=== PATIENT | female | born 2005 | race Caucasian/White ===

== ENCOUNTER 2024-11-17 20:57 | Emergency (ER) | payer MEDICAID, SELFPAY ==
[2024-11-17 20:58] VITALS: BP 131/63; PULSE 106; RESP 18; TEMP 37; O2SAT 100; BMI 25.7
--- NOTE | 2024-11-17 21:13 | EX.ED.GENINJ ---
HPI History of Present Illness Chief Complaint: Nausea/Vomiting/Diarrhea [facility] Medical History Physical exam, pre-employment Home Medications ?Medication ?Instructions ?Recorded ?Last Taken ?Type ondansetron 4 mg disintegrating 4 mg PO Q8H PRN PRN Nausea #10 tabs 11/17/24 Unknown Rx tablet Allergy/AdvReac Type Severity Reaction Status Date / Time No Known Allergies Allergy Unverified 09/06/24 11:09 Social History Smoking Status: Unknown if ever smoked EXAM Physical Exam Const Vital Signs: 11/17/24 20:58 Temperature 98.6 F Temperature Source Oral Pulse Rate 106 H Respiratory Rate 18 Blood Pressure 131/63 H Blood Pressure Mean 85 Pulse Ox 100 Oxygen Delivery Method Room Air MDM MDM MDM Narrative Medical decision making narrative: HISTORY OF PRESENT ILLNESS: 19-year-old female presents with concern for nausea and vomiting and diarrhea. No she is approximate 13 weeks . She further states she has no abdominal pain but notes multiple episodes of nausea vomiting as well as diarrhea today. No hematemesis, melena or hematochezia. No fever. Denies vaginal bleeding, passing any tissue. REVIEW OF SYSTEMS: Pertinent positives: Nausea vomiting diarrhea Pertinent negatives: Abdominal pain, vaginal bleeding, passing tissue or leaking fluid PHYSICAL EXAM: Nursing triage notes reviewed, Vital signs reviewed Constitutional: please see mdm HENT: MMM Eyes: Pupils equal round and reactive to light, Extraocular muscles intact Neck: No stridor, no JVD, full neck ROM Lungs: Clear to auscultation, No wheezing or rales. No increased work of breathing, no conversational dyspnea, no accessory muscle use, no nasal flaring. No respiratory distress noted Heart: Regular rate and rhythm, No murmurs, No rubs and No gallops, 2+ distal pulses (radial, femoral, posterior tibial) in all extremities Abdomen: Soft, there is no tenderness, rigidity, rebound or guarding, no obvious peritoneal signs, no palpable pulsatile abdominal masses, no auscultated abdominal bruit : No CVAT Extremities: No edema Neuro: No new focal neurological deficits, cranial nerves II through XII intact, 5/5 strength in all present extremities. Intact sensation to light touch in all present extremities, 2+ reflexes bilateral patella tendons. Skin: No rash or lesions noted MEDICAL DECISION MAKING: Chief Complaint: Nausea vomiting diarrhea External records reviewed: Reviewed prior records Factors affecting care: First trimester Social determinants of health: none History obtained from others: none Consults: none MDM Narrative: Patient was initially tachycardic rate of 106 otherwise afebrile and nontoxic-appearing. Exam with a benign abdomen IV and monitor placed Patient was treated initially 1 L normal saline and 4 mg of IV Zofran. Labs drawn. I considered the following differential diagnosis: Dehydration, electrolyte disturbance, UTI ALL IMAGES (IF OBTAINED) HAVE BEEN PERSONALLY REVIEWED AND INTERPRETED BY MYSELF. CBC without leukocytosis, severe anemia, no thrombocytopenia. BMP without evidence of significant electrolyte abnormalities, no anion gap, no acute kidney injury. Noted slight metabolic acidosis likely secondary to NAGMA from nausea vomiting LFTs show no evidence of hepatobiliary pathology. Lipase is wnl indicating no pancreatic inflammation. Urinalysis shows no evidence of urinary inflammation suggestive of UTI. Noted ketonuria likely secondary to dehydration and poor glucose utilization in the setting of nausea vomiting. Patient was able to tolerate p.o. after IV fluids and IV Zofran. Will give prescription for Zofran to take as needed for nausea vomiting control. The patient and/or family, caregivers express understanding. The patient and/or family, caregivers agrees with the plan. Shared decision making: I will have a discussion with the patient and or visitors regarding risk/benefits of further testing or admission. They will be made aware of of the risk/benefits inherent in this decision they will be given the opportunity to voice understanding. Total critical care time today provided was at least 0 minutes. This excludes separately billable procedures. Critical care time (if documented) is secondary to the patient having high probability of clinically significant/life threatening deterioration in the patient's condition which required my urgent intervention. Impression: 1. Nausea vomiting 2. First trimester Dispo: Discharge This note was generated with [email or web address] dictation software. It may contain incorrect words, spelling, and punctuation that were not noted in review of the chart prior to signing. Lab Data Labs: Laboratory Results - last 24 hr 11/17/24 21:39 WBC 10.5 RBC 4.58 Hgb 13.6 Hct 39.4 MCV 86.0 MCH 29.7 MCHC 34.5 RDW Std Deviation 40.2 RDW Coeff of Jeannine 13.1 Plt Count 230 MPV 9.6 Immature Gran % (Auto) 0.500 Neut % (Auto) 90.1 H Lymph % (Auto) 4.9 L Kay % (Auto) 4.1 Eos % (Auto) 0.2 Baso % (Auto) 0.2 Absolute Neuts (auto) 9.5 H Absolute Lymphs (auto) 0.52 L Nucleated RBC % 0 Sodium 136 Potassium 3.8 Chloride Direct 103 Carbon Dioxide 19.7 L Anion Gap 14 BUN 7 Creatinine 0.54 L Estim Creat Clear Calc 151.69 Est GFR (MDRD) Non-Af 135 BUN/Creatinine Ratio 12.4 Glucose 86 Calcium 9.0 Total Bilirubin 0.42 AST 18 ALT 15 Alkaline Phosphatase 53 Total Protein 7.0 Albumin 4.2 Globulin 2.9 Albumin/Globulin Ratio 1.5 Lipase 25 Urine Color Yellow Urine Clarity Sl. Cloudy Urine pH 6.0 Ur Specific Theodore 1.030 Urine Protein 100 H Urine Glucose (UA) Normal Urine Ketones 150 A* Urine Occult Blood Negative Urine Nitrite Negative Urine Bilirubin Negative Urine Urobilinogen Normal Ur Leukocyte Esterase 25 H Urine RBC 0 SEEN Urine WBC 5-10 SEEN Ur Squamous Epith Cells 25-50 SEEN Urine Bacteria 3+ Urine Mucus 2+ Discharge Plan Triage Chief Complaint: Nausea/Vomiting/Diarrhea ED Provider: Mathieu Luna Dx/Rx/DC Orders Instructions: ED Vomit Diarrhea [place] Adult Prescriptions: New ondansetron 4 mg tablet,disintegrating 4 mg PO Q8H PRN PRN (Reason: Nausea) Qty: 10 0RF Primary Care Provider: Care Physician,No Primary Referrals: Rachana Steiner DO [Med Staff - Active Staff] - Activity Restrictions/Additional Instructions: Thank you for trusting us with your care today! Please take Tylenol (2 pills, 650 mg) every 6 hours as needed for pain and fever control. Please take Zofran as needed for nausea vomiting control. Please return to the emergency department if your symptoms change or worsen. Please follow with your [facility]PERATOR for further outpatient evaluation and management. Print Language: Togolese Disposition Disposition: Home, Self Care Discharge Date/Time: 11/17/24 23:17
[2024-11-17] MEDS: 0.9% Normal Saline (1000mL) 1,000 ML 999 ML IV (21:42)
[2024-11-17] MEDS: Ondansetron 4 MG/2 ML Vial IV (21:42)
[2024-11-17 21:52] LABS: Absolute Lymphocyte Count 0.52 X10^3/uL (0.83-4.51); Absolute Neutrophil Count 9.5 X10^3/uL (2.0-7.7); Basophil# 0.02 X10^3/uL; Basophil% 0.2 % (0-1); Eosinophil# 0.02 X10^3/uL; Eosinophils% 0.2 % (0-5); Hematocrit 39.4 % (37-47); Hemoglobin 13.6 g/dL (12.0-15.0); Lymphocyte # 0.52 X10^3/ul (0.83-4.51); Lymphocyte % 4.9 % (19-41); Mean Corp Hgb Conc 34.5 g/dL (32-36); Mean Corpuscular Hgb 29.7 pg (27.0-32.0); Mean Platelet Vol. 9.6 fl (6.2-12.0); Monocyte# 0.43 X10^3/uL; Monocyte% 4.1 % (0-10); NRBC Flagged by Analyzer 0 % (0-5); Neutrophil # 9.49 X10^3/uL (2.7-7.7); Neutrophil % 90.1 % (47-70); POSITIVE DIFFERENTIAL YES; Platelet Count 230 K/mm3 (150-450); RBC Distribution Width CV 13.1 % (11.6-14.6); RBC Distribution Width SD 40.2 fl (35.1-43.9); Red Blood Count 4.58 M/mm3 (4.2-5.4); White Blood Count 10.5 K/mm3 (4.4-11.0)
[2024-11-17 22:01] LABS: Color, Urine Yellow (Yellow); Glucose, Dipstick Normal (Normal); Leukocyte Esterase-Dipstick 25 /ul (Negative); Nitrite-Dipstick Negative (Negative); Occult Blood-Urine Negative /ul (Negative); Protein-Dipstick 100 mg/dl (Negative); Urine Bilirubin Dipstick Negative (Negative); Urine Clarity Sl. Cloudy (Clear); Urine Urobilinogen Normal (Normal)
[2024-11-17 22:36] LABS: ALB/GLOB Ratio 1.5 RATIO (0.9-2.4); AST(SGOT) 18 U/L (<=31); Alanine Aminotransfer ALT/SGPT 15 U/L (<=34); Albumin, Serum 4.2 g/dL (3.5-5.0); Alkaline Phosphatase 53 U/L (35-104); Anion Gap 14 (5-15); BUN 7 mg/dL (4-19); BUN/Creat Ratio 12.4 RATIO (10-20); Bacteria 3+ /hpf (None Seen); Carbon Dioxide 19.7 mmol/L (22.0-29.0); Chloride 103 mmol/L (96-108); Creatinine, Serum 0.54 mg/dL (0.70-1.20); EST Glomerular Filtration Rate 135 (>60); Estimated Creatinine Clearance 151.69 ml/min; Globulin 2.9 g/dL (2.2-4.2); Glucose 86 mg/dL (70-99); Lipase 25 U/L (13-75); Mucous, Urine 2+ /hpf (<or=2+); Potassium 3.8 mmol/L (3.3-5.1); Red Blood Cells-Urine 0 SEEN /hpf (0-5); Sodium Level 136 mmol/L (133-145); Squamous Epithelial Cells - UA 25-50 SEEN /hpf (5-10); Total Bilirubin 0.42 mg/dL (0.00-1.30); White Blood Cells 5-10 SEEN /hpf (0-5)
[2024-11-17 22:37] LABS: Ketone-Dipstick 150 mg/dl (Negative)
== END 2024-11-17 23:17 | disposition home or self-care (01) ==
PROVIDERS: Emergency Provider Emergency Medicine; Visit Provider Emergency Medicine
DX: O21.9 Vomiting of pregnancy, unspecified (principal); Z3A.13 13 weeks gestation of pregnancy; O99.891 Other specified diseases and conditions complicating pregnancy; R19.7 Diarrhea, unspecified
CPT/HCPCS: 80053; 81001; 83690; 85025; 96361; 96374; 99283; A4216; J2405

== ENCOUNTER 2025-04-24 11:50 | Outpatient (CLI) | payer OTHER, SELFPAY ==
[2025-04-24 12:14] VITALS: BP 126/61; PULSE 104; RESP 16; TEMP 36.6
[2025-04-24 12:24] VITALS: BMI 30.9
[2025-04-24 13:02] LABS: Color, Urine Yellow (Yellow); Glucose, Dipstick Normal (Normal); Ketone-Dipstick Negative (Negative); Leukocyte Esterase-Dipstick 100 /ul (Negative); Nitrite-Dipstick Negative (Negative); Occult Blood-Urine Negative /ul (Negative); Protein-Dipstick Negative (Negative); Specific Gravity, Urine 1.020 (1.002-1.030); Urine Bilirubin Dipstick Negative (Negative)
[2025-04-24 13:04] LABS: ROM Internal Control Test YES-OK TO RESULT pt. (Internal QC); ROM Patient Test Negative (Negative); Record Kit Lot#, ROM+ K3358
--- NOTE | 2025-04-24 17:15 | OB.TRI.NOTE ---
HPI - General General Date of Admission: 04/24/25 Date of Service: 04/24/25 Chief Complaint: vaginal discharge HPI Narrative PATRICK MANCILLA, is a 19 F who presents 1 para 0 who presents at 35 6/7 weeks gestational age complaining of vaginal discharge. Maternal Data Information Final JIM: 05/23/25 Gestational age: 35 6/[address] [facility] Medical History (Updated 04/24/25 @ 17:[address] Berna Arias MD) Physical exam, pre-employment Home Medications ?Medication ?Instructions ?Recorded ?Last Taken ?Type ondansetron 4 mg disintegrating 4 mg PO Q8H PRN PRN Nausea #10 tabs 11/17/24 Unknown Rx tablet aspirin 81 mg chewable tablet 1 tab PO DAILY 04/24/25 04/23/25 21:00 History 1 TAB ferrous gluconate 236 mg (27 mg 236 mg PO DAILY 04/24/25 04/23/25 21:00 History iron) tablet 236 mg vit no.95-ferrous 1 tab PO DAILY 04/24/25 04/23/25 21:00 History fumarate 28 mg-folic acid 800 mcg 1 TAB tablet ( Multivitamins) Allergy/AdvReac Type Severity Reaction Status Date / Time No Known Allergies Allergy Verified 04/24/25 12:20 Social History Smoking Status: Unknown if ever smoked NST FHR Rate Baby A Baseline: 130 Variability:: Moderate Accelerations:: 15 x 15 Decelerations:: None NST Reactive:: Yes Uterine Activity:: none Assessment & Plan (1) and not yet delivered in third trimester: (2) with 35 completed weeks gestation: (3) Vaginal discharge during in third trimester: PLAN: No evidence of spontaneous rupture membranes. Urinalysis shows some contamination. Will send for urine culture and treat as needed. Return to the office as scheduled or follow-up as needed.
--- OUTSIDE RECORDS SUMMARY | 2025-04-24 19:00 | XMS RPT_ITS | CCD ---
Author Organization [facility] Care Team Providers Care Agent Based Modeler Name Role Phone Aura Alas DO Primary Care Provider DEBBIE CARRENO Referring Unavailable AURA ALAS Primary Care Unavailable Aura Alas DO Primary Care Provider AURA ALAS Primary Care Unavailable JEWEL MORRIS Attending Unavailable Aura Alas DO Primary Care Provider John Mireles Attending Unavailable John Mireles Attending Unavailable Mathieu Luna Attending Unavailable Care Physician, No Primary Primary Care Unava ilable AURA ALAS Primary Care Unavailable THERESA BUSCH Attending Unavailable NELLY GUTIERREZ Referring Unavailable ALASAURA Webber Primary Care Unavailable KERRIE MCKEON Attending Unavailable ALAS, ROCHELLE Primary Care Unavailable NELLY GUTIERREZ Attending Unavailable ALAS, ROCHELLE Primary Care Unavailable ALAS, ROCHELLE Primary Care Unavailable ZANE, BITA Referring Unavailable ALAS, AURA Ding Primary Care Unavailable NISHA CORCORAN Attending Unavailable ALASAURA Webber Primary Care Unavailable ALAS, AURA Ding Primary Care Unavailable JUDI VAZQUEZ Referring Unavailable ALAS, ROCHELLE Primary Care Unavailable NELLY GUTIERREZ Referring Unavailable ALASAURA A Primary Care Unavailable MCKEON, KERRIE Referring Unavailable MCKEON, KERRIE Referring Unavailable ALAS, ROCHELLE Primary Care Unavailable MCKEON, KERRIE Attending Unavailable ALAS, ROCHELLE Primary Care Unavailable ALAS, ROCHELLE Primary Care Unavailable THERSEA BUSCH Attending Unavailable ALAS, ROCHELLE Primary Care Unavailable MCKEON, KERRIE Attending Unavailable ALAS, ROCHELLE Primary Care Unavailable ALAS, ROCHELLE Primary Care Unavailable MCKEON, KERRIE Referring Unavailable NELLY GUTIERREZ Attending Unavailable ALAS, ROCHELLE Primary Care Unavailable ZANE, BITA Referring Unavailable ALAS, ROCHELLE Primary Care Unavailable ZANE, BITA Referring Unavailable NELLY GUTIERREZ Attending Unavailable AURA ALAS Primary Care Unavailable BITA DEGROOT Referring Unavailable NELLY GUTIERREZ Referring Unavailable AURA ALAS Primary Care Unavailable ELIUD CLARK Attending Unavailable AURA ALAS Primary Care Unavailable BITA DEGROOT Attending Unavailable BITA DEGROOT Referring Unavailable AURA ALAS Primary Care Unavailable CHARLEY WILSON Attending Unavailable PRABHA DALAL Attending Unavailable AURA ALAS Primary Care Unavailable AURA ALAS Primary Care Unavailable THERESA BUSCH Attending Unavailable AURA ALAS Primary Care Unavailable GEOVANI RUBALCAVA Attending Unavailable Care Physician, No Primary Primary Care Provider Unavailable Hugo COATES, Dr. Coronel Attending Provider [phone] Dr. Nelly Gutierrez MD Referring Provider Medications Current Medications Medication Drug Class(es) Dates Sig (Normalized) Sig (Original) amoxicillin 875 mg / clavulanate 125 mg oral tablet (1 source) Penicillin-class Antibacterial Start: 07-25-2023 End: 08-01-2023 take 1 tablet by mouth twice daily amoxicillin-clav ulanate potassium (AUGMENTIN) 875-125 mg per tablet Take 1 tablet by mouth two times a day for 7 days. 14 tablet 0 07/25/2023 08/01/2023 Active Comment on above: Take 1 tablet by jerry th two times a day for 7 days. aspirin 81 mg chewable tablet (17 sources) Platelet Aggregation Inhibitor, Nonsteroidal Anti-inflammatory Drug Start: 04-24-2025 Aspirin 81 mg tablet,chewable Active 1 {tbl} PO DAILY April 24, 2025 12:00am Start: 10-23-2024 End: 04-12-2025 take 1 tablet by mouth once daily aspirin, enteric coated (ECOTRIN LOW STRENGTH) 81 mg EC tablet Indications: Encounter for care in first trimester of first (HCC) Take 1 tablet by mouth once daily. 90 tablet 1 04/12/2025 Active ferrous gluconate (1 source) Start: 04-24-2025 take 1 tablet by mouth once daily Ferrous Gluconate 236 mg (27 mg iron) tablet Active 236 mg PO DAILY April 24, 2025 12:00am ferrous sulfate (SLOW FE) 137 mg (45 mg iron) TbER (16 sources) Start: 10-06-2024 take 1 tablet by mouth once daily ferrous sulfate (SLOW FE) 137 mg (45 mg iron) TbER Take 1 tablet by mouth once daily. 10/06/2024 Active nitrofurantoin, macrocrystals 25 mg / nitrofurantoin, monohydrate 75 mg oral capsule (2 sources) Nitrofuran Antibacterial Start: 05-26-2024 End: 05-31-2024 take 1 capsule by mouth twice daily nitrofurantoin monohydrate and macrocrystal (MACROBID) 100 mg capsule Take 1 capsule by mouth two times a day for 5 days. 10 capsule 05/26/2024 05/31/2024 Active ondansetron 4 mg oral tablet (13 sources) Serotonin-3 Receptor Antagonist Start: 11-20-2024 take 1 tablet by mouth every eight hours as needed ondansetron (ZOFRAN) 4 mg tablet Take 1 tablet by mouth every 8 hours as needed for nausea/vomiting. 30 tablet 11/20/2024 Active Start: 11-17-2024 take 1 tablet by [facility] every eight hours as needed for nausea Ondansetron 4 mg tablet,disintegrating Active 4 mg PO EVERY 8 HOURS NEEDED as needed for Nausea 10 0 November 17, 2024 1:00am Pnv Cmb#95-Ferrous Fumarate-Fa ( Multivitamins) 28 mg iron- 800 mcg tablet (1 source) Start: 04-24-2025 Pnv Cmb#95-Gerald jovita Fumarate-Fa ( Multivitamins) 28 mg iron- 800 mcg tablet Active 1 {tbl} PO DAILY April 24, 2025 12:00am predniSONE 20 mg oral tablet (1 source) Start: 07-22-2023 End: 07-28-2023 take 2 tablets by mouth once daily predniSONE (DELTASONE) 20 mg tablet Indications: Sore throat Take 2 tablets by mouth once daily for 5 days. 10 tablet 0 07/22/2023 07/28/2023 Active Comment on above: Take 2 tablets by mo [facility] once daily for 5 days. VITAFUSION GUMMY TChS (16 sources) Start: 10-06-2024 take 1 dose by mouth once daily VITAFUSION GUMMY TChS Take 1 Each by mouth once daily. 10/06/2024 Active Completed/Discontinued Medications Medication Drug Class(es) Dates Sig (Normalized) Sig (Original) Ethinyl Estradiol / Ferrous fumarate / Norethindrone (8 sources) Estrogen Start: 05-30-2024 End: 10-06-2024 take 1 tablet by mouth once daily Norethindrn A-E Estradiol-Iron () 1 mg-20 mcg (24)/75 mg (4) Take 1 tablet by mouth once daily. 84 tablet 1 05/30/2024 10/06/2024 Discontinued Start: 05-30-2024 take 1 tablet by jerry once daily Norethindrn A-E Estradiol-Iron ( 24) 1 mg-20 mcg (24)/75 mg (4) Take 1 tablet by mouth once daily. 84 tablet 1 05/30/2024 Active vitamin b6 50 mg oral tablet (5 sources) Start: 10-06-2024 End: 11-20-2024 take 1 tablet by mouth twice daily pyridoxine, vitamin B6, (VITAMIN B-6) 50 mg tablet Take 1 tablet by mouth two times a day. 10/06/2024 11/20/2024 Discontinued (Discontinued by Patient) Problems Active Problems Problem Classification Problem Date Documented Da te Episodic/Chronic Acquired foot deformities (1 source) Hammer toe; Translations: [Other hammer toe(s) (acquired), right foot] Chronic Acquired foot deformities (1 source) Hammer toe; Translations: [Other hammer toe(s) (acquired), left foot] Chronic Genitourinary symptoms and ill-defined conditions (2 sources) Urgent desire to urinate; Translations: [Urgency of urination] 05-24-2024 Episodic Headache; including migraine (1 source) Headache; Translations: [Headache in pediatric patient] 01-21-2024 Episodic Immunizations and screening for infectious disease (10 sources) Patient encounter status; Translations: [Encounter for screening for infections with a predominantly sexual mode of transmission] 04-28-2024 Episodic Malaise and fatigue (2 sources) Fatigue; Translations: [Other fatigue] Onset: 02-20-2025 02-20-2025 Episodic Menstrual disorders (2 sources) Dysmenorrhea; Translations: [Dysmenorrhea, unspecified] 05-30-2024 Chronic Other bone disease and musculoskeletal deformities (1 source) Segmental and somatic dysfunction of cervical region; Translations: [Segmental and somatic dysfunction of cervical region] Onset: 09-10-2023 Episodic Other bone disease and musculoskeletal deformities (1 source) Segmental and somatic dysfunction of thoracic region; Translations: [Segmental and somatic dysfunction of thoracic region] Onset: 09-10-2023 Episodic Other bone disease and musculoskeletal deformities (1 source) Segmental and somatic dysfunction of lumbar region; Translations: [Segmental and somatic dysfunction of lumbar region] Onset: 09-10-2023 Episodic Other complications of (2 sources) Spotting per vagina in ; Translations: [Spotting complicating , unspecified trimester] 09-27-2024 Episodic Other diseases of bladder and urethra (1 source) Urethritis; Translations: [Other specified disorders of urethra] 09-26-2024 Episodic Other eye disorders (2 sources) Bilateral vitreous floaters; Translations: [Other vitreous opacities, bilateral] 03-13-2025 Chronic Other eye disorders (2 sources) Other vitreous opacities, bilateral; Translations: [Floaters, bilateral] Onset: 03-13-2025 Chronic Other gastrointestinal disorders (2 sources) Constipation; Translations: [Constipation, unspecified] Episodic Other injuries and conditions due to external causes (2 sources) Injury of left wrist; Translations: [Unspecified injury of left wrist, hand and finger(s), initial encounter] Episodic Other injuries and conditions due to external causes (1 source) Unspecified injury of left wrist, hand and finger(s), initial encounter; Translations: [Wrist injury, left, initial encounter] Onset: 08-24-2022 Episodic Other nervous system disorders (2 sources) Other chronic pain; Translations: [Chronic bilateral low back pain, unspecified whether sciatica present] Onset: 09-10-2023 Chronic Other and delivery including normal (20 sources) Early stage of ; Translations: [Encounter for supervision of normal , unspecified, unspecified trimester] Onset: 10-23-2024 Resolved: 03-13-2025 10-06-2024 Episodic Other screening for suspected conditions (not mental disorders or infectious disease) (4 sources) Encounter for screening for diabetes mellitus; Translations: [Encounter for other specified screening] Onset: 11-20-2024 Episodic Other skin disorders (1 source) Foot callus; Translations: [Corns and callosities] Episodic Other upper respiratory infections (2 sources) Viral upper respiratory tract infection; Translations: [Acute upper respiratory infection, unspecified] Onset: 02-20-2025 02-20-2025 Episodic Otitis media and related conditions (1 source) Acute bilateral otitis media ; Translations: [Otitis media, unspecified, bilateral] 07-25-2023 Episodic Residual codes; unclassified (1 source) Gestation period, 9 weeks; Translations: [9 weeks gestation of ] 10-23-2024 Episodic Residual codes; unclassified (2 sources) Gestation period, 13 weeks; Translations: [13 weeks gestation of ] 11-20-2024 Episodic Residual codes; unclassified (1 source) Gestation period, 17 weeks; Translations: [17 weeks gestation of ] 12-18-2024 Episodic Residual codes; unclassified (3 sources) Gestation period, 20 weeks; Translations: [20 weeks gestation of ] 01-03-2025 Episodic Residual codes; unclassified (1 source) Gestation period, 24 weeks; Translations: [24 weeks gestation of ] 01-31-2025 Episodic Residual codes; unclassified (1 source) Gestation period, 28 weeks; Translations: [28 weeks gestation of ] 02-28-2025 Episodic Residual codes; unclassified (1 source) Gestation period, 29 weeks; Translations: [29 weeks gestation of ] 03-13-2025 Episodic Residual codes; unclassified (1 source) Gestation period, 32 weeks; Translations: [32 weeks gestation of ] 03-30-2025 Episodic Residual codes; unclassified (1 source) Gestation period, 34 weeks; Translations: [34 weeks gestation of ] 04-12-2025 Episodic Residual codes; unclassified (1 source) 34 weeks gestation of ; Translations: [34 weeks gestation of (HCC)] Onset: 04-12-2025 Episodic Residual codes; unclassified (1 source) 32 weeks gestation of ; Translations: [32 weeks gestation of (HCC)] Onset: 03-30-2025 Episodic Residual codes; unclassified (1 source) 29 weeks gestation of ; Translations: [29 weeks gestation of (HCC)] Onset: 03-13-2025 Episodic Residual codes; unclassified (1 source) 24 weeks gestation of ; Translations: [24 weeks gestation of (HCC)] Onset: 02-28-2025 Episodic Residual codes; unclassified (1 source) 28 weeks gestation of ; Translations: [28 weeks gestation of (HCC)] Onset: 02-28-2025 Episodic Unclassified (1 source) Chronic bilateral low back pain, unspecified whether sciatica present; Translations: [Chronic bilateral low back pain, unspecified whether sciatica present] Onset: 09-10-2023 Unclassified (14 sources) [facility] - COMMON Onset: 10-23-2024 10-23-2024 Unclassified (14 sources) Education - [place] Onset: 10-23-2024 10-23-2024 Unclassified (1 source) Acute right-sided low back pain without sciatica; Translations: [Acute right-sided low back pain without sciatica] Onset: 01-03-2025 Viral infection (1 source) Viral disease; Translations: [Viral infection, unspecified] 05-24-2024 Episodic Past or Other Problems Problem Classification Problem Date Documented Da te Episodic/Chronic Blindness and vision defects (20 sources) Bilateral myopia of eyes; Translations: [Myopia, bilateral] Onset: 10-06-2019 10-06-2019 Episodic Hemorrhage during ; abruptio placenta; placenta previa (4 sources) Threatened miscarriage; Translations: [Threatened ] Onset: 10-06-2024 10-03-2024 Episodic Other complications of (16 sources) Vomiting of , unspecified; Translations: [Unspecified vomiting of , unspecified as to episode of care or not applicable] Onset: 11-20-2024 11-20-2024 Episodic Other complications of (1 source) Spotting complicating , unspecified trimester; Translations: [Spotting in ] Onset: 10-02-2024 Episodic Polyhydramnios and other problems of amniotic cavity (17 sources) Subchorionic hematoma; Translations: [Other specified disorders of amniotic fluid and membranes, first trimester, not applicable or unspecified] Onset: 10-09-2024 Resolved: 03-13-2025 10-09-2024 Episodic Residual codes; unclassified (1 source) 20 weeks gestation of ; Translations: [20 weeks gestation of (HCC)] Onset: 01-03-2025 Episodic Residual codes; unclassified (1 source) 9 weeks gestation of ; Translations: [9 weeks gestation of ] Onset: 11-20-2024 Episodic Residual codes; unclassified (1 source) 13 weeks gestation of ; Translations: [13 weeks gestation of ] Onset: 11-20-2024 Episodic Spondylosis; intervertebral disc disorders; other back problems (20 sources) Neck pain; Translations: [Cervicalgia] Onset: 06-10-2020 06-10-2020 Episodic Results Test Name Value Interpretation Reference Range Facil ity CNOVon 03-30-2025 CNOV Office Visit (OBGYWM) NATALY DSOUZA ([id number]) 3 F Date Time Provider Department 03/30/25 9:30 AM KERRIE MCKEON During your visit today, we recorded the following information about you: Blood pressure Weight 112/60 77.5 kg Mindy Chin LPN 03/30/2025 9:15 AM Signed SEQUENTIAL SCREENINGS The [facility] offers sequential screenings for women who are interested in screenings for chromosomal abnormalities and certain defects during a . The sequential screen combines ultrasound and blood tests to determine the risk of chromosomal abnormalities, including Down's Syndrome (Trisomy 21) and Trisomy 18, as well as open neural tube defects including spina bifida. Ultrasound examination is performed between 11 weeks and 13 weeks gestational age. Blood tests are drawn after the ultrasound and again later in the between 15 and 21 weeks gestational age. Please let your physician know if you are interested in this testing. It will require an appointment with our sales service technician. This is not an ultrasound performed by a physician in our office during a routine visit. SIGNS AND SYMPTOMS OF LABOR 1. Contractions every 10 minutes or more often 2. Clear, pink, or brownish fluid (water) leaking from vagina 3. Feeling that baby is pushing down, pressure 4. Low, dull backache 5. Cramps that feel like a period 6. Cramps with or without diarrhea If you notice any of the above symptoms, contact our office at [phone] and ask to speak with a nurse. After hours, you can call doctors registry at [phone] OR call [facility] at [phone] and ask to have the doctor furnishings conservator paged. If you consider this an emergency, dial 9-3 or go to your nearest emergency department. NEED HELP? Are you dealing with a violent or abusive relationship? Are you a victim of rape or sexual assult? Call [facility] ([place]) 24 hour Crisis Hotline: 980.655.1022 or 147-667-1963. MANUAL Your Guide to a Healthy manual is now on-line. Visit [email or web address] e to download your free copy Kerrie Mckeon APRN.CNM 03/30/2025 10:43 AM Signed CY-S: Nataly Dsouza is a 19 year old female who presents at 32w2d with JIM:05/23/2025, by Last Menstrual Period for a routine visit. Denies headache, chest pain, shortness of breath, vaginal bleeding, leakage of fluid, or dysuria. Feeling well, no complaints. No further floaters since last visit, did not make eye doctor appointment. O: See flow sheet Gen: No apparent distress Abd: Gravid, nontender S=D, 22lb TWG No clonus, DTR +2/4 bilateral patellar ASSESSMENT/PLAN: 1. Encounter for supervision of normal first in third trimester -Continue PNV -Continue ASA -1hr GCT and CBC normal 2. 32 weeks gestation of 4. Floaters of both eyes -Nothing since last visit. All labs normal. To make appointment with eye doctor PTL precautions reviewed and when to call RTO in 2 weeks Kerrie Mckeon APRN.CNM Allergies As of Date: 03/30/2025 (No Known Allergies) Date Reviewed: 03/30/2025 Reviewed by: Mindy Chin LPN - Fully Assessed Reason for Visit: Care [86] Primary Visit Diagnosis:32 weeks gestation of (HCC) [Z3A.32] Other Visit Diagnoses:Encounter for supervision of normal first in third trimester ([facility]) [Z34.03] Floaters, bilateral [H43.393] Prescriptions as of 03/30/2025 - aspirin, enteric coated (ECOTRIN LOW STRENGTH) 81 mg EC tablet Take 1 tablet by mouth once daily. - ondansetron (ZOFRAN) 4 mg tablet Take 1 tablet by mouth every 8 hours as needed for nausea/vomiting. - VITAFUSION GUMMY TChS Take 1 Each by mouth once daily. - ferrous sulfate (SLOW FE) 137 mg (45 mg iron) TbER Take 1 tablet by mouth once daily. Problem List As Of Date 03/30/2025 Noted Resolved Myopia, bilateral [H52.13] 10/06/2019 Neck pain on left side [M54.2] 06/10/2020 Subchorionic hematoma in first trimester (HCC) *10/09/2024 03/13/2025 Encounter for supervision of normal first pregn*10/23/2024 Encounter for care in first trimester *11/20/2024 03/13/2025 Nausea and vomiting during [O21.9] 11/20/2024 Other instructions from your clinician: SEQUENTIAL SCREENINGS The [facility] offers sequential screenings for women who are interested in screenings for chromosomal abnormalities and certain defects during a . The sequential screen combines ultrasound and blood tests to determine the risk of chromosomal abnormalities, including Down's Syndrome (Trisomy 21) and Trisomy 18, as well as open neural tube defects including spina bifida. Ultrasound examination is performed between 11 weeks and 13 weeks gestational age. Blood tests are drawn after the ultrasound and again later in the b (more content not included)... Normal [facility] CBC W Auto Differential pane l (Bld)on 03-13-2025 Basophils (Bld) [#/Vol] 0.06 10*3/uL [facility] Basophils/100 WBC (Bld) 0.5 % [facility] Differential cell count method Nom (Bld) Auto [facility] Eosinophils (Bld) [#/Vol] 0.09 10*3/uL [facility] Eosinophils/100 WBC (Bld) 0.8 % [facility] Erythrocyte distribution width (RBC) [Ratio] 13.1 % 11.5 - 15.0 % [facility] Hematocrit (Bld) [Volume fraction] 33.2 % Low 36.0 - 46.0 % [facility] Hemoglobin (Bld) [Mass/Vol] 11.5 g/dL 11.5 - 15.5 g/dL [facility] Immature granulocytes (Bld) [#/Vol] 0.17 10*3/uL High NINF [facility] Immature granulocytes/100 WBC (Bld) 1.5 % [facility] Interpretation and review of laboratory results Abnormal [facility] Lymphocytes (Bld) [#/Vol] 1.84 10*3/uL [facility] Lymphocytes/100 WBC (Bld) 16.4 % [facility] MCH (RBC) [Entitic mass] 30.8 pg 26.0 - 34.0 pg [facility] MCHC (RBC) [Mass/Vol] 34.6 g/dL 30.5 - 36.0 g/ dL [facility] MCV (RBC) [Entitic vol] 89 fL 80.0 - 100.0 fL [facility] Monocytes (Bld) [#/Vol] 0.73 10*3/uL [facility] Monocytes/100 WBC (Bld) 6.5 % [facility] Neutrophils (Bld) [#/Vol] 8.35 10*3/uL High [facility] Neutrophils/100 WBC (Bld) 74.3 % [facility] Nucleated RBC (Bld) [#/Vol] [facility] Nucleated RBC/100 WBC (Bld) [Ratio] 0 % /100 WBC [facility] Platelet mean volume (Bld) [Entitic vol] 9.8 fL 9.0 - 12.7 fL [facility] Platelets (Bld) [#/Vol] 243 10*3/uL [facility] RBC (Bld) [#/Vol] 3.73 10*6/uL Low 3.90 - 5.20 m/uL [facility] WBC (Bld) [#/Vol] 11.24 10*3/uL [facility] Basophils (Bld) [#/Vol] 0.06 10*3/uL Normal <0.11 [facility] Comment on above: Order Comment: Speci men Type: BLOOD SPECIMEN Ordering Facility: [facility] Address: [address] [place], [place] [address] Performed By: #### G LTGST #### [facility] CLIA [id number] [address] [place] [address] [place] Basophils/100 WBC (Bld) 0.5 % Normal [facility] Comment on above: Order Comment: Speci men Type: BLOOD SPECIMEN Ordering Facility: [facility] Address: [address] [place] [address] Performed By: #### G LTGST #### [facility] CLIA [id number] [address] [place] [address] [place] Differential cell count method Nom (Bld) Auto Normal [facility] Comment on above: Order Comment: Speci men Type: BLOOD SPECIMEN Ordering Facility: [facility] Address: [address] [place] [address] Performed By: #### G LTGST #### [facility] CLIA [id number] [address] [place] [address] [place] Eosinophils (Bld) [#/Vol] 0.09 10*3/uL Normal <0.46 [facility] Comment on above: Order Comment: Speci men Type: BLOOD SPECIMEN Ordering Facility: [facility] Address: [address] [place] [address] Performed By: #### G LTGST #### [facility] CLIA [id number] [address] [place] [address] [place] Eosinophils/100 WBC (Bld) 0.8 % Normal [facility] Comment on above: Order Comment: Speci men Type: BLOOD SPECIMEN Ordering Facility: [facility] Address: [address] [place] [address] Performed By: #### G LTGST #### [id number] [address] [place] [address] [place] Erythrocyte distribution width (RBC) [Ratio] 13.1 % Normal 11.5-15.0 [facility] Comment on above: Order Comment: Speci men Type: BLOOD SPECIMEN Ordering Facility: [facility] Address: [address] [place] [address] Performed By: #### G LTGST #### [facility] CLIA [id number] [address] [place] [address] [place] Hematocrit (Bld) [Volume fraction] 33.2 % Low 36.0-46.0 [facility] Comment on above: Order Comment: Speci men Type: BLOOD SPECIMEN Ordering Facility: [facility] Address: [address] [place] [address] Performed By: #### G LTGST #### [facility] CLIA [id number] [address] [place] [address] [place] Hemoglobin (Bld) [Mass/Vol] 11.5 g/dL Normal 11.5-15.5 [facility] Comment on above: Order Comment: Speci men Type: BLOOD SPECIMEN Ordering Facility: [facility] Address: [address] [place] [address] Performed By: #### G LTGST #### [facility] CLIA [id number] [address] [place] [address] [place] Immature granulocytes (Bld) [#/Vol] 0.17 10*3/uL High <0.10 [facility] Comment on above: Order Comment: Speci men Type: BLOOD SPECIMEN Ordering Facility: [facility] Address: [address] [place] [address] Performed By: #### G LTGST #### [facility] CLIA [id number] [address] [place] [address] [place] Immature granulocytes/100 WBC (Bld) 1.5 % Normal [facility] Comment on above: Order Comment: Speci men Type: BLOOD SPECIMEN Ordering Facility: [facility] Address: [address] [place] [address] Performed By: #### G LTGST #### [facility] [id number] [address] [place] [address] [place] Lymphocytes (Bld) [#/Vol] 1.84 10*3/uL Normal 1.00-4.00 [facility] Comment on above: Order Comment: Speci men Type: BLOOD SPECIMEN Ordering Facility: [facility] Address: [address] [place] [address] Performed By: #### G LTGST #### [facility] CLIA [id number] [address] [place] [address] [place] Lymphocytes/100 WBC (Bld) 16.4 % Normal [facility] Comment on above: Order Comment: Speci men Type: BLOOD SPECIMEN Ordering Facility: [facility] Address: [address] [place] [address] Performed By: #### G LTGST #### [facility] [id number] [address] [place] [address] [place] MCH (RBC) [Entitic mass] 30.8 pg Normal 26.0-34.0 [facility] Comment on above: Order Comment: Speci men Type: BLOOD SPECIMEN Ordering Facility: [facility] Address: [address] [place] [address] Performed By: #### G LTGST #### [facility] [id number] [address] [place] [address] [place] MCHC (RBC) [Mass/Vol] 34.6 g/dL Normal 30.5-36.0 [facility] Comment on above: Order Comment: Speci men Type: BLOOD SPECIMEN Ordering Facility: [facility] Address: [address] [place] [address] Performed By: #### G LTGST #### [facility] [id number] [address] [place] [address] [place] MCV (RBC) [Entitic vol] 89.0 fL Normal 80.0-100.0 [facility] Comment on above: Order Comment: Speci men Type: BLOOD SPECIMEN Ordering Facility: [facility] Address: [address] [place] [address] Performed By: #### G LTGST #### [facility] CLIA [id number] [address] [place] [address] [place] Monocytes (Bld) [#/Vol] 0.73 10*3/uL Normal <0.87 [facility] Comment on above: Order Comment: Speci men Type: BLOOD SPECIMEN Ordering Facility: [facility] Address: [address] [place] [address] Performed By: #### G LTGST #### [facility] CLIA [id number] [address] [place] [address] [place] Monocytes/100 WBC (Bld) 6.5 % Normal [facility] Comment on above: Order Comment: Speci men Type: BLOOD SPECIMEN Ordering Facility: [facility] Address: [address] [place] [address] Performed By: #### G LTGST #### [facility] CLIA [id number] [address] [place] [address] [place] Neutrophils (Bld) [#/Vol] 8.35 10*3/uL High 1.45-7.50 [facility] Comment on above: Order Comment: Speci men Type: BLOOD SPECIMEN Ordering Facility: [facility] Address: [address] [place] [address] Performed By: #### G LTGST #### [facility] CLIA [id number] [address] [place] [address] [place] Neutrophils/100 WBC (Bld) 74.3 % Normal [facility] Comment on above: Order Comment: Speci men Type: BLOOD SPECIMEN Ordering Facility: [facility] Address: [address] [place] [address] Performed By: #### G LTGST #### [facility] CLIA [id number] [address] [place] [address] [place] Nucleated RBC (Bld) [#/Vol] 10*3/uL Normal <0.01 [facility] Comment on above: Order Comment: Speci men Type: BLOOD SPECIMEN Ordering Facility: [facility] Address: [address] [place] [address] Performed By: #### G LTGST #### [facility] CLIA [id number] [address] [place] [address] [place] Nucleated RBC/100 WBC (Bld) [Ratio] 0.0 /100 WBC Normal [facility] Comment on above: Order Comment: Speci men Type: BLOOD SPECIMEN Ordering Facility: [facility] Address: [address] [place] [address] Performed By: #### G LTGST #### [facility] CLIA [id number] [address] [place] [address] [place] Platelet mean volume (Bld) [Entitic vol] 9.8 fL Normal 9.0-12.7 [facility] Comment on above: Order Comment: Speci men Type: BLOOD SPECIMEN Ordering Facility: [facility] Address: [address] [place] [address] Performed By: #### G LTGST #### [facility] CLIA [id number] [address] [place] [address] [place] Platelets (Bld) [#/Vol] 243 10*3/uL Normal 150-400 [facility] Comment on above: Order Comment: Speci men Type: BLOOD SPECIMEN Ordering Facility: [facility] Address: [address] [place] [address] Performed By: #### G LTGST #### [facility] CLIA [id number] [address] [place] [address] [place] RBC (Bld) [#/Vol] 3.73 10*6/uL Low 3.90-5.20 [facility] Comment on above: Order Comment: Speci men Type: BLOOD SPECIMEN Ordering Facility: [facility] Address: [address] [place] [address] Performed By: #### G LTGST #### [facility] CLIA [id number] [address] WBC (Bld) [#/Vol] 11.24 10*3/uL High 3.70-11.00 [facility] Comment on above: Order Comment: Speci men Type: BLOOD SPECIMEN Ordering Facility: [facility] Address: [address] [place], [place] [address] Performed By: #### G LTGST #### [facility] CLIA [id number] [address] Comprehensive metabolic 2000 panelOrdered By: [place] Ward on 03-13-2025 Albumin [Mass/Vol] 3.6 g/dL Low 3.9 - 4.9 g/dL [facility] ALP [Catalytic activity/Vol] 64 U/L 34 - 123 U/L [facility] ALT [Catalytic activity/Vol] 11 U/L 7 - 38 U/L [facility] Anion gap [Moles/Vol] 12 mmol/L 8 - 15 mmol/L [facility] AST [Catalytic activity/Vol] 15 U/L 13 - 35 U/L [facility] Bilirubin [Mass/Vol] 0.2 mg/dL 0.2 - 1.3 mg/dL [facility] Calcium [Mass/Vol] 8.7 mg/dL 8.5 - 10.2 mg/dL [facility] Chloride [Moles/Vol] 105 mmol/L 98 - 107 mmol/L [facility] CO2 [Moles/Vol] 18 mmol/L Low 22 - 30 mmol/L [facility] Creatinine [Mass/Vol] 0.54 mg/dL Low 0.58 - 0.96 mg/dL [facility] GFR/1.73 sq M.predicted among non-blacks MDRD (S/P/Bld) [Vol rate/Area] 135 mL/min/{1.73_m2} - PINF [facility] Comment on above: Estimated Glomerular Filtration Rate (eGFR) is calculated using the 2020 CKD-EPI creatinine equation. This equation utilizes serum creatinine, sex, and age as parameters. The creatinine assay has traceable calibration to isotope dilution-mass spectrometry. Refer to KDIGO guidelines for clinical interpretation. In patients with unstable renal function, e.g. those with acute kidney injury, the eGFR may not accurately reflect actual GFR. Glucose [Mass/Vol] 85 mg/dL 74 - 99 mg/dL [facility] Comment on above: The [place] Diabete s Association (ADA) provides guidance for cutoff values for fasting glucose and random glucose. The ADA defines fasting as no caloric intake for at least 8 hours. Fasting plasma glucose results between 100 to 125 mg/dL indicate increased risk for diabetes (prediabetes). Fasting plasma glucose results greater than or equal to 126 mg/dL meet the criteria for diagnosis of diabetes. In the absence of unequivocal hyperglycemia, results should be confirmed by repeat testing. In a patient with classic symptoms of hyperglycemia or hyperglycemic crisis, random plasma glucose results greater than or equal to 200 mg/dL meet the criteria for diagnosis of diabetes. Reference: Standards of Medical Care in Diabetes 2016, [place] Diabetes Association. Diabetes Care. 2016.39(Suppl 1). Interpretation and review of laboratory results Abnormal [facility] Potassium [Moles/Vol] 4.1 mmol/L 3.7 - 5.1 mmol /L [facility] Protein [Mass/Vol] 6.3 g/dL 6.3 - 8.0 g/dL [facility] Sodium [Moles/Vol] 135 mmol/L Low 136 - 144 mmol/L [facility] Urea nitrogen [Mass/Vol] 11 mg/dL 7 - 21 mg/dL [facility] Comprehensive metabolic 2000 panelon 03-13-2025 Albumin [Mass/Vol] 3.6 g/dL Low 3.9-4.9 [facility] Comment on above: Order Comment: Speci men Type: BLOOD SPECIMEN Ordering Facility: [facility] Address: [address] [place] [address] Performed By: #### G LTGST #### [facility] CLIA [id number] [address] [place] [address] [place] ALP [Catalytic activity/Vol] 64 U/L Normal 34-123 [facility] Comment on above: Order Comment: Speci men Type: BLOOD SPECIMEN Ordering Facility: [facility] Address: [address] [place] [address] Performed By: #### G LTGST #### [facility] CLIA [id number] [address] [place] [address] [place] ALT [Catalytic activity/Vol] 11 U/L Normal 7-38 [facility] Comment on above: Order Comment: Speci men Type: BLOOD SPECIMEN Ordering Facility: [facility] Address: [address] [place] [address] Performed By: #### G LTGST #### [facility] CLIA [id number] [address] [place] [address] [place] Anion gap [Moles/Vol] 12 mmol/L Normal 8-15 [facility] Comment on above: Order Comment: Speci men Type: BLOOD SPECIMEN Ordering Facility: [facility] Address: [address] [place] [address] Performed By: #### G LTGST #### [facility] CLIA [id number] [address] [place] [address] [place] AST [Catalytic activity/Vol] 15 U/L Normal 13-35 [facility] Comment on above: Order Comment: Speci men Type: BLOOD SPECIMEN Ordering Facility: [facility] Address: [address] [place] [address] Performed By: #### G LTGST #### [facility] CLIA [id number] [address] [place] [address] [place] Bilirubin [Mass/Vol] 0.2 mg/dL Normal 0.2-1.3 [facility] Comment on above: Order Comment: Speci men Type: BLOOD SPECIMEN Ordering Facility: [facility] Address: [address] [place] [address] Performed By: #### G LTGST #### [facility] [id number] [address] [place] [address] [place] Calcium [Mass/Vol] 8.7 mg/dL Normal 8.5-10.2 [facility] Comment on above: Order Comment: Speci men Type: BLOOD SPECIMEN Ordering Facility: [facility] Address: [address] [place] [address] Performed By: #### G LTGST #### [facility] CLIA [id number] [address] [place] [address] [place] Chloride [Moles/Vol] 105 mmol/L Normal 98-107 [facility] Comment on above: Order Comment: Speci men Type: BLOOD SPECIMEN Ordering Facility: [facility] Address: [address] [place] [address] Performed By: #### G LTGST #### [facility] [id number] [address] [place] [address] [place] CO2 [Moles/Vol] 18 mmol/L Low 22-30 [facility] Comment on above: Order Comment: Speci men Type: BLOOD SPECIMEN Ordering Facility: [facility] Address: [address] [place] [address] Performed By: #### G LTGST #### [facility] [id number] [address] [place] [address] [place] Creatinine [Mass/Vol] 0.54 mg/dL Low 0.58-0.96 [facility] Comment on above: Order Comment: Speci men Type: BLOOD SPECIMEN Ordering Facility: [facility] Address: [address] [place] [address] Performed By: #### G LTGST #### [facility] CLIA [id number] [address] [place] [address] [place] Creatinine and Glomerular filtration rate.predicted panel (S/P/Bld) 135 mL/min/1.73m??? Normal >=60 [facility] Comment on above: Order Comment: [address] Type: BLOOD SPECIMEN Ordering Facility: [facility] Address: [address] [place] [address] Result Comment: Dennise mated Glomerular Filtration Rate (eGFR) is calculated using the 2020 CKD-EPI creatinine equation. This equation utilizes serum creatinine, sex, and age as parameters. The creatinine assay has traceable calibration to isotope dilution-mass spectrometry. Refer to KDIGO guidelines for clinical interpretation. In patients with unstable renal function, e.g. those with acute kidney injury, the eGFR may not accurately reflect actual GFR. Performed By: #### G LTGST #### [facility] [id number] [address] [place] [address] [place] Glucose [Mass/Vol] 85 mg/dL Normal 74-99 [facility] Comment on above: Order Comment: [address] Type: BLOOD SPECIMEN Ordering Facility: [facility] Address: [address] [place] [address] Result Comment: The [place] Diabetes Association (ADA) provides guidance for cutoff values for fasting glucose and random glucose. The ADA defines fasting as no caloric intake for at least 8 hours. Fasting plasma glucose results between 100 to 125 mg/dL indicate increased risk for diabetes (prediabetes). Fasting plasma glucose results greater than or equal to 126 mg/dL meet the criteria for diagnosis of diabetes. In the absence of unequivocal hyperglycemia, results should be confirmed by repeat testing. In a patient with classic symptoms of hyperglycemia or hyperglycemic crisis, random plasma glucose results greater than or equal to 200 mg/dL meet the criteria for diagnosis of diabetes. Reference: Standards of Medical Care in Diabetes 2016, [place] Diabetes Association. Diabetes Care. 2016.39(Suppl 1). Performed By: #### G LTGST #### [facility] [id number] [address] [place] [address] [place] Potassium [Moles/Vol] 4.1 mmol/L Normal 3.7-5.1 [facility] Comment on above: Order Comment: [address] Type: BLOOD SPECIMEN Ordering Facility: [facility] Address: [address] [place], [place] [address] Performed By: #### G LTGST #### [facility] CLIA [id number] [address] [place] [address] [place] Protein [Mass/Vol] 6.3 g/dL Normal 6.3-8.0 [facility] Comment on above: Order Comment: Speci men Type: BLOOD SPECIMEN Ordering Facility: [facility] Address: [address] [place] [address] Performed By: #### G LTGST #### [facility] CLIA [id number] [address] [place] [address] [place] Sodium [Moles/Vol] 135 mmol/L Low 136-144 [facility] Comment on above: Order Comment: Speci men Type: BLOOD SPECIMEN Ordering Facility: [facility] Address: [address] [place] [address] Performed By: #### G LTGST #### [facility] CLIA [id number] [address] [place] [address] [place] Urea nitrogen [Mass/Vol] 11 mg/dL Normal 7-21 [facility] Comment on above: Order Comment: Speci men Type: BLOOD SPECIMEN Ordering Facility: [facility] Address: [address] [place] [address] Performed By: #### G LTGST #### [facility] [id number] [address] [place] [address] [place] No Panel InformationOrdered By: [place] Ward on 03-13-2025 [facility] Prot/Creat Uron 03-13-2025 Protein/Creatinine (U) [Mass ratio] 0.06 mg/mg Normal <0.15 [facility] Comment on above: Order Comment: Speci men Type: URINE SPECIMENOrdering Facility: [facility] Address: [address] [place] [address] Result Comment: Adul t Proteinuria Categories: <0.15 mg/mg is considered normal to mildly increased 0.15 - 0.50 mg/mg is considered moderately increased >0.50 mg/mg is considered severely increased KDIGO. (2013). KDIGO 2012 Clinical Practice Guideline for the Evaluation and Management of Chronic Kidney Disease. Official Journal of the International Society of Nephrology, 3(1), 1-150. Performed By: #### 2 890-2 ####[facility] LABIA [id number] [place] [id number] [place] Protein/Creatinine (U) [Mass ratio]on 03-13-2025 Creatinine (U) [Mass/Vol] 80.1 mg/dL Normal 20.0-300.0 [facility] Comment on above: Order Comment: Speci men Type: URINE SPECIMENOrdering Facility: [facility] Address: [address] [place] [address] Performed By: #### 2 890-2 ####[facility] LABIA [id number] [place] [address] [place] Protein (U) [Mass/Vol] 5 mg/dL Normal 0-20 [facility] Comment on above: Order Comment: Speci men Type: URINE SPECIMENOrdering Facility: [facility] Address: [address] [place] [address] Performed By: #### 2 890-2 ####[facility] LABIA [id number] [place] [id number] [place] URIC ACIDon 03-13-2025 Urate [Mass/Vol] 4.1 mg/dL 2.5 - 6.6 mg/dL [facility] Urate SerPl-mCncon Urate [Mass/Vol] 4.1 mg/dL Normal 2.5-6.6 [facility] Comment on above: Order Comment: Speci men Type: BLOOD SPECIMEN Ordering Facility: [facility] Address: [address] [place] [address] Performed By: #### G LTGST #### [facility] [place] CLIA [id number] [address] [place] [address] [place] Urate [Mass/Vol]on Interpretation and review of laboratory results Normal [facility] CBC W Auto Differential pane l (Bld)on 02-28-2025 Basophils (Bld) [#/Vol] 0.04 10*3/uL Normal <0.11 [facility] Comment on above: Order Comment: Speci men Type: BLOOD SPECIMENOrdering Facility: [facility] Address: [address] [place] [address] Performed By: #### 5 7021-8 ####[facility] [id number] [place] [address] [place] Basophils/100 WBC (Bld) 0.4 % Normal [facility] Comment on above: Order Comment: Speci men Type: BLOOD SPECIMENOrdering Facility: [facility] Address: [address] [place] [address] Performed By: #### 5 7021-8 ####[facility] [id number] [place] [address] [place] Differential cell count method Nom (Bld) Auto Normal [facility] Comment on above: Order Comment: Speci men Type: BLOOD SPECIMENOrdering Facility: [facility] Address: [address] [place] [address] Performed By: #### 5 7021-8 ####[facility] MILLWNCLIA [id number] [place] [address] [place] Eosinophils (Bld) [#/Vol] 0.06 10*3/uL Normal <0.46 [facility] Comment on above: Order Comment: Speci men Type: BLOOD SPECIMENOrdering Facility: [facility] Address: [address] [place] [address] Performed By: #### 5 7021-8 ####[facility] MILLWNCLIA [id number] [place] [address] [place] Eosinophils/100 WBC (Bld) 0.6 % Normal [facility] Comment on above: Order Comment: Speci men Type: BLOOD SPECIMENOrdering Facility: [facility] Address: [address] [place] [address] Performed By: #### 5 7021-8 ####[facility]ENTERBRIAN [id number] [place] [address] [place] Erythrocyte distribution width (RBC) [Ratio] 13.0 % Normal 11.5-15.0 [facility] Comment on above: Order Comment: Speci men Type: BLOOD SPECIMENOrdering Facility: [facility] Address: [address] [place] [address] Performed By: #### 5 7021-8 ####[facility]ENTERNCDOMINGO [id number] [place] [address] [place] Hematocrit (Bld) [Volume fraction] 34.1 % Low 36.0-46.0 [facility] Comment on above: Order Comment: Speci men Type: BLOOD SPECIMENOrdering Facility: [facility] Address: [address] [place] [address] Performed By: #### 5 7021-8 ####[facility]ENTERNCCHERRY [id number] [place] [address] [place] Hemoglobin (Bld) [Mass/Vol] 11.6 g/dL Normal 11.5-15.5 [facility] Comment on above: Order Comment: Speci men Type: BLOOD SPECIMENOrdering Facility: [facility] Address: [address] [place] [address] Performed By: #### 5 7021-8 ####[facility]ERNCLIA [id number] [place] [address] [place] Immature granulocytes (Bld) [#/Vol] 0.10 10*3/uL High <0.10 [facility] Comment on above: Order Comment: Speci men Type: BLOOD SPECIMENOrdering Facility: [facility] Address: [address] [place] [address] Performed By: #### 5 7021-8 ####[facility] MARTELLOwenNCCHERRYA [id number] [place] [address] [place] Immature granulocytes/100 WBC (Bld) 1.1 % Normal [facility] Comment on above: Order Comment: Speci men Type: BLOOD SPECIMENOrdering Facility: [facility] Address: [address] [place] [address] Performed By: #### 5 7021-8 ####[facility]ERNCLI [id number] [place] [address] [place] Lymphocytes (Bld) [#/Vol] 1.73 10*3/uL Normal 1.00-4.00 [facility] Comment on above: Order Comment: Speci men Type: BLOOD SPECIMENOrdering Facility: [facility] Address: [address] [place] [address] Performed By: #### 5 7021-8 ####[facility] [id number] [place] [address] [place] Lymphocytes/100 WBC (Bld) 18.4 % Normal [facility] Comment on above: Order Comment: Speci men Type: BLOOD SPECIMENOrdering Facility: [facility] Address: [address] [place] [address] Performed By: #### 5 7021-8 ####[facility] [id number] [place] [address] [place] MCH (RBC) [Entitic mass] 30.4 pg Normal 26.0-34.0 [facility] Comment on above: Order Comment: Speci men Type: BLOOD SPECIMENOrdering Facility: [facility] Address: [address] [place] [address] Performed By: #### 5 7021-8 ####[facility] JACKSONVILLEWNCLIA [id number] [place] [address] [place] MCHC (RBC) [Mass/Vol] 34.0 g/dL Normal 30.5-36.0 [facility] Comment on above: Order Comment: Speci men Type: BLOOD SPECIMENOrdering Facility: [facility] Address: [address] [place], [place] [address] Performed By: #### 5 7021-8 ####[facility] [id number] [place] [address] [place] MCV (RBC) [Entitic vol] 89.3 fL Normal 80.0-100.0 [facility] Comment on above: Order Comment: Speci men Type: BLOOD SPECIMENOrdering Facility: [facility] Address: [address] [place] [address] Performed By: #### 5 7021-8 ####[facility]ERNCA [id number] [place] [address] [place] Monocytes (Bld) [#/Vol] 0.65 10*3/uL Normal <0.87 [facility] Comment on above: Order Comment: Speci men Type: BLOOD SPECIMENOrdering Facility: [facility] Address: [address] [place] [address] Performed By: #### 5 7021-8 ####[facility] [id number] [address] [place] Monocytes/100 WBC (Bld) 6.9 % Normal [facility] Comment on above: Order Comment: Speci men Type: BLOOD SPECIMENOrdering Facility: [facility] Address: [address] [place], [place] [id number] Performed By: #### 5 7021-8 ####[facility]IA [id number] [place] [id number] [place] Neutrophils (Bld) [#/Vol] 6.83 10*3/uL Normal 1.45-7.50 [facility] Comment on above: Order Comment: Speci men Type: BLOOD SPECIMENOrdering Facility: [facility] Address: [address] [place] [address] Performed By: #### 5 7021-8 ####[facility] [id number] [place] [address] [place] Neutrophils/100 WBC (Bld) 72.6 % Normal [facility] Comment on above: Order Comment: Speci men Type: BLOOD SPECIMENOrdering Facility: [facility] Address: [address] [place] [address] Performed By: #### 5 7021-8 ####[facility] [id number] [place] [address] [place] Nucleated RBC (Bld) [#/Vol] 10*3/uL Normal <0.01 [facility] Comment on above: Order Comment: Speci men Type: BLOOD SPECIMENOrdering Facility: [facility] Address: [address] [place] [address] Performed By: #### 5 7021-8 ####[facility] [id number] [place] [address] [place] Nucleated RBC/100 WBC (Bld) [Ratio] 0.0 /100 WBC Normal [facility] Comment on above: Order Comment: Speci men Type: BLOOD SPECIMENOrdering Facility: [facility] Address: [address] [place] [address] Performed By: #### 5 7021-8 ####[facility]ERNCLI [id number] [place] [address] [place] Platelet mean volume (Bld) [Entitic vol] 9.5 fL Normal 9.0-12.7 [facility] Comment on above: Order Comment: Speci men Type: BLOOD SPECIMENOrdering Facility: [facility] Address: [address] [place] [address] Performed By: #### 5 7021-8 ####[facility] TABNCLIA [id number] [place] [address] [place] Platelets (Bld) [#/Vol] 231 10*3/uL Normal 150-400 [facility] Comment on above: Order Comment: Speci men Type: BLOOD SPECIMENOrdering Facility: [facility] Address: [address] [place] [address] Performed By: #### 5 7021-8 ####[facility] [id number] [place] [address] [place] RBC (Bld) [#/Vol] 3.82 10*6/uL Low 3.90-5.20 [facility] Comment on above: Order Comment: Speci men Type: BLOOD SPECIMENOrdering Facility: [facility] Address: [address] [place] [address] Performed By: #### 5 7021-8 ####[facility]ERNCLIA [id number] [place] [address] [place] WBC (Bld) [#/Vol] 9.41 10*3/uL Normal 3.70-11.00 [facility] Comment on above: Order Comment: Speci men Type: BLOOD SPECIMENOrdering Facility: [facility] Address: [address] [place] [address] Performed By: #### 5 7021-8 ####[facility]CLIA [id number] [place] [address] [place] GESTATIONAL GLUCOSE SCREEN, 1-HOUR, 50 GRAM, NON-FASTINGon 02-28-2025 Glucose [Mass/Vol] 67 mg/dL Low 74-134 [facility] Comment on above: Order Comment: Speci men Type: BLOOD SPECIMEN [facility]ing Facility: [facility] Address: [address] [place] [address] Result Comment: [facility] Congress of Obstetricians and Gynecologists (Val/Will) guidelines state a gestational diabetes mellitus positive screen is made, in women not previously diagnosed with overt diabetes, when the 1 hr plasma glucose level is equal to or above 140 mg/dL. The [facility] [facility] [place] recommends a 135 mg/dL cutoff. Performed By: #### G LTGST #### [facility] CLIA [id number] [address] [place] [address] [place] Reagin and Treponema pallidu m IgG and IgM [Interp]on 02-28-2025 T. pallidum IgG+IgM IA Ql (S) Non-Reactive Normal Nonreactive [facility] Comment on above: Order Comment: [address] Type: BLOOD SPECIMEN [facility]ing [facility]: [facility] Address: [address] [place] [address] Performed By: #### G LTGST #### [facility] CLIA [id number] [address] [place] [address] [place] Reagin+T pallidum IgG+IgM Se rPl-Impon 02-28-2025 Reagin and Treponema pallidum IgG and IgM [Interp] Cannot exclude recent Treponemal infection if specimen collected within 7-10 days after appearance of suspect lesions or 2-3 weeks after an exposure. Clinical correlation is required. Normal [facility] Comment on above: Order Comment: [address] Type: BLOOD SPECIMEN [facility]ing [facility]: [facility] Address: [address] [place] [address] Performed By: #### G LTGST #### [facility] CLIA [id number] [address] [place] [address] [place] CNOVon 02-20-2025 CNOV Office Visit ([facility]) NATALY DSOUZA ([id number]) 3 F Date Time Provider Department 02/20/25 5:45 PM GEOVANI RUBALCAVA [facility] During your visit today, we recorded the following information about you: Temperature Pulse Respiration Blood pressure 97.9 degrees 87/minute 18/minute 94/66 Weight 73 kg Geovani Rubalcava APRN.CNP 02/20/2025 6:03 PM Signed [facility] PATIENT INFO COMMON COLD OVERVIEW The common cold is one of the most frequent illnesses in the [place]. Although most colds are mild and resolve within a short time period, colds cost billions of dollars per year, mostly due to lost time at work and school. COMMON COLD CAUSES The common cold is a group of symptoms caused by one of a large number of viruses. Rhinoviruses cause the greatest number of colds; there are more than 100 different varieties of rhinovirus. Most viruses cause a person to be ill only once. However, due to the large number of viruses, a person can have a cold multiple times throughout his or her lifetime. The average adult experiences two to three colds per year, while children average 8 to 12 colds per year. Colds are transmitted from lbljnl-xy-brlmeg. Less often, the virus can be transmitted by touching a surface. Direct contact -- People with colds typically carry the cold virus on their hands. The virus may remain alive on the skin and capable of infecting another person for at least two hours. Thus, if a sick person shakes someone's hand and that individual then touches his eye, nose, or mouth, the virus can be transmitted and later infect that person. Infection from particles on surfaces -- Some cold viruses can live on surfaces (such as a counter top, door handle, or phone) for several hours. Inhaling viral particles -- Droplets containing viral particles can be breathed, coughed, or sneezed into the air by a person with a cold. The virus can be transmitted to others if another person is standing close (a few feet) and the droplet touches that person?s eye, nose, or mouth. Covering the mouth while coughing or sneezing greatly reduces this risk. Most cold viruses are not spread by saliva. Thus, kissing itself is not likely to transmit the common cold, but close direct contact can. Colds are not caused by cold climates or being exposed to cold air. However, some types of virus cause more colds during certain seasons (eg, fall and winter versus spring). COMMON COLD SIGNS AND SYMPTOMS The common cold usually causes nasal congestion, runny nose, and sneezing. A sore throat may be present on the first day but usually resolves quickly. If a cough occurs, it generally develops on about the fourth or fifth day of symptoms, typically when congestion and runny nose are usually resolving. COMMON COLD COMPLICATIONS In most cases, colds do not cause serious illness. Most colds last for three to seven days, although many people continue to have symptoms (coughing, sneezing, congestion) for up to two weeks. Some viruses that cause the common cold can also depress the immune system or cause swelling in the lining of the nose or airways; this can, in turn, lead to a new viral infection or bacterial infection. One of the more common complications is sinusitis, which is usually caused by viruses and rarely (about 2 percent of the time) by bacteria. However, it can be difficult to distinguish bacterial sinusitis from sinusitis caused by a cold because the signs and symptoms can be similar Having thick or yellow to green-colored nasal discharge does not mean that bacterial sinusitis has developed; discolored nasal discharge is a normal phase of the common cold. Lower respiratory infections, such as pneumonia or bronchitis, may develop following a cold. Infection of the middle ear, or otitis media, can accompany or follow a cold. The influenza virus, which causes the flu, can also cause features similar to those of a cold. However, the flu usually causes other signs and symptoms (fever, body aches) and is more serious than a cold. COMMON COLD TREATMENT There is no specific treatment for the viruses that cause the common cold. Most treatments are aimed at relieving some of the symptoms of the cold, but do not shorten or cure the cold. Antibiotics are not useful for treating the common cold; antibiotics are only used to treat illnesses caused by bacteria, not viruses. The symptoms of a cold will resolve over time, even without any treatment. The following are treatments that may reduce the symptoms caused by the common cold. People with underlying medical conditions and those who use other ipnu-qxg-uukuphq or prescription medications should speak with their healthcare provider or pharmacist to ensure that it is safe to use these treatments. Runny nose and nasal congestion -- Runny nose and congestion may improve (more content not included)... Normal [facility] GLUCOSE, BLOOD (POC)on 02-20 Glucose [Mass/Vol] 115 mg/dL Abnormal 74 - 99 mg/dL [facility] Comment on above: Location:[address], [place], [address] The Accu-Chek Inform II glucose meter has not been approved for testing on patients receiving intensive medical intervention or therapy and results from this point of care glucose test should not be used for patient management decisions in these cases. Inaccurate results may also occur from other interfering factors, such as N-acetylcysteine (blood concentrations of greater than 5mg/dL), galactose, extremes of hematocrit (<10 or >65), or high doses of ascorbic acid (vitamin C) greater than 3mg/dL. Consider alternate testing mechanisms (e.g. core lab, blood gas instrument) in the above situations. Interpretation and review of laboratory results Abnormal [facility] Examination level ultrasound on 01-03-2025 Indication Standard anatomic survey Impression The patient is referred for a standard anatomic survey. - Single, live, intrauterine . - biometry is consistent with the established gestational age. - No malformations were visualized on a complete standard anatomic survey. - The amniotic fluid volume is normal amount. - The placenta is posterior, fundal. - The Transabdominal cervical length measures 32.6 mm with no evidence of funneling or other dynamic changes. - Not all structural malformations can be detected by ultrasound examination. Recommendations Additional follow-up as clinically indicated. Maternal Assessment Height 163 cm Height (ft) 5 ft Height (in) 4 in Physical Exam Initial weight (lb) 142 lb Initial BMI 24.37 kg/m Maternal assessment other: 1 Para 0 REMOTE READ Method Transabdominal ultrasound examination. View: Adequate visualization [place] . Number of fetuses: 1 Dating LMP on: 08/16/2024 Cycle: regular cycle GA by LMP 20 w + 0 d JIM by LMP: 05/23/2025 GA by prior assessment 20 w + 0 d JIM by prior assessment: 05/23/2025 Ultrasound examination on: 01/03/2025 GA by U/S based upon: AC, BPD, Femur, HC GA by U/S 20 w + 0 d JIM by U/S: 05/23/2025 Assigned: based on stated JIM, selected on 01/03/2025 Assigned GA 20 w + 0 d Assigned JIM: 05/23/2025 General Evaluation Cardiac activity present. FHR 155 bpm. movements: present. Presentation: transverse head right Placenta: Placental site: posterior, fundal Umbilical cord: Cord vessels: 3 vessel cord Amniotic fluid: Amount of AF: normal amount. MVP 5.2 cm Growth Overview Exam date GA BPD (mm) HC (mm) AC (mm) FL (mm) HL (mm) EFW (g) 01/03/2025 20w 0d 43.8 20% 168.1 32% 158.1 75% 31.8 60% 30.2 53% 344 62% Biometry Standard BPD 43.8 mm 19w 2d 20% Hadlock OFD 60.5 mm 19w 4d 52% Nicolaides HC 168.1 mm 19w 3d 32% Nataliia Cerebellum tr 21.0 mm 20w 0d 75% Hill Nuchal fold 4.1 mm AC 158.1 mm 21w 0d 75% Hadlock Femur 31.8 mm 20w 0d 60% Nataliia Humerus 30.2 mm 20w 0d 53% Nataliia EFW 344 g 20w 1d 62% Hadlock EFW (lb) 0 lb EFW (oz) 12 oz EFW by: Hadlock (HC-AC-FL) Extended Fish Cleaner 5.4 mm CM 3.5 mm 9% Nicolaides Extremities / Bony Struc FL / HC 0.19 65% Hadlock Other Structures FHR 155 bpm Anatomy Cranium: normal Lateral ventricles: normal Choroid plexus: normal Midline falx: normal Cavum septi pellucidi: normal Cerebellum: normal Cisterna magna: normal Head / Neck Vermis: Normal but not required for a standard anatomy exam Neck: Normal but not required for a standard anatomy exam Nuchal fold: Normal but not required for a standard anatomy exam Lips: normal Profile: Normal but not required for a standard anatomy exam Nose: Normal but not required for a standard anatomy exam Face Maxilla: Normal but not required for a standard anatomy exam Mandible: Normal but not required for a standard anatomy exam Orbits: Normal but not required for a standard anatomy exam Lens: Normal but not required for a standard anatomy exam 4-chamber view: normal RVOT view: normal LVOT view: normal 3-vessel view: normal 1-praqjn-hyizavi view: normal Heart / Thorax Situs: situs solitus (normal) Aortic arch view: Normal but not required for a standard anatomy exam SVC: Normal but not required for a standard anatomy exam IVC: Normal but not required for a standard anatomy exam Cardiac axis: normal Rt lung: Normal but not required for a standard anatomy exam Lt lung: Normal but not required for a standard anatomy exam Diaphragm: Normal but not required for a standard anatomy exam Cord insertion: normal Stomach: normal Kidneys: normal Bladder: normal Genitals: normal Abdomen Abdom. wall: normal Cervical spine: normal Thoracic spine: normal Lumbar spine: normal Sacral spine: normal Arms: normal Legs: normal Rt upper arm: normal Rt forearm: normal Rt hand: normal Rt fingers: normal Lt upper arm: normal Lt forearm: normal Lt hand: normal Lt fingers: normal Rt upper leg: normal Rt lower leg: normal Rt foot: normal Lt upper leg: normal Lt lower leg: normal Lt foot: normal sex: female Wants to know sex: yes Maternal Structures Uterus / Cervix Uterus: Visualized Cervix: Visualized Approach: Transabdominal Cervical length 32.6 mm Other: Patient declined transvaginal ultrasound for cervical length. Ovaries / Tubes / Adnexa Rt ovary: Visualized Lt ovary: Visualized Performed By: Etelvina Swanson RDMS, RVT Read By: Rena Bradford M.D. MATERNAL MEDICINE [facility] Radiology Study observation (narrative) [facility] CBC W Auto Differential pane l (Bld)on 11-20-2024 Basophils (Bld) [#/Vol] 10*3/uL Normal <0.11 [facility] Comment on above: Order Comment: Speci men Type: BLOOD SPECIMENOrdering Facility: [facility] Address: [address] [place] [address] Performed By: #### 5 7021-8 ####[facility] LABCLIA [id number] [place] [address] [place] Basophils/100 WBC (Bld) 0.3 % Normal [facility] Comment on above: Order Comment: Speci men Type: BLOOD SPECIMENOrdering Facility: [facility] Address: [address] [place] [address] Performed By: #### 5 7021-8 ####[facility] LABCLIA [id number] [place] [address] [place] Differential cell count method Nom (Bld) Auto Normal [facility] Comment on above: Order Comment: Speci men Type: BLOOD SPECIMENOrdering Facility: [facility] Address: [address] [place] [address] Performed By: #### 5 7021-8 ####[facility] LABCLIA [id number] [address], [place] [address] [place] Eosinophils (Bld) [#/Vol] 10*3/uL Normal <0.46 [facility] Comment on above: Order Comment: Speci men Type: BLOOD SPECIMENOrdering Facility: [facility] Address: [address] [place] [address] Performed By: #### 5 7021-8 ####[facility] LABCLIA [id number] [place] [address] [place] Eosinophils/100 WBC (Bld) 0.0 % Normal [facility] Comment on above: Order Comment: Speci men Type: BLOOD SPECIMENOrdering Facility: [facility] Address: [address] [place] [address] Performed By: #### 5 7021-8 ####[facility] LABCLIA [id number] [place] [id number] [place] Erythrocyte distribution width (RBC) [Ratio] 13.0 % Normal 11.5-15.0 [facility] Comment on above: Order Comment: Speci men Type: BLOOD SPECIMENOrdering Facility: [facility] Address: [address] [place] [address] Performed By: #### 5 7021-8 ####[facility] LABCLIA [id number] [place] [address] [place] Hematocrit (Bld) [Volume fraction] 38.4 % Normal 36.0-46.0 [facility] Comment on above: Order Comment: Speci men Type: BLOOD SPECIMENOrdering Facility: [facility] Address: [address] [place] [address] Performed By: #### 5 7021-8 ####[facility] LABIA [id number] [place] [address] [place] Hemoglobin (Bld) [Mass/Vol] 13.1 g/dL Normal 11.5-15.5 [facility] Comment on above: Order Comment: Speci men Type: BLOOD SPECIMENOrdering Facility: [facility] Address: [address] [place] [address] Performed By: #### 5 7021-8 ####[facility] LABIA [id number] [place] [address] [place] Immature granulocytes (Bld) [#/Vol] 0.03 10*3/uL Normal <0.10 [facility] Comment on above: Order Comment: Speci men Type: BLOOD SPECIMENOrdering Facility: [facility] Address: [address] [place] [address] Performed By: #### 5 7021-8 ####[facility] LABIA [id number] [place] [address] [place] Immature granulocytes/100 WBC (Bld) 0.8 % Normal [facility] Comment on above: Order Comment: Speci men Type: BLOOD SPECIMENOrdering Facility: [facility] Address: [address] [place] [address] Performed By: #### 5 7021-8 ####[facility] LABIA [id number] [place] [address] [place] Lymphocytes (Bld) [#/Vol] 1.06 10*3/uL Normal 1.00-4.00 [facility] Comment on above: Order Comment: Speci men Type: BLOOD SPECIMENOrdering Facility: [facility] Address: [address] [place] [address] Performed By: #### 5 7021-8 ####[facility] LABIA [id number] [place] [address] [place] Lymphocytes/100 WBC (Bld) 26.7 % Normal [facility] Comment on above: Order Comment: Speci men Type: BLOOD SPECIMENOrdering Facility: [facility] Address: [address] [place] [address] Performed By: #### 5 7021-8 ####[facility] LABIA [id number] [place] [address] [place] MCH (RBC) [Entitic mass] 29.4 pg Normal 26.0-34.0 [facility] Comment on above: Order Comment: Speci men Type: BLOOD SPECIMENOrdering Facility: [facility] Address: [address] [place] [address] Performed By: #### 5 7021-8 ####[facility] LABIA [id number] [place] [address] [place] MCHC (RBC) [Mass/Vol] 34.1 g/dL Normal 30.5-36.0 [facility] Comment on above: Order Comment: Speci men Type: BLOOD SPECIMENOrdering Facility: [facility] Address: [address] [place] [address] Performed By: #### 5 7021-8 ####[facility] LABIA [id number] [place] [address] [place] MCV (RBC) [Entitic vol] 86.1 fL Normal 80.0-100.0 [facility] Comment on above: Order Comment: Speci men Type: BLOOD SPECIMENOrdering Facility: [facility] Address: [address] [place] [address] Performed By: #### 5 7021-8 ####[facility] LABCLIA [id number] [address], [place] [address] [place] Monocytes (Bld) [#/Vol] 0.35 10*3/uL Normal <0.87 [facility] Comment on above: Order Comment: Speci men Type: BLOOD SPECIMENOrdering Facility: [facility] Address: [address] [place] [address] Performed By: #### 5 7021-8 ####[facility] LABCLIA [id number] [place] [address] [place] Monocytes/100 WBC (Bld) 8.8 % Normal [facility] Comment on above: Order Comment: Speci men Type: BLOOD SPECIMENOrdering Facility: [facility] Address: [address] [place] [address] Performed By: #### 5 7021-8 ####[facility] LABCLIA [id number] [place] [address] [place] Neutrophils (Bld) [#/Vol] 2.52 10*3/uL Normal 1.45-7.50 [facility] Comment on above: Order Comment: Speci men Type: BLOOD SPECIMENOrdering Facility: [facility] Address: [address] [place] [address] Performed By: #### 5 7021-8 ####[facility] LABCLIA [id number] [place] [id number] [place] Neutrophils/100 WBC (Bld) 63.4 % Normal [facility] Comment on above: Order Comment: Speci men Type: BLOOD SPECIMENOrdering Facility: [facility] Address: [address] [place] [address] Performed By: #### 5 7021-8 ####[facility] LABCLIA [id number] [place] [id number] [place] Nucleated RBC (Bld) [#/Vol] 10*3/uL Normal <0.01 [facility] Comment on above: Order Comment: Speci men Type: BLOOD SPECIMENOrdering Facility: [facility] Address: [address] [place] [address] Performed By: #### 5 7021-8 ####[facility] LABCLIA [id number] [place] [address] [place] Nucleated RBC/100 WBC (Bld) [Ratio] 0.0 /100 WBC Normal [facility] Comment on above: Order Comment: Speci men Type: BLOOD SPECIMENOrdering Facility: [facility] Address: [address] [place] [address] Performed By: #### 5 7021-8 ####[facility] LABIA [id number] [place] [address] [place] Platelet mean volume (Bld) [Entitic vol] 9.9 fL Normal 9.0-12.7 [facility] Comment on above: Order Comment: Speci men Type: BLOOD SPECIMENOrdering Facility: [facility] Address: [address] [place] [address] Performed By: #### 5 7021-8 ####[facility] LABIA [id number] [place] [address] [place] Platelets (Bld) [#/Vol] 220 10*3/uL Normal 150-400 [facility] Comment on above: Order Comment: Speci men Type: BLOOD SPECIMENOrdering Facility: [facility] Address: [address] [place] [address] Performed By: #### 5 7021-8 ####[facility] LABIA [id number] [place] [address] [place] RBC (Bld) [#/Vol] 4.46 10*6/uL Normal 3.90-5.20 [facility] Comment on above: Order Comment: Speci men Type: BLOOD SPECIMENOrdering Facility: [facility] Address: [address] [place] [address] Performed By: #### 5 7021-8 ####[facility] LABCLIA [id number] [address] [address] [place] WBC (Bld) [#/Vol] 3.97 10*3/uL Normal 3.70-11.00 [facility] Comment on above: Order Comment: Speci men Type: BLOOD SPECIMENOrdering Facility: [facility] Address: [address] [place] [id number] Performed By: #### 5 7021-8 ####[facility] LABCLIA [id number] [place] [id number] [place] Examination level ultrasound on 11-20-2024 Indication First trimester anatomic survey Impression REMOTE READ The patient is referred for a first trimester anatomy scan including nuchal translucency measurement as clinically indicated. - Single, live, intrauterine . - [place] rump length measurement is consistent with the established gestational age. - No malformations visualized on a complete first trimester anatomic assessment. - The nuchal translucency measurement is 1.8 mm. - Not all structural malformations can be detected by ultrasound examination. Maternal Structures: Right Ovary: Size 20 mm x 16 mm x 16 mm Recommendations Return for anatomy ultrasound Maternal Assessment Height 163 cm Height (ft) 5 ft Height (in) 4 in Physical Exam Initial weight (lb) 142 lb Initial BMI 24.37 kg/m Maternal assessment other: 1 Para 0 Method Transabdominal ultrasound examination [place] . Number of fetuses: 1 Dating LMP on: 08/16/2024 Cycle: regular cycle GA by LMP 13 w + 5 d JIM by LMP: 05/23/2025 GA by prior assessment 13 w + 5 d JIM by prior assessment: 05/23/2025 Ultrasound examination on: 11/20/2024 GA by U/S based upon: CRL GA by U/S 13 w + 3 d JIM by U/S: 05/25/2025 Assigned: based on stated JIM, selected on 11/20/2024 Assigned GA 13 w + 5 d Assigned JIM: 05/23/2025 General Evaluation Cardiac activity present Placenta: posterior Cord vessels: 3 vessel cord Amniotic fluid: normal amount Biometry Standard FHR 160 bpm CRL 72.4 mm 13w 3d 30% Hadlock NT 1.80 mm First Trimester Anatomy Calvarium: normal Falx cerebri: normal Choroid plexus: normal Profile: normal Nasal bone: normal Retronasal triangle: normal Maxilla: normal Mandible: normal Nuchal translucency: Unremarkable Situs: normal Cardiac position: normal Cardiac axis: normal 4-chamber view: suboptimal 4-chamber view with color: suboptimal 5-kzrroo-ssbsowl view: suboptimal Abdominal cord insertion: normal Stomach: normal Kidneys: normal Bladder: normal Color doppler of perivesical umbilical arteries: normal Vertebral alignment: normal Arms: normal Hands: normal Legs: normal Feet: normal Maternal Structures Uterus / Cervix Uterus: Visualized Uterus length 112 mm Uterus width 93 mm Uterus height 90 mm Uterus Vol 490.5 cm Ovaries / Tubes / Adnexa Rt ovary: Visualized Rt ovary D1 20 mm Rt ovary D2 16 mm Rt ovary D3 16 mm Rt ovary Vol 2.8 cm Lt ovary: Not visualized Performed By: Etelvina Swanson RDMS, RVT Read By: Rena Bradford M.D. MATERNAL MEDICINE [facility] Radiology Study observation (narrative) [facility] HBV surface Ag Ser Qlon HBV surface Ag Ql (S) Negative Normal Negative [facility] Comment on above: Order Comment: Speci men Type: BLOOD SPECIMENOrdering Facility: [facility] Address: [address] [place] [address] Performed By: #### 5 195-3, 46377-9, 63636-0 ####[facility] LABCLIA [id number] [address] [place] HCV Ab Ser Qlon 11-20-2024 HCV Ab Ql (S) Negative Normal Negative [facility] Comment on above: Order Comment: Speci men Type: BLOOD SPECIMENOrdering Facility: [facility] Address: [address] [place] [address] Result Comment: The result suggests no evidence of active infection with Hepatitis C virus. Should recent infection be suspected, repeat testing may be considered 4-6 weeks after this draw. Performed By: #### 1 6128-1 ####[facility] LABCLIA [id number] [place] [address] [place] HIV 1+2 Ab IA Qlon 5 HIV 1 and 2 Ab IA.rapid Nom (S/P/Bld) Normal [facility] Comment on above: Order Comment: Speci men Type: BLOOD SPECIMENOrdering Facility: [facility] Address: [address] [place] [address] Result Comment: Test not indicated. Performed By: #### 5 195-3, 76683-4, 76647-1 ####[facility] LABIA [id number] [place] [address] [place] HIV 1+2 Ab+HIV1 p24 Ag IA Ql Non-Reactive Normal Nonreactive [facility] Comment on above: Order Comment: Speci men Type: BLOOD SPECIMENOrdering Facility: [facility] Address: [address] [place] [address] Performed By: #### 5 195-3, 55387-5, 16338-8 ####[facility] LABIA [id number] [place] [address] [place] HIV immunoassay testing algorithm interpretation (S/P/Bld) [Interp] Normal [facility] Comment on above: Order Comment: Speci men Type: BLOOD SPECIMENOrdering Facility: [facility] Address: [address] [place] [address] Result Comment: No e vidence of HIV-1 or HIV-2 infection. Should recent infection be suspected, repeat testing may be considered 2-3 weeks after this draw. Iron Rev. Code 3701.243(E): This information has been disclosed to you from confidential records protected from disclosure by state law. ???You shall make no further disclosure of this information without the specific, written, and informed release of the individual to whom it pertains or as otherwise permitted by state law. A general authorization for the release of medical or other information is not sufficient for the purpose of the release of HIV test results or diagnoses. Performed By: #### 5 195-3, 30292-5, 97732-6 ####[facility] LABCLIA [id number] [facility] [id number] [place] [address] [place] HbA1c (Bld)on 11-20-2024 Average glucose Estimated from glycated hemoglobin (Bld) [Mass/Vol] 88 mg/dL Normal [facility] Comment on above: Order Comment: [address] Type: BLOOD SPECIMEN [facility] Address: [address] [place] [address] Result Comment: eAG: (Estimated average glucose) is a calculated value from HgbA1c and is branch sales and service representative of the average blood glucose level in the last 2-3 month period. Performed By: #### G LTGST #### [facility] [id number] [address] [place] [address] HbA1c (Bld) [Mass fraction] 4.7 % Normal 4.3-5.6 [facility] Comment on above: Order Comment: [facility] Type: BLOOD SPECIMEN [facility] Address: [address] [place] [address] Result Comment: [facility] Diabetes Association guidelines indicate that patients with HgbA1c in the range 5.7-6.4% are at increased risk for development of diabetes, and intervention by lifestyle modification may be beneficial. HgbA1c greater or equal to 6.5% is considered diagnostic of diabetes. Performed By: #### G LTGST #### [facility] [id number] [address] [place] [address] [place] RUBELLA IGG ANTIBODYon 11-20 RUBELLA IGG AB, QUAL Positive Normal Positive [facility] Comment on above: Order Comment: [address] Type: BLOOD SPECIMEN [facility] Address: [address] [place] [address] Result Comment: The result suggests recent or past exposure to Rubella virus or history of Rubella vaccination. Positive result may also be seen due to presence of passively-transferred antibodies. Please correlate with patient's history. Performed By: #### G LTGST #### [facility] CLIA [id number] [address] [place] [address] [place] Reagin and Treponema pallidu m IgG and IgM [Interp]on 11-20-2024 T. pallidum IgG+IgM IA Ql (S) Non-Reactive Normal Nonreactive [facility] Comment on above: Order Comment: Speci men Type: BLOOD SPECIMENOrdering Facility: [facility] Address: [address] [place] [address] Performed By: #### 5 195-3, 03085-0, 00654-5 ####[facility] LABCLIA [id number] [place] [id number] [place] Reagin+T pallidum IgG+IgM Se rPl-Impon 11-20-2024 Reagin and Treponema pallidum IgG and IgM [Interp] Cannot exclude recent Treponemal infection if specimen collected within 7-10 days after appearance of suspect lesions or 2-3 weeks after an exposure. Clinical correlation is required. Normal [facility] Comment on above: Order Comment: Speci men Type: BLOOD SPECIMENOrdering Facility: [facility] Address: [facility] [place] [address] Performed By: #### 5 195-3, 87562-1, 48922-0 ####[facility] LABCLIA [id number] [place] [id number] [place] CBC W/Diff, Automatedon 10-22 Absolute Lymph 0.52 X10 3/uL Low 0.83-4.51 [facility] Comment on above: Performed By: #### L 500.4050, L100.0100, L501.2450 #### [facility] [address] [place], [address] Absolute Neut 9.5 X10 3/uL High 2.0-7.7 [facility] Comment on above: Performed By: #### L 500.4050, L100.0100, L501.2450 #### [facility] [address] [place], [address] Basophils/100 WBC (Bld) 0.2 % Normal 0-1 [facility] Comment on above: Performed By: #### L 500.4050, L100.0100, L501.2450 #### [facility] [address] [place], [address] Eosinophils/100 WBC (Bld) 0.2 % Normal 0-5 [facility] Comment on above: Performed By: #### L 500.4050, L100.0100, L501.2450 #### [facility] [address] [place], [address] Erythrocyte distribution width (RBC) [Ratio] 13.1 % Normal 11.6-14.6 [facility] Comment on above: Performed By: #### L 500.4050, L100.0100, L501.2450 #### [facility] [address] [place], [address] Hematocrit (Bld) [Volume fraction] 39.4 % Normal 37-47 [facility] Comment on above: Performed By: #### L 500.4050, L100.0100, L501.2450 #### [facility] [address] [place], [address] Hemoglobin (Bld) [Mass/Vol] 13.6 g/dL Normal 12.0-15.0 [facility] Comment on above: Performed By: #### L 500.4050, L100.0100, L501.2450 #### [facility] [address] [place], [address] IG% 0.500 Normal 0.0-0.9 [facility] Comment on above: Result Comment: IG% - Immature Granulocytes (promyelocytes, myelocytes and metamyelocytes) > 1% indicates that a LEFT SHIFT is Present. Performed By: #### L 500.4050, L100.0100, L501.2450 #### [facility] [address] [place], [address] Lymphocytes/100 WBC (Bld) 4.9 % Low 19-41 [facility] Comment on above: Performed By: #### L 500.4050, L100.0100, L501.2450 #### [facility] [address] [place], [address] MCH (RBC) [Entitic mass] 29.7 pg Normal 27.0-32.0 [facility] Comment on above: Performed By: #### L 500.4050, L100.0100, L501.2450 #### [facility] [address] [place], [address] MCHC (RBC) [Mass/Vol] 34.5 g/dL Normal 32-36 [facility] Comment on above: Performed By: #### L 500.4050, L100.0100, L501.2450 #### [facility] [address] [place], [address] MCV (RBC) [Entitic vol] 86.0 fL Normal 81-99 [facility] Comment on above: Performed By: #### L 500.4050, L100.0100, L501.2450 #### [facility] [address] [place], [address] Monocytes/100 WBC (Bld) 4.1 % Normal 0-10 [facility] Comment on above: Performed By: #### L 500.4050, L100.0100, L501.2450 #### [facility] [address] [place], [address] Neutrophils/100 WBC (Bld) 90.1 % High 47-70 [facility] Comment on above: Performed By: #### L 500.4050, L100.0100, L501.2450 #### [facility] [address] [place], [address] Nucleated RBC (Bld) [#/Vol] 0 10*3/uL Normal 0-5 [facility] Comment on above: Performed By: #### L 500.4050, L100.0100, L501.2450 #### [facility] [address] [place], [address] Platelet mean volume (Bld) [Entitic vol] 9.6 fL Normal 6.2-12.0 [facility] Comment on above: Performed By: #### L 500.4050, L100.0100, L501.2450 #### [facility] [address] [place], [address] Platelets (Bld) [#/Vol] 230 10*3/uL Normal 150-450 [facility] Comment on above: Performed By: #### L 500.4050, L100.0100, L501.2450 #### [facility] [address] [place], [address] RBC (Bld) [#/Vol] 4.58 10*6/uL Normal 4.2-5.4 [facility] Comment on above: Performed By: #### L 500.4050, L100.0100, L501.2450 #### [facility] [address] [place], [address] RDW SD 40.2 fl Normal 35.1-43.9 [facility] Comment on above: Performed By: #### L 500.4050, L100.0100, L501.2450 #### [facility] [address] [place], [address] WBC (Bld) [#/Vol] 10.5 10*3/uL Normal 4.4-11.0 [facility] Comment on above: Performed By: #### L 500.4050, L100.0100, L501.2450 #### [facility] [address] [place], [address] Comprehensive Metabolic Prof ilon 11-17-2024 Albumin [Mass/Vol] 4.2 g/dL Normal 3.5-5.0 [facility] Comment on above: Performed By: #### L 500.4050, L100.0100, L501.2450 #### [facility] [address] [place], [address] Albumin/Globulin [Mass ratio] 1.5 {ratio} Normal 0.9-2.4 [facility] Comment on above: Performed By: #### L 500.4050, L100.0100, L501.2450 #### [facility] [address] [place], [address] ALK PHOS 53 U/L Normal 35-104 [facility] Comment on above: Performed By: #### L 500.4050, L100.0100, L501.2450 #### [facility] [address] [place], [address] ALT [Catalytic activity/Vol] 15 U/L Normal <=34 [facility] Comment on above: Performed By: #### L 500.4050, L100.0100, L501.2450 #### [facility] [address] [place], [address] Anion gap [Moles/Vol] 14 mmol/L Normal 5-15 [facility] Comment on above: Performed By: #### L 500.4050, L100.0100, L501.2450 #### [facility] [address] [place], [address] AST [Catalytic activity/Vol] 18 U/L Normal <=31 [facility] Comment on above: Performed By: #### L 500.4050, L100.0100, L501.2450 #### [facility] [address] [place], [address] Bilirubin [Mass/Vol] 0.42 mg/dL Normal 0.00-1.30 [facility] Comment on above: Performed By: #### L 500.4050, L100.0100, L501.2450 #### [facility] [address] [place], [address] BUN/CRE 12.4 RATIO Normal 10-20 [facility] Comment on above: Performed By: #### L 500.4050, L100.0100, L501.2450 #### [facility] [address] [place], [address] Calcium [Mass/Vol] 9.0 mg/dL Normal 7.6-11.0 [facility] Comment on above: Performed By: #### L 500.4050, L100.0100, L501.2450 #### [facility] [address] [place], [address] Chloride [Moles/Vol] 103 mmol/L Normal 96-108 [facility] Comment on above: Performed By: #### L 500.4050, L100.0100, L501.2450 #### [facility] [address] [place], [address] CO2 [Moles/Vol] 19.7 mmol/L Low 22.0-29.0 [facility] Comment on above: Performed By: #### L 500.4050, L100.0100, L501.2450 #### [facility] [address] [place], [address] Creatinine [Mass/Vol] 0.54 mg/dL Low 0.70-1.20 [facility] Comment on above: Performed By: #### L 500.4050, L100.0100, L501.2450 #### [facility] [address] [place], [address] ECRCL 151.69 ml/min Normal [facility] Comment on above: Performed By: #### L 500.4050, L100.0100, L501.2450 #### [facility] [address] [place], [address] GFR/1.73 sq M.predicted among non-blacks MDRD (S/P/Bld) [Vol rate/Area] 135 mL/min/{1.73_m2} Normal >60 [facility] Comment on above: Result Comment: mL/m in/1.73m2 CKD-EPI Creatinine Equation (2020) Performed By: #### L 500.4050, L100.0100, L501.2450 #### [facility] [address] [place], [address] Globulin (S) [Mass/Vol] 2.9 g/dL Normal 2.2-4.2 [facility] Comment on above: Performed By: #### L 500.4050, L100.0100, L501.2450 #### [facility] [address] [place], [address] Glucose [Mass/Vol] 86 mg/dL Normal 70-99 [facility] Comment on above: Performed By: #### L 500.4050, L100.0100, L501.2450 #### [facility] [address] [place], [address] Potassium [Moles/Vol] 3.8 mmol/L Normal 3.3-5.1 [facility] Comment on above: Performed By: #### L 500.4050, L100.0100, L501.2450 #### [facility] [address] [place], [address] Sodium [Moles/Vol] 136 mmol/L Normal 133-145 [facility] Comment on above: Performed By: #### L 500.4050, L100.0100, L501.2450 #### [facility] [address], [address] T PROT 7.0 g/dL Normal 5.9-8.4 [facility] Comment on above: Performed By: #### L 500.4050, L100.0100, L501.2450 #### [facility] [address] [place], [address] Urea nitrogen [Mass/Vol] 7 mg/dL Normal 4-19 [facility] Comment on above: Performed By: #### L 500.4050, L100.0100, L501.2450 #### [facility] [address] [place], [address] Emergency Department Summary on 11-17-2024 Emergency Department Summary [facility] Medical Records Department [address] [place] [address] Emergency Department Summary 11/17/24 MR#: [id number] Acct: [id number] Name: NATALY DSOUZA Rep #: [id number] : 2005 19 From: Mathieu Luna DO PCP: Care Physician,No Primary Status:DEP ER Location: ED HPI History of Present Illness Chief Complaint: Nausea/Vomiting/Diar yusra [facility] Medical History Physical exam, pre-employment Home Medications ???Medication ???Instructions ???Recorded ???Last Taken ???Type ondansetron 4 mg disintegrating 4 mg PO Q8H PRN PRN Nausea #10 tab s 11/17/24 Unknown Rx tablet Allergy/AdvReac Type Severity Reaction Status Date / Time No Known Allergies Allergy Unverified 09/06/24 11:09 Social History Smoking Status: Unknown if ever smoked EXAM Physical Exam Const Vital Signs: 11/17/24 20:58 Temperature 98.6 F Temperature Source Oral Pulse Rate 106 H Respiratory Rate 18 Blood Pressure 131/63 H Blood Pressure Mean 85 Pulse Ox 100 Oxygen Delivery Method Room Air MDM MDM MDM Narrative Medical decision making narrative: HISTORY OF PRESENT ILLNESS: 19-year-old female presents with concern for nausea and vomiting and diarrhea. No she is approximate 13 weeks . She further states she has no abdominal pain but notes multiple episodes of nausea vomiting as well as diarrhea today. No hematemesis, melena or hematochezia. No fever. Denies vaginal bleeding, passing any tissue. REVIEW OF SYSTEMS: Pertinent positives: Nausea vomiting diarrhea Pertinent negatives: Abdominal pain, vaginal bleeding, passing tissue or leaking fluid PHYSICAL EXAM: Nursing triage notes reviewed, Vital signs reviewed Constitutional: please see mdm HENT: MMM Eyes: Pupils equal round and reactive to light, Extraocular muscles intact Neck: No stridor, no JVD, full neck ROM Lungs: Clear to auscultation, No wheezing or rales. No increased work of breathing, no conversational dyspnea, no accessory muscle use, no nasal flaring. No respiratory distress noted Heart: Regular rate and rhythm, No murmurs, No rubs and No gallops, 2+ distal pulses (radial, femoral, posterior tibial) in all extremities Abdomen: Soft, there is no tenderness, rigidity, rebound or guarding, no obvious peritoneal signs, no palpable pulsatile abdominal masses, no auscultated abdominal bruit : No CVAT Extremities: No edema Neuro: No new focal neurological deficits, cranial nerves II through XII intact, 5/5 strength in all present extremities. Intact sensation to light touch in all present extremities, 2+ reflexes bilateral patella tendons. Skin: No rash or lesions noted MEDICAL DECISION MAKING: Chief Complaint: Nausea vomiting diarrhea External records reviewed: Reviewed prior records Factors affecting care: First trimester Social determinants of health: none History obtained from others: none Consults: none [facility] Narrative: Patient was initially tachycardic rate of 106 otherwise afebrile and nontoxic-appearing. Exam with a benign abdomen IV and monitor placed Patient was treated initially 1 L normal saline and 4 mg of IV Zofran. Labs drawn. I considered the following differential diagnosis: Dehydration, electrolyte disturbance, UTI ALL IMAGES (IF OBTAINED) HAVE BEEN PERSONALLY REVIEWED AND INTERPRETED BY MYSELF. CBC without leukocytosis, severe anemia, no thrombocytopenia. BMP without evidence of significant electrolyte abnormalities, no anion gap, no acute kidney injury. Noted slight metabolic acidosis likely secondary to NAGMA from nausea vomiting LFTs show no evidence of hepatobiliary pathology. Lipase is wnl indicating no pancreatic inflammation. Urinalysis shows no evidence of urinary inflammation suggestive of UTI. Noted ketonuria likely secondary to dehydration and poor glucose utilization in the setting of nausea vomiting. Patient was able to tolerate p.o. after IV fluids and IV Zofran. Will give prescription for Zofran to take as needed for nausea vomiting control. The patient and/or family, caregivers express understanding. The patient and/or family, caregivers agrees with the plan. Shared decision making: I will have a discussion with the patient and or visitors regarding risk/benefits of further testing or admission. They will be made aware of of the risk/benefits inherent in this decision they will be given the opportunity to voice understanding. Total critical care time today provided was at least 0 minutes. This excludes separately billable procedures. Critical care time (if documented) is secondary to the patient having high probability of clinically significant/life threatening deterioration in the patient's con (more content not included)... Normal [facility] Lipaseon 11-17-2024 Lipase [Catalytic activity/Vol] 25 U/L Normal 13-75 [facility] Comment on above: Result Comment: Leonora golden note: LIPASE revised reference range effective 22. New Lipase methodology. Expected to produce lower values than the previous assay method. NEW Reference Range: 13 - 75 U/L Performed By: #### L 500.4050, L100.0100, L501.2450 #### [facility] [address] [place], [address] Urinalysis, Completeon 11-17 KETONE UR 150 mg/dl Abnormal Negative [facility] Comment on above: Order Comment: OLIVER RODRIGUEZ TO SPECIFY Result Comment: CRIT ICAL VALUE *H CRITICAL VALUE CALLED TO ULISES Veliz 11/17/246 López Mcintyre. RESULTS READ BACK BY . Performed By: #### L 400.0001 #### [facility] [address] [place], [address] BACTERIA 3+ /hpf Normal None Seen [facility] Comment on above: Order Comment: OLIVER RODRIGUEZ TO SPECIFY Performed By: #### L 400.0001 #### [facility] [address] [place], [address] EPI,SQUAMOUS 25-50 SEEN Normal 5-10 [facility] Comment on above: Order Comment: OLIVER CTOR TO SPECIFY Performed By: #### L 400.0001 #### [facility] [address] [place], [address] Mucus Ql (Urine sed) 2+ /hpf Normal [facility] Comment on above: Order Comment: OLIVER CTOR TO SPECIFY Performed By: #### L 400.0001 #### [facility] [address] [place], [address] RBC 0 SEEN Normal 0-5 [facility] Comment on above: Order Comment: OLIVER CTOR TO SPECIFY Performed By: #### L 400.0001 #### [facility] [address] [place], [address] WBC 5-10 SEEN Normal 0-5 [facility] Comment on above: Order Comment: OLIVER CTOR TO SPECIFY Performed By: #### L 400.0001 #### [facility] [address] [place], [address] BILIRUBIN URINE Negative Normal Negative [facility] Comment on above: Order Comment: OLIVER CTOR TO SPECIFY Performed By: #### L 400.0001 #### [facility] [address] [place], [address] Clarity (U) Sl. Cloudy Normal Clear [facility] Comment on above: Order Comment: OLIVER CTOR TO SPECIFY Performed By: #### L 400.0001 #### [facility] [address] [place], [address] Color (U) Yellow Normal Yellow [facility] Comment on above: Order Comment: OLIVER CTOR TO SPECIFY Performed By: #### L 400.0001 #### [facility] [address] [place], [address] GLUCOSE, UR Normal Normal Normal [facility] Comment on above: Order Comment: OLIVER CTOR TO SPECIFY Performed By: #### L 400.0001 #### [facility] [address] [place], [address] LEUK ESTERASE 25 /ul Abnormal Negative [facility] Comment on above: Order Comment: COLLE CTOR TO SPECIFY Performed By: #### L 400.0001 #### [facility] [address] [place], [address] Nitrite Ql (U) Negative Normal Negative [facility] Comment on above: Order Comment: COLLE CTOR TO SPECIFY Performed By: #### L 400.0001 #### [facility] [address] [place], [address] OCCULT BLOOD-UR Negative Normal Negative [facility] Comment on above: Order Comment: OLIVER CTOR TO SPECIFY Performed By: #### L 400.0001 #### [facility] [address] [place], [address] pH UR 6.0 Normal 5.0 - 8.0 [facility] Comment on above: Order Comment: OLIVER CTOR TO SPECIFY Performed By: #### L 400.0001 #### [facility] [address] [place], [address] PROT DIPSTX 100 mg/dl Abnormal Negative [facility] Comment on above: Order Comment: OLIVER CTOR TO SPECIFY Performed By: #### L 400.0001 #### [facility] [address] [place], [address] SP.GR. DIPSTX 1.030 Normal 1.002-1.030 [facility] Comment on above: Order Comment: OLIVER CTOR TO SPECIFY Performed By: #### L 400.0001 #### [facility] [address] [place], [address] UROBILI Normal Normal Normal [facility] Comment on above: Order Comment: OLIVER CTOR TO SPECIFY Performed By: #### L 400.0001 #### [facility] [address] [place], [address] Bacteria Ur Culton Bacteria identified Cx Nom (U) ORGANISM ID: 1 10,000 -<50,000 CFU/ml Normal urogenital ai Normal [facility] Comment on above: Performed By: #### 6 30-4 ####[facility] LABCLIA [id number] [address] OF [place] C. trachomatis+N. gonorrhoea e DNA HIRAM+probe Ql (Unsp spec)on 10-23-2024 C. trachomatis rRNA HIRAM+probe Ql (Unsp spec) Not detected Normal Not detected [facility] Comment on above: Order Comment: Speci men Type: BLOOD SPECIMEN Ordering Facility: [facility] Address: [address] [place] [address] Performed By: #### G LTGST #### [facility] [id number] [address] [place] [address] OF [place] N. gonorrhoeae rRNA HIRAM+probe Ql (Unsp spec) Not detected Normal Not detected [facility] Comment on above: Order Comment: Speci men Type: BLOOD SPECIMEN Ordering Facility: [facility] Address: [address] [place] [address] Performed By: #### G LTGST #### [id number] [address] [place] [address] [place] CNCOon 10-23-2024 CNCO Letter Text Normal [facility] CNPNon 10-09-2024 CNPN Telephone (OBGYWM) NATALY DSOUZA ([id number]) 3 F Date Time Provider Department 10/09/24 YANG STEINER During your visit today, we recorded the following information about you: Manuela Baugh RN 10/09/2024 4:38 PM Signed Per LPM ega 7w5d. Pt stopped in the office to get letter for work weight lifting restrictions. Discussed with SW. Pt notified at this time no weight lifting restrictions and instructed Pt to discuss with with RM at visit on 10/23/24. Manuela Baugh RN Allergies As of Date: 10/09/2024 (No Known Allergies) Date Reviewed: 10/09/2024 Reviewed by: Sil Bobo MD - Fully Assessed Prescriptions as of 10/09/2024 - VITAFUSION GUMMY TChS Take 1 Each by mouth once daily. - pyridoxine, vitamin B6, (VITAMIN B-6) 50 mg tablet Take 1 tablet by mouth two times a day. - ferrous sulfate (SLOW FE) 137 mg (45 mg iron) TbER Take 1 tablet by mouth once daily. Problem List As Of Date 10/09/2024 Noted Resolved Myopia, bilateral [H52.13] 10/06/2019 Neck pain on left side [M54.2] 06/10/2020 Subchorionic hematoma in first trimester [O41.8*10/09/2024 Encounter Status:Closed by MANUELA BAUGH on 10/09/24 Normal [facility] Examination level ultrasound on 10-09-2024 Indication dating, viability Impression - Single, live, intrauterine . - An intrauterine gestational sac with a yolk sac and pole is present. - [place] rump length measurement is consistent with the established gestational age. - heart rate is within normal limits. - There is a subchorionic hematoma measuring 6 mm x 8 mm x 9 mm. Recommendations subchorionic hematoma. Follow up ultrasound in 1 week. Method Transabdominal ultrasound examination. View: Adequate visualization [place] . Number of embryos: 1 Dating LMP on: 08/16/2024 Cycle: regular cycle GA by LMP 7 w + 2 d JIM by LMP: 05/23/2025 Ultrasound examination on: 10/06/2024 GA by U/S based upon: CRL GA by U/S 7 w + 2 d JIM by U/S: 05/23/2025 Assigned: based on the LMP, selected on 10/06/2024 Assigned GA 7 w + 2 d Assigned JIM: 05/23/2025 Assessment Gestational sac: visualized Location: intrauterine Yolk sac: visualized YS 3.3 mm 2% [place] Embryo: visualized CRL 11.6 mm 7w 2d 94% [place] Cardiac activity: present FHR 156 bpm Maternal Structures Uterus / Cervix Uterus: Visualized Uterus position: retroverted Description of uterine malformations: none Myometrium: normal Uterus length 103 mm Uterus width 75 mm Uterus height 71 mm Uterus Vol 288.8 cm Endometrium: normal Cervix: Visualized Cervix details: normal Other: small subchorionic hemorrhage noted measuring approx 6 mm x 8 mm x 9 mm Ovaries / Tubes / Adnexa Rt ovary: Visualized Rt ovary D1 33 mm Rt ovary D2 15 mm Rt ovary D3 21 mm Rt ovary Vol 5.5 cm Rt ovarian corpus luteum: cystic with fine diffuse internal echoes Lt ovary: Visualized Lt ovary morphology: premenopausal normal follicular Lt ovary D1 16 mm Lt ovary D2 11 mm Lt ovary D3 11 mm Lt ovary Vol 1.0 cm Performed By: Lupe Arriaga RDMS Read By: Sil Bobo M.D. MATERNAL MEDICINE [facility] CNOVon 10-06-2024 CNOV Office Visit (OBGYWM) NATALY DSOUZA ([id number]) 3 F Date Time Provider Department 10/06/24 1:40 PM ELIUD CLARK OBGYWKeren During your visit today, we recorded the following information about you: Blood pressure Weight 104/60 65.3 kg Eliud Clark MD 10/06/2024 1:51 PM Signed Bettyforest Lianna is a 19 year old female who presents for problem visit. HPI: Patient presents after US. She reports mild nausea. Last week she had some light spotting. OB History T0 L0 SAB0 IAB0 Ectopic0 Multiple0 Live Births0 Mannequin Mold Maker History LMP: 08/16/2024 (Exact Date), Age at Menarche: 11 Age at First : Age at Menopause: Mannequin Mold Maker History Comments: Sexual Activity: Yes; Male Contraception: Condom, Pill PAST MEDICAL HISTORY Diagnosis Date NEGATIVE MEDICAL HISTORY PAST SURGICAL HISTORY Procedure Laterality Date MYRINGOTOMY W/ TUBES HX Bilateral bilateral ear tubes FAMILY HISTORY Problem Relation Age of Onset Diabetes Mother Hypertension Mother Diabetes Maternal Grandmother Heart Maternal Grandfather Diabetes Maternal Grandfather Heart Paternal Grandmother Cancer Paternal Grandfather Breast Cancer Maternal Aunt Cervical Cancer No Family History Ovarian cancer No Family History Uterine Cancer No Family History Colon Cancer No Family History Pancreatic Cancer No Family History Prostate Cancer No Family History Social History Tobacco Use Smoking status: Never Passive exposure: Never Smokeless tobacco: Never Vaping Use Vaping status: Never Used Substance Use Topics Alcohol use: Never Drug use: Never Current Outpatient Medications Medication Sig Norethindrn A-E Estradiol-Iron ( 24) 1 mg-20 mcg (24)/75 mg (4) Take 1 tablet by mouth once daily. (Patient not taking: Reported on 09/26/2024) No current facility-administere d medications for this visit. Allergies As of Date: 10/06/2024 (No Known Allergies) Fully Assessed 10/06/2024 Allergies and current medication updated:Yes SENSITIVE EXAM: The sensitive examination was discussed with the Patient or Patient's Authorized Cigarette Lighter Repairer. As applicable, any other physician, advance practice provider, medical student, or other health professional student that will be observing or involved in the sensitive examination for educational or training purposes was discussed with the Patient or Authorized Cigarette Lighter Repairer. The Patient or Authorized Cigarette Lighter Repairer has agreed to proceed with the sensitive examination. (Sensitive examination includes inspection and/or palpation of the breasts, pelvis, prostate and anorectal regions). EXAM: BP 104/60 Wt 144 lb (65.3kg) LMP 08/16/2024 GENERAL: pleasant, female in no apparent distress ASSESSMENT AND PLAN: Assessment AND Plan Early stage of Subchorionic hemorrhage of placenta in first trimester Reviewed preliminary US findings show viable IUP at 7AND2 with small subchorionic hemorrhage. All questions answered. Advised on vitamin B6 for nausea. Medical Decision Making: Problems: Moderate: New problem with uncertain prognosis Data: Unique test result(s) reviewed: 3+ Risk: Low: Low risk from testing/treatment Medical Decision Making Level: 4 - Moderate Eliud Clark MD Referring Provider: NELLY GUTIERREZ [[id number]] Allergies As of Date: 10/06/2024 (No Known Allergies) Date Reviewed: 10/06/2024 Reviewed by: Eliud Clark MD - Fully Assessed Reason for Visit: Discussion [813] Primary Visit Diagnosis:Early stage of [Z34.90] Other Visit Diagnosis:Subchorion ic hemorrhage of placenta in first trimester [O20.8] Order(s):VITAFUSION GUMMY TChSTake 1 Each by mouth once daily.Disp: Rfl: pyridoxine, vitamin B6, (VITAMIN B-6) 50 mg tabletTake 1 tablet by mouth two times a day.Disp: Rfl: ferrous sulfate (SLOW FE) 137 mg (45 mg iron) TbERTake 1 tablet by mouth once daily.Disp: Rfl: Prescriptions as of 10/06/2024 - VITAFUSION GUMMY TChS Take 1 Each by mouth once daily. - pyridoxine, vitamin B6, (VITAMIN B-6) 50 mg tablet Take 1 tablet by mouth two times a day. - ferrous sulfate (SLOW FE) 137 mg (45 mg iron) TbER Take 1 tablet by mouth once daily. Problem List As Of Date 10/06/2024 Noted Resolved Myopia, bilateral [H52.13] 10/06/2019 Neck pain on left side [M54.2] 06/10/2020 Prescriptions ordered this encounter Disp Refills Start End VITAFUSION GUMMY 10/06/2024 Class: Med Update Route: ORAL Sig: Take 1 Each by mouth once daily. PYRIDOXINE (VITAMIN B6) 50 MG TABLET 10/06/2024 Class: Med Update Route: ORAL Sig: Take 1 tablet by mouth two times a day. SLOW FE 137 MG (45 MG IRON) TABLET,E* 10/06/2024 Class: Med Update Route: ORAL Sig: Take 1 tablet by mouth once daily. Medications Discontinued During This Encounter Prescriptions - Norethindrn A-E Estradiol-Iron ( (more content not included)... Normal [facility] Examination level ultrasound on 10-06-2024 Radiology Study observation (narrative) [facility] B-HCG SerPl-[place]Cncon 5 [place] [address].0 m[IU]/mL High <5.0 [facility] Comment on above: Order Comment: Speci men Type: BLOOD SPECIMENOrdering Facility: [facility] Address: [address] [place] [address] Result Comment: BRADLEY TITATIVE HCG NORMAL RANGES Weeks of Gestation (Weeks Since LMP) 3 Weeks (5.8-71.2 mIU/mL) 4 Weeks (9.5-750 mIU/mL) 5 Weeks (217-7138 mIU/mL) 6 Weeks (158-08758 mIU/mL) 7 Weeks (3697-178800 mIU/mL) 8 Weeks (56449-929129 mIU/mL) 9 Weeks (79601-487989 mIU/mL) 10 Weeks (10514-507802 mIU/mL) 12 Weeks (95725-153580 mIU/mL) Referenced to 4th IS of NIBS Performed By: #### 2 1198-7 ####[facility] LABCLIA [id number] [address] STATES OF [place] B-HCG SerPl-[place]Cn[place] 5 [place] [address].0 m[IU]/mL High <5.0 [facility] Comment on above: Order Comment: Speci men Type: BLOOD SPECIMEN Ordering Facility: [facility] Address: [address] [place] [address] Result Comment: BRADLEY TITATIVE HCG NORMAL RANGES Weeks of Gestation (Weeks Since LMP) 3 Weeks (5.8-71.2 mIU/mL) 4 Weeks (9.5-750 mIU/mL) 5 Weeks (217-7138 mIU/mL) 6 Weeks (158-93199 mIU/mL) 7 Weeks (3697-151195 mIU/mL) 8 Weeks (12743-983881 mIU/mL) 9 Weeks (11566-053940 mIU/mL) 10 Weeks (17863-598962 mIU/mL) 12 Weeks (27117-143082 mIU/mL) Referenced to 4th IS of NIBSC Performed By: #### G LTGST #### [facility] CLIA [id number] [address] [place] [address] STATES [place] B-HCG SerPl-[place]Cncon 5 [place] [address].0 m[IU]/mL High <5.0 [facility] Comment on above: Order Comment: Speci men Type: BLOOD SPECIMEN Ordering Facility: [facility] Address: [address] [place] [address] Result Comment: BRADLEY TITATIVE HCG NORMAL RANGES Weeks of Gestation (Weeks Since LMP) 3 Weeks (5.8-71.2 mIU/mL) 4 Weeks (9.5-750 mIU/mL) 5 Weeks (217-7138 mIU/mL) 6 Weeks (158-84712 mIU/mL) 7 Weeks (3697-835480 mIU/mL) 8 Weeks (61928-322817 mIU/mL) 9 Weeks (62534-903504 mIU/mL) 10 Weeks (42635-299721 mIU/mL) 12 Weeks (55183-937512 mIU/mL) Referenced to 4th IS of [facility] Performed By: #### 2 1198-7 #### [facility] CLIA [id number] [address] [place], [place] [address] [address] OF [place] CNOVon 09-27-2024 CNOV Office Visit (OBGYWM) LIANNAROELJN ([id number]) 3 F Date Time Provider Department 09/27/24 4:30 PM KERRIE MCKEON During your visit today, we recorded the following information about you: Blood pressure Weight Last Period 98/64 66.2 kg 08/16/24 Kerrie Mckeon APRN.CNM 09/27/2024 4:42 PM Signed Nataly Lianna is a 19 year old female who presents for problem visit for spotting in HPI: LMP110/16/23 Started having cramping today and pinkish spotting. Positive test end of August, some nausea. OB History T0 L0 SAB0 IAB0 Ectopic0 Multiple0 Live Births0 Mannequin Mold Maker History LMP: 08/16/2024 (Exact Date), Age at Menarche: 11 Age at First : Age at Menopause: Mannequin Mold Maker History Comments: Sexual Activity: Yes; Male Contraception: Condom, Pill PAST MEDICAL HISTORY Diagnosis Date NEGATIVE MEDICAL HISTORY PAST SURGICAL HISTORY Procedure Laterality Date MYRINGOTOMY W/ TUBES HX Bilateral bilateral ear tubes FAMILY HISTORY Problem Relation Age of Onset Diabetes Mother Hypertension Mother Diabetes Maternal Grandmother Heart Maternal Grandfather Diabetes Maternal Grandfather Heart Paternal Grandmother Cancer Paternal Grandfather Breast Cancer Maternal Aunt Cervical Cancer No Family History Ovarian cancer No Family History Uterine Cancer No Family History Colon Cancer No Family History Pancreatic Cancer No Family History Prostate Cancer No Family History Social History Tobacco Use Smoking status: Never Passive exposure: Never Smokeless tobacco: Never Vaping Use Vaping status: Never Used Substance Use Topics Alcohol use: Never Drug use: Never Current Outpatient Medications Medication Sig Norethindrn A-E Estradiol-Iron () 1 mg-20 mcg (24)/75 mg (4) Take 1 tablet by mouth once daily. (Patient not taking: Reported on 09/26/2024) No current facility-administere d medications for this visit. Allergies As of Date: 09/27/2024 (No Known Allergies) Fully Assessed 09/27/2024 REVIEW OF SYSTEMS Abdomen: No bloating, early satiety, indigestion, or increased flatulence. No abdominal pain, nausea, vomiting, diarrhea, or constipation. Bladder: No dysuria, gross hematuria, urinary frequency, urinary urgency, or incontinence. Breast: No breast lumps, nipple d/c, overlying skin changes, redness or skin retraction. Expanded ROS: N/A Allergies and current medication updated:Yes SENSITIVE EXAM: The sensitive examination was discussed with the Patient or Patient's Authorized Cigarette Lighter Repairer. As applicable, any other physician, advance practice provider, medical student, or other health professional student that will be observing or involved in the sensitive examination for educational or training purposes was discussed with the Patient or Authorized Cigarette Lighter Repairer. The Patient or Authorized Cigarette Lighter Repairer has agreed to proceed with the sensitive examination. (Sensitive examination includes inspection and/or palpation of the breasts, pelvis, prostate and anorectal regions). EXAM: BP 98/64 Wt 146 lb (66.2kg) LMP 08/16/2024 GENERAL: pleasant, female in no apparent distress HEENT: Normocephalic and atraumatic NECK: Supple and full range of motion ABDOMEN: soft, non-tender, and no masses PELVIC: external genitalia normal, normal Bartholin's glands, urethra, [place]'s glands, no vulvar lesions, no cervical lesions, good vaginal support, physiologic discharge present, normal appearing perineal body and perianal region. BIMANUAL: uterus normal size, shape and consistency, no adnexal masses, and non-tender NEURO: alert and oriented x3,exam grossly non-focal EXTREMITIES: normal ASSESSMENT AND PLAN: Assessment AND Plan Spotting in Orders: HCG QUANTITATIVE; Standing TYPE + SCREEN ; Future Reviewed bleeding precautions and when to call. Yeast positive but advised to wait treatment till after follow up and preferably after 12 weeks unless symptomatic Kerrie Mckeon APRN.CNM Allergies As of Date: 09/27/2024 (No Known Allergies) Date Reviewed: 09/27/2024 Reviewed by: Nestor Ambriz MA - Fully Assessed Primary Visit Diagnosis:Spotting in [O26.859] Order(s):HCG QUANTITATIVE [SQHCGQT] Order #: [id number] STANDING TYPE + SCREEN [SQTSPN] Order #: [id number] FUTURE Prescriptions as of 09/27/2024 - Norethindrn A-E Estradiol-Iron (JUNEL FE 24) 1 mg-20 mcg (24)/75 mg (4) Take 1 tablet by mouth once daily. Problem List As Of Date 09/27/2024 Noted Resolved Myopia, bilateral [H52.13] 10/06/2019 Neck pain on left side [M54.2] 06/10/2020 Encounter Status:Closed by KERRIE MCKEON on 09/27/24 [facility] Geo 09-27-2024 [facility] Telephone (WSTR) NATALY DSOUZA ([id number]) 3 F Date Time Provider Department 09/27/24 JACKLYN CLARK [facility] During your visit today, we recorded the following information about you: Jacklyn Clark APRN.CABINET ASSEMBLER 09/27/2024 5:58 PM Signed Patient about positive yeast results. Patient did see her MANAGER CARGO and they do not want to treat at this time. Patient is agreeable to this care plan. Allergies As of Date: 09/27/2024 (No Known Allergies) Date Reviewed: 09/27/2024 Reviewed by: Nestor Ambriz MA - Fully Assessed Reason for Visit: Results [95] Prescriptions as of 09/27/2024 - Norethindrn A-E Estradiol-Iron (JUNE FE 24) 1 mg-20 mcg (24)/75 mg (4) Take 1 tablet by mouth once daily. Problem List As Of Date 09/27/2024 Noted Resolved Myopia, bilateral [H52.13] 10/06/2019 Neck pain on left side [M54.2] 06/10/2020 Encounter Status:Closed by JACKLYN CLARK on 09/27/24 Normal [facility] TYPE + SCREEN PRENATALon ABO A Normal [facility] Comment on above: Order Comment: Speci men Type: BLOOD SPECIMENOrdering Facility: [facility] Address: [address] [place] [address] Performed By: #### T SPN ####CC MAIN BLOOD BANKCLIA [id number] [place] [address] [place] Rh Nom (Bld) Positive Normal [facility] Comment on above: Order Comment: Speci men Type: BLOOD SPECIMENOrdering Facility: [facility] Address: [address] [place] [address] Performed By: #### T SPN ####CC MAIN BLOOD BANKCLIA [id number] [place] [address] [place] TYPE AND SCREEN EXPIRATION 09/30/2024 23:59 Normal [facility] Comment on above: Order Comment: Speci men Type: BLOOD SPECIMENOrdering Facility: [facility] Address: [address] [place] [address] Performed By: #### T SPN ####CC [facility] BANKIA [id number] [place] [address] [place] BACTERIAL VAGINOSIS NAATon 0 09-26-2024 Lactobacillus crispatus+gasseri+zuleyka enii + Gardnerella vaginalis + Atopobium vaginae rRNA HIRAM+probe Ql (Vag fld) Not detected Normal Not detected [facility] Comment on above: Order Comment: Speci men Type: SWABOrdering Facility: [facility] Address: [address] [place] [address] Performed By: #### C VTV, BVAMP ####[facility] LABCLIA [id number] [place] [address] [place] Bacteria Ur Culton Bacteria identified Cx Nom (U) ORGANISM ID: 1 50,000-<100,000 CFU/ml Normal urogenital ai Normal [facility] Comment on above: Performed By: #### 6 30-4 ####[facility] LABCLIA [id number] [place] [address] [place] LORAINE/TRICHOMONAS NAATon 0 09-26-2024 C. glabrata RNA HIRAM+probe Ql (Vag fld) Not detected Normal Not detected [facility] Comment on above: Order Comment: Speci men Type: SWABOrdering Facility: [facility] Address: [address] [place] [address] Performed By: #### C VTV, BVAMP ####[facility] LABCLIA [id number] [place] [address] [place] Loraine sp DNA HIRAM+probe Ql (Vag fld) Detected Abnormal Not detected [facility] Comment on above: Order Comment: Speci men Type: SWABOrdering Facility: [facility] Address: [address] [place] [address] Result Comment: The Loraine species group target includes C. albicans, C. tropicalis, C. parapsilosis, and C. dubliniensis. Performed By: #### C VTV, BVAMP ####[facility] LABCLIA [id number] [place] [address] [place] T. vaginalis DNA HIRAM+probe Ql (Unsp spec) Not detected Normal Not detected [facility] Comment on above: Order Comment: Speci men Type: SWABOrdering Facility: [facility] Address: [address] [place] [address] Performed By: #### C VTV, BVAMP ####[facility] LABCLIA [id number] [address] [place] CNOVon 09-26-2024 CNOV Office Visit (UCWSTR) NATALY DSOUZA ([id number]) 3 F Date Time Provider Department 09/26/24 4:00 PM ROSANNA HENDRICKS [facility] During your visit today, we recorded the following information about you: Temperature Pulse Respiration Blood pressure 97.2 degrees 95/minute 20/minute 123/86 Weight Last Period 66 kg 08/20/24 Rosanna Hendricks PA-C 09/26/2024 6:12 PM Signed This note was created using [employer] vascular solution. Subjective Nataly Dsouza is a 19 year old female. Patient is a 19-year-old female who complains of intermittent episodes of dysuria that she has been experiencing for the past 6 days. Patient states that she will feel burning with urination but when she subsequently voids she will not experience any pain. Patient has noted no blood in her urine. Patient also describes vaginal irritation but reports no abnormal vaginal bleeding. Patient denies fever, chills, flank pain, nausea or other symptoms. Patient has no history of UTI or kidney stone. Patient also denies history of bacterial vaginosis and vaginal candidiasis and reports that she has not recently been placed on antibiotics. Patient is in her first trimester with an estimated gestational age of 6 weeks. Patient reports that her first visit is scheduled for 23 October 2024. Review of Systems Genitourinary: Positive for dysuria. All other systems reviewed and are negative. Objective BP 123/86 Pulse 95 Temp 36.2 ?C (97.2 ?F) Resp 20 Wt 66 kg (145 lb 8.1 oz) LMP 08/20/2024 (Approximate) SpO2 100% BMI 25.30 kg/m? Physical Exam Vitals and nursing note reviewed. Constitutional: Appearance: Normal appearance. She is normal weight. HENT: Head: Normocephalic and atraumatic. Right Ear: External ear normal. Left Ear: External ear normal. Nose: Nose normal. Mouth/Throat: Mouth: Mucous membranes are moist. Pharynx: Oropharynx is clear. Eyes: Extraocular Movements: Extraocular movements intact. Conjunctiva/sclera: Conjunctivae normal. Pupils: Pupils are equal, round, and reactive to light. Cardiovascular: Rate and Rhythm: Normal rate. Pulses: Normal pulses. Heart sounds: Normal heart sounds. Pulmonary: Effort: Pulmonary effort is normal. Breath sounds: Normal breath sounds. Abdominal: General: Abdomen is flat. Palpations: Abdomen is soft. Musculoskeletal: Cervical back: Normal range of motion and neck supple. Skin: General: Skin is warm and dry. Capillary Refill: Capillary refill takes less than 2 seconds. Neurological: General: No focal deficit present. Mental Status: She is alert and oriented to person, place, and time. Psychiatric: Mood and Affect: Mood normal. Behavior: Behavior normal. Thought Content: Thought content normal. Judgment: Judgment normal. Assessment and Plan Physical exam findings as noted above. Urinalysis is negative with no leukocyte esterase, nitrite or protein noted. 15 mg/dl ketones are noted and specific gravity 1.030. Patient did perform a self swab and bacterial vaginosis and/trichomonas NAAT were ordered. Patient was advised that results will be received tomorrow and she will be contacted with any positive findings. Patient was advised to follow-up with her SENIOR EDITOR as scheduled or report to an emergency department if she notes any new or worsening symptoms. Patient verbalizes clear understanding of the above instructions. CLINICAL IMPRESSION: Dysuria ASSESSMENT/PLAN: 1. Burning with urination - ICD9: 788.1, ICD10: R30.0 (primary diagnosis) - UA DIP, URINE (POC) - BACTERIAL CULTURE, URINE 2. Urethral irritation - ICD9: 599.9, ICD10: N36.8 - LORAINE/TRICHOMONAS NAAT - BACTERIAL VAGINOSIS NAAT Rosanna Hendricks PA-C Allergies As of Date: 09/26/2024 (No Known Allergies) Date Reviewed: 09/26/2024 Reviewed by: Bethany Albert LPN - Fully Assessed Reason for Visit: Urinary Problem [252] Cmt: Itching, painful urination x 6 days Primary Visit Diagnosis:Burning with urination [R30.0] Other Visit Diagnosis:Urethral irritation [N36.8] Order(s):UA DIP, URINE (POC) [[id number]] Order #: [id number]. #:[id number] BACTERIAL CULTURE, URINE [SQURCUL] Order #: [id number]. #:[id number] LORAINE/TRICHOMONAS NAAT [SQCVTV] Order #: [id number]. #:[id number] BACTERIAL VAGINOSIS NAAT [SQBVAMP] Order #: [id number]. #:[id number] Prescriptions as of 09/26/2024 - Norethindrn A-E Estradiol-Iron (JUNEL FE 24) 1 mg-20 mcg (24)/75 mg (4) Take 1 tablet by mouth once daily. Problem List As Of Date 09/26/2024 Noted Resolved Myopia, bilateral [H52.13] 10/06/2019 Neck pain on left side [M54.2] 06/10/2020 Level of Service: OFFICE/OUTPATIENT ESTABLISHED MOD MDM 30 MIN [88922] Encounter Status:Closed by ROSANNA HENDRICKS on 09/26/24 Normal [facility] UA DIP, URINE (POC)on 2024 BILIRUBIN UA (POCT) Negative Negative [facility] CLARITY UA (POCT) Clear [facility] COLOR UA (POCT) Yellow [facility] GLUCOSE UA (POCT) Negative Negative mg/dL [facility] Hemoglobin Ql (U) Negative [facility] Interpretation and review of laboratory results Abnormal [facility] KETONE UA (POCT) 15 mg/dL Abnormal Negative [facility] LEUKOCYTES UA (POCT) Negative [facility] NITRITE UA (POCT) Negative Negative [place] [facility] PH UA (POCT) 6.0 4.5 - 8.0 [facility] Protein Ql (U) Negative Negative mg/dL [facility] SPECIFIC GRAVITY UA (POCT) >=1.030 1.005 - 1.030 [facility] UROBILINOGEN UA (POCT) 0.2 Normal E.U./d L [facility] Location: [address], [place], [place], [id number] [place] [address] POINT OF CARE [facility] Office Visit Reporton 2023 Office Visit Report [facility] [address] [facility] [place] [address] OFFICE VISIT Date of Service: 09/06/24 MR#: [id number] Acct: [id number] Patient: NATALY DSOUZA Rep #: [id number] : 2005 Provider: JAMIE Lozada Age/Sex: 19/F Location: [facility] Status: Signed Intake Intake Visit Reasons: PE NON DOT DRUG BAT/ DEYVI BRUSH Allergies No Known Allergies Allergy (Unverified 09/06/24 11:09) Office Procedures [facility] Billing Sheet Testing Breath Alcohol Test Pre-Employment: Yes Pre-Employment Drug Screen: Yes Pre-Employment PE: Yes 09/11/24 06 Date John Mcelroy Signature: Date (if applicable) CC: Normal [facility] Urgent Care Visit Reporton 1 11-07-[address] Report [facility] [address], [address] [place] [address] OFFICE VISIT Date of Service: 09/06/24 MR#: [id number] Acct: [id number] Name: NATALY DSOUZA Rep #: [id number] : 2005 Provider: JAMIE Lozada Age/Sex: 19/F Location: [facility] Status: Signed Intake Intake Visit Reasons: PE NON DOT PHYSICAL/ DEYVI BRUSH Accompanied by: Self Allergies No Known Allergies Allergy (Unverified 09/06/24 11:09) Medications ???Medication ???Instructions ???Recorded ???Confirmed ???Type NK 09/06/24 09/06/24 History PFSH Medical History (Updated 09/06/24 @ 12:32 by John AYALA, PA) Physical exam, pre-employment HPI HPI Details: NATALY DSOUZA, is a 19 F who presents to the office today for Office Procedures Physical Exam Coding PE Coding Pre-employment PE: Yes Coding Level of Care Code No Charge Diagnoses Physical exam, pre-employment Z02.1 Assessment and Plan Assessment and Plan (1) Physical exam, pre-employment: Status: Acute 09/06/24 1232 Date John AYALA Cosigner Signature: Date (if applicable) CC: Normal [facility] CNOVon 06-23-2024 CNOV Office Visit (OBGYWM) NATALY DSOUZA ([id number]) 3 F Date Time Provider Department 06/23/24 8:20 AM THERESA BUSCH During your visit today, we recorded the following information about you: Blood pressure Weight Last Period 110/62 64 kg 06/22/24 Theresa Busch MD 06/23/2024 4:03 PM Signed Nataly Dsouza is a 18 year old female who presents for problem visit questions about fertility. HPI: Recently started control and is sexually active with condoms. Does not want to be now and is not trying for . Has not tried to conceive in the past. Wanting to know if she is fertile and would be able to get in the future. Discussed with patient that fertility is complex and that until she tries for there is really no way to tell if she will be able to conceive. Factors include regular cycles, normal tubes and ovaries. Genetic abnormalities but also her partners sperm. While these factors can be abnormal it does not necessarily prevent . There is no test that can predict her chances of . Patient states understanding. Encouraged consistent condom use to prevent infections. That is the only preventive step she can take at this time. OB History T0 L0 SAB0 IAB0 Ectopic0 Multiple0 Live Births0 Mannequin Mold Maker History LMP: 06/22/2024 (Approximate), Having periods Age at Menarche: 11 Age at First : Age at Menopause: Mannequin Mold Maker History Comments: Sexual Activity: Yes; Male Contraception: Condom, Pill PAST MEDICAL HISTORY Diagnosis Date NEGATIVE MEDICAL HISTORY PAST SURGICAL HISTORY Procedure Laterality Date MYRINGOTOMY W/ TUBES HX Bilateral bilateral ear tubes FAMILY HISTORY Problem Relation Age of Onset Diabetes Mother Hypertension Mother Diabetes Maternal Grandmother Heart Maternal Grandfather Diabetes Maternal Grandfather Heart Paternal Grandmother Cancer Paternal Grandfather Breast Cancer Maternal Aunt Cervical Cancer No Family History Ovarian cancer No Family History Uterine Cancer No Family History Colon Cancer No Family History Pancreatic Cancer No Family History Prostate Cancer No Family History Social History Tobacco Use Smoking status: Never Passive exposure: Never Smokeless tobacco: Never Vaping Use Vaping status: Never Used Substance Use Topics Alcohol use: Never Drug use: Never Current Outpatient Medications Medication Sig Norethindrn A-E Estradiol-Iron () 1 mg-20 mcg (24)/75 mg (4) Take 1 tablet by mouth once daily. No current facility-administere d medications for this visit. Allergies As of Date: 06/23/2024 (No Known Allergies) Fully Assessed 06/23/2024 REVIEW OF SYSTEMS Abdomen: No bloating, early satiety, indigestion, or increased flatulence. No abdominal pain, nausea, vomiting, diarrhea, or constipation. Bladder: No dysuria, gross hematuria, urinary frequency, urinary urgency, or incontinence. Breast: No breast lumps, nipple d/c, overlying skin changes, redness or skin retraction. Expanded ROS: N/A Allergies and current medication updated:Yes SENSITIVE EXAM: Sensitive exam not performed. EXAM: BP 110/62 Wt 141 lb (64.0kg) LMP 06/22/2024 GENERAL: pleasant, female in no apparent distress HEENT: Normocephalic, atraumatic, mucus membranes moist, and no lesions NECK: full range of motion DERMATOLOGY: Normal, without lesions, non-icteric, and non-hirsute BREAST: deferred CHEST: Normal inspiratory effort ABDOMEN: Deferred PELVIC: deferred BIMANUAL: deferred NEURO: alert and oriented x3,exam grossly non-focal EXTREMITIES: normal ASSESSMENT AND PLAN: Encounter Diagnosis ICD-10-CM 1. Family planning education, guidance, and counseling Z30.09 Follow up prn Theresa Busch MD Allergies As of Date: 06/23/2024 (No Known Allergies) Date Reviewed: 06/23/2024 Reviewed by: Theresa Busch MD - Fully Assessed Reason for Visit: Discussion [813] Primary Visit Diagnosis:Family planning education, guidance, and counseling [Z30.09] Prescriptions as of 06/23/2024 - Norethindrn A-E Estradiol-Iron () 1 mg-20 mcg (24)/75 mg (4) Take 1 tablet by mouth once daily. Problem List As Of Date 06/23/2024 Noted Resolved Myopia, bilateral [H52.13] 10/06/2019 Neck pain on left side [M54.2] 06/10/2020 Level of Service: OFFICE/OUTPATIENT ESTABLISHED SF MDM 10 MIN [13920] LOS History for Encounter ------- Level of Service: OFFICE/OUTPATIENT ESTABLISHED LOW MDM 20 MIN[06848] Date AND Time: 06-23-2024 12:31 PM Recorded by User: THERESA BUSCH ------- Level of Service: OFFICE/OUTPATIENT ESTABLISHED SF [facility] 10 MIN[93531] Date AND Time: 06-23-2024 12:30 PM Recorded by User: THERESA BUSCH ------- (more content not included)... Normal [facility] CNOVon 05-30-2024 CNOV Office Visit (OBGMEM) LIANNANATALY ([id number]) 3 F Date Time Provider Department 05/30/24 10:30 AM PRABHA DALAL OBDOMENICO During your visit today, we recorded the following information about you: Blood pressure Weight Last Period 114/70 63.5 kg 05/18/24 Prabha Dalal MD 05/30/2024 2:14 PM Signed IMPRESSION/PLAN Heavy AND painful periods (along with need of adequate BC)- trial begin OCP, therefore: The following approved medication requests have been transmitted electronically. Requested Prescriptions Signed Prescriptions Disp Refills Norethindrn A-E Estradiol-Iron () 1 mg-20 mcg (24)/75 mg (4) 84 tablet 1 Sig: Take 1 tablet by mouth once daily. Electronically submitted to her pharmacy ([facility]). Follow up at annual to assess efficacy of choice. She is comfortable with this plan of care. Nataly Dsouza is a 18 year old G0 female here today for further evaluation AND management of heavy AND painful periods as well as need for BC. She is a new patient to me today. Thorough past history obtained/updated/rev iewed with today's visit. She is accompanied by no one today. PAST MEDICAL HISTORY No date: NEGATIVE MEDICAL HISTORY PAST SURGICAL HISTORY No date: MYRINGOTOMY W/ TUBES HX; Bilateral Comment: bilateral ear tubes Patient has no known allergies. Current Outpatient Medications on File Prior to Visit Medication Sig nitrofurantoin monohydrate and macrocrystal (MACROBID) 100 mg capsule Take 1 capsule by mouth two times a day for 5 days. No current facility-administere d medications on file prior to visit. FAMILY HISTORY Problem Relation Age of Onset Diabetes Mother Hypertension Mother Diabetes Maternal Grandmother Heart Maternal Grandfather Diabetes Maternal Grandfather Heart Paternal Grandmother Cancer Paternal Grandfather Breast Cancer Maternal Aunt Cervical Cancer No Family History Ovarian cancer No Family History Uterine Cancer No Family History Colon Cancer No Family History Pancreatic Cancer No Family History Prostate Cancer No Family History Social History Tobacco Use Smoking status: Never Passive exposure: Never Smokeless tobacco: Never Vaping Use Vaping status: Never Used Substance Use Topics Alcohol use: Never Drug use: Never HPI Menarche was age ~10/12. Cycles are once a month with moderate to heavy flow (initially)- changes pads ~q2hr, full, not soaked, no accidents. She has moderate associated dysmenorrhea (Tylenol AND moist heat help some). She does feel like this has been getting worse over time. She has completed her GardaSIL course. She has become sexually active. She AND her partner are inconsistent with condom use (her method of BC). She denied FHx or personal history of blood clots, bleeding disorders, liver disease or significant IRWIN. I discussed with her BC options/types, routine use, Side effects, risk AND benefits of use. After this discussion she would like to proceed with OCP and we will start with Junel. Prabha Dalal MD Medical Decision Making: Problems: Moderate: 1+ chronic illnesses with change Risk: Moderate: Drug management Medical Decision Making Level: 4 - Moderate Allergies As of Date: 05/30/2024 (No Known Allergies) Date Reviewed: 05/30/2024 Reviewed by: Prabha Dalal MD - Fully Assessed Reason for Visit: Contraception [26] Primary Visit Diagnosis:Dysmenorrh ea [N94.6] Other Visit Diagnosis:Menorrhagi a with regular cycle [N92.0] Order(s):Norethindrn A-E Estradiol-Iron () 1 mg-20 mcg (24)/75 mg (4)Take 1 tablet by mouth once daily.Disp: 84 tabletRfl: 1 Prescriptions as of 05/30/2024 - Norethindrn A-E Estradiol-Iron () 1 mg-20 mcg (24)/75 mg (4) Take 1 tablet by mouth once daily. - nitrofurantoin monohydrate and macrocrystal (MACROBID) 100 mg capsule Take 1 capsule by mouth two times a day for 5 days. Problem List As Of Date 05/30/2024 Noted Resolved Myopia, bilateral [H52.13] 10/06/2019 Neck pain on left side [M54.2] 06/10/2020 Prescriptions ordered this encounter Disp Refills Start End 1 MG-20 MCG (24)/75 MG (* 84 t* 1 05/30/2024 Route: ORAL Sig: Take 1 tablet by mouth once daily. Disposition: Return if symptoms worsen or fail to improve. Follow-up and Disposition History for Encounter Date Provider Department Center 05/30/2024 [id number], ERIN J [facility] Encounter Status:Closed by PRABHA DALAL [facility] Tele[facility] ([facility]) NATALY DSOUZA ([id number]) 3 F Date Time Provider Department 05/26/24 ALBINO STEWART [facility] During your visit today, we recorded the following information about you: Albino Stewart MD 05/26/2024 8:14 AM Signed Urine culture grew significant bacteria indicating a urinary tract infection. I have sent an antibiotic to the pharmacy which she may begin if urinary symptoms are still present. Jovon Grace MA 05/26/2024 9:24 AM Signed Patient notified of results, verbalized understanding of instructions given. Jovon Grace MA Allergies As of Date: 05/26/2024 (No Known Allergies) Date Reviewed: 05/24/2024 Reviewed by: Abdirahman Ho APRN.CABINET ASSEMBLER - Fully Assessed Reason for Visit: Results [95] Cmt: Urine Cx=E coli Order(s):nitrofurant oin monohydrate and macrocrystal (MACROBID) 100 mg capsuleTake 1 capsule by mouth two times a day for 5 days.Disp: 10 capsuleRfl: 0 Prescriptions as of 05/26/2024 - nitrofurantoin monohydrate and macrocrystal (MACROBID) 100 mg capsule Take 1 capsule by mouth two times a day for 5 days. Problem List As Of Date 05/26/2024 Noted Resolved Myopia, bilateral [H52.13] 10/06/2019 Neck pain on left side [M54.2] 06/10/2020 Prescriptions ordered this encounter Disp Refills Start End NITROFURANTOIN MONOHYDRATE AND MACROCR* 10 c* 0 05/26/2024 05/31/2024 Route: ORAL Sig: Take 1 capsule by mouth two times a day for 5 days. Encounter Status:Closed by JOVON GRACE on 05/26/24 Normal [facility] Bacteria Ur Culton 4 Bacteria identified Cx Nom (U) ORGANISM ID: 1 >=100,000 CFU/ml Escherichia coli ORGANISM ID: 1 (ESCHERICHIA COLI) ANTIBIOTIC INTERPRETATION ANG STATUS REFERENCE RANGE Ampicillin S 4 F Susceptible <=8 , Intermediate >8 , Resistant >16 Cefazolin S <=4 F Susceptible 0-16 , Intermediate <0 or >16 , Resistant >16 For uncomplicated urinary tract infections, cefazolin results can be used to predict susceptibility or resistance to cephalexin. Ceftriaxone S <=1 F Susceptible <=1 , Intermediate >1 , Resistant >=4 Cefepime S <=1 F Susceptible <=2 , Susceptible-Dose Dependent >2 , Resistant >=16 Ertapenem S <=0.5 F Susceptible <=0.5 , Intermediate >.5 , Resistant >1 Meropenem S <=0.25 F Susceptible <=1 , Intermediate >1 , Resistant >2 Ampicillin/Sulbact S <=2 F Susceptible <=8 , Intermediate >8 , Resistant >16 Piperacillin/Tazobac S <=4 F Susceptible <16 , Susceptible-Dose Dependent >=16 , Resistant >=32 Gentamicin S <=1 F Susceptible <=2 , Intermediate >2 , Resistant >=8 Tobramycin S <=1 F Susceptible <4 , Intermediate >=4 , Resistant >=8 Trimeth sulfameth S <=20 F Susceptible <=40 , Resistant >40 Ciprofloxacin S <=0.25 F Susceptible <0.5 , Intermediate >=.5 , Resistant >=1 Nitrofurantoin S <=16 F Susceptible <=32 , Intermediate >32 , Resistant >64 Abnormal [facility] Comment on above: Performed By: #### 6 30-4 ####[facility] [id number] [address] [place] CNOVon 05-24-2024 CNOV Office Visit (UCWSTR) NATALY DSOUZA ([id number]) 3 F Date Time Provider Department 05/24/24 12:00 PM MARISELLIZAJENNZHOUABDIRAHMAN [facility] During your visit today, we recorded the following information about you: Temperature Pulse Respiration Blood pressure 98.1 degrees 94/minute 20/minute 102/64 Weight 66 kg Abdirahman Ho APRN.CABINET ASSEMBLER 05/24/2024 12:22 PM Signed How to Manage Common Symptoms Associated with COVID for Adults Fever- Fever is a temperature over 100.4 F and can occur when the body is fighting an infection. To help treat a fever: Drink plenty of fluids and stay well hydrated. Eat small amounts of easy to digest food. Rest. Your body needs rest to recover, but getting up and moving around the house frequently is a good idea. You should try to continue doing your normal daily activities (bathing, toileting, grooming, cooking), though you will probably feel tired, and need to rest often. Avoid any heavy activity or exercise, as this will increase your body temperature. Dress in light clothing and stay covered in a light sheet. Keep the room temperature cool. Take a slightly warm (not cold or cool) bath, or apply damp washcloths to the forehead and wrists. Cough- Cough is a common symptom associated with COVID and can be bothersome. To help treat a cough: Stay well hydrated. Try warm water or tea with lemon and/or honey to help soothe the cough. Use a humidifier to add moisture to the air. Try a product with menthol, like a cough drop or a rub for your chest such as Vicks, which can help reduce cough. Try cough drops. Avoid smoking and other strong odors or perfumes. Try breathing exercises to keep your lungs open and clear. Take a big deep breath through your nose and hold for 5 seconds before slowly releasing. Repeat frequently, while you are awake. Congestion- Runny nose or nasal congestion can occur with COVID. Treatment can help relieve symptoms: Try OTC nasal saline spray, or nasal saline rinse to relieve mucus congestion. Nasal strips can help keep nasal passages open, to increase airflow. Elevating your head with an extra pillow in bed can help reduce congestion. Using a humidifier can increase moisture in the air, and make breathing easier. Sore Throat- Another common symptom with COVID, can be managed at home by: Stay well hydrated. Gargle with salt water - mix ? teaspoon salt with 1 cup of warm water and gargle. This helps to loosen mucus in the back of the throat and may reduce discomfort. Try ice chips, popsicles or lozenges to soothe the throat. Nausea/Vomiting/Diar yusra- These are common symptoms, and staying hydrated is most important. If you are nauseous or vomiting, start with small sips of water every 10-15 minutes and increase as tolerated. You can try sucking an ice cube too. If tolerating, you can try pedialyte or Gatorade, or flat sprite or gm-eleazar. Start slowly and increase as you are able to. Instead of meals, try smaller, more frequent snacks. Try eating bland foods like crackers, toast, rice, and applesauce. Avoid spicy, greasy or fried foods and dairy containing foods. Even if you aren't feeling hungry due to lack of smell or taste, it is important to try to take in some food when you are able. After drinking and eating, rest in an upright position for up to two hours as needed to help decrease nauseous feelings. Try closing your eyes, avoid moving and watching TV. Avoid strong odors that can make you feel more nauseated. When to seek emergency medical attention Look for emergency warning signs for COVID-19. If having any of these symptoms, seek emergency medical care immediately: Trouble breathing Persistent pain or pressure in the chest New confusion Inability to wake or stay awake Bluish lips or face *This list is not all possible symptoms. Please call your medical provider for any other symptoms that are severe or concerning to you. Abdirahman Ho, MARIMAR.CABINET ASSEMBLER 05/24/2024 12:33 PM Signed Subjective HPI Nontoxic-appearing female presents urgent care chief complaint possible UTI. Duration of symptoms 1 day. Associated symptoms abdominal pain urine frequency urgency. Also has had a sore throat and headache. Presents today for evaluation. No known sick contacts. No OTC medications. Denies any fever body aches chills productive cough chest pain shortness of breath pleuritic pain hemoptysis nausea vomiting abdominal pain change in bowel or bladder habits. Past medical history prescription medication use and allergies reviewed. BP 102/64 Pulse 94 Temp 36.7 ?C (98.1 ?F) Resp 20 Wt 66 kg (145 lb 8.1 oz) LMP 04/24/2024 (Approximate) SpO2 97% BMI 25.30 kg/m? .Patient presents with: Urinary Problem: Possible uti, urgency, stomach pain x 1 day Sore throat, IRWIN x 1 day PAST MEDICAL HISTORY No date: NEGATIVE MEDICAL HI (more content not included)... Normal [facility] COVID AND INFLUENZA A/B AND RSV PCR, ROUTINEon 05-24-2024 SARS-CoV-2 (COVID-19) RNA HIRAM+probe Ql (Unsp spec) SARS-COV-2 (AGENT OF COVID-19) RNA: Detected INFLUENZA A RNA: Not detected INFLUENZA B RNA: Not detected RESPIRATORY SYNCYTIAL VIRUS (RSV) RNA: Not detected Abnormal [facility] Comment on above: Performed By: #### C VFLRS ####[facility] LABCLIA [id number] [place] [address] [place] UA DIP, URINE (POC)on 2023 BILIRUBIN UA (POCT) Negative Negative [facility] CLARITY UA (POCT) Cloudy [facility] COLOR UA (POCT) Yellow [facility] GLUCOSE UA (POCT) Negative Negative mg/dL [facility] Hemoglobin Ql (U) Trace-intact Abnormal Negative [facility] Interpretation and review of laboratory results Abnormal [facility] KETONE UA (POCT) Negative Negative mg/dL [facility] LEUKOCYTES UA (POCT) Negative Negative [facility] NITRITE UA (POCT) Negative Negative [facility] PH UA (POCT) 7.0 4.5 - 8.0 [facility] Protein Ql (U) Negative Negative mg/dL [facility] SPECIFIC GRAVITY UA (POCT) 1.025 1.005 - 1.030 [facility] UROBILINOGEN UA (POCT) 1.0 Normal E.U./d L [facility] Location:[address], [place], [place], [id number] [place] [address] POINT OF CARE [facility] C. trachomatis+N. gonorrhoea e DNA HIRAM+probe Ql (Unsp spec)on 04-28-2024 C. trachomatis rRNA HIRAM+probe Ql (Unsp spec) Negative Normal Negative for Chlamydia trachomatis by amplificaton [facility] Comment on above: Order Comment: Speci men Type: URINE SPECIMENOrdering Facility: [facility] Address: [address] [place] [address] Performed By: #### 3 [id number] ####[facility] LABCLIA [id number] [place] [address] [place] N. gonorrhoeae rRNA HIRAM+probe Ql (Unsp spec) Negative Normal Negative for Neisseria gonorrhoeae by amplification [facility] Comment on above: Order Comment: Speci men Type: URINE SPECIMENOrdering Facility: [facility] Address: [address] [place] [address] Performed By: #### 3 [id number] ####[facility] LABCLIA [id number] [place] [address] [place] CNOVon 04-28-2024 CNOV Office Visit (PEMDNA) NATALY DSOUZA ([id number]) 3 F Date Time Provider Department 04/28/24 10:00 AM NISHA CORCORAN PEMLOUISE During your visit today, we recorded the following information about you: Temperature Pulse Blood pressure Weight 98.4 degrees 92/minute 112/64 64.8 kg Height Last Period 1.615 m 04/24/24 Nisha Corcoran APRN.CNP 04/28/2024 12:41 PM Signed WELL VISIT PEDIATRIC 18+ YRS OLD Nataly is a 18 year old who presents today for well exam. SUBJECTIVE CONCERNS: no concerns HISTORY ACTIVE PROBLEM LIST Neck Pain On Left Side - 06/10/2020 Myopia, Bilateral - 10/06/2019 PAST MEDICAL HISTORY No date: NEGATIVE MEDICAL HISTORY PAST SURGICAL HISTORY No date: PAST SURGICAL HISTORY OF Comment: bilateral ear tubes ALLERGIES No Known Allergies Medications: No prescriptions on file. FAMILY HISTORY Problem Relation Age of Onset Diabetes Mother Hypertension Mother Heart Maternal Grandfather Diabetes Maternal Grandfather Diabetes Maternal Grandmother Heart Paternal Grandmother Cancer Paternal Grandfather Social History Social History Narrative Not on file Smoking Exposure: Do you spend a significant amount of time with anyone who smokes? No Recreational Screen Time totaling more than 2 hours of screen time per day. Physical Activity: more than 1 hour of physical activity per day Fainting, dizziness, significant shortness of breath or chest pain with sports or exercise: No History of concussion in the last year: No Safety: Reviewed seat belts, bike helmets, smoke detectors, and internet Diet: -Diet is well balanced and appropriate for age -Fruits are eaten with most meals -Vegetables are eaten with most meals -Drinks water daily Elimination: no concerns, normal size and consistency Dental: dental care current Sleep: -no sleep concerns Vision: No vision concerns Hearing: No hearing concerns Growth: No growth concerns Gynecological history: LMP: 8/5 Cycles are regular and last 6 days. Dysmenorrhea: moderate Heavy periods: no Substance use: none Sexual History: Attraction: male Sexually Active: Yes Number of lifetime partners: 2 Contraception: condoms inconsistently GC/C screen within the past year: No GC/C screen since most recent partner? No History of STI: No Hx of STI/HIV testing? No Any new partners since last testing? Yes Change in normal vaginal discharge: No Screening tools reviewed and discussed with patient/[id number] and Social Determinants of Health. Please see Patient Entered Data. [place]-SUICIDE SEVERITY RATING SCALE Screen with Triage Points for Primary Care 1. In the past month, have you wished you were or wished you could go to sleep and not wake up? NO 2. In the past month, have you actually had any thoughts of killing yourself? NO 6. Have you ever done anything, started to do anything, or prepared to do anything to end your life? Examples: Collected pills, obtained a gun, gave away valuables, wrote a will or suicide note, took out pills but didn't swallow any, held a gun but changed your mind or it was grabbed from your hand, went to the roof but didn't jump; or actually took pills, tried to shoot yourself, cut yourself, tried to hang yourself, etc. NO SDOH: Food Insecurity: No Food Insecurity (04/26/2024) Hunger Vital Sign Worried About Running Out of Food in the Last Year: Never true Ran Out of Food in the Last Year: Never true Financial Resource Strain: Low Risk (04/26/2024) Overall Financial Resource Strain (CARDIA) Difficulty of Paying Living Expenses: Not very hard Transportation Needs: No Transportation Needs (04/26/2024) PRAPARE - Transportation Lack of Transportation (Medical): No Lack of Transportation (Non-Medical): No Housing Stability: Low Risk (04/26/2024) Housing Stability Vital Sign Unable to Pay for Housing in the Last Year: No Number of Places Lived in the Last Year: 2 Unstable Housing in the Last Year: No Discussed SDOH results with patient/family. SDOH needs identified: no concerns identified OBJECTIVE Physical Exam: BP 112/64 Pulse 92 Temp 36.9 ?C (98.4 ?F) (Temporal) Ht 161.5 cm (5' 3.58) Wt 64.8 kg (142 lb 13.7 oz) LMP 04/24/2024 (Approximate) SpO2 99% BMI 24.84 kg/m? Blood pressure %dominick are not available for patients who are 18 years or older. Blood pressure %dominick are not available for patients who are 18 years or older. 78 %ile (Z= 0.76) based on CDC (Girls, 2-20 Years) BMI-for-age based on BMI available as of 04/28/2024. Last BMI: Wt: 69.9 kg (154 lb 1.6 oz) (84%, Z= 0.98)* BMI: 26.45 kg/(m2) Last 4 Encounter Wt Readings: Date: Wt: 04/28/2024 64.8 kg (142 lb 13.7 oz) (73%, Z= 0.60)* 01/21/2024 69.9 kg (154 lb 1.6 oz) (84%, Z= 0.98)* 07/25/2023 64.6 kg (142 lb 6.4 oz) (74%, Z= 0.66)* 07/22/2023 63.8 kg (140 lb 9.6 oz) (72%, Z (more content not included)... Normal [facility] CNOVon 09-10-2023 CNOV Office Visit (TANVI) LIANNABETTYForest ([id number]) 3 F Date Time Provider Department 09/10/23 8:00 AM JEWEL MORRIS During your visit today, we recorded the following information about you: Jewel Morris DC 09/10/2023 8:51 AM Addendum Lumbar Roll Stretch - Perform while side-lying on a bed, couch, or other safe flat surface. With your right hand placed on your rib cage to protect your shoulder, roll your shoulder and upper back towards the floor behind you. Keep the left leg straight on the floor. Bend your right hip and knee and allow the weight of this leg to pull your torso and lower extremity forwards until you feel a stretch in the low back and the gluteal musculature. Hold for a total of two minutes and repeat on the alternate side. See a demonstration here: https://Avegantu.be/BzY BkAvdCJY Rocky's Exercise for Postural Training: The following exercise was developed by a malagasy neurologist and focuses on reversing the tendencies of a slumping or slouched posture. The exercise should be performed in 10 second holds multiple times throughout the day. Standing: https://Avegantu.be/GeD 1qMKla-E Seated: https://youMongoSluiceu.be/_uQ _-JeWTgU Cat-Camel Mobility Exercise Unlike other stretches for the low back that can place harmful stresses on the spine, this exercise emphases mobility in a very spine-friendly manner. Step 1: Assume an all-4?s (quadruped) position on your hands and knees. Step 2: Slowly arch your entire spine and hips as high as possible without pain into a flexed or rounded position. You should end with your head looking down towards the ground. This is the camel position. After pausing for a few seconds move into the opposite downward extended position with the head looking up (the cat). Make sure you only move into a light stretch for each position and do not force your spine into any pain. Perform 5-6 cycles of this exercise before moving on to starting the Big 3 with the curl-up. Please note the following after receiving Chiropractic Manipulative Therapies 1. General aching can occur after manipulative treatment for 1-3 days. You may feel nauseous or unwell for a few hours after the treatment, please call if these symptoms persist for more than 24 hours. 2. Please drink an additional 8-16 ounces of water today. This will help reduce the chance of side effects. 3. Please do not engage in heavy lifting or other strenuous activity for 2 days. 4. Please call if you experience new numbness, weakness, or strong or sharp pain. This is not expected after manipulative treatment and should be evaluated. 5. Ensure you are getting adequate sleep; sleep is the time when your body does most of its healing. As a general rule, 7 hours of sleep per night is usually adequate. If you have any further questions or would like clarification on the above instructions, please call our office at . A message will be left with our physician staff and we will return your phone call as soon as possible. Please leave a current phone number to reach you back. Jewel Morris DC 09/10/2023 10:41 AM Signed Wellness and Preventative Medicine Department [facility] New Patient History and Physical Examination CHIEF COMPLAINT: Back pain HISTORY OF PRESENT ILLNESS: Nataly Dsouza is a 18 year old female who presents on 09/10/2023 with back pain. Signs and symptoms began >1 year with gradual onset. Symptoms interfere with work, exercise, and other activities of daily living. Pain rating and quality: 4/10 Aggravating factors: stress and increased activity levels Palliative factors: rest, stretching Lifestyle Factors: Occupation: [employer] Hydration: Water consumption: One to three 8 ounce glasses daily Caffeine consumption: One to three 8 ounce glasses daily Physical Activity Daily activities: active in daily activity but no regular exercise Exercise: Program: Sporadic irregular exercise Sleep Quality: average Duration: 6-8 hours Insomnia: No Position: back Stress Average rating: mild Causes of stress: Work and School Stress relief practices: none identified PAST MEDICAL HISTORY Diagnosis Date NEGATIVE MEDICAL HISTORY MEDICATIONS: No prescriptions on file. ALLERGIES: ALLERGIES No Known Allergies Social History Tobacco Use Smoking status: Never Smokeless tobacco: Never FAMILY HISTORY Problem Relation Age of Onset Diabetes Mother Hypertension Mother Heart Maternal Grandfather Diabetes Maternal Grandfather Diabetes Maternal Grandmother Heart Paternal Grandmother Cancer Paternal Grandfather Patient-Entered Questionnaires REVIEW OF SYSTEMS: (Positives in BOLD, all else denied) GENERAL: Fever, chills, fatigue, weight loss/weight gain. SKIN: Rash. Echymosis. Edema. HEENT: Nasal congestion, sore throat, rishabh (more content not included)... Normal [facility] XR WRIST 3V PA/LAT/OBL LTon 08-24-2022 XR WRIST 3V PA/LAT/OBL LT * * *Final Report* * * DATE OF EXAM: Aug 24 2022 10:55AM LDX 5270 - XR WRIST 3V PA/LAT/OBL LT / PROCEDURE REASON: Wrist injury, left, initial encounter * * * * Physician Interpretation * * * * TECHNIQUE: XR WRIST 3V PA/LAT/OBL LT - EXAM DATE: 08/24/2022 10:55 AM CLINICAL HISTORY: Wrist injury, left, initial encounter COMPARISON: None FINDINGS: 3 views of the left wrist show no fracture, dislocation, or radiopaque foreign body. IMPRESSION: Normal 3 views of the left wrist Smocker: [facility] Transcribe Date/Time: Aug 24 2022 11:02A Dictated by : DUC BERRIOS MD This examination was interpreted and the report reviewed and electronically signed by: DUC BERRIOS MD on Aug 24 2022 11:03AM EST [id number] CN Normal [facility] XR WRIST GENERAL 3V PA/LAT/O BL LEFTon 08-24-2022 [facility] No Panel Informationon 12-24 [facility] Vital Signs Date Time Vital Sign Value Performing Clinician Faci lity 04-24-2025 12:24-0400 Body height 160.02 cm No Primary Care Physician [facility] 04-24-2025 12:24-0400 Body mass index (BMI) [Ratio] 30.9 kg/m2 No Primary Care Physician [facility] 04-24-2025 12:24-0400 Body weight 79.3 kg No Primary Care Physician [facility] 04-24-2025 12:140400 Body temperature 97.8 [degF] No Primary Care Physician [facility] 04-24-2025 12:14-0400 Diastolic blood pressure 61 mm[Hg] No Primary Care Physician [facility] 04-24-2025 12:140400 Heart rate 104 /min No Primary Care Physician [facility] 04-24-2025 12:140400 Respiratory rate 16 /min No Primary Care Physician [facility] 04-24-2025 12:14-0400 Systolic blood pressure 126 mm[Hg] No Primary Care Physician [facility] 04-12-2025 09:02-0400 Body mass index (BMI) [Ratio] 29.91 kg/m2 Theresa Busch MD Work Phone: [facility] 04-12-2025 09:02-0400 Body weight 78.02 kg Theresa Busch MD Work Phone: [facility] 04-12-2025 09:02-0400 Diastolic blood pressure 60 mm[Hg] Theresa Busch MD Work Phone: [facility] 04-12-2025 09:02-0400 Systolic blood pressure 112 mm[Hg] Theresa Busch MD Work Phone: [facility] 03-30-2025 09:18-0400 Body mass index (BMI) [Ratio] 29.7 kg/m2 Kerrie Mckeon APRN.CNM Work Phone: [facility] 03-30-2025 09:18-0400 Body weight 77.47 kg Kerrie Mckeon APRN.CNM Work Phone: [facility] 03-30-2025 09:18-0400 Diastolic blood pressure 60 mm[Hg] Kerrie Mckeon APRN.CNM Work Phone: [facility] 03-30-2025 09:18-0400 Systolic blood pressure 112 mm[Hg] Kerrie Mckeon APRN.CNM Work Phone: [facility] 03-13-2025 08:52-0400 Body mass index (BMI) [Ratio] 28.63 kg/m2 Kerrie Mckeon APRN.CNM Work Phone: [facility] 03-13-2025 08:52-0400 Body weight 74.66 kg Kerrie Mckeon APRN.CNM Work Phone: [facility] 03-13-2025 08:52-0400 Diastolic blood pressure 60 mm[Hg] Kerrie Mckeon TARGETING ACQUISITION OFFICER.CNM Work Phone: [facility] 03-13-2025 08:52-0400 Systolic blood pressure 102 mm[Hg] Kerrie Mckeon APRN.CNM Work Phone: [facility] 02-28-2025 08:49-0400 Body mass index (BMI) [Ratio] 28.52 kg/m2 Theresa Busch MD Work Phone: [facility] 02-28-2025 08:49-0400 Body weight 74.39 kg Theresa Busch MD Work Phone: [facility] 02-28-2025 08:49-0400 Diastolic blood pressure 68 mm[Hg] Theresa Busch MD Work Phone: [facility] 02-28-2025 08:49-0400 Systolic blood pressure 114 mm[Hg] Theresa Busch MD Work Phone: [facility] 02-20-2025 17:48-0400 Body mass index (BMI) [Ratio] 27.99 kg/m2 Geovani Rubalcava APRN.CABINET ASSEMBLER Work Phone: [facility] 02-20-2025 17:48-0400 Body temperature 97.9 [degF] Geovani Rubalcava APRN.CABINET ASSEMBLER Work Phone: [facility] 02-20-2025 17:48-0400 Body weight 73 kg Geovani Rubalcava APRN.CABINET ASSEMBLER Work Phone: [facility] 02-20-2025 17:48-0400 Diastolic blood pressure 66 mm[Hg] Geovani Rubalcava TARGETING ACQUISITION OFFICER.CABINET ASSEMBLER Work Phone: [facility] 02-20-2025 17:48-0400 Heart rate 87 /min Geovani Rubalcava TARGETING ACQUISITION OFFICER.CABINET ASSEMBLER Work Phone: [facility] 02-20-2025 17:48-0400 Respiratory rate 18 /min Geovani Rubalcava TARGETING ACQUISITION OFFICER.CABINET ASSEMBLER Work Phone: [facility] 02-20-2025 17:48-0400 SaO2% (BldA) [Mass fraction] 98 % Geovani Rubalcava TARGETING ACQUISITION OFFICER.CABINET ASSEMBLER Work Phone: [facility] 02-20-2025 17:48-0400 Systolic blood pressure 94 mm[Hg] Geovani Rubalcava TARGETING ACQUISITION OFFICER.CABINET ASSEMBLER Work Phone: [facility] 01-31-2025 08:20-0400 Body mass index (BMI) [Ratio] 27.13 kg/m2 Nelly Gutierrez MD Work Phone: [facility] 01-31-2025 08:20-0400 Body weight 70.76 kg Nelly Gutierrez MD Work Phone: [facility] 01-31-2025 08:20-0400 Diastolic blood pressure 60 mm[Hg] Nelly Gutierrez MD Work Phone: [facility] 01-31-2025 08:20-0400 Systolic blood pressure 112 mm[Hg] Nelly Gutierrez MD Work Phone: [facility] 01-03-2025 16:04-0400 Body mass index (BMI) [Ratio] 26.09 kg/m2 Nelly Gutierrez MD Work Phone: [facility] 01-03-2025 16:04-0400 Body weight 68.04 kg Nelly Gutierrez MD Work Phone: [facility] 01-03-2025 16:04-0400 Diastolic blood pressure 62 mm[Hg] Nelly Gutierrez MD Work Phone: [facility] 01-03-2025 16:04-0400 Systolic blood pressure 100 mm[Hg] Nelly Gutierrez MD Work Phone: [facility] 12-18-2024 16:04-0400 Body mass index (BMI) [Ratio] 25.74 kg/m2 Nelly Gutierrez MD Work Phone: [facility] 12-18-2024 16:04-0400 Body weight 67.13 kg Nelly Gutierrez MD Work Phone: [facility] 12-18-2024 16:04-0400 Diastolic blood pressure 58 mm[Hg] Nelly Gutierrez MD Work Phone: [facility] 12-18-2024 16:04-0400 Systolic blood pressure 106 mm[Hg] Nelly Gutierrez MD Work Phone: [facility] 11-20-2024 15:44-0500 Body mass index (BMI) [Ratio] 24 kg/m2 Charley Plotts TARGETING ACQUISITION OFFICER.CNM Work Phone: [facility] 11-20-2024 15:44-0500 Body weight 62.6 kg Charley Plotts TARGETING ACQUISITION OFFICER.CNM Work Phone: [facility] 11-20-2024 15:44-0500 Diastolic blood pressure 70 mm[Hg] Charley Plotts TARGETING ACQUISITION OFFICER.CNM Work Phone: [facility] 11-20-2024 15:44-0500 Systolic blood pressure 111 mm[Hg] Charley Plotts TARGETING ACQUISITION OFFICER.CNM Work Phone: [facility] 10-23-2024 14:38-0500 Body mass index (BMI) [Ratio] 24.7 kg/m2 Bita Nyssa TARGETING ACQUISITION OFFICER.CABINET ASSEMBLER Work Phone: [facility] 10-23-2024 14:38-0500 Body weight 64.41 kg Bita Nyssa TARGETING ACQUISITION OFFICER.CABINET ASSEMBLER Work Phone: [facility] 10-23-2024 14:38-0500 Diastolic blood pressure 58 mm[Hg] Bita Zane TARGETING ACQUISITION OFFICER.CABINET ASSEMBLER Work Phone: [facility] 10-23-2024 14:38-0500 Systolic blood pressure 94 mm[Hg] Bita Degroot APRN.CABINET ASSEMBLER Work Phone: [facility] 10-06-2024 13:29-0500 Body mass index (BMI) [Ratio] 25.04 kg/m2 Eliud Clark MD Work Phone: [facility] 10-06-2024 13:29-0500 Body weight 65.32 kg Eliud Clark MD Work Phone: [facility] 10-06-2024 13:29-0500 Diastolic blood pressure 60 mm[Hg] Eliud Clark MD Work Phone: [facility] 10-06-2024 13:29-0500 Systolic blood pressure 104 mm[Hg] Eliud Clark MD Work Phone: [facility] 09-27-2024 16:17-0500 Body mass index (BMI) [Ratio] 25.39 kg/m2 Kerrie Mckeon APRN.CNM Work Phone: [facility] 09-27-2024 16:17-0500 Body weight 66.22 kg Kerrie Mckeon APRN.CNM Work Phone: [facility] 09-27-2024 16:17-0500 Diastolic blood pressure 64 mm[Hg] Kerrie Mckeon APRN.CNM Work Phone: [facility] 09-27-2024 16:17-0500 Systolic blood pressure 98 mm[Hg] Kerrie Mckeon APRN.CNM Work Phone: [facility] 09-26-2024 16:04-0500 Body mass index (BMI) [Ratio] 25.3 kg/m2 Rosanna Clutter PA-C Work Phone: [facility] 09-26-2024 16:04-0500 Body temperature 97.2 [degF] Rosanna Clutter PA-C Work Phone: [facility] 09-26-2024 16:04-0500 Body weight 66 kg Rosanna Clutter PA-C Work Phone: [facility] 09-26-2024 16:04-0500 Diastolic blood pressure 86 mm[Hg] Rosanna Clutter PA-C Work Phone: [facility] 09-26-2024 16:04-0500 Heart rate 95 /min Rosanna Clutter PA-C Work Phone: [facility] 09-26-2024 16:04-0500 Respiratory rate 20 /min Rosanna Clutter PA-C Work Phone: [facility] 09-26-2024 16:04-0500 SaO2% (BldA) [Mass fraction] 100 % Rosanna Clutter PA-C Work Phone: [facility] 09-26-2024 16:04-0500 Systolic blood pressure 123 mm[Hg] Rosanna Clutter PA-C Work Phone: [facility] 06-23-2024 08:11-0400 Body mass index (BMI) [Ratio] 24.52 kg/m2 Theresa Busch MD Work Phone: [facility] 06-23-2024 08:11-0400 Body weight 63.96 kg Theresa Busch MD Work Phone: [facility] 06-23-2024 08:11-0400 Diastolic blood pressure 62 mm[Hg] Theresa Busch MD Work Phone: [facility] 06-23-2024 08:11-0400 Systolic blood pressure 110 mm[Hg] Theresa Busch MD Work Phone: [facility] 05-30-2024 10:52-0400 Body mass index (BMI) [Ratio] 24.35 kg/m2 Prabha Dalal MD Work Phone: [facility] 05-30-2024 10:52-0400 Body weight 63.5 kg Prabha Dalal MD Work Phone: [facility] 05-30-2024 10:52-0400 Diastolic blood pressure 70 mm[Hg] Prabha Dalal MD Work Phone: [facility] 05-30-2024 10:52-0400 Systolic blood pressure 114 mm[Hg] Prabha Dalal MD Work Phone: [facility] 05-24-2024 12:17-0400 Body mass index (BMI) [Ratio] 25.3 kg/m2 Abdirahman Ho TARGETING ACQUISITION OFFICER.CABINET ASSEMBLER Work Phone: [facility] 05-24-2024 12:17-0400 Body temperature 98.1 [degF] Abdirahman Ho TARGETING ACQUISITION OFFICER.CABINET ASSEMBLER Work Phone: [facility] 05-24-2024 12:17-0400 Body weight 66 kg Abdirahman Ho TARGETING ACQUISITION OFFICER.CABINET ASSEMBLER Work Phone: [facility] 05-24-2024 12:17-0400 Diastolic blood pressure 64 mm[Hg] Abdirahman Ho TARGETING ACQUISITION OFFICER.CABINET ASSEMBLER Work Phone: [facility] 05-24-2024 12:17-0400 Heart rate 94 /min Abdirahman Ho TARGETING ACQUISITION OFFICER.CABINET ASSEMBLER Work Phone: [facility] 05-24-2024 12:17-0400 Respiratory rate 20 /min Abdirahman Ho TARGETING ACQUISITION OFFICER.CABINET ASSEMBLER Work Phone: [facility] 05-24-2024 12:17-0400 SaO2% (BldA) [Mass fraction] 97 % Abdirahman Ho TARGETING ACQUISITION OFFICER.CABINET ASSEMBLER Work Phone: [facility] 05-24-2024 12:17-0400 Systolic blood pressure 102 mm[Hg] Abdirahman Ho TARGETING ACQUISITION OFFICER.CABINET ASSEMBLER Work Phone: [facility] 04-28-2024 09:58-0400 Body height 161.5 cm Nisha Corcoran TARGETING ACQUISITION OFFICER.CN P Work Phone: [facility] 04-28-2024 09:58-0400 Body mass index (BMI) [Ratio] 24.84 kg/m2 Nisha Corcoran TARGETING ACQUISITION OFFICER.CABINET ASSEMBLER Work Phone: [facility] 04-28-2024 09:58-0400 Body temperature 98.4 [degF] Nisha Corcoran TARGETING ACQUISITION OFFICER.CN P Work Phone: [facility] 04-28-2024 09:58-0400 Body weight 64.8 kg Nisha Money TARGETING ACQUISITION OFFICER.CN P Work Phone: [facility] 04-28-2024 09:58-0400 Diastolic blood pressure 64 mm[Hg] Nisha Money TARGETING ACQUISITION OFFICER.CABINET ASSEMBLER Work Phone: [facility] 04-28-2024 09:58-0400 Heart rate 92 /min Nisha Money TARGETING ACQUISITION OFFICER.CN P Work Phone: [facility] 04-28-2024 09:58-0400 SaO2% (BldA) [Mass fraction] 99 % Nisha Money TARGETING ACQUISITION OFFICER.CABINET ASSEMBLER Work Phone: [facility] 04-28-2024 09:58-0400 Systolic blood pressure 112 mm[Hg] Nisha Money TARGETING ACQUISITION OFFICER.CABINET ASSEMBLER Work Phone: [facility] 01-21-2024 11:01-0400 Body temperature 97.11 [degF] Nisha Money TARGETING ACQUISITION OFFICER.CN P Work Phone: [facility] 01-21-2024 11:01-0400 Body weight 69.9 kg Nisha Money TARGETING ACQUISITION OFFICER.CN P Work Phone: [facility] 01-21-2024 11:01-0400 Diastolic blood pressure 70 mm[Hg] Nisha Money TARGETING ACQUISITION OFFICER.CABINET ASSEMBLER Work Phone: [facility] 01-21-2024 11:01-0400 Heart rate 75 /min Nisha Money TARGETING ACQUISITION OFFICER.CN P Work Phone: [facility] 01-21-2024 11:01-0400 Respiratory rate 18 /min Nisha Money TARGETING ACQUISITION OFFICER.CN P Work Phone: [facility] 01-21-2024 11:01-0400 SaO2% (BldA) [Mass fraction] 100 % Nisha Money TARGETING ACQUISITION OFFICER.CABINET ASSEMBLER Work Phone: [facility] 01-21-2024 11:01-0400 Systolic blood pressure 114 mm[Hg] Nisha Money TARGETING ACQUISITION OFFICER.CABINET ASSEMBLER Work Phone: [facility] 07-25-2023 14:59-0500 Body temperature 98.49 [degF] Lilia Athy PA-C Work Phone: [facility] 07-25-2023 14:59-0500 Body weight 64.59 kg Lilia Athy PA-C Work Phone: [facility] 07-25-2023 14:59-0500 Diastolic blood pressure 82 mm[Hg] Lilia Athy PA-C Work Phone: [facility] 07-25-2023 14:59-0500 Heart rate 110 /min Lilia Athy PA-C Work Phone: [facility] 07-25-2023 14:59-0500 Respiratory rate 18 /min Lilia Athy PA-C Work Phone: [facility] 07-25-2023 14:59-0500 SaO2% (BldA) [Mass fraction] 99 % Lilia Athy PA-C Work Phone: [facility] 07-25-2023 14:59-0500 Systolic blood pressure 117 mm[Hg] Lilia Athy PA-C Work Phone: [facility] 08-23-2022 10:26-0500 Body temperature 97.9 [degF] Debbie Praisler-Wood TARGETING ACQUISITION OFFICER.CABINET ASSEMBLER Work Phone: [facility] 08-23-2022 10:26-0500 Body weight 64.41 kg Debbie Praisler-Wood TARGETING ACQUISITION OFFICER.CABINET ASSEMBLER Work Phone: [facility] 08-23-2022 10:26-0500 Diastolic blood pressure 80 mm[Hg] Debbie Praisler-Wood TARGETING ACQUISITION OFFICER.CABINET ASSEMBLER Work Phone: [facility] 08-23-2022 10:26-0500 Heart rate 69 /min Debbie Praisler-Wood TARGETING ACQUISITION OFFICER.CABINET ASSEMBLER Work Phone: [facility] 08-23-2022 10:26-0500 Respiratory rate 18 /min Debbie Praisler-Wood TARGETING ACQUISITION OFFICER.CABINET ASSEMBLER Work Phone: [facility] 08-23-2022 10:26-0500 SaO2% (BldA) [Mass fraction] 99 % Debbie Carreno APRN.CABINET ASSEMBLER Work Phone: [facility] 08-23-2022 10:26-0500 Systolic blood pressure 110 mm[Hg] Debbie Carreno APRN.CABINET ASSEMBLER Work Phone: [facility] 05-21-2022 08:07-0400 Body height 162.6 cm Carly Senokozlieff D O Work Phone: [facility] 05-21-2022 08:07-0400 Body mass index (BMI) [Percentile] Per age and sex 74.48 % Carly Senokozlieff DO Work Phone: [facility] 05-21-2022 08:07-0400 Body temperature 99.1 [degF] Carly Senokozlieff D O Work Phone: [facility] 05-21-2022 08:07-0400 Body weight 62.6 kg Carly Senokozlieff D O Work Phone: [facility] 05-21-2022 08:07-0400 Diastolic blood pressure 50 mm[Hg] Carly Senokozlieff DO Work Phone: [facility] 05-21-2022 08:07-0400 Heart rate 70 /min Carly Senokozlieff D O Work Phone: [facility] 05-21-2022 08:07-0400 SaO2% (BldA) [Mass fraction] 97 % Carly Senokozlieff DO Work Phone: [facility] 05-21-2022 08:07-0400 Systolic blood pressure 92 mm[Hg] Carly Senokozlieff DO Work Phone: [facility] 12-24-2021 14:48-0400 Body temperature 98.29 [degF] Nisha Corcoran TARGETING ACQUISITION OFFICER.CN P Work Phone: [facility] 12-24-2021 14:48-0400 Body weight 62.05 kg Nisha Corcoran TARGETING ACQUISITION OFFICER.CN P Work Phone: [facility] 12-24-2021 14:48-0400 Heart rate 76 /min Nisha Corcoran TARGETING ACQUISITION OFFICER.CN P Work Phone: [facility] 12-24-2021 14:48-0400 Respiratory rate 20 /min Nisha Corcoran TARGETING ACQUISITION OFFICER.CN P Work Phone: [facility] Encounters Encounter Date Encounter Type Care Provider Facility Start: 04-24-2025 End: 04-24-2025 ambulatory No Primary Care Physician -[facility] Start: 04-24-2025 End: 04-24-[address] Nelly Gutierrez MD -[facility] Work Phone: Start: 04-12-2025 End: 04-12-2025 Patient encounter procedure Theresa Busch MD Work Phone: OB/Gynecology Comment on above: Encounter for superv ision of normal first in third trimester ([facility]) (Primary Dx); 34 weeks gestation of ([facility]); Encounter for care in first trimester of first ([facility]) Start: 04-12-2025 End: 04-12-2025 ambulatory AURA ALAS Facility:[facility] Start: 03-30-2025 End: 03-30-2025 Patient encounter procedure Kerrie Mckeon APRN.CNKreen Work Phone: OB/Gynecology Comment on above: 32 weeks gestation o f ([facility]) (Primary Dx); Encounter for supervision of normal first in third trimester ([facility]); Floaters, bilateral Start: 03-30-2025 End: 03-30-2025 ambulatory KERRIE MCKEON Facility:[facility] Start: 03-13-2025 End: 03-13-2025 Patient encounter procedure Kerrie Mckeon APRN.CNM Work Phone: OB/Gynecology Comment on above: Encounter for superv ision of normal first in third trimester ([facility]) (Primary Dx); 29 weeks gestation of (HCC); Encounter for supervision of normal first in second trimester ([facility]); Floaters, bilateral Start: 03-13-2025 End: 03-13-2025 ambulatory KERRIE MCKEON Facility:[facility] Start: 03-02-2025 End: 03-05-2025 ambulatory Theresa Busch MD Work Phone: OB/Gynecology Comment on above: Glucose test Start: 02-28-2025 End: 02-28-2025 Patient encounter procedure Theresa Busch MD Work Phone: OB/Gynecology Comment on above: Encounter for superv ision of normal first in third trimester (HCC) (Primary Dx); 28 weeks gestation of (HCC) Start: 02-28-2025 End: 02-28-2025 ambulatory NELLY GUTIERREZ Facility:[facility] Start: 02-20-2025 End: 02-20-2025 Office outpatient visit 15 minutes Geovani Rubalcava APRN.CNP Work Phone: [facility] Comment on above: Viral URI with cough (Primary Dx); Fatigue, unspecified type; Second trimester (HCC) Start: 02-20-2025 End: 02-20-2025 ambulatory AURA ALAS Facility:[facility] Start: 01-31-2025 End: 01-31-2025 Patient encounter procedure Nelly Gutierrez MD Work Phone: OB/Gynecology Comment on above: Encounter for superv ision of normal first in second trimester (HCC) (Primary Dx); 24 weeks gestation of (HCC); Screening for diabetes mellitus Start: 01-31-2025 End: 01-31-2025 ambulatory NELLY GUTIERREZ Facility:[facility] Start: 01-03-2025 End: 01-03-2025 Patient encounter procedure Whi Tech 1 [employer] [facility] Comment on above: Encounter for anatomic survey (HCC) (Primary Dx); 20 weeks gestation of (HCC) Encounter for superv ision of normal first in second trimester (HCC) (Primary Dx); 20 weeks gestation of (HCC); Acute right-sided low back pain without sciatica Start: 01-03-2025 End: 01-03-2025 ambulatory AURA ALAS Facility:[facility] Start: 12-18-2024 End: 12-18-2024 ambulatory NELLY GUTIERREZ Facility:[facility] Start: 12-18-2024 End: 12-18-2024 Patient encounter procedure Nelly Gutierrez MD Work Phone: OB/Gynecology Comment on above: Encounter for superv ision of normal first in second trimester (Primary Dx); 17 weeks gestation of ; Encounter for care in first trimester of first Start: 11-21-2024 End: 01-21-2025 Follow-up encounter Nelly Gutierrez MD Work Phone: OB/Gynecology Start: 11-20-2024 End: 11-20-2024 ambulatory AURA ALAS Facility:[facility] Start: 11-20-2024 End: 11-20-2024 Patient encounter procedure Whi Tech 1 [employer] [facility] Comment on above: Encounter for antena real screening for malformation using ultrasound (Primary Dx); 13 weeks gestation of ; Encounter for (NT) nuchal translucency scan Encounter for prenat al care in first trimester of first (Primary Dx); 13 weeks gestation of ; Supervision of normal first , antepartum; Nausea and vomiting during Start: 11-20-2024 End: 11-20-2024 ambulatory BITA DEGROOT Facility:[facility] Start: 11-17-2024 End: 11-17-2024 Emergency department patient visit Mathieu Luna Facility:[facility] Start: 10-23-2024 End: 10-23-2024 ambulatory AURA ALAS Facility:[facility] Start: 10-23-2024 End: 10-23-2024 Patient encounter procedure Bita Degroot APRN.CNP Work Phone: OB/Gynecology Comment on above: 9 weeks gestation of (Primary Dx); Encounter for care in first trimester of first ; Supervision of normal first , antepartum Start: 10-09-2024 End: 10-09-2024 Telephone encounter Yang Steiner MD Work Phone: OB/Gynecology Start: 10-06-2024 End: 10-06-2024 ambulatory NELLY GUTIERREZ Facility:[facility] Start: 10-06-2024 End: 10-06-2024 Patient encounter procedure Eliud Clark MD Work Phone: OB/Gynecology Comment on above: Early stage of pregn kylee (Primary Dx); Subchorionic hemorrhage of placenta in first trimester Subchorionic hematom a in first trimester, single or unspecified fetus (Primary Dx); Threatened Start: 10-03-2024 End: 10-03-2024 Orders Only Nelly Gutierrez MD Work Phone: [facility] [place] [facility] Comment on above: Threatened (Primary Dx) Start: 10-02-2024 End: 10-02-2024 ambulatory Kerrie Mckeon APRN.CNKeren Work Phone: OB/Gynecology Comment on above: HCG Quantitative Start: 09-29-2024 End: 09-29-2024 ambulatory AURA ALAS Facility:[facility] Start: 09-27-2024 End: 09-27-2024 ambulatory AURA ALAS Facility:[facility] Start: 09-27-2024 End: 09-27-2024 Patient encounter procedure Kerrie Mckeon APRN.CNKeren Work Phone: OB/Gynecology Comment on above: Spotting in pregnanc y (Primary Dx) Start: 09-27-2024 End: 09-27-2024 Telephone encounter Jacklyn Clark APRN.CABINET ASSEMBLER Work Phone: [facility] Comment on above: Results Start: 09-26-2024 End: 09-26-2024 ambulatory AURA ALAS Facility:[facility] Start: 09-26-2024 End: 09-26-2024 Office outpatient visit 25 minutes Rosanna Hendricks PA-C Work Phone: [facility] Comment on above: Burning with urinati on (Primary Dx); Urethral irritation Start: 09-06-2024 End: 09-06-2024 ambulatory John AYALA Facility:[facility] Start: 06-23-2024 End: 06-23-2024 ambulatory AURA ALAS Facility:[facility] Start: 06-23-2024 End: 06-23-2024 Office outpatient visit 10 minutes Theresa Busch MD Work Phone: OB/Gynecology Comment on above: Family planning educ ation, guidance, and counseling (Primary Dx) Start: 05-30-2024 End: 05-30-2024 ambulatory PRABHA DALAL Facility:[facility] Start: 05-30-2024 End: 05-30-2024 Patient encounter procedure Prabha Dalal MD Work Phone: Obstetrics/Gynecolog y Comment on above: Dysmenorrhea (Primar y Dx); Menorrhagia with regular cycle Start: 05-26-2024 End: 05-26-2024 Telephone encounter Albino Stewart MD Work Phone: [facility] Comment on above: Results (Urine Cx=E coli) Start: 05-24-2024 End: 05-24-2024 ambulatory ROCHELLE NICKY Facility:[facility] Start: 05-24-2024 End: 05-24-2024 Office outpatient visit 15 minutes Abdirahman Ho APRN.CABINET ASSEMBLER Work Phone: [facility] Comment on above: Urgency of urination (Primary Dx); Viral illness Start: 04-28-2024 End: 04-28-2024 ambulatory ROCHELLE NICKY Facility:[facility] Start: 04-28-2024 End: 04-28-2024 Patient encounter procedure Nisha Corcoran APRN.CABINET ASSEMBLER Work Phone: [facility] Comment on above: Encounter for genera l adult medical examination without abnormal findings (Primary Dx); Screen for sexually transmitted diseases; Screening for HIV (human immunodeficiency virus); Special screening examination for viral disease; Encounter for initial prescription of contraceptives, unspecified contraceptive Start: 01-21-2024 End: 01-21-2024 Patient encounter procedure Nisha Corcoran APRN.CABINET ASSEMBLER Work Phone: [facility] Comment on above: Headache in pediatri c patient (Primary Dx) Start: 09-10-2023 End: 09-10-2023 ambulatory AURA ALAS Facility:[facility] Start: 07-25-2023 End: 07-25-2023 Patient encounter procedure Lilia Cote PA-C Work Phone: [facility] Comment on above: Acute otitis media, bilateral (Primary Dx) Start: 03-03-2023 End: 03-03-2023 Patient encounter procedure Sinan Montero Work Phone: Podiatry Comment on above: Callus of foot (Prim lauren Dx); Hammer toe of right foot; Hammertoe of left foot Start: 08-24-2022 Telephone encounter Debbie Nye APRN.CABINET ASSEMBLER Work Phone: [facility] Comment on above: Results Start: 08-24-2022 ambulatory DEBBIE CARRENO Fac ility[facility] Start: 08-24-2022 End: 08-24-2022 Subsequent hospital visit by physician [facility] Comment on above: Wrist injury, left, initial encounter [S69.92XA] Start: 08-23-2022 End: 08-23-2022 Patient encounter procedure Debbie Carreno APRN.CABINET ASSEMBLER Work Phone: [facility] Comment on above: Wrist injury, left, initial encounter (Primary Dx) Start: 05-21-2022 End: 05-21-2022 Patient encounter procedure Carly Childres DO Work Phone: [facility] Comment on above: Encounter for routin e child health examination w/o abnormal findings (Primary Dx) Start: 05-21-2022 End: 05-21-2022 Patient encounter status Carly Childers DO Work Phone: [facility] Start: 12-24-2021 End: 12-24-2021 Subsequent hospital visit by physician [facility] Work Phone: Radiology Comment on above: Constipation, unspec ified constipation type [K59.00] Start: 12-24-2021 End: 12-24-2021 Patient encounter procedure Nisha Corcoran APRN.CABINET ASSEMBLER Work Phone: [facility] Comment on above: Constipation, unspec ified constipation type (Primary Dx) Procedures Date Procedure Procedure Detail Performing Clinician Start: 04-24-2025 Measurement of pH in vaginal fluid specimen using nitrazine yellow for detection of rupture of amniotic membrane No Primary Care Physician Comment on above: Amniotic fluid not p resent indicates No Rupture of FetalMembranes at time of specimen collection. Start: 02-20-2025 Gluc bld gluc mntr d ev cleared fda spec home use Geovani Rubalcava TARGETING ACQUISITION OFFICER.CABINET ASSEMBLER Work Phone: Start: 01-03-2025 Us preg uterus after 1st trimest / gestation Bita Zane TARGETING ACQUISITION OFFICER.CABINET ASSEMBLER Work Phone: Start: 11-20-2024 Us preg uterus after 1st trimest / gestation Bita Zane TARGETING ACQUISITION OFFICER.CABINET ASSEMBLER Work Phone: Start: 10-06-2024 Us preg uterus after 1st trimest / gestation Nelly Gutierrez MD Work Phone: Start: 09-27-2024 Antibody screen [facility]AY Comment on above: Order Comment: Speci men Type: BLOOD SPECIMENOrdering Facility: [facility] Address: [address] [place] [address] Performed By: #### T SPN ####CC [facility] BLOOD BANKCLIA [id number] [address] [place] Start: 09-26-2024 Urnls dip stick/tabl et rgnt auto w/o microscopy Bello Toribio PA Work Phone: Start: 05-24-2024 Urnls dip stick/tabl et rgnt auto w/o microscopy Jacklyn Clark TARGETING ACQUISITION OFFICER.CABINET ASSEMBLER Work Phone: Start: 04-28-2024 Adult depression scr eening assessment Rosanna Hendricks PA-C Work Phone: Start: 08-24-2022 Radex wrist complete minimum 3 views Debbie Carreno TARGETING ACQUISITION OFFICER.CABINET ASSEMBLER Work Phone: Start: 05-21-2022 Adult depression scr eening assessment Carly Childers DO Work Phone: Start: 12-24-2021 Radiologic exam abdo men 2 views Nisha Corcoran TARGETING ACQUISITION OFFICER.CABINET ASSEMBLER Work Phone: Start: 04-28-2021 Adult depression scr eening assessment Nisha Corcoran MARIMAR.CABINET ASSEMBLER Work Phone: Plan of Treatment Date Care Activity Detail Author Start: 10-23-2025 GC (Gonorrhea) Screening (1824) GC (Gonorrhea) Screening (18-24) [facility] Start: 10-23-2025 Screening for Chlamy cezar trachomatis Chlamydia Screening () [facility] Start: 08-24-2025 Urine microalbumin profile [facility] Start: 05-21-2025 Influenza vaccination [facility] Start: 04-28-2025 Anxiety Screening Anxiety Screening [facility] Start: 04-28-2025 Depression Screening Depression Scre ening [facility] Start: 04-28-2025 GC (Gonorrhea) Screening (1824) GC (Gonorrhea) Screening (1824) [facility] Start: 04-28-2025 Screening for Chlamy cezar trachomatis Chlamydia Screening () [facility] Start: 04-25-2025 End: 04-25-2025 Patient encounter procedure 04/25/2025 9:40 AM EDT Routine Office Visit OB/Gynecology [address] [place] [address] Miri Haider MD [address] [place] [address] OB OB/Gynecology Comment on above: OB Start: 04-24-2025 Bacteria identified in Urine by Culture Urine Culture [facility] Start: 04-24-2025 [facility] Start: 04-24-[address] [facility] Start: 04-24-2025 Obstetric monitoring [facility] Start: 04-24-[address] [facility] Start: 04-24-2025 [facility] Start: 04-24-2025 Patient discharge [facility] Start: 04-12-2025 End: 04-12-2025 Patient encounter procedure 04/12/2025 9:10 AM EDT Routine Office Visit OB/Gynecology [address] [place] [address] Theresa Busch MD [address] [place] [address] OB OB/Gynecology Comment on above: OB Start: 03-30-2025 End: 03-30-2025 Patient encounter procedure 03/30/2025 9:30 AM EDT Office Visit OB/Gynecology [address] [place] [address] Kerrie Mckeon APRN.[facility] [address] [place] [address] Follow up OB/Gynecology Comment on above: Follow up Start: 03-13-2025 End: 06-12-2025 Protein/Creatinine [Mass Ratio] in Urine [facility] Work Phone: Comment on above: Expected: 03/13/2025 , Expires: 06/12/2025 Start: 03-13-2025 End: 03-13-2025 Patient encounter procedure 03/13/2025 9:10 AM EDT Routine Office Visit OB/Gynecology [address] [place] [address] Eliud Clark MD [address] [place] [address] Follow up OB/Gynecology Comment on above: Follow up Start: 02-28-2025 End: 02-28-2025 Patient encounter procedure 02/28/2025 9:00 AM EDT Routine Office Visit OB/Gynecology [address] [place] [address] Theresa Busch MD [address] [place] [address] OB OB/Gynecology Comment on above: OB Start: 01-31-2025 End: 05-02-2025 ANEMIA REFLEX PANEL ANEMIA REFLEX PANEL Lab Routine Encounter for supervision of normal first in second trimester (HCC) 24 weeks gestation of (HCC) Screening for diabetes mellitus Expected: 01/31/2025, Expires: 05/02/2025 [facility] Comment on above: Expected: 01/31/2025 , Expires: 05/02/2025 Start: 01-31-2025 End: 01-31-2026 GESTATIONAL GLUCOSE SCREEN, 1-HOUR, 50 GRAM, NON-FASTING GESTATIONAL GLUCOSE SCREEN, 1-HOUR, 50 GRAM, NON-FASTING Lab Routine Encounter for supervision of normal first in second trimester (HCC) 24 weeks gestation of (HCC) Screening for diabetes mellitus Expected: 01/31/2025, Expires: 01/31/2026 [facility] Work Phone: Comment on above: Expected: 01/31/2025 , Expires: 01/31/2026 Start: 01-31-2025 End: 01-31-2026 SYPHILIS TREPONEMAL W/REFLEX SYPHILIS TREPONEMAL W/REFLEX Lab Routine Encounter for supervision of normal first in second trimester (HCC) 24 weeks gestation of (HCC) Screening for diabetes mellitus Expected: 01/31/2025, Expires: 01/31/2026 [facility] Comment on above: Expected: 01/31/2025 , Expires: 01/31/2026 Start: 01-31-2025 End: 01-31-2025 Patient encounter procedure 01/31/2025 8:30 AM EDT Routine Office Visit OB/Gynecology [address] [place] [address] Nelly Gutierrez MD [address] [place] [address] OB Routine OB/Gynecology Comment on above: OB Routine Start: 01-03-2025 End: 01-03-2025 Patient encounter procedure [facility] Comment on above: Anatomy/OB Start: 12-18-2024 End: 12-18-2024 Patient encounter procedure 12/18/2024 4:20 PM EDT Routine Office Visit OB/Gynecology [address] [place] [address] Nelly Gutierrez MD [address] [place] [address] OB OB/Gynecology Comment on above: OB Start: 12-15-2024 End: 12-15-2024 Patient encounter procedure Obstetrics/Gynecolo gy Comment on above: Annual and 6 month f ollow up Start: 11-20-2024 End: 11-20-2024 Patient encounter procedure Maternal Medicine Comment on above: [facility] Start: 10-23-2024 End: 10-23-2024 Patient encounter procedure 10/23/2024 2:45 PM EST Initial Office Visit OB/Gynecology [address] [place] [address] Bita Degroot APRN.CABINET ASSEMBLER [address] [place] [address] New OB/ LMP11/27 OB/Gynecology Comment on above: New OB/ LMP11/27 Start: 10-23-2024 End: 01-22-2025 ANEMIA REFLEX PANEL ANEMIA REFLEX PANEL Lab Routine 9 weeks gestation of Encounter for care in first trimester of first Expected: 10/23/2024, Expires: 01/22/2025 [facility] Work Phone: Comment on above: Expected: 10/23/2024 , Expires: 01/22/2025 Start: 10-23-2024 End: 01-22-2025 Hemoglobin A1c in Blood HEMOGLOBIN A1C Lab Routine 9 weeks gestation of Encounter for care in first trimester of first Expected: 10/23/2024, Expires: 01/22/2025 [facility] Comment on above: Expected: 10/23/2024 , Expires: 01/22/2025 Start: 10-23-2024 End: 01-22-2025 Hepatitis B virus surface Ag [Presence] in Serum HEPATITIS B SURFACE ANTIGEN Lab Routine 9 weeks gestation of Encounter for care in first trimester of first Expected: 10/23/2024, Expires: 01/22/2025 [facility] Comment on above: Expected: 10/23/2024 , Expires: 01/22/2025 Start: 10-23-2024 End: 01-22-2025 Hepatitis C virus Ab [Presence] in Serum HEPATITIS C ANTIBODY IA WITH CONFIRMATION Lab Routine 9 weeks gestation of Encounter for care in first trimester of first Expected: 10/23/2024, Expires: 01/22/2025 [facility] Comment on above: Expected: 10/23/2024 , Expires: 01/22/2025 Start: 10-23-2024 End: 01-22-2025 HIV 1+2 Ab [Presence] in Serum or Plasma by Immunoassay HIV 1/2 COMBO WITH REFLEX TO DIFFERENTIATION Lab Routine 9 weeks gestation of Encounter for care in first trimester of first Expected: 10/23/2024, Expires: 01/22/2025 [facility] Comment on above: Expected: 10/23/2024 , Expires: 01/22/2025 Start: 10-23-2024 End: 10-23-2025 OBSTETRIC ULTRASOUND WHI OBSTETRIC ULTRASOUND WHI Anc Imaging Routine 9 weeks gestation of Encounter for care in first trimester of first Expected: 10/23/2024, Expires: 10/23/2025 [facility] Comment on above: Expected: 10/23/2024 , Expires: 10/23/2025 Start: 10-23-2024 End: 01-22-2025 RUBELLA IGG ANTIBODY RUBELLA IGG ANTIBODY Lab Routine 9 weeks gestation of Encounter for care in first trimester of first Expected: 10/23/2024, Expires: 01/22/2025 [facility] Comment on above: Expected: 10/23/2024 , Expires: 01/22/2025 Start: 10-23-2024 End: 01-22-2025 SYPHILIS TREPONEMAL W/REFLEX SYPHILIS TREPONEMAL W/REFLEX Lab Routine 9 weeks gestation of Encounter for care in first trimester of first Expected: 10/23/2024, Expires: 01/22/2025 [facility] Comment on above: Expected: 10/23/2024 , Expires: 01/22/2025 Start: 10-23-2024 End: 01-22-2025 TYPE + SCREEN TYPE + SCREEN Blood Bank Routine 9 weeks gestation of Encounter for care in first trimester of first Expected: 10/23/2024, Expires: 01/22/2025 [facility] Comment on above: Expected: 10/23/2024 , Expires: 01/22/2025 Start: 10-06-2024 End: 10-06-2024 Patient encounter procedure OB/Gynecology Comment on above: Dating/OB Dating /Early OB, Ne w OB scheduled on 10/23 Start: 10-03-2024 End: 10-03-2025 OBSTETRIC ULTRASOUND WHI OBSTETRIC ULTRASOUND WHI Anc Imaging Routine Threatened Expected: 10/03/2024, Expires: 10/03/2025 [facility] Work Phone: Comment on above: Expected: 10/03/2024 , Expires: 10/03/2025 Start: 09-27-2024 End: 12-27-2024 TYPE + SCREEN [facility] Comment on above: Expected: 09/27/2024 , Expires: 12/27/2024 Start: 07-19-2024 End: 07-19-2024 Patient encounter procedure 07/19/2024 10:30 AM EDT Office Visit Obstetrics/Gynecology [address] [address] Ronna Ge, MARIMAR.[facility] [address] [address] Encounter for initial prescription of contraceptives, unspecified contraceptive [Z30.019] Obstetrics/Gynecolo gy Comment on above: Encounter for initia l prescription of contraceptives, unspecified contraceptive [Z30.019] Start: 07-11-2024 End: 07-11-2024 Patient encounter procedure 07/11/2024 10:30 AM EDT Office Visit OB/Gynecology [address] [place], [place] [id number] Bita Degroot APRN.CABINET ASSEMBLER [address] [place] [address] new annual exam OB/Gynecology Comment on above: new annual exam Start: 05-30-2024 End: 05-30-2024 Patient encounter procedure 05/30/2024 10:30 AM EDT Office Visit Obstetrics/Gynecology [address] [address] Prabha Dalal MD [address] [phone] Wants control Obstetrics/Gynecolo gy Comment on above: Wants control Start: 05-26-2024 End: 05-26-2024 Patient encounter procedure 05/26/2024 7:30 AM EDT Office Visit OB/Gynecology [address] [place] [address] Bita Degroot APRN.CABINET ASSEMBLER [address] [place] [address] new annual exam OB/Gynecology Comment on above: new annual exam Start: 05-21-2024 Covid-19 Vaccine ( season) Covid-19 Vaccine ( season) [facility] Start: 05-21-2024 Covid-19 Vaccine ( season) Covid-19 Vaccine ( season) [facility] Start: 05-21-2024 Influenza vaccination [facility] Start: 04-28-2024 End: 07-28-2024 Hepatitis C virus Ab [Presence] in Serum HEPATITIS C ANTIBODY IA WITH CONFIRMATION Lab Routine Special screening examination for viral disease Expected: 04/28/2024, Expires: 07/28/2024 [facility] Comment on above: Expected: 04/28/2024 , Expires: 07/28/2024 Start: 04-28-2024 End: 07-28-2024 HIV 1+2 Ab [Presence] in Serum or Plasma by Immunoassay HIV 1/2 COMBO WITH REFLEX TO DIFFERENTIATION Lab Routine Screening for HIV (human immunodeficiency virus) Expected: 04/28/2024, Expires: 07/28/2024 [facility] Work Phone: Comment on above: Expected: 04/28/2024 , Expires: 07/28/2024 Start: 09-20-2023 Behavioral Health Screening Behavioral Health Screening [facility] Start: 05-21-2023 Adult depression screening assessment DEPRESSION SCREENING [facility] Start: 05-21-2023 Covid-19 Vaccine ( season) Covid-19 Vaccine ( season) [facility] Start: 05-21-2023 Influenza vaccination C [facility] Start: 09-20-2022 DEPRESSION ASSESSMENT DEPRESSION ASS ESSMENT [facility] Start: 2022 Anxiety Screening Anxiety Screening [facility] Start: 2022 CHLAMYDIA SCREENING (18-24) CHLAMYDIA SCREENING (18-24) [facility] Start: 2022 Depression Screening Depression Scre ening [facility] Start: 2022 GC (GONORRHEA) SCREENING (18-24) GC (GONORRHEA) SCREENING (18-24) [facility] Start: 2022 HEPATITIS C SCREENING HEPATITIS C [facility] Start: 2022 Hepatitis C screening Hepatitis C [facility] Start: 2022 HIV SCREENING HIV SCREENING [facility] Start: 2022 HIV screening HIV Screening [facility] Start: 2022 Screening for Chlamy cezar trachomatis Chlamydia Screening (18-24) [facility] Start: 05-21-2022 Influenza vaccination [facility] Start: 04-28-2022 Adult depression screening assessment DEPRESSION SCREENING [facility] Start: 04-28-2022 CHLAMYDIA SCREENING (<18) CHLAMYDIA SCREENING (<18) [facility] Comment on above: Postponed from 06/24 (Postponed - Not Clinically Indicated) Start: 04-28-2022 COVID-19 VACCINE (1) COVID-19 VACCIN E (1) [facility] Comment on above: Postponed from 06/24 (Declined at this time) Start: 04-28-2022 GC (GONORRHEA) SCREENING (<18) GC (GONORRHEA) SCREENING (<18) [facility] Comment on above: Postponed from 06/24 (Postponed - Not Clinically Indicated) Start: 04-28-2022 MENINGOCOCCAL B: Consider based on risk (1 of 2 - Risk Bexsero 2-dose series) MENINGOCOCCAL B: Consider based on risk (1 of 2 - Risk Bexsero 2-dose series) [facility] Comment on above: Postponed from 06/24 (Declined at this time) Start: 09-20-2021 DEPRESSION ASSESSMENT DEPRESSION ASS ESSMENT [facility] Start: 2020 Meningococcal B Vacc ine (1 of 2 - Standard) Meningococcal B Vaccine (1 of 2 - Standard) [facility] Start: 2020 Meningococcal B Vaccine: Consider Based On Risk (1 of 2 - Patient Seeks Protection) Meningococcal B Vaccine: Consider Based On Risk (1 of 2 - Patient Seeks Protection) [facility] Start: 2019 CHLAMYDIA SCREENING (<18) CHLAMYDIA SCREENING (<18) [facility] Start: 2019 GC (GONORRHEA) SCREENING (<18) GC (GONORRHEA) SCREENING (<18) [facility] Start: 2018 PEDS TO ADULT TRANSITION ANNUAL ASSESSMENT PEDS TO ADULT TRANSITION ANNUAL ASSESSMENT [facility] Start: 2014 MENINGOCOCCAL B: Consider based on risk (1 of 2 - Risk Bexsero 2-dose series) MENINGOCOCCAL B: Consider based on risk (1 of 2 - Risk Bexsero 2-dose series) [facility] Start: 2004 COVID-19 VACCINE (#1) COVID-19 VACCI NE (#1) [facility] Bacteria identified in Urine by Culture URINE CULTURE Microbiology Routine Urgency of urination 05/24/2024 12:26 PM EDT [facility] Work Phone: Bacteria identified in Urine by Culture BACTERIAL CULTURE, URINE Microbiology Routine Burning with urination 09/26/2024 4:33 PM EST [facility] Work Phone: Bacteria identified in Urine by Culture BACTERIAL CULTURE, URINE Microbiology Routine 9 weeks gestation of Encounter for care in first trimester of first 10/23/2024 3:42 PM [facility] BACTERIAL VAGINOSIS NAAT BACTERIAL VAGINOSIS NAAT Lab Routine Urethral irritation 09/26/2024 4:33 PM [facility] Bilirubin measuremen t, urine [facility] LORAINE/TRICHOMONAS NAAT LORAINE/TRICHOMONAS NAAT Lab Routine Urethral irritation 09/26/2024 4:33 PM [facility] Chlamydia trachomatis+Neisseria gonorrhoeae DNA [Presence] in Unspecified specimen by HIRAM with probe detection GONORRHEA/CHLAMYDIA NAAT Lab Routine Screen for sexually transmitted diseases 04/28/2024 11:03 AM EDT [facility] Chlamydia trachomatis+Neisseria gonorrhoeae DNA [Presence] in Unspecified specimen by HIRAM with probe detection GONORRHEA/CHLAMYDIA NAAT Lab Routine 9 weeks gestation of Encounter for care in first trimester of first 10/23/2024 3:42 PM [facility] End: 10-11-2024 Choriogonadotropin.beta subunit [Units/volume] in Serum or Plasma HCG QUANTITATIVE Lab Routine Spotting in 2x per week for 2 Occurrences starting 09/27/2024 until 10/11/2024 [facility] Work Phone: Comment on above: 2x per week for 2 Oc currences starting 09/27/2024 until 10/11/2024 Choriogonadotropin.b eta subunit [Units/volume] in Serum or Plasma HCG QUANTITATIVE Lab Routine Spotting in 09/27/2024 4:42 PM [facility] End: 10-02-2025 Choriogonadotropin.beta subunit [Units/volume] in Serum or Plasma HCG QUANTITATIVE Lab Routine Spotting in 2x per week for 4 Occurrences starting 10/02/2024 until 10/02/2025 [facility] Work Phone: Comment on above: 2x per week for 4 Oc currences starting 10/02/2024 until 10/02/2025 Choriogonadotropin.b eta subunit [Units/volume] in Serum or Plasma HCG QUANTITATIVE Lab Routine Spotting in 10/02/2024 4:08 PM [facility] COVID & INFLUENZA A/ B & RSV PCR, ROUTINE COVID & INFLUENZA A/B & RSV PCR, ROUTINE Microbiology Routine Urgency of urination Viral illness 05/24/2024 12:26 PM T [facility] Hemoglobin [Presence ] in Urine [facility] Measurement of keton es in urine using dipstick [facility] Patient Education ED False Labor OB Triage: Return to Hospital or Notify Physician if you Experience: [facility] Work Phone: pH of Urine [facility] Specific gravity of Urine [facility] Urine culture [facility] Urine dipstick for glucose [facility] Urine dipstick for leukocyte esterase [facility] Urine dipstick for nitrite [facility] Urine dipstick for protein [facility] Urine examination [facility] URINE OB DIP B/O URINE OB DIP B/ O Lab Routine Encounter for supervision of normal first in third trimester (HCC) 34 weeks gestation of (HCC) Ordered: 04/12/2025 [facility] Work Phone: Comment on above: Ordered: 04/12/2025 Urobilinogen [Presen ce] in Urine [facility] End: 09-22-2023 XR WRIST GENERAL 3V PA/LAT/OBL LEFT XR WRIST GENERAL 3V PA/LAT/OBL LEFT Radiology Routine Wrist injury, left, initial encounter 1 Occurrences starting 08/23/2022 until 09/22/2023 [facility] Work Phone: Comment on above: 1 Occurrences starti ng 08/23/2022 until 09/[facility] Immun[facility] Immunization Notes Care Provider Ernestine rodas 04-28-2021 meningococcal polysaccharide (groups A, C, Y and W-135) diphtheria toxoid conjugate vaccine (MCV4P) Nisha Money TARGETING ACQUISITION OFFICER.[facility] Work Phone: [facility] 12-02-2017 Human Papillomavirus 9-valent vaccine Nisha Money TARGETING ACQUISITION OFFICER.[facility] Work Phone: [facility] Work Phone: 05-20-2017 Human Papillomavirus 9-valent vaccine Nisha Money TARGETING ACQUISITION OFFICER.[facility] Work Phone: [facility] 05-20-2017 meningococcal polysaccharide (groups A, C, Y and W-135) diphtheria toxoid conjugate vaccine (MCV4P) Nisha Money TARGETING ACQUISITION OFFICER.[facility] Work Phone: [facility] 08-24-2015 influenza, injectabl e, quadrivalent, contains preservative Nisha Money TARGETING ACQUISITION OFFICER.[facility] Work Phone: [facility] Work Phone: 08-24-2015 tetanus toxoid, redu cecil diphtheria toxoid, and acellular pertussis vaccine, adsorbed Nisha Money TARGETING ACQUISITION OFFICER.[facility] Work Phone: [facility] Work Phone: 08-24-2015 influenza virus vacc ine, unspecified formulation Lilia Cote PA-C Work Phone: [facility] 07-17-2014 influenza, injectabl e, quadrivalent, preservative free Nisha Money TARGETING ACQUISITION OFFICER.[facility] Work Phone: [facility] Work Phone: 07-12-2012 influenza, seasonal, injectable Prabha Dalal MD Work Phone: [facility] 04-05-2010 Diphtheria, tetanus toxoids and acellular pertussis vaccine, and poliovirus vaccine, inactivated Prabha Dalal MD Work Phone: [facility] 04-05-2010 diphtheria, tetanus toxoids and pertussis vaccine Nisha Money TARGETING ACQUISITION OFFICER.[facility] Work Phone: [facility] Work Phone: 04-05-2010 measles, mumps and rubella virus vaccine Nisha Money TARGETING ACQUISITION OFFICER.[facility] Work Phone: [facility] Work Phone: 04-05-2010 poliovirus vaccine, inactivated Nisha Money TARGETING ACQUISITION OFFICER.[facility] Work Phone: [facility] Work Phone: 04-05-2010 varicella virus vaccine Pedro ie Money TARGETING ACQUISITION OFFICER.[facility] Work Phone: [facility] Work Phone: 09-28-2005 diphtheria, tetanus toxoids and acellular pertussis vaccine, 5 pertussis antigens Prabha Dalal MD Work Phone: [facility] 09-28-2005 diphtheria, tetanus toxoids and pertussis vaccine Nisha Money TARGETING ACQUISITION OFFICER.[facility] Work Phone: [facility] Work Phone: 09-28-2005 pneumococcal conjuga te vaccine, 7 valent Prabha Dalal MD Work Phone: [facility] 09-28-2005 pneumococcal Conjuga te, unspecified formulation Nisha Money TARGETING ACQUISITION OFFICER.[employer] Work Phone: [facility] Work Phone: 08-19-2005 influenza virus vacc ine, whole virus Prabha Dalal MD Work Phone: [facility] 07-15-2005 influenza virus vacc ine, whole virus Prabha Dalal MD Work Phone: [facility] 07-15-2005 measles, mumps and rubella virus vaccine Nisha Money TARGETING ACQUISITION OFFICER.[facility] Work Phone: [facility] Work Phone: 07-15-2005 varicella virus vaccine Pedro ie Money TARGETING ACQUISITION OFFICER.[facility] Work Phone: [facility] Work Phone: 01-07-2005 diphtheria, tetanus toxoids and acellular pertussis vaccine, unspecified formulation Prabha Dalal MD Work Phone: [facility] 01-07-2005 diphtheria, tetanus toxoids and pertussis vaccine Nisha Money TARGETING ACQUISITION OFFICER.[facility] Work Phone: [facility] Work Phone: 01-07-2005 haemophilus influenz ae type b vaccine, conjugate unspecified formulation Nisha Money TARGETING ACQUISITION OFFICER.[facility] Work Phone: [facility] Work Phone: 01-07-2005 hepatitis B vaccine, pediatric or pediatric/adolescent dosage Nisha Money TARGETING ACQUISITION OFFICER.[facility] Work Phone: [facility] Work Phone: 01-07-2005 poliovirus vaccine, inactivated Nisha Money TARGETING ACQUISITION OFFICER.[facility] Work Phone: [facility] Work Phone: 01-07-2005 poliovirus vaccine, unspecified formulation Prabha Dalal MD Work Phone: [facility] 2004 pneumococcal conjuga te vaccine, 7 valent Prabha Dalal MD Work Phone: [facility] 2004 pneumococcal Conjuga te, unspecified formulation Nisha Money TARGETING ACQUISITION OFFICER.[facility] Work Phone: [facility] Work Phone: 2004 diphtheria, tetanus toxoids and acellular pertussis vaccine, unspecified formulation Prabha Dalal MD Work Phone: [facility] 2004 diphtheria, tetanus toxoids and pertussis vaccine Nisha Money TARGETING ACQUISITION OFFICER.[facility] Work Phone: [facility] Work Phone: 2004 haemophilus influenz ae type b vaccine, conjugate unspecified formulation Nisha Money TARGETING ACQUISITION OFFICER.[facility] Work Phone: [facility] Work Phone: 2004 pneumococcal conjuga te vaccine, 7 valent Prabha Dalal MD Work Phone: [facility] 2004 pneumococcal Conjuga te, unspecified formulation Nisha Money TARGETING ACQUISITION OFFICER.[facility] Work Phone: [facility] Work Phone: 2004 poliovirus vaccine, inactivated Nisha Money TARGETING ACQUISITION OFFICER.[facility] Work Phone: [facility] Work Phone: 2004 poliovirus vaccine, unspecified formulation Prabha Dalal MD Work Phone: [facility] 2004 diphtheria, tetanus toxoids and acellular pertussis vaccine, unspecified formulation Prabha Dalal MD Work Phone: [facility] 2004 diphtheria, tetanus toxoids and pertussis vaccine Nisha Money TARGETING ACQUISITION OFFICER.[facility] Work Phone: [facility] Work Phone: 2004 haemophilus influenz ae type b vaccine, conjugate unspecified formulation Nisha Money TARGETING ACQUISITION OFFICER.[facility] Work Phone: [facility] Work Phone: 2004 hepatitis B vaccine, pediatric or pediatric/adolescent dosage Nisha Money TARGETING ACQUISITION OFFICER.[facility] Work Phone: [facility] Work Phone: 2004 pneumococcal conjuga te vaccine, 7 valent Prabha Dalal MD Work Phone: [facility] 2004 pneumococcal Conjuga te, unspecified formulation Nisha Money TARGETING ACQUISITION OFFICER.[facility] Work Phone: [facility] Work Phone: 2004 poliovirus vaccine, inactivated Nisha Money TARGETING ACQUISITION OFFICER.[employer] Work Phone: [facility] Work Phone: 2004 poliovirus vaccine, unspecified formulation Prabha Dalal MD Work Phone: [facility] 2004 hepatitis B vaccine, pediatric or pediatric/adolescent dosage Nisha Money TARGETING ACQUISITION OFFICER.[facility] Work Phone: [facility] Work Phone: Payers Date Payer Category Payer Private Health Insurance [id number] 2024 Self-pay 2022 Unknown [id number] 2021 Private Health Insurance EHP AET NA EHP STAFF/NON STAFF / EHP [facility] [id number] 2021-2030 [address] [place] [address] EPO [id number] 2018 Private Health Insurance [id number] 2018 Unknown [employer] [id number] 2018-Present [address] [place] [address] Indemnity [id number] Unknown [id number] Unknown [id number] Unknown [id number] Social History Date Type Detail Facility Start: 12-02-2017 End: 04-28-2024 Tobacco smoking status NHIS Never smoked tobacco [facility] Work Phone: Start: 12-24-2021 End: 05-24-2024 Alcohol intake Not Asked [facility] Start: 2004 Sex Assigned At Not on file C [facility] Start: 12-14-2021 End: 08-23-2022 Exposure to SARS-CoV-2 (event) Not sure [facility] Start: 12-02-2017 End: 04-28-2024 Tobacco use and exposure Smokeless tobacco non-user [facility] Work Phone: Start: 2004 Sex Assigned At Female C [facility] Start: 03-03-2023 End: 07-25-2023 History of Social function [facility] Start: 03-03-2023 End: 07-25-2023 Tobacco use panel [facility] National Score (1-100), lower number is lower risk 63 [facility] Start: 11-17-2022 Gender identity Identifies as female gender (finding) [facility] Has the electric, gas, oil, or water Applause threatened to shut off services in your home in past 12Mo No [facility] Are you now , , , , never or living with a partner? Never [facility] How often to you hav e a drink containing alcohol? Never [facility] How hard is it for you to pay for the very basics like food, housing, medical care, and heating Not very hard [facility] Do you feel stress - tense, restless, nervous, or anxious, or unable to sleep at night because your mind is troubled all the time - these days [OSQ] Very much [facility] (I/We) worried whether (my/our) food would run out before (I/we) got money to buy more. Never true [facility] Start: 05-30-2024 End: 04-12-2025 Alcoholic beverage intake Lifetime non-drinker (finding) [facility] Start: 08-30-2024 [facility] Start: 11-17-2024 Tobacco smoking status NHIS Tobacco smoking consumption unknown (finding) [facility] NEGATED: Highlighted rowStart: MARCUSF History of tobacco use Passive smoker [facility] Goals Date Patient Goal Desired Activity /State Personal health goal Functional Status Date Assessment Result Facility 12-05-2014 Are you deaf, or do you have serious difficulty hearing No 12/05/2014 5:25 PM EDT En[facility] Tavera Ma No [facility] 12-05-2014 Are you blind, or do you have serious difficulty seeing, even when wearing glasses No 12/05/2014 5:25 PM EDT [facility] Tavera Ma No [facility] 12-05-2014 Do you have serious difficulty walking or climbing stairs No 12/05/2014 5:25 PM EDT [facility] Tavera Ma No [facility] 12-05-2014 Do you have difficul ty dressing or bathing No 12/05/2014 5:25 PM EDT [facility] Tavera Ma No [facility] Mental Status Date Assessment Result Facility 12-05-2014 Because of a physica l, mental, or emotional condition, do you have serious difficulty concentrating, remembering, or making decisions No 12/05/2014 5:25 PM EDT [facility] Tavera Ma No [facility] Clinical Notes 12-24-2021 to 04-12-2025 Quick Notes - Theresa Busch MD - 04/12/2025 10:51 PM EDTPrenatal Quick Notes - Theresa Busch MD - 04/12/2025 10:51 PM EDTPatient InstructionsPatient InstructionsPatient Instructions Note Date & Type Note Facility 04-12-2025 Progress note Formatting of t his note might be different from the original. S: Nataly Dsouza is a 19 year old female who presents at 05/23/2025, by Last Menstrual Period for a routine visit. Denies headache, visual changes, chest pain, shortness of breath, vaginal bleeding, leakage of fluid, or dysuria. Feeling well, no complaints. Good movement, No contractions O: See flow sheet Gen: No apparent distress Abd: Gravid, nontender Needs letter for WIC ASSESSMENT/PLAN: 1. Encounter for supervision of normal first in third trimester (HCC) - ICD9: V22.0, ICD10: Z34.03 (primary diagnosis) - URINE OB DIP B/O 2. 34 weeks gestation of ([facility]) - ICD9: V22.2, ICD10: Z3A.34 - URINE OB DIP B/O 3. Encounter for care in first trimester of first ([facility]) - ICD9: V22.0, ICD10: Z34.01 - ASPIRIN 81 MG TABLET,DELAYED RELEASE Theresa Busch MD [facility] 04-12-2025 Miscellaneous Notes S: Nataly Dsouza is a 19 year old female who presents at 05/23/2025, by Last Menstrual Period for a routine visit. Denies headache, visual changes, chest pain, shortness of breath, vaginal bleeding, leakage of fluid, or dysuria. Feeling well, no complaints. Good movement, No contractions O: See flow sheet Gen: No apparent distress Abd: Gravid, nontender Needs letter for WIC ASSESSMENT/PLAN: 1. Encounter for supervision of normal first in third trimester ([facility]) - ICD9: V22.0, ICD10: Z34.03 (primary diagnosis) - URINE OB DIP B/O 2. 34 weeks gestation of ([facility]) - ICD9: V22.2, ICD10: Z3A.34 - URINE OB DIP B/O 3. Encounter for care in first trimester of first ([facility]) - ICD9: V22.0, ICD10: Z34.01 - ASPIRIN 81 MG TABLET,DELAYED RELEASE Theresa Busch MD documented in this encounter [facility] 04-12-2025 Instructions Chika Lucas MA - 04/12/2025 8:58 AM EDT SEQUENTIAL SCREENINGS The [facility] offers sequential screenings for women who are interested in screenings for chromosomal abnormalities and certain defects during a . The sequential screen combines ultrasound and blood tests to determine the risk of chromosomal abnormalities, including Down's Syndrome (Trisomy 21) and Trisomy 18, as well as open neural tube defects including spina bifida. Ultrasound examination is performed between 11 weeks and 13 weeks gestational age. Blood tests are drawn after the ultrasound and again later in the between 15 and 21 weeks gestational age. Please let your physician know if you are interested in this testing. It will require an appointment with our sales service technician. This is not an ultrasound performed by a physician in our office during a routine visit. SIGNS AND SYMPTOMS OF LABOR 1. Contractions every 10 minutes or more often 2. Clear, pink, or brownish fluid (water) leaking from vagina 3. Feeling that baby is pushing down, pressure 4. Low, dull backache 5. Cramps that feel like a period 6. Cramps with or without diarrhea If you notice any of the above symptoms, contact our office at [phone] and ask to speak with a nurse. After hours, you can call doctors registry at [phone] OR call [facility] at [phone] and ask to have the doctor furnishings conservator paged. If you consider this an emergency, dial 9-7 or go to your nearest emergency department. NEED HELP? Are you dealing with a violent or abusive relationship? Are you a victim of rape or sexual assult? Call [facility] ([place]) 24 hour Crisis Hotline: 966.869.5200 or 556-025-2840. MANUAL Your Guide to a Healthy manual is now on-line. Visit [email or web address] to download your free copy documented in this encounter [facility] 03-30-2025 Progress note Formatting of t his note is different from the original. CY-S: Nataly Dsouza is a 19 year old female who presents at 32w2d with JIM:05/23/2025, by Last Menstrual Period for a routine visit. Denies headache, chest pain, shortness of breath, vaginal bleeding, leakage of fluid, or dysuria. Feeling well, no complaints. No further floaters since last visit, did not make eye doctor appointment. O: See flow sheet Gen: No apparent distress Abd: Gravid, nontender S=D, 22lb TWG No clonus, DTR +2/4 bilateral patellar ASSESSMENT/PLAN: 1. Encounter for supervision of normal first in third trimester -Continue PNV -Continue ASA -1hr GCT and CBC normal 2. 32 weeks gestation of 4. Floaters of both eyes -Nothing since last visit. All labs normal. To make appointment with eye doctor PTL precautions reviewed and when to call RTO in 2 weeks Kerrie Mckeon APRN.CNM [facility] 03-30-2025 Miscellaneous Notes CY-S: Nataly Dsouza is a 19 year old female who presents at 32w2d with JIM:05/23/2025, by Last Menstrual Period for a routine visit. Denies headache, chest pain, shortness of breath, vaginal bleeding, leakage of fluid, or dysuria. Feeling well, no complaints. No further floaters since last visit, did not make eye doctor appointment. O: See flow sheet Gen: No apparent distress Abd: Gravid, nontender S=D, 22lb TWG No clonus, DTR +2/4 bilateral patellar ASSESSMENT/PLAN: 1. Encounter for supervision of normal first in third trimester -Continue PNV -Continue ASA -1hr GCT and CBC normal 2. 32 weeks gestation of 4. Floaters of both eyes -Nothing since last visit. All labs normal. To make appointment with eye doctor PTL precautions reviewed and when to call RTO in 2 weeks Kerrie Mckeon APRN.CNM documented in this encounter [facility] 03-30-2025 Instructions Mindy Chin LPN - 03/30/2025 9:15 AM EDT SEQUENTIAL SCREENINGS The [facility] offers sequential screenings for women who are interested in screenings for chromosomal abnormalities and certain defects during a . The sequential screen combines ultrasound and blood tests to determine the risk of chromosomal abnormalities, including Down's Syndrome (Trisomy 21) and Trisomy 18, as well as open neural tube defects including spina bifida. Ultrasound examination is performed between 11 weeks and 13 weeks gestational age. Blood tests are drawn after the ultrasound and again later in the between 15 and 21 weeks gestational age. Please let your physician know if you are interested in this testing. It will require an appointment with our sales service technician. This is not an ultrasound performed by a physician in our office during a routine visit. SIGNS AND SYMPTOMS OF LABOR 1. Contractions every 10 minutes or more often 2. Clear, pink, or brownish fluid (water) leaking from vagina 3. Feeling that baby is pushing down, pressure 4. Low, dull backache 5. Cramps that feel like a period 6. Cramps with or without diarrhea If you notice any of the above symptoms, contact our office at [phone] and ask to speak with a nurse. After hours, you can call doctors registry at [phone] OR call [facility] at [phone] and ask to have the doctor furnishings conservator paged. If you consider this an emergency, dial 9--4 or go to your nearest emergency department. NEED HELP? Are you dealing with a violent or abusive relationship? Are you a victim of rape or sexual assult? Call [facility] ([place]) 24 hour Crisis Hotline: 631.590.8955 or 221-725-9869. MANUAL Your Guide to a Healthy manual is now on-line. Visit [email or web address] to download your free copy documented in this encounter [facility] 03-13-2025 Progress note Formatting of t his note might be different from the original. CY-S: Nataly Dsouza is a 19 year old female who presents at 29w6d with JIM:05/23/2025, by Last Menstrual Period for a routine visit. Denies headache, chest pain, shortness of breath, vaginal bleeding, leakage of fluid, or dysuria. Feeling well, no complaints. States she has been seeing black spots in vision with positional changes or if it is hot out. Denies any other issues. O: See flow sheet Gen: No apparent distress Abd: Gravid, nontender S=D, 22lb TWG No clonus, DTR +2/4 bilateral patellar ASSESSMENT/PLAN: 1. Encounter for supervision of normal first in third trimester -Continue PNV -Continue ASA -1hr GCT and CBC normal 2. 29 weeks gestation of 4. Floaters of both eyes - COMPREHENSIVE METABOLIC PANEL - URIC ACID - COMPLETE BLOOD COUNT AND DIFFERENTIAL - PROTEIN / CREATININE RATIO - No signs of preeclampsia but will get baseline labs. Discussed hydration and to see eye doctor. Reviewed preeclampsia symptoms and when to call. PTL precautions reviewed and when to call RTO in 2 weeks Kerrie Mckeon APRN.CNM [facility] 03-13-2025 Miscellaneous Notes CY-S: Nataly Dsouza is a 19 year old female who presents at 29w6d with JIM:05/23/2025, by Last Menstrual Period for a routine visit. Denies headache, chest pain, shortness of breath, vaginal bleeding, leakage of fluid, or dysuria. Feeling well, no complaints. States she has been seeing black spots in vision with positional changes or if it is hot out. Denies any other issues. O: See flow sheet Gen: No apparent distress Abd: Gravid, nontender S=D, 22lb TWG No clonus, DTR +2/4 bilateral patellar ASSESSMENT/PLAN: 1. Encounter for supervision of normal first in third trimester -Continue PNV -Continue ASA -1hr GCT and CBC normal 2. 29 weeks gestation of 4. Floaters of both eyes - COMPREHENSIVE METABOLIC PANEL - URIC ACID - COMPLETE BLOOD COUNT AND DIFFERENTIAL - PROTEIN / CREATININE RATIO - No signs of preeclampsia but will get baseline labs. Discussed hydration and to see eye doctor. Reviewed preeclampsia symptoms and when to call. PTL precautions reviewed and when to call RTO in 2 weeks Kerrie Mckeon APRN.CNM documented in this encounter [facility] 03-13-2025 Instructions Rashmi Mejia MA - 03/13/2025 8:51 AM EDT SEQUENTIAL SCREENINGS The [facility] offers sequential screenings for women who are interested in screenings for chromosomal abnormalities and certain defects during a . The sequential screen combines ultrasound and blood tests to determine the risk of chromosomal abnormalities, including Down's Syndrome (Trisomy 21) and Trisomy 18, as well as open neural tube defects including spina bifida. Ultrasound examination is performed between 11 weeks and 13 weeks gestational age. Blood tests are drawn after the ultrasound and again later in the between 15 and 21 weeks gestational age. Please let your physician know if you are interested in this testing. It will require an appointment with our sales service technician. This is not an ultrasound performed by a physician in our office during a routine visit. SIGNS AND SYMPTOMS OF LABOR 1. Contractions every 10 minutes or more often 2. Clear, pink, or brownish fluid (water) leaking from vagina 3. Feeling that baby is pushing down, pressure 4. Low, dull backache 5. Cramps that feel like a period 6. Cramps with or without diarrhea If you notice any of the above symptoms, contact our office at [phone] and ask to speak with a nurse. After hours, you can call doctors registry at [phone] OR call [facility] at [phone] and ask to have the doctor furnishings conservator paged. If you consider this an emergency, dial 2-9-7 or go to your nearest emergency department. NEED HELP? Are you dealing with a violent or abusive relationship? Are you a victim of rape or sexual assult? Call [facility] ([place]) 24 hour Crisis Hotline: 276.973.2410 or 250-908-3249. MANUAL Your Guide to a Healthy manual is now on-line. Visit [email or web address] to download your free copy documented in this encounter [facility] 03-05-2025 Telephone encounter Note if feeling worse can schedule to be seen. Nelly Gutierrez MD [facility] 03-05-2025 Miscellaneous Notes if feeling worse can schedule to be seen. Nelly Gutierrez MD Patient 28w5d, last seen 02/28. Does not have next appointment scheduled. Etelvina Andrade RN documented in this encounter [facility] 03-05-2025 Telephone encounter Note Patient 28w5d, last seen 02/28. Does not have next appointment scheduled. Etelvina Andrade RN [facility] 02-28-2025 Progress note Formatting of t his note might be different from the original. S: Nataly Dsouza is a 19 year old female who presents at 05/23/2025, by Last Menstrual Period for a routine visit. Denies headache, visual changes, chest pain, shortness of breath, vaginal bleeding, leakage of fluid, or dysuria. Feeling well, no complaints. Good movement, No contractions O: See flow sheet Gen: No apparent distress Abd: Gravid, nontender GCT today Declined TDAP Declined LARC ASSESSMENT/PLAN: 1. Encounter for supervision of normal first in third trimester ([facility]) - ICD9: V22.0, ICD10: Z34.03 (primary diagnosis) PTL precautions 2. 28 weeks gestation of ([facility]) - ICD9: V22.2, ICD10: Z3A.28 Theresa Busch MD [facility] 02-28-2025 Miscellaneous Notes S: Nataly Dsouza is a 19 year old female who presents at 05/23/2025, by Last Menstrual Period for a routine visit. Denies headache, visual changes, chest pain, shortness of breath, vaginal bleeding, leakage of fluid, or dysuria. Feeling well, no complaints. Good movement, No contractions O: See flow sheet Gen: No apparent distress Abd: Gravid, nontender GCT today Declined TDAP Declined LARC ASSESSMENT/PLAN: 1. Encounter for supervision of normal first in third trimester ([facility]) - ICD9: V22.0, ICD10: Z34.03 (primary diagnosis) PTL precautions 2. 28 weeks gestation of ([facility]) - ICD9: V22.2, ICD10: Z3A.28 Theresa Busch MD documented in this encounter [facility] 02-28-2025 Instructions Geoff Berry MA - 02/28/2025 8:46 AM EDT SEQUENTIAL SCREENINGS The [facility] offers sequential screenings for women who are interested in screenings for chromosomal abnormalities and certain defects during a . The sequential screen combines ultrasound and blood tests to determine the risk of chromosomal abnormalities, including Down's Syndrome (Trisomy 21) and Trisomy 18, as well as open neural tube defects including spina bifida. Ultrasound examination is performed between 11 weeks and 13 weeks gestational age. Blood tests are drawn after the ultrasound and again later in the between 15 and 21 weeks gestational age. Please let your physician know if you are interested in this testing. It will require an appointment with our sales service technician. This is not an ultrasound performed by a physician in our office during a routine visit. SIGNS AND SYMPTOMS OF LABOR 1. Contractions every 10 minutes or more often 2. Clear, pink, or brownish fluid (water) leaking from vagina 3. Feeling that baby is pushing down, pressure 4. Low, dull backache 5. Cramps that feel like a period 6. Cramps with or without diarrhea If you notice any of the above symptoms, contact our office at [phone] and ask to speak with a nurse. After hours, you can call doctors registry at [phone] OR call [facility] at [phone] and ask to have the doctor furnishings conservator paged. If you consider this an emergency, dial 05-21- or go to your nearest emergency department. NEED HELP? Are you dealing with a violent or abusive relationship? Are you a victim of rape or sexual assult? Call [facility] ([place]) 24 hour Crisis Hotline: 487.744.2671 or 808-401-6682. MANUAL Your Guide to a Healthy manual is now on-line. Visit [email or web address] to download your free copy documented in this encounter [facility] 02-20-2025 Note Addended by: BETHANY ALBERT on: 02/20/2025 06:25 PM Modules accepted: Orders [facility] 02-20-2025 Miscellaneous Notes Addended by: BETHANY ALBERT on: 02/20/2025 06:25 PM Modules accepted: Orders documented in this encounter [facility] 02-20-2025 Note HNO ID: [id number] Author: GEOVANI RUBALCAVA APRN.CABINET [employer]SEMBLER Service: ? Author Type: Nurse Practitioner Type: Progress Notes Filed: 02/20/2025 18:12 Note Text: [facility] Subjective Nataly Dsouza is a 19 year old female. Patient presents with: Nasal Congestion: Runny nose, headache, fatigue, pressure in head, x today HPI Upper Respiratory Infection Symptoms: - Acute onset of nasal congestion and rhinorrhea this morning. - Intermittent headache rated 2/10, associated with fatigue. - Denies fever, myalgias, otalgia, dysphagia, facial pressure, or anterior neck pain. - Denies new or worsening dyspnea, chest pain, nausea, or diarrhea. - Vomited this morning, attributed to hunger. - Denies urinary symptoms or skin rashes. : - 26 weeks gestation. - Taking iron, aspirin (for preeclampsia prevention), and gummy vitamins. - Occasionally takes Zofran, but has reduced use due to concerns about side effects. - Reports no history of blood sugar issues. - Recent episode of near-syncope in the shower last week, followed by fatigue; blood sugar was 102 mg/dL. Review of Systems Constitutional: (+) fatigue Head: (+) headache Ears/Nose/Mouth/Throat: (+) nasal congestion, (+) rhinorrhea, (-) ear pain, (-) sore throat, (-) facial pressure Cardiovascular: (-) chest pain Respiratory: (+) shortness of breath Gastrointestinal: (+) vomiting, (-) diarrhea Genitourinary: (-) dysuria Skin: (-) rash Objective BP 94/66 Pulse 87 Temp 36.6 ?C (97.9 ?F) Resp 18 Wt 73 kg (160 lb 15 oz) LMP 08/16/2024 SpO2 98% BMI 27.99 kg/m? Physical Exam Vitals and nursing note reviewed. Constitutional: General: She is not in acute distress. Appearance: Normal appearance. She is not ill-appearing or toxic-appearing. HENT: Head: Normocephalic and atraumatic. Right Ear: Ear canal and external ear normal. Left Ear: Ear canal and external ear normal. Ears: Comments: TM's slightly bulging with clear fluid Nose: Congestion (mild mucosal edema) and rhinorrhea (clear fluid in nares) present. Right Turbinates: Swollen. Left Turbinates: Swollen. Right Sinus: No maxillary sinus tenderness or frontal sinus tenderness. Left Sinus: No maxillary sinus tenderness or frontal sinus tenderness. Mouth/Throat: Mouth: Mucous membranes are moist. Pharynx: Oropharynx is clear. No pharyngeal swelling, oropharyngeal exudate or posterior oropharyngeal erythema. Eyes: Extraocular Movements: Extraocular movements intact. Conjunctiva/sclera: Conjunctivae normal. Pupils: Pupils are equal, round, and reactive to light. Cardiovascular: Rate and Rhythm: Normal rate and regular rhythm. Pulses: Normal pulses. Heart sounds: Normal heart sounds. Pulmonary: Effort: Pulmonary effort is normal. Breath sounds: Normal breath sounds. No wheezing or rhonchi. Abdominal: General: Bowel sounds are normal. Palpations: Abdomen is soft. Musculoskeletal: Cervical back: Normal range of motion and neck supple. No tenderness. Lymphadenopathy: Cervical: No cervical adenopathy. Neurological: Mental Status: She is alert. General: No acute distress. HEENT: Nasal congestion, rhinorrhea, oropharynx without erythema or exudate, no sinus tenderness. CV: Regular rate and rhythm, no murmurs. Resp: Lungs clear to auscultation bilaterally, no wheezes, rales, or rhonchi. ASSESSMENT/PLAN: 1. Viral URI with cough - ICD9: 465.9, ICD10: J06.9 (primary diagnosis) - Discussed viral etiology and rationale for treatment. - Symptomatic treatment with prn analgesia - Supportive care with fluids and rest - INFLUENZA AANDB MOLECULAR (POC) 2. Fatigue, unspecified type - ICD9: 780.79, ICD10: R53.83 - GLUCOSE, BLOOD (POC) 3. Second trimester (HCC) - ICD9: V22.2, ICD10: Z34.92 Ambience AI generated recording and notation utilized after patient/guardian approved Patient given educational materials - see patient instructions. Discussed use, benefit, and side effects of prescribed medications. All patient questions answered. Pt voiced understanding and agrees with treatment plan. Patient advised to follow up with PCP within one week, or sooner if symptoms worsen or persist. If symptoms become severe- GO TO ED. Patient agreeable with treatment plan. Geovani Rubalcava APRN.[facility] 02-20-2025 [facility] of [facility] Naat[facility] Dsouza is a 19 year old female. Patient presents with: Nasal Congestion: Runny nose, headache, fatigue, pressure in head, x today HPI Upper Respiratory Infection Symptoms: - Acute onset of nasal congestion and rhinorrhea this morning. - Intermittent headache rated 2/10, associated with fatigue. - Denies fever, myalgias, otalgia, dysphagia, facial pressure, or anterior neck pain. - Denies new or worsening dyspnea, chest pain, nausea, or diarrhea. - Vomited this morning, attributed to hunger. - Denies urinary symptoms or skin rashes. : - 26 weeks gestation. - Taking iron, aspirin (for preeclampsia prevention), and gummy vitamins. - Occasionally takes Zofran, but has reduced use due to concerns about side effects. - Reports no history of blood sugar issues. - Recent episode of near-syncope in the shower last week, followed by fatigue; blood sugar was 102 mg/dL. Review of Systems Constitutional: (+) fatigue Head: (+) headache Ears/Nose/Mouth/Throat: (+) nasal congestion, (+) rhinorrhea, (-) ear pain, (-) sore throat, (-) facial pressure Cardiovascular: (-) chest pain Respiratory: (+) shortness of breath Gastrointestinal: (+) vomiting, (-) diarrhea Genitourinary: (-) dysuria Skin: (-) rash Objective BP 94/66 Pulse 87 Temp 36.6 C (97.9 F) Resp 18 Wt 73 kg (160 lb 15 oz) LMP 08/16/2024 SpO2 98% BMI 27.99 kg/m Physical Exam Vitals and nursing note reviewed. Constitutional: General: She is not in acute distress. Appearance: Normal appearance. She is not ill-appearing or toxic-appearing. HENT: Head: Normocephalic and atraumatic. Right Ear: Ear canal and external ear normal. Left Ear: Ear canal and external ear normal. Ears: Comments: TM's slightly bulging with clear fluid Nose: Congestion (mild mucosal edema) and rhinorrhea (clear fluid in nares) present. Right Turbinates: Swollen. Left Turbinates: Swollen. Right Sinus: No maxillary sinus tenderness or frontal sinus tenderness. Left Sinus: No maxillary sinus tenderness or frontal sinus tenderness. Mouth/Throat: Mouth: Mucous membranes are moist. Pharynx: Oropharynx is clear. No pharyngeal swelling, oropharyngeal exudate or posterior oropharyngeal erythema. Eyes: Extraocular Movements: Extraocular movements intact. Conjunctiva/sclera: Conjunctivae normal. Pupils: Pupils are equal, round, and reactive to light. Cardiovascular: Rate and Rhythm: Normal rate and regular rhythm. Pulses: Normal pulses. Heart sounds: Normal heart sounds. Pulmonary: Effort: Pulmonary effort is normal. Breath sounds: Normal breath sounds. No wheezing or rhonchi. Abdominal: General: Bowel sounds are normal. Palpations: Abdomen is soft. Musculoskeletal: Cervical back: Normal range of motion and neck supple. No tenderness. Lymphadenopathy: Cervical: No cervical adenopathy. Neurological: Mental Status: She is alert. General: No acute distress. HEENT: Nasal congestion, rhinorrhea, oropharynx without erythema or exudate, no sinus tenderness. CV: Regular rate and rhythm, no murmurs. Resp: Lungs clear to auscultation bilaterally, no wheezes, rales, or rhonchi. ASSESSMENT/PLAN: 1. Viral URI with cough - ICD9: 465.9, ICD10: J06.9 (primary diagnosis) - Discussed viral etiology and rationale for treatment. - Symptomatic treatment with prn analgesia - Supportive care with fluids and rest - INFLUENZA A&B MOLECULAR (POC) 2. Fatigue, unspecified type - ICD9: 780.79, ICD10: R53.83 - GLUCOSE, BLOOD (POC) 3. Second trimester (HCC) - ICD9: V22.2, ICD10: Z34.92 Ambience AI generated recording and notation utilized after patient/guardian approved Patient given educational materials - see patient instructions. Discussed use, benefit, and side effects of prescribed medications. All patient questions answered. Pt voiced understanding and agrees with treatment plan. Patient advised to follow up with PCP within one week, or sooner if symptoms worsen or persist. If symptoms become severe- GO TO ED. Patient agreeable with treatment plan. Geovani Rubalcava APRN.MONSERRAT documented in this encounter [facility] 02-20-2025 Instructions Geovani Rubalcava APRN.CNP - 02/20/2025 6:03 PM EDT [facility] PATIENT INFO COMMON COLD OVERVIEW The common cold is one of the most frequent illnesses in the [place]. Although most colds are mild and resolve within a short time period, colds cost billions of dollars per year, mostly due to lost time at work and school. COMMON COLD CAUSES The common cold is a group of symptoms caused by one of a large number of viruses. Rhinoviruses cause the greatest number of colds; there are more than 100 different varieties of rhinovirus. Most viruses cause a person to be ill only once. However, due to the large number of viruses, a person can have a cold multiple times throughout his or her lifetime. The average adult experiences two to three colds per year, while children average 8 to 12 colds per year. Colds are transmitted from [id number]. Less often, the virus can be transmitted by touching a surface. Direct contact -- People with colds typically carry the cold virus on their hands. The virus may remain alive on the skin and capable of infecting another person for at least two hours. Thus, if a sick person shakes someone's hand and that individual then touches his eye, nose, or mouth, the virus can be transmitted and later infect that person. Infection from particles on surfaces -- Some cold viruses can live on surfaces (such as a counter top, door handle, or phone) for several hours. Inhaling viral particles -- Droplets containing viral particles can be breathed, coughed, or sneezed into the air by a person with a cold. The virus can be transmitted to others if another person is standing close (a few feet) and the droplet touches that person s eye, nose, or mouth. Covering the mouth while coughing or sneezing greatly reduces this risk. Most cold viruses are not spread by saliva. Thus, kissing itself is not likely to transmit the common cold, but close direct contact can. Colds are not caused by cold climates or being exposed to cold air. However, some types of virus cause more colds during certain seasons (eg, fall and winter versus spring). COMMON COLD SIGNS AND SYMPTOMS The common cold usually causes nasal congestion, runny nose, and sneezing. A sore throat may be present on the first day but usually resolves quickly. If a cough occurs, it generally develops on about the fourth or fifth day of symptoms, typically when congestion and runny nose are usually resolving. COMMON COLD COMPLICATIONS In most cases, colds do not cause serious illness. Most colds last for three to seven days, although many people continue to have symptoms (coughing, sneezing, congestion) for up to two weeks. Some viruses that cause the common cold can also depress the immune system or cause swelling in the lining of the nose or airways; this can, in turn, lead to a new viral infection or bacterial infection. One of the more common complications is sinusitis, which is usually caused by viruses and rarely (about 2 percent of the time) by bacteria. However, it can be difficult to distinguish bacterial sinusitis from sinusitis caused by a cold because the signs and symptoms can be similar Having thick or yellow to green-colored nasal discharge does not mean that bacterial sinusitis has developed; discolored nasal discharge is a normal phase of the common cold. Lower respiratory infections, such as pneumonia or bronchitis, may develop following a cold. Infection of the middle ear, or otitis media, can accompany or follow a cold. The influenza virus, which causes the flu, can also cause features similar to those of a cold. However, the flu usually causes other signs and symptoms (fever, body aches) and is more serious than a cold. COMMON COLD TREATMENT There is no specific treatment for the viruses that cause the common cold. Most treatments are aimed at relieving some of the symptoms of the cold, but do not shorten or cure the cold. Antibiotics are not useful for treating the common cold; antibiotics are only used to treat illnesses caused by bacteria, not viruses. The symptoms of a cold will resolve over time, even without any treatment. The following are treatments that may reduce the symptoms caused by the common cold. People with underlying medical conditions and those who use other jngz-bfk-kepcjmi or prescription medications should speak with their healthcare provider or pharmacist to ensure that it is safe to use these treatments. Runny nose and nasal congestion -- Runny nose and congestion may improve with the use of decongestants. Pseudoephedrine is a decongestant that can improve nasal congestion. Most drugstores in the [place] carry pseudoephedrine behind the counter, so it must be requested from the pharmacist (a prescription is not required). Antihistamines such as diphenhydramine (Benadryl ) may also help, but can cause side effects such as drowsiness and drying of the eyes, nose, and mouth. Nasal inhalers, including ipratropium bromide (Atrovent , available by prescription) may relieve runny nose and sneezing while cromolyn sodium (NasalCrom , a non-prescription medicine) may relieve runny nose, cough, and sneezing. Other nasal sprays such an oxymetazoline (Afrin and others) can also give temporary relief of nasal congestion. However, these sprays should never be used for more than two to three days; use for more than three days use can worsen congestion. Nasal irrigation and saline sprays -- Rinsing the nose with a salt-water (saline) solution is called nasal irrigation or nasal lavage. Saline is also available in a standard nasal spray, although this is not as effective as using larger amounts of water in an irrigation. Nasal irrigation is particularly useful for treating drainage down the back of the throat, sneezing, nasal dryness, and congestion. The treatment helps by rinsing out allergens and irritants from the nose. Saline rinses also clean the nasal lining and can be used before applying sprays containing medications, to get a better effect from the medication. Nasal lavage with warmed saline can be performed as needed, once per day, or twice daily for increased symptoms. Nasal lavage carries few risks when performed correctly. Saline nasal sprays and irrigation kits can be purchased ltvl-fsm-djiiflu. Saline mixes can also be purchased or patients can make their own solution. A variety of devices, including bulb syringes, Neti pots, and bottle sprayers, may be used to perform nasal lavage; instructions for nasal lavage are provided in the table. At least 200 mL (about 3/4 cup) of fluid is recommended for each nostril. Sore throat and headache -- Sore throat and headache are best treated with a mild pain reliever such as acetaminophen (Tylenol ) or a non-steroidal anti-inflammatory agent such as ibuprofen or naproxen (Motrin or Aleve ). Cough -- Common cough medicine ingredients include guaifenesin and dextromethorphan; these are often combined with other medications in sgrz-uxl-ixqaizu cold formulas. However, the benefit of cough medicines is likely to be small to non-existent. In clinical trials, cough suppressants were no more effective in reducing the duration or severity of coughing due to cold than a placebo (a non-drug substitute). Antibiotics -- Antibiotics should not be used to treat an uncomplicated common cold. As noted above, colds are caused by viruses. Antibiotics treat bacterial, not viral infections. Alternative treatments -- Heated, humidified air can improve symptoms of nasal congestion and runny nose, and causes few to no side effects. PREVENTION Hand washing is an essential and highly effective way to prevent the spread of infection. Hands should be wet with water and plain soap, and rubbed together for 15 to 30 seconds. Special attention should be paid to the fingernails, between the fingers, and the wrists. Hands should be rinsed thoroughly, and dried with a single use towel. Alcohol-based hand rubs are a good alternative for disinfecting hands if a sink is not available. Hand rubs should be spread over the entire surface of hands, fingers, and wrists until dry, and may be used several times. These rubs can be used repeatedly without skin irritation or loss of effectiveness. Hand rubs are available as a liquid or wipe in small, portable sizes that are easy to carry in a pocket or handbag. When a sink is available, visibly soiled hands should be washed with soap and water. Hands should be washed before preparing food and eating, and after coughing, blowing the nose, or sneezing. While it is not always possible to limit contact with people who may be infected with a cold, touching the eyes, nose, or mouth after direct contact should be avoided when possible. In addition, tissues should be used to cover the mouth when sneezing or coughing. These used tissues should be disposed of promptly. Sneezing/coughing into the sleeve of one's clothing (at the inner elbow) is another means of containing sprays of saliva and secretions and does not contaminate the hands. SUMMARY The average adult experiences two to three colds per year, while children average 8 to 12 colds per year. Symptoms of the common cold usually include nasal congestion, runny nose, and sneezing. They typically last for three to seven days, although many people have symptoms (coughing, sneezing, congestion) for up to two weeks. People with colds typically carry the cold virus on their hands, where it can infect another person for at least two hours. Some cold viruses can live on surfaces (such as a counter top, door handle, or phone) for several hours. Droplets containing viral particles can be breathed, coughed, or sneezed into the air. There is no specific treatment for colds. Treatment may reduce some of the symptoms of the cold, but do not shorten or cure the cold. Antibiotics are not useful for treating the common cold. Hand washing can prevent the spread of infection. Hands should be wet with water and plain soap, and rubbed together for 15 to 30 seconds. Alcohol-based hand rubs are a good alternative for disinfecting hands if a sink is not available documented in this encounter [facility] 01-31-2025 Progress note Formatting of t his note might be different from the original. RR- VB No. LOF No. CTXS No. Movement: present. Other c/o: No. Medication list reviewed. SENSITIVE EXAM: Sensitive exam not performed. Physical Exam See Flow Sheet Abd: soft, nontender, gravid A/P 24w0d Estimated Date of Delivery: 05/23/25 Assessment & Plan Encounter for supervision of normal first in second trimester (HCC) Orders: GESTATIONAL GLUCOSE SCREEN, 1-HOUR, 50 GRAM, NON-FASTING; Future SYPHILIS TREPONEMAL W/REFLEX; Future ANEMIA REFLEX PANEL; Future 24 weeks gestation of (HCC) Orders: GESTATIONAL GLUCOSE SCREEN, 1-HOUR, 50 GRAM, NON-FASTING; Future SYPHILIS TREPONEMAL W/REFLEX; Future ANEMIA REFLEX PANEL; Future Screening for diabetes mellitus Orders: GESTATIONAL GLUCOSE SCREEN, 1-HOUR, 50 GRAM, NON-FASTING; Future SYPHILIS TREPONEMAL W/REFLEX; Future ANEMIA REFLEX PANEL; Future not needing zofran at this time. Nelly Gutierrez M.D. [facility] 01-31-2025 Miscellaneous Notes RR- VB No. LOF No. CTXS No. Movement: present. Other c/o: No. Medication list reviewed. SENSITIVE EXAM: Sensitive exam not performed. Physical Exam See Flow Sheet Abd: soft, nontender, gravid A/P 24w0d Estimated Date of Delivery: 05/23/25 Assessment & Plan Encounter for supervision of normal first in second trimester (HCC) Orders: GESTATIONAL GLUCOSE SCREEN, 1-HOUR, 50 GRAM, NON-FASTING; Future SYPHILIS TREPONEMAL W/REFLEX; Future ANEMIA REFLEX PANEL; Future 24 weeks gestation of (HCC) Orders: GESTATIONAL GLUCOSE SCREEN, 1-HOUR, 50 GRAM, NON-FASTING; Future SYPHILIS TREPONEMAL W/REFLEX; Future ANEMIA REFLEX PANEL; Future Screening for diabetes mellitus Orders: GESTATIONAL GLUCOSE SCREEN, 1-HOUR, 50 GRAM, NON-FASTING; Future SYPHILIS TREPONEMAL W/REFLEX; Future ANEMIA REFLEX PANEL; Future not needing zofran at this time. Nelly Gutierrez M.D. documented in this encounter [facility] 01-31-2025 Instructions Dede Carvajal MA - 01/31/2025 8:23 AM EDT SEQUENTIAL SCREENINGS The [facility] offers sequential screenings for women who are interested in screenings for chromosomal abnormalities and certain defects during a . The sequential screen combines ultrasound and blood tests to determine the risk of chromosomal abnormalities, including Down's Syndrome (Trisomy 21) and Trisomy 18, as well as open neural tube defects including spina bifida. Ultrasound examination is performed between 11 weeks and 13 weeks gestational age. Blood tests are drawn after the ultrasound and again later in the between 15 and 21 weeks gestational age. Please let your physician know if you are interested in this testing. It will require an appointment with our sales service technician. This is not an ultrasound performed by a physician in our office during a routine visit. SIGNS AND SYMPTOMS OF LABOR 1. Contractions every 10 minutes or more often 2. Clear, pink, or brownish fluid (water) leaking from vagina 3. Feeling that baby is pushing down, pressure 4. Low, dull backache 5. Cramps that feel like a period 6. Cramps with or without diarrhea If you notice any of the above symptoms, contact our office at [phone] and ask to speak with a nurse. After hours, you can call doctors registry at [phone] OR call [facility] at [phone] and ask to have the doctor furnishings conservator paged. If you consider this an emergency, dial 1-9 or go to your nearest emergency department. NEED HELP? Are you dealing with a violent or abusive relationship? Are you a victim of rape or sexual assult? Call [facility] ([place]) 24 hour Crisis Hotline: 892.797.4034 or 703-012-7931. MANUAL Your Guide to a Healthy manual is now on-line. Visit [email or web address] to download your free copy documented in this encounter [facility] 01-03-2025 Progress note Formatting of t his note might be different from the original. RR- VB No. LOF No. CTXS No. Movement: present. Other c/o: some low back pain, down her leg. Medication list reviewed. SENSITIVE EXAM: Sensitive exam not performed. Physical Exam See Flow Sheet Abd: soft, nontender, gravid Ext: edema: Trace A/P 20w0d Estimated Date of Delivery: 05/23/25 Assessment & Plan 20 weeks gestation of (HCC) Orders: CONSULT TO PHYSICAL THERAPY; Future Encounter for supervision of normal first in second trimester (HCC) Orders: CONSULT TO PHYSICAL THERAPY; Future Acute right-sided low back pain without sciatica going on a week, armin. w/ standing. Recommend PT for this and she accepts. Orders: CONSULT TO PHYSICAL THERAPY; Future Nelly Gutierrez M.D. [facility] 01-03-2025 Miscellaneous Notes RR- VB No. LOF No. CTXS No. Movement: present. Other c/o: some low back pain, down her leg. Medication list reviewed. SENSITIVE EXAM: Sensitive exam not performed. Physical Exam See Flow Sheet Abd: soft, nontender, gravid Ext: edema: Trace A/P 20w0d Estimated Date of Delivery: 05/23/25 Assessment & Plan 20 weeks gestation of ([facility]) Orders: CONSULT TO PHYSICAL THERAPY; Future Encounter for supervision of normal first in second trimester ([facility]) Orders: CONSULT TO PHYSICAL THERAPY; Future Acute right-sided low back pain without sciatica going on a week, armin. w/ standing. Recommend PT for this and she accepts. Orders: CONSULT TO PHYSICAL THERAPY; Future Nelly Gutierrez M.D. documented in this encounter [facility] 01-03-2025 Instructions Rashmi Mejia MA - 01/03/2025 4:03 PM EDT SEQUENTIAL SCREENINGS The [facility] offers sequential screenings for women who are interested in screenings for chromosomal abnormalities and certain defects during a . The sequential screen combines ultrasound and blood tests to determine the risk of chromosomal abnormalities, including Down's Syndrome (Trisomy 21) and Trisomy 18, as well as open neural tube defects including spina bifida. Ultrasound examination is performed between 11 weeks and 13 weeks gestational age. Blood tests are drawn after the ultrasound and again later in the between 15 and 21 weeks gestational age. Please let your physician know if you are interested in this testing. It will require an appointment with our sales service technician. This is not an ultrasound performed by a physician in our office during a routine visit. SIGNS AND SYMPTOMS OF LABOR 1. Contractions every 10 minutes or more often 2. Clear, pink, or brownish fluid (water) leaking from vagina 3. Feeling that baby is pushing down, pressure 4. Low, dull backache 5. Cramps that feel like a period 6. Cramps with or without diarrhea If you notice any of the above symptoms, contact our office at [phone] and ask to speak with a nurse. After hours, you can call doctors registry at [phone] OR call [facility] at [phone] and ask to have the doctor furnishings conservator paged. If you consider this an emergency, dial [phone] or go to your nearest emergency department. NEED HELP? Are you dealing with a violent or abusive relationship? Are you a victim of rape or sexual assult? Call [facility] ([place]) 24 hour Crisis Hotline: 761.171.6940 or 199-911-8431. MANUAL Your Guide to a Healthy manual is now on-line. Visit [email or web address] to download your free copy documented in this encounter [facility] 12-18-2024 Progress note Formatting of t his note might be different from the original. RR- VB No. LOF No. CTXS No. Movement: flutters. Other c/o: No. Medication list reviewed. SENSITIVE EXAM: Sensitive exam not performed. Physical Exam See Flow Sheet Abd: soft, nontender, gravid A/P 17w5d Estimated Date of Delivery: 05/23/25 Assessment & Plan Encounter for supervision of normal first in second trimester ([facility]) 17 weeks gestation of ([facility]) Encounter for care in first trimester of first ([facility]) Orders: aspirin, enteric coated (ECOTRIN LOW STRENGTH) 81 mg EC tablet; Take 1 tablet by mouth once daily. anatomy US scheduled cont. asa cont. pnv f/u in 4 weeks or prn Nelly Gutierrez M.D. [facility] 12-18-2024 Miscellaneous Notes RR- VB No. LOF No. CTXS No. Movement: flutters. Other c/o: No. Medication list reviewed. SENSITIVE EXAM: Sensitive exam not performed. Physical Exam See Flow Sheet Abd: soft, nontender, gravid A/P 17w5d Estimated Date of Delivery: 05/23/25 Assessment & Plan Encounter for supervision of normal first in second trimester ([facility]) 17 weeks gestation of ([facility]) Encounter for care in first trimester of first ([facility]) Orders: aspirin, enteric coated (ECOTRIN LOW STRENGTH) 81 mg EC tablet; Take 1 tablet by mouth once daily. anatomy US scheduled cont. asa cont. pnv f/u in 4 weeks or prn Nelly Gutierrez M.D. documented in this encounter [facility] 11-21-2024 Progress note Formatting of t his note might be different from the original. Anatomy ultrasound reviewed. No abnormalities identified. Follow up as clinically indicated. Please place copy in ob chart. Nelly Gutierrez MD [facility] 11-21-2024 Miscellaneous Notes Anatomy ultrasound reviewed. No abnormalities identified. Follow up as clinically indicated. Please place copy in ob chart. Nelly Gutierrez MD documented in this encounter [facility] 11-20-2024 Progress note Formatting of t his note might be different from the original. S: Nataly Dsouza is a 19 year old female who presents at 13 weeks gestation. Just completed first trimester anatomy US. Declines aneuploidy screening. Continues to have increased nausea with emesis. Taking vitamin B 6 without relief. Would like to try Zofran PO as needed. Denies headache, visual changes, chest pain, shortness of breath, vaginal bleeding, leakage of fluid, or dysuria. O: See flow sheet Gen: No apparent distress Abd: Gravid, nontender ASSESSMENT/PLAN: 1. Encounter for care in second trimester of first 2. 13 weeks gestation of 3. Supervision of normal first , antepartum 4. Nausea in - labs today - Zofran 4 mg PO PRN - Rx sent - Continue vitamin daily - Start ASA daily- discussed rational - Call office if unable to keep food/liquid down for 24 hours - RTO 4 weeks Charley Wilson APRN.CNM [facility] 11-20-2024 Miscellaneous Notes S: Nataly Dsouza is a 19 year old female who presents at 13 weeks gestation. Just completed first trimester anatomy US. Declines aneuploidy screening. Continues to have increased nausea with emesis. Taking vitamin B 6 without relief. Would like to try Zofran PO as needed. Denies headache, visual changes, chest pain, shortness of breath, vaginal bleeding, leakage of fluid, or dysuria. O: See flow sheet Gen: No apparent distress Abd: Gravid, nontender ASSESSMENT/PLAN: 1. Encounter for care in second trimester of first 2. 13 weeks gestation of 3. Supervision of normal first , antepartum 4. Nausea in - labs today - Zofran 4 mg PO PRN - Rx sent - Continue vitamin daily - Start ASA daily- discussed rational - Call office if unable to keep food/liquid down for 24 hours - RTO 4 weeks Charley Wilson APRN.CNM documented in this encounter [facility] 11-20-2024 Bettye Fitzgerald LPN - 11/20/2024 3:36 PM EST SEQUENTIAL SCREENINGS The [facility] offers sequential screenings for women who are interested in screenings for chromosomal abnormalities and certain defects during a . The sequential screen combines ultrasound and blood tests to determine the risk of chromosomal abnormalities, including Down's Syndrome (Trisomy 21) and Trisomy 18, as well as open neural tube defects including spina bifida. Ultrasound examination is performed between 11 weeks and 13 weeks gestational age. Blood tests are drawn after the ultrasound and again later in the between 15 and 21 weeks gestational age. Please let your physician know if you are interested in this testing. It will require an appointment with our sales service technician. This is not an ultrasound performed by a physician in our office during a routine visit. SIGNS AND SYMPTOMS OF LABOR 1. Contractions every 10 minutes or more often 2. Clear, pink, or brownish fluid (water) leaking from vagina 3. Feeling that baby is pushing down, pressure 4. Low, dull backache 5. Cramps that feel like a period 6. Cramps with or without diarrhea If you notice any of the above symptoms, contact our office at [phone] and ask to speak with a nurse. After hours, you can call doctors registry at [phone] OR call [facility] at [phone] and ask to have the doctor furnishings conservator paged. If you consider this an emergency, dial or go to your nearest emergency department. NEED HELP? Are you dealing with a violent or abusive relationship? Are you a victim of rape or sexual assult? Call [facility] ([place]) 24 hour Crisis Hotline: 913.826.5086 or 549-582-9812. MANUAL Your Guide to a Healthy manual is now on-line. Visit [email or web address] to download your free copy documented in this encounter [facility] 10-23-2024 Instructions Dede Carvajal MA - 10/23/2024 2:46 PM EST Please select the following link to access the [facility] Your Guide to a Healthy . [email or web address] documented in this encounter [facility] 10-23-2024 Note HNO ID: [id number] Author: BITA DEGROOT APRN.MONSERRAT Service: ? Author Type: Nurse Practitioner Type: Progress Notes Filed: 10/23/2024 16:01 Note Text: INITIAL OB ASSESSMENT HPI: Nataly is a 19 year old White Female here to establish Obstetrical Care. Patient's last menstrual period was 08/16/2024. from OB Dating Form. was unplanned but accepted Complaints: (!) Abdominal pain; Shortness of breath OB History T0 L0 SAB0 IAB0 Ectopic0 Multiple0 Live Births0 Previous history: Prior : never History of 4th degree laceration: Perineal Laceration, 3rd or 4th degree N/a History of shoulder dystocia: Shoulder Dystocia N/a History of Hypertensive disorders including pre-eclampsia or gestational hypertension: Gestational Hypertension N/a Preeclampsia N/a History of gestational diabetes: Diabetes in N/a Patient's Risk Screening for delivery: Have you had a prior salcido between 20w and 36w6d? No How many pregnancies have you had before? 0 Did you have a previous baby with a GBS Infection? No Please select all that apply for any prior : N/A MEDICAL/PSYCHOSOCIAL HISTORY: Severe bleeding with delivery N/a Thyroid Disease No Gestational Hypertension N/a Preeclampsia N/a Diabetes in N/a No results found for: ABORHD BMI 24.69 kg/(m2) Last Pap: History of abnormal pap: Abnormal Pap N/a Prior treatment for cervical dysplasia: none. Last HPV: History of STDs: N/A Partner History of STDs: None Did you have a partner with Herpes? No Tobacco use: No E-Cigarette/Vaping Use: No Caffeine use: yes Drug use: No Alcohol use: No Multivitamin with Folic acid: Yes Would refuse blood transfusion if medically necessary: No Social Needs: How often does this describe you? I don't have enough money to pay my bills: Never Within the past 12 months, have you worried that your food would run out before you had money to buy more? Never In the past 12 months, has lack of reliable transportation kept you from going to medical appointments or work, or from getting things needed for daily living? Never In the past 12 months, have you had any concerns about having a place to live, or about the condition or quality of your housing? Never Would you like more information on any of the following (please check all that apply)? Not interested Social History: Do you have any history of depression, anxiety, PTSD, or other mood problems? Yes Do you have a history of abuse or trauma that may impact your experience? No Are you currently employed? Yes Depression/Anxiety Screening: admits to symptoms of depression. OB Depression and Anxiety Screening- This Encounter (since 10/22/2024) Over the past 2 weeks have you felt down, depressed, or hopeless? Positive - Further Testing Indicated I have been able to laugh and see the funny side of things. As much as I always could I have looked forward with enjoyment to things. Rather less than I used to I have blamed myself unnecessarily when things went wrong. Not very often I have been anxious or worried for no good reason. Yes, sometimes I have felt scared or panicky for no good reason. Yes, sometimes Things have been getting on top of me. No, most of the time I have coped quite well I have been so unhappy that I have had difficulty sleeping. Not at all I have felt sad or miserable. Not very often I have been so unhappy that I have been crying. Only occasionally The thought of harming myself has occurred to me. Never Cochran Depression Scale Total 9 Feeling nervous, anxious or on edge 2-More than half the days Not being able to stop or control worrying 2-More than half the days Anxiety Pre-Screening Total (If >/= 3 additional questions will be reviewed) 4 Worrying too much about different things 2-More than half the days Trouble relaxing 2-More than half the days Being so restless that it is hard to sit still 0-Not al all Becoming easily annoyed or irritable 2-More than half the days Feeling afraid, as if something awful might happen 2-More than half the days Anxiety (PAULINO) Full Screening Total 12 Genetic Screening: Partner present: Yes Patient verbalized knowledge of partner family health history: Yes Do you or your partner have any personal or family history of defects not previously discussed: No Do you have history of a complicated by anomaly, genetic condition, or demise: No Preeclampsia Risk Screening: Screening for prevention of preeclampsia: High risk factors: None Moderate risk ractors: Nulliparity OB Risk Screening: Completed, no positive findings documented. Marital Status:Committed relationship Partner: Name: Boo Age: 19 Occupation: [employer] Gender: Male PAST MEDICAL HISTORY Diagnosis Date NEGATIVE MEDICAL HISTORY PAST (more content not included)... [facility] 10-23-2024 History of Present illness Narrative INITIAL OB ASSESSMENT HPI: Nataly is a 19 year old White Female here to establish Obstetrical Care. Patient's last menstrual period was 08/16/2024. from OB Dating Form. was unplanned but accepted Complaints: (!) Abdominal pain; Shortness of breath OB History T0 L0 SAB0 IAB0 Ectopic0 Multiple0 Live Births0 Previous history: Prior : never History of 4th degree laceration: Perineal Laceration, 3rd or 4th degree N/a History of shoulder dystocia: Shoulder Dystocia N/a History of Hypertensive disorders including pre-eclampsia or gestational hypertension: Gestational Hypertension N/a Preeclampsia N/a History of gestational diabetes: Diabetes in N/a Patient's Risk Screening for delivery: Have you had a prior salcido between 20w and 36w6d? No How many pregnancies have you had before? 0 Did you have a previous baby with a GBS Infection? No Please select all that apply for any prior : N/A MEDICAL/PSYCHOSOCIAL HISTORY: Severe bleeding with delivery N/a Thyroid Disease No Gestational Hypertension N/a Preeclampsia N/a Diabetes in N/a No results found for: ABORHD BMI 24.69 kg/(m^2) Last Pap: History of abnormal pap: Abnormal Pap N/a Prior treatment for cervical dysplasia: none. Last HPV: History of STDs: N/A Partner History of STDs: None Did you have a partner with Herpes? No Tobacco use: No E-Cigarette/Vaping Use: No Caffeine use: yes Drug use: No Alcohol use: No Multivitamin with Folic acid: Yes Would refuse blood transfusion if medically necessary: No Social Needs: How often does this describe you? I don't have enough money to pay my bills: Never Within the past 12 months, have you worried that your food would run out before you had money to buy more? Never In the past 12 months, has lack of reliable transportation kept you from going to medical appointments or work, or from getting things needed for daily living? Never In the past 12 months, have you had any concerns about having a place to live, or about the condition or quality of your housing? Never Would you like more information on any of the following (please check all that apply)? Not interested Social History: Do you have any history of depression, anxiety, PTSD, or other mood problems? Yes Do you have a history of abuse or trauma that may impact your experience? No Are you currently employed? Yes Depression/Anxiety Screening: admits to symptoms of depression. OB Depression and Anxiety Screening- This Encounter (since 10/22/2024) Over the past 2 weeks have you felt down, depressed, or hopeless? Positive - Further Testing Indicated I have been able to laugh and see the funny side of things. As much as I always could I have looked forward with enjoyment to things. Rather less than I used to I have blamed myself unnecessarily when things went wrong. Not very often I have been anxious or worried for no good reason. Yes, sometimes I have felt scared or panicky for no good reason. Yes, sometimes Things have been getting on top of me. No, most of the time I have coped quite well I have been so unhappy that I have had difficulty sleeping. Not at all I have felt sad or miserable. Not very often I have been so unhappy that I have been crying. Only occasionally The thought of harming myself has occurred to me. Never Cochran Depression Scale Total 9 Feeling nervous, anxious or on edge 2-More than half the days Not being able to stop or control worrying 2-More than half the days Anxiety Pre-Screening Total (If >/= 3 additional questions will be reviewed) 4 Worrying too much about different things 2-More than half the days Trouble relaxing 2-More than half the days Being so restless that it is hard to sit still 0-Not al all Becoming easily annoyed or irritable 2-More than half the days Feeling afraid, as if something awful might happen 2-More than half the days Anxiety (PAULINO) Full Screening Total 12 Genetic Screening: Partner present: Yes Patient verbalized knowledge of partner family health history: Yes Do you or your partner have any personal or family history of defects not previously discussed: No Do you have history of a complicated by anomaly, genetic condition, or demise: No Preeclampsia Risk Screening: Screening for prevention of preeclampsia: High risk factors: None Moderate risk ractors: Nulliparity OB Risk Screening: Completed, no positive findings documented. Marital Status:Committed relationship Partner: Name: Boo Age: 19 Occupation: Tech Gender: Male PAST MEDICAL HISTORY Diagnosis Date NEGATIVE MEDICAL HISTORY PAST SURGICAL HISTORY Procedure Laterality Date MYRINGOTOMY W/ TUBES HX Bilateral bilateral ear tubes Current Outpatient Medications Medication Sig Dispense Refill VITAFUSION GUMMY TChS Take 1 Each by mouth once daily. pyridoxine, vitamin B6, (VITAMIN B-6) 50 mg tablet Take 1 tablet by mouth two times a day. ferrous sulfate (SLOW FE) 137 mg (45 mg iron) TbER Take 1 tablet by mouth once daily. No current facility-administered medications for this visit. Allergies As of Date: 10/23/2024 (No Known Allergies) Fully Assessed 10/23/2024 Does patient have penicillin allergy: No REVIEW OF SYSTEMS: GENERAL: Negative for: Fever or Chills HEENT: Negative for: Headache, Impaired Vision, Ringing in Ears, Nosebleeds NECK: Negative for: Swelling, Pain, Stiffness RESPIRATORY: Negative for: Cough, Shortness of breath, Wheezing GASTROINTESTINAL: Positive for: Nausea and Vomiting MUSCULOSKELETAL: Negative for: Muscle or joint pain, stiffness, Joint swelling NEUROLOGIC/PSYCHIATRIC: Negative for: Weakness, Paralysis, Numbness, Tingling, Tremor, Anxiety, Depression, Memory loss SKIN: Negative for: Rash, Itching GENITOURINARY: Negative for: hematuria or dysuria SENSITIVE EXAM: The sensitive examination was discussed with the Patient or Patient's Authorized Cigarette Lighter Repairer. As applicable, any other physician, advance practice provider, medical student, or other health professional student that will be observing or involved in the sensitive examination for educational or training purposes was discussed with the Patient or Authorized Cigarette Lighter Repairer. The Patient or Authorized Cigarette Lighter Repairer has agreed to proceed with the sensitive examination. (Sensitive examination includes inspection and/or palpation of the breasts, pelvis, prostate and anorectal regions). PHYSICAL EXAM: Wt 142 lb (64.4kg) LMP 08/16/2024 GENERAL: pleasant in no apparent distress DERMATOLOGY: Normal, without lesions, non-icteric, and non-hirsute NECK: Supple, full range of motion, no adenopathy, and thyroid normal CHEST: Normal inspiratory effort BREAST: soft, non-tender, symmetric, no dominant mass, normal nipple-areolar complex, no lymphadenopathy, and no nipple discharge ABDOMEN: soft, non-tender, and no masses NEURO: alert and oriented x3,exam grossly non-focal PELVIS: External genitalia normal without lesions. Perineal body intact. No vaginal or cervical lesions. Cervix closed. No adnexal masses or tenderness. Clinical Pelvimetry: Pelvimetry clinically assessed as adequate Limited OB ultrasound exam: not performed ASSESSMENT: 19 year old at 9w5d wks gestational age PLAN: 1) Patient oriented to practice. Patient given new OB orientation folder. Discussed nutrition, folic acid supplementation, dietary guidelines, exercise, smoking, alcohol, caffeine, and drug use. Discussed gestational weight gain guidelines. Discussed routine OB labs including STD/HIV. Discussed how to access Your guide to a health and the Pole Incisor Operator. Reviewed midwifery and head of partner development services that are available. 2) Screening: Hemoglobin A1C: ordered Baby Aspirin: The patient has been counseled about the potential benefits of low dose aspirin in and our recommendation that this be offered to all patients, regardless of whether they meet the high risk criteria specified above. She Accepts Aneuploidy Screening: Discussed aneuploidy screening, nuchal translucency/first trimester early anatomy ultrasound and NIPT. The risks/benefits and limitations of NIPT/aneuploidy screening were reviewed including the potential for false negative and false positive results. The availability of genetic counseling was reviewed. Information on aneuploidy screening was provided. The patient chooses to proceed with First trimester early anatomy ultrasound (12-13w6d) Myriad Carrier Screening: Discussed myriad carrier screening. We discussed the availability of professional-society guided carrier screening and reviewed the conditions screened and limitations of screening. The availability of genetic counseling was reviewed. Information on carrier screening was provided. The patient Declines 3) Patient offered option of Virtual Visits. Patient unsure. May consider in future. 4) hx of subchorionic hemorrhage with this Follow up in 4 weeks or sooner prn. Bita Degroot APRN.MONSERRAT documented in this encounter [facility] 10-09-2024 Telephone encounter Note Per COLTON hoyos 7w5d. Pt stopped in the office to get letter for work weight lifting restrictions. Discussed with SW. Pt notified at this time no weight lifting restrictions and instructed Pt to discuss with with RM at visit on 10/23/24. Manuela Baugh RN [facility] 10-09-2024 Miscellaneous Notes Per LPM ega 7w5d. Pt stopped in the office to get letter for work weight lifting restrictions. Discussed with SW. Pt notified at this time no weight lifting restrictions and instructed Pt to discuss with with RM at visit on 10/23/24. Manuela Baugh RN documented in this encounter [facility] 10-09-2024 Note HNO ID: [id number] Author: SIL BOBO MD Service: ? Author Type: Physician Type: Progress Notes Filed: 10/09/2024 09:13 Note Text: The patient presents for requested ultrasound. Full report available in the Imaging tab in [email or web address]. Sil Bobo MD [facility] 10-09-2024 History of Present illness Narrative The patient presents for requested ultrasound. Full report available in the Imaging tab in [email or web address]. Sil Bobo MD documented in this encounter [facility] 10-06-2024 Note HNO ID: [id number] Author: ELIUD CLARK MD Service: ? Author Type: Physician Type: Progress Notes Filed: 10/06/2024 13:51 Note Text: Nataly Dsouza is a 19 year old female who presents for problem visit. HPI: Patient presents after US. She reports mild nausea. Last week she had some light spotting. OB History T0 L0 SAB0 IAB0 Ectopic0 Multiple0 Live Births0 Mannequin Mold Maker History LMP: 08/16/2024 (Exact Date), Age at Menarche: 11 Age at First : Age at Menopause: Mannequin Mold Maker History Comments: Sexual Activity: Yes; Male Contraception: Condom, Pill PAST MEDICAL HISTORY Diagnosis Date NEGATIVE MEDICAL HISTORY PAST SURGICAL HISTORY Procedure Laterality Date MYRINGOTOMY W/ TUBES HX Bilateral bilateral ear tubes FAMILY HISTORY Problem Relation Age of Onset Diabetes Mother Hypertension Mother Diabetes Maternal Grandmother Heart Maternal Grandfather Diabetes Maternal Grandfather Heart Paternal Grandmother Cancer Paternal Grandfather Breast Cancer Maternal Aunt Cervical Cancer No Family History Ovarian cancer No Family History Uterine Cancer No Family History Colon Cancer No Family History Pancreatic Cancer No Family History Prostate Cancer No Family History Social History Tobacco Use Smoking status: Never Passive exposure: Never Smokeless tobacco: Never Vaping Use Vaping status: Never Used Substance Use Topics Alcohol use: Never Drug use: Never Current Outpatient Medications Medication Sig Norethindrn A-E Estradiol-Iron (JUNE FE 24) 1 mg-20 mcg (24)/75 mg (4) Take 1 tablet by mouth once daily. (Patient not taking: Reported on 09/26/2024) No current facility-administered medications for this visit. Allergies As of Date: 10/06/2024 (No Known Allergies) Fully Assessed 10/06/2024 Allergies and current medication updated:Yes SENSITIVE EXAM: The sensitive examination was discussed with the Patient or Patient's Authorized Cigarette Lighter Repairer. As applicable, any other physician, advance practice provider, medical student, or other health professional student that will be observing or involved in the sensitive examination for educational or training purposes was discussed with the Patient or Authorized Cigarette Lighter Repairer. The Patient or Authorized Cigarette Lighter Repairer has agreed to proceed with the sensitive examination. (Sensitive examination includes inspection and/or palpation of the breasts, pelvis, prostate and anorectal regions). EXAM: BP 104/60 Wt 144 lb (65.3kg) LMP 08/16/2024 GENERAL: pleasant, female in no apparent distress ASSESSMENT AND PLAN: Assessment AND Plan Early stage of Subchorionic hemorrhage of placenta in first trimester Reviewed preliminary US findings show viable IUP at 7AND2 with small subchorionic hemorrhage. All questions answered. Advised on vitamin B6 for nausea. Medical Decision Making: Problems: Moderate: New problem with uncertain prognosis Data: Unique test result(s) reviewed: 3+ Risk: Low: Low risk from testing/treatment Medical Decision Making Level: 4 - Moderate Eliud Clark MD [facility] 10-06-2024 History of Present illness Narrative Nataly Dsouza is a 19 year old female who presents for problem visit. HPI: Patient presents after US. She reports mild nausea. Last week she had some light spotting. OB History T0 L0 SAB0 IAB0 Ectopic0 Multiple0 Live Births0 Mannequin Mold Maker History LMP: 08/16/2024 (Exact Date), Age at Menarche: 11 Age at First : Age at Menopause: Mannequin Mold Maker History Comments: Sexual Activity: Yes; Male Contraception: Condom, Pill PAST MEDICAL HISTORY Diagnosis Date NEGATIVE MEDICAL HISTORY PAST SURGICAL HISTORY Procedure Laterality Date MYRINGOTOMY W/ TUBES HX Bilateral bilateral ear tubes FAMILY HISTORY Problem Relation Age of Onset Diabetes Mother Hypertension Mother Diabetes Maternal Grandmother Heart Maternal Grandfather Diabetes Maternal Grandfather Heart Paternal Grandmother Cancer Paternal Grandfather Breast Cancer Maternal Aunt Cervical Cancer No Family History Ovarian cancer No Family History Uterine Cancer No Family History Colon Cancer No Family History Pancreatic Cancer No Family History Prostate Cancer No Family History Social History Tobacco Use Smoking status: Never Passive exposure: Never Smokeless tobacco: Never Vaping Use Vaping status: Never Used Substance Use Topics Alcohol use: Never Drug use: Never Current Outpatient Medications Medication Sig Norethindrn A-E Estradiol-Iron (JUNEL FE 24) 1 mg-20 mcg (24)/75 mg (4) Take 1 tablet by mouth once daily. (Patient not taking: Reported on 09/26/2024) No current facility-administered medications for this visit. Allergies As of Date: 10/06/2024 (No Known Allergies) Fully Assessed 10/06/2024 Allergies and current medication updated:Yes SENSITIVE EXAM: The sensitive examination was discussed with the Patient or Patient's Authorized Cigarette Lighter Repairer. As applicable, any other physician, advance practice provider, medical student, or other health professional student that will be observing or involved in the sensitive examination for educational or training purposes was discussed with the Patient or Authorized Cigarette Lighter Repairer. The Patient or Authorized Cigarette Lighter Repairer has agreed to proceed with the sensitive examination. (Sensitive examination includes inspection and/or palpation of the breasts, pelvis, prostate and anorectal regions). EXAM: BP 104/60 Wt 144 lb (65.3kg) LMP 08/16/2024 GENERAL: pleasant, female in no apparent distress ASSESSMENT AND PLAN: Assessment & Plan Early stage of Subchorionic hemorrhage of placenta in first trimester Reviewed preliminary US findings show viable IUP at 7&2 with small subchorionic hemorrhage. All questions answered. Advised on vitamin B6 for nausea. Medical Decision Making: Problems: Moderate: New problem with uncertain prognosis Data: Unique test result(s) reviewed: 3+ Risk: Low: Low risk from testing/treatment Medical Decision Making Level: 4 - Moderate Eliud Clark MD documented in this encounter [facility] 10-02-2024 Telephone encounter Note Patient needs another HCG quant order. Etelvina Andrade RN [facility] 10-02-2024 Miscellaneous Notes Patient needs another HCG quant order. Etelvina Andrade RN documented in this encounter [facility] 09-27-2024 Telephone encounter Note Patient about positive yeast results. Patient did see her MANAGER CARGO and they do not want to treat at this time. Patient is agreeable to this care plan. [facility] Work Phone: 09-27-2024 Miscellaneous Notes Patient about positive yeast results. Patient did see her MANAGER CARGO and they do not want to treat at this time. Patient is agreeable to this care plan. documented in this encounter [facility] 09-27-2024 Note HNO ID: [id number] Author: KERRIE MCKEON APRN.CNM Service: ? Author Type: Cremator Type: Progress Notes Filed: 09/27/2024 16:42 Note Text: Nataly Dsouza is a 19 year old female who presents for problem visit for spotting in HPI: LMP110/16/23 Started having cramping today and pinkish spotting. Positive test end of August, some nausea. OB History T0 L0 SAB0 IAB0 Ectopic0 Multiple0 Live Births0 Mannequin Mold Maker History LMP: 08/16/2024 (Exact Date), Age at Menarche: 11 Age at First : Age at Menopause: Mannequin Mold Maker History Comments: Sexual Activity: Yes; Male Contraception: Condom, Pill PAST MEDICAL HISTORY Diagnosis Date NEGATIVE MEDICAL HISTORY PAST SURGICAL HISTORY Procedure Laterality Date MYRINGOTOMY W/ TUBES HX Bilateral bilateral ear tubes FAMILY HISTORY Problem Relation Age of Onset Diabetes Mother Hypertension Mother Diabetes Maternal Grandmother Heart Maternal Grandfather Diabetes Maternal Grandfather Heart Paternal Grandmother Cancer Paternal Grandfather Breast Cancer Maternal Aunt Cervical Cancer No Family History Ovarian cancer No Family History Uterine Cancer No Family History Colon Cancer No Family History Pancreatic Cancer No Family History Prostate Cancer No Family History Social History Tobacco Use Smoking status: Never Passive exposure: Never Smokeless tobacco: Never Vaping Use Vaping status: Never Used Substance Use Topics Alcohol use: Never Drug use: Never Current Outpatient Medications Medication Sig Norethindrn A-E Estradiol-Iron () 1 mg-20 mcg (24)/75 mg (4) Take 1 tablet by mouth once daily. (Patient not taking: Reported on 09/26/2024) No current facility-administered medications for this visit. Allergies As of Date: 09/27/2024 (No Known Allergies) Fully Assessed 09/27/2024 REVIEW OF SYSTEMS Abdomen: No bloating, early satiety, indigestion, or increased flatulence. No abdominal pain, nausea, vomiting, diarrhea, or constipation. Bladder: No dysuria, gross hematuria, urinary frequency, urinary urgency, or incontinence. Breast: No breast lumps, nipple d/c, overlying skin changes, redness or skin retraction. Expanded ROS: N/A Allergies and current medication updated:Yes SENSITIVE EXAM: The sensitive examination was discussed with the Patient or Patient's Authorized Cigarette Lighter Repairer. As applicable, any other physician, advance practice provider, medical student, or other health professional student that will be observing or involved in the sensitive examination for educational or training purposes was discussed with the Patient or Authorized Cigarette Lighter Repairer. The Patient or Authorized Cigarette Lighter Repairer has agreed to proceed with the sensitive examination. (Sensitive examination includes inspection and/or palpation of the breasts, pelvis, prostate and anorectal regions). EXAM: BP 98/64 Wt 146 lb (66.2kg) LMP 08/16/2024 GENERAL: pleasant, female in no apparent distress HEENT: Normocephalic and atraumatic NECK: Supple and full range of motion ABDOMEN: soft, non-tender, and no masses PELVIC: external genitalia normal, normal Bartholin's glands, urethra, [place]'s glands, no vulvar lesions, no cervical lesions, good vaginal support, physiologic discharge present, normal appearing perineal body and perianal region. BIMANUAL: uterus normal size, shape and consistency, no adnexal masses, and non-tender NEURO: alert and oriented x3,exam grossly non-focal EXTREMITIES: normal ASSESSMENT AND PLAN: Assessment AND Plan Spotting in Orders: HCG QUANTITATIVE; Standing TYPE + SCREEN ; Future Reviewed bleeding precautions and when to call. Yeast positive but advised to wait treatment till after follow up and preferably after 12 weeks unless symptomatic [facility]on [facility] History of Present illness Narrative Nataly Dsouza is a 19 year old female who presents for problem visit for spotting in HPI: LMP110/16/23 Started having cramping today and pinkish spotting. Positive test end of August, some nausea. OB History T0 L0 SAB0 IAB0 Ectopic0 Multiple0 Live Births0 Mannequin Mold Maker History LMP: 08/16/2024 (Exact Date), Age at Menarche: 11 Age at First : Age at Menopause: Mannequin Mold Maker History Comments: Sexual Activity: Yes; Male Contraception: Condom, Pill PAST MEDICAL HISTORY Diagnosis Date NEGATIVE MEDICAL HISTORY PAST SURGICAL HISTORY Procedure Laterality Date MYRINGOTOMY W/ TUBES HX Bilateral bilateral ear tubes FAMILY HISTORY Problem Relation Age of Onset Diabetes Mother Hypertension Mother Diabetes Maternal Grandmother Heart Maternal Grandfather Diabetes Maternal Grandfather Heart Paternal Grandmother Cancer Paternal Grandfather Breast Cancer Maternal Aunt Cervical Cancer No Family History Ovarian cancer No Family History Uterine Cancer No Family History Colon Cancer No Family History Pancreatic Cancer No Family History Prostate Cancer No Family History Social History Tobacco Use Smoking status: Never Passive exposure: Never Smokeless tobacco: Never Vaping Use Vaping status: Never Used Substance Use Topics Alcohol use: Never Drug use: Never Current Outpatient Medications Medication Sig Norethindrn A-E Estradiol-Iron () 1 mg-20 mcg (24)/75 mg (4) Take 1 tablet by mouth once daily. (Patient not taking: Reported on 09/26/2024) No current facility-administered medications for this visit. Allergies As of Date: 09/27/2024 (No Known Allergies) Fully Assessed 09/27/2024 REVIEW OF SYSTEMS Abdomen: No bloating, early satiety, indigestion, or increased flatulence. No abdominal pain, nausea, vomiting, diarrhea, or constipation. Bladder: No dysuria, gross hematuria, urinary frequency, urinary urgency, or incontinence. Breast: No breast lumps, nipple d/c, overlying skin changes, redness or skin retraction. Expanded ROS: N/A Allergies and current medication updated:Yes SENSITIVE EXAM: The sensitive examination was discussed with the Patient or Patient's Authorized Cigarette Lighter Repairer. As applicable, any other physician, advance practice provider, medical student, or other health professional student that will be observing or involved in the sensitive examination for educational or training purposes was discussed with the Patient or Authorized Cigarette Lighter Repairer. The Patient or Authorized Cigarette Lighter Repairer has agreed to proceed with the sensitive examination. (Sensitive examination includes inspection and/or palpation of the breasts, pelvis, prostate and anorectal regions). EXAM: BP 98/64 Wt 146 lb (66.2kg) LMP 08/16/2024 GENERAL: pleasant, female in no apparent distress HEENT: Normocephalic and atraumatic NECK: Supple and full range of motion ABDOMEN: soft, non-tender, and no masses PELVIC: external genitalia normal, normal Bartholin's glands, urethra, [place]'s glands, no vulvar lesions, no cervical lesions, good vaginal support, physiologic discharge present, normal appearing perineal body and perianal region. BIMANUAL: uterus normal size, shape and consistency, no adnexal masses, and non-tender NEURO: alert and oriented x3,exam grossly non-focal EXTREMITIES: normal ASSESSMENT AND PLAN: Assessment & Plan Spotting in Orders: HCG QUANTITATIVE; Standing TYPE + SCREEN ; Future Reviewed bleeding precautions and when to call. Yeast positive but advised to wait treatment till after follow up and preferably after 12 weeks unless symptomatic Kerrie Mckeon APRN.CNM documented in this encounter [facility] 09-26-2024 Note HNO ID: [id number] Author: ROSANNA HENDRICKS PA-C Service: ? Author Type: Physician Fall Intern Type: Progress Notes Filed: 09/26/2024 18:12 Note Text: This note was created using Roundscapes[employer]. Subjective Nataly Dsouza is a 19 year old female. Patient is a 19-year-old female who complains of intermittent episodes of dysuria that she has been experiencing for the past 6 days. Patient states that she will feel burning with urination but when she subsequently voids she will not experience any pain. Patient has noted no blood in her urine. Patient also describes vaginal irritation but reports no abnormal vaginal bleeding. Patient denies fever, chills, flank pain, nausea or other symptoms. Patient has no history of UTI or kidney stone. Patient also denies history of bacterial vaginosis and vaginal candidiasis and reports that she has not recently been placed on antibiotics. Patient is in her first trimester with an estimated gestational age of 6 weeks. Patient reports that her first visit is scheduled for 23 October 2024. Review of Systems Genitourinary: Positive for dysuria. All other systems reviewed and are negative. Objective BP 123/86 Pulse 95 Temp 36.2 ?C (97.2 ?F) Resp 20 Wt 66 kg (145 lb 8.1 oz) LMP 08/20/2024 (Approximate) SpO2 100% BMI 25.30 kg/m? Physical Exam Vitals and nursing note reviewed. Constitutional: Appearance: Normal appearance. She is normal weight. HENT: Head: Normocephalic and atraumatic. Right Ear: External ear normal. Left Ear: External ear normal. Nose: Nose normal. Mouth/Throat: Mouth: Mucous membranes are moist. Pharynx: Oropharynx is clear. Eyes: Extraocular Movements: Extraocular movements intact. Conjunctiva/sclera: Conjunctivae normal. Pupils: Pupils are equal, round, and reactive to light. Cardiovascular: Rate and Rhythm: Normal rate. Pulses: Normal pulses. Heart sounds: Normal heart sounds. Pulmonary: Effort: Pulmonary effort is normal. Breath sounds: Normal breath sounds. Abdominal: General: Abdomen is flat. Palpations: Abdomen is soft. Musculoskeletal: Cervical back: Normal range of motion and neck supple. Skin: General: Skin is warm and dry. Capillary Refill: Capillary refill takes less than 2 seconds. Neurological: General: No focal deficit present. Mental Status: She is alert and oriented to person, place, and time. Psychiatric: Mood and Affect: Mood normal. Behavior: Behavior normal. Thought Content: Thought content normal. Judgment: Judgment normal. Assessment and Plan Physical exam findings as noted above. Urinalysis is negative with no leukocyte esterase, nitrite or protein noted. 15 mg/dl ketones are noted and specific gravity 1.030. Patient did perform a self swab and bacterial vaginosis and/trichomonas NAAT were ordered. Patient was advised that results will be received tomorrow and she will be contacted with any positive findings. Patient was advised to follow-up with her SENIOR EDITOR as scheduled or report to an emergency department if she notes any new or worsening symptoms. Patient verbalizes clear understanding of the above instructions. CLINICAL IMPRESSION: Dysuria ASSESSMENT/PLAN: 1. Burning with urination - ICD9: 788.1, ICD10: R30.0 (primary diagnosis) - UA DIP, URINE (POC) - BACTERIAL CULTURE, URINE 2. Urethral irritation - ICD9: 599.9, ICD10: N36.8 - LORAINE/TRICHOMONAS NAAT - BACTERIAL VAGINOSIS NAAT Rosanna Hendricks PA-C [facility] 09-26-2024 History of Present illness Narrative This note was created using [employer] vascular solution. Subjective Nataly Dsouza is a 19 year old female. Patient is a 19-year-old female who complains of intermittent episodes of dysuria that she has been experiencing for the past 6 days. Patient states that she will feel burning with urination but when she subsequently voids she will not experience any pain. Patient has noted no blood in her urine. Patient also describes vaginal irritation but reports no abnormal vaginal bleeding. Patient denies fever, chills, flank pain, nausea or other symptoms. Patient has no history of UTI or kidney stone. Patient also denies history of bacterial vaginosis and vaginal candidiasis and reports that she has not recently been placed on antibiotics. Patient is in her first trimester with an estimated gestational age of 6 weeks. Patient reports that her first visit is scheduled for 23 October 2024. Review of Systems Genitourinary: Positive for dysuria. All other systems reviewed and are negative. Objective BP 123/86 Pulse 95 Temp 36.2 C (97.2 F) Resp 20 Wt 66 kg (145 lb 8.1 oz) LMP 08/20/2024 (Approximate) SpO2 100% BMI 25.30 kg/m Physical Exam Vitals and nursing note reviewed. Constitutional: Appearance: Normal appearance. She is normal weight. HENT: Head: Normocephalic and atraumatic. Right Ear: External ear normal. Left Ear: External ear normal. Nose: Nose normal. Mouth/Throat: Mouth: Mucous membranes are moist. Pharynx: Oropharynx is clear. Eyes: Extraocular Movements: Extraocular movements intact. Conjunctiva/sclera: Conjunctivae normal. Pupils: Pupils are equal, round, and reactive to light. Cardiovascular: Rate and Rhythm: Normal rate. Pulses: Normal pulses. Heart sounds: Normal heart sounds. Pulmonary: Effort: Pulmonary effort is normal. Breath sounds: Normal breath sounds. Abdominal: General: Abdomen is flat. Palpations: Abdomen is soft. Musculoskeletal: Cervical back: Normal range of motion and neck supple. Skin: General: Skin is warm and dry. Capillary Refill: Capillary refill takes less than 2 seconds. Neurological: General: No focal deficit present. Mental Status: She is alert and oriented to person, place, and time. Psychiatric: Mood and Affect: Mood normal. Behavior: Behavior normal. Thought Content: Thought content normal. Judgment: Judgment normal. Assessment and Plan Physical exam findings as noted above. Urinalysis is negative with no leukocyte esterase, nitrite or protein noted. 15 mg/dl ketones are noted and specific gravity 1.030. Patient did perform a self swab and bacterial vaginosis and/trichomonas NAAT were ordered. Patient was advised that results will be received tomorrow and she will be contacted with any positive findings. Patient was advised to follow-up with her SENIOR EDITOR as scheduled or report to an emergency department if she notes any new or worsening symptoms. Patient verbalizes clear understanding of the above instructions. CLINICAL IMPRESSION: Dysuria ASSESSMENT/PLAN: 1. Burning with urination - ICD9: 788.1, ICD10: R30.0 (primary diagnosis) - UA DIP, URINE (POC) - BACTERIAL CULTURE, URINE 2. Urethral irritation - ICD9: 599.9, ICD10: N36.8 - LORAINE/TRICHOMONAS NAAT - BACTERIAL VAGINOSIS NAAT Rosanna Hendricks PA-C documented in this encounter [facility] 06-23-2024 Note HNO ID: [id number] Author: THERESA BUSCH MD Service: ? Author Type: Physician Type: Progress Notes Filed: 06/23/2024 16:03 Note Text: Nataly Dsouza is a 18 year old female who presents for problem visit questions about fertility. HPI: Recently started control and is sexually active with condoms. Does not want to be now and is not trying for . Has not tried to conceive in the past. Wanting to know if she is fertile and would be able to get in the future. Discussed with patient that fertility is complex and that until she tries for there is really no way to tell if she will be able to conceive. Factors include regular cycles, normal tubes and ovaries. Genetic abnormalities but also her partners sperm. While these factors can be abnormal it does not necessarily prevent . There is no test that can predict her chances of . Patient states understanding. Encouraged consistent condom use to prevent infections. That is the only preventive step she can take at this time. OB History T0 L0 SAB0 IAB0 Ectopic0 Multiple0 Live Births0 Mannequin Mold Maker History LMP: 06/22/2024 (Approximate), Having periods Age at Menarche: 11 Age at First : Age at Menopause: Mannequin Mold Maker History Comments: Sexual Activity: Yes; Male Contraception: Condom, Pill PAST MEDICAL HISTORY Diagnosis Date NEGATIVE MEDICAL HISTORY PAST SURGICAL HISTORY Procedure Laterality Date MYRINGOTOMY W/ TUBES HX Bilateral bilateral ear tubes FAMILY HISTORY Problem Relation Age of Onset Diabetes Mother Hypertension Mother Diabetes Maternal Grandmother Heart Maternal Grandfather Diabetes Maternal Grandfather Heart Paternal Grandmother Cancer Paternal Grandfather Breast Cancer Maternal Aunt Cervical Cancer No Family History Ovarian cancer No Family History Uterine Cancer No Family History Colon Cancer No Family History Pancreatic Cancer No Family History Prostate Cancer No Family History Social History Tobacco Use Smoking status: Never Passive exposure: Never Smokeless tobacco: Never Vaping Use Vaping status: Never Used Substance Use Topics Alcohol use: Never Drug use: Never Current Outpatient Medications Medication Sig Norethindrn A-E Estradiol-Iron () 1 mg-20 mcg (24)/75 mg (4) Take 1 tablet by mouth once daily. No current facility-administered medications for this visit. Allergies As of Date: 06/23/2024 (No Known Allergies) Fully Assessed 06/23/2024 REVIEW OF SYSTEMS Abdomen: No bloating, early satiety, indigestion, or increased flatulence. No abdominal pain, nausea, vomiting, diarrhea, or constipation. Bladder: No dysuria, gross hematuria, urinary frequency, urinary urgency, or incontinence. Breast: No breast lumps, nipple d/c, overlying skin changes, redness or skin retraction. Expanded ROS: N/A Allergies and current medication updated:Yes SENSITIVE EXAM: Sensitive exam not performed. EXAM: BP 110/62 Wt 141 lb (64.0kg) LMP 06/22/2024 GENERAL: pleasant, female in no apparent distress HEENT: Normocephalic, atraumatic, mucus membranes moist, and no lesions NECK: full range of motion DERMATOLOGY: Normal, without lesions, non-icteric, and non-hirsute BREAST: deferred CHEST: Normal inspiratory effort ABDOMEN: Deferred PELVIC: deferred BIMANUAL: deferred NEURO: alert and oriented x3,exam grossly non-focal EXTREMITIES: normal ASSESSMENT AND PLAN: Encounter Diagnosis ICD-10-CM 1. Family planning education, guidance, and counseling Z30.09 Follow up gerardo Busch MD [facility] 06-23-2024 History of Present illness Narrative Nataly Dsouza is a 18 year old female who presents for problem visit questions about fertility. HPI: Recently started control and is sexually active with condoms. Does not want to be now and is not trying for . Has not tried to conceive in the past. Wanting to know if she is fertile and would be able to get in the future. Discussed with patient that fertility is complex and that until she tries for there is really no way to tell if she will be able to conceive. Factors include regular cycles, normal tubes and ovaries. Genetic abnormalities but also her partners sperm. While these factors can be abnormal it does not necessarily prevent . There is no test that can predict her chances of . Patient states understanding. Encouraged consistent condom use to prevent infections. That is the only preventive step she can take at this time. OB History T0 L0 SAB0 IAB0 Ectopic0 Multiple0 Live Births0 Mannequin Mold Maker History LMP: 06/22/2024 (Approximate), Having periods Age at Menarche: 11 Age at First : Age at Menopause: Mannequin Mold Maker History Comments: Sexual Activity: Yes; Male Contraception: Condom, Pill PAST MEDICAL HISTORY Diagnosis Date NEGATIVE MEDICAL HISTORY PAST SURGICAL HISTORY Procedure Laterality Date MYRINGOTOMY W/ TUBES HX Bilateral bilateral ear tubes FAMILY HISTORY Problem Relation Age of Onset Diabetes Mother Hypertension Mother Diabetes Maternal Grandmother Heart Maternal Grandfather Diabetes Maternal Grandfather Heart Paternal Grandmother Cancer Paternal Grandfather Breast Cancer Maternal Aunt Cervical Cancer No Family History Ovarian cancer No Family History Uterine Cancer No Family History Colon Cancer No Family History Pancreatic Cancer No Family History Prostate Cancer No Family History Social History Tobacco Use Smoking status: Never Passive exposure: Never Smokeless tobacco: Never Vaping Use Vaping status: Never Used Substance Use Topics Alcohol use: Never Drug use: Never Current Outpatient Medications Medication Sig Norethindrn A-E Estradiol-Iron (JUNE FE 24) 1 mg-20 mcg (24)/75 mg (4) Take 1 tablet by mouth once daily. No current facility-administered medications for this visit. Allergies As of Date: 06/23/2024 (No Known Allergies) Fully Assessed 06/23/2024 REVIEW OF SYSTEMS Abdomen: No bloating, early satiety, indigestion, or increased flatulence. No abdominal pain, nausea, vomiting, diarrhea, or constipation. Bladder: No dysuria, gross hematuria, urinary frequency, urinary urgency, or incontinence. Breast: No breast lumps, nipple d/c, overlying skin changes, redness or skin retraction. Expanded ROS: N/A Allergies and current medication updated:Yes SENSITIVE EXAM: Sensitive exam not performed. EXAM: BP 110/62 Wt 141 lb (64.0kg) LMP 06/22/2024 GENERAL: pleasant, female in no apparent distress HEENT: Normocephalic, atraumatic, mucus membranes moist, and no lesions NECK: full range of motion DERMATOLOGY: Normal, without lesions, non-icteric, and non-hirsute BREAST: deferred CHEST: Normal inspiratory effort ABDOMEN: Deferred PELVIC: deferred BIMANUAL: deferred NEURO: alert and oriented x3,exam grossly non-focal EXTREMITIES: normal ASSESSMENT AND PLAN: Encounter Diagnosis ICD-10-CM 1. Family planning education, guidance, and counseling Z30.09 Follow up prn Theresa Busch MD documented in this encounter [facility] 05-30-2024 Note HNO ID: [id number] Author: PRABHA DALAL MD Service: ? Author Type: Physician Type: Progress Notes Filed: 05/30/2024 14:14 Note Text: IMPRESSION/PLAN Heavy AND painful periods (along with need of adequate BC)- trial begin OCP, therefore: The following approved medication requests have been transmitted electronically. Requested Prescriptions Signed Prescriptions Disp Refills Norethindrn A-E Estradiol-Iron () 1 mg-20 mcg (24)/75 mg (4) 84 tablet 1 Sig: Take 1 tablet by mouth once daily. Electronically submitted to her pharmacy ([facility]). Follow up at annual to assess efficacy of choice. She is comfortable with this plan of care. Nataly Dsouza is a 18 year old G0 female here today for further evaluation AND management of heavy AND painful periods as well as need for BC. She is a new patient to me today. Thorough past history obtained/updated/reviewed with today's visit. She is accompanied by no one today. PAST MEDICAL HISTORY No date: NEGATIVE MEDICAL HISTORY PAST SURGICAL HISTORY No date: MYRINGOTOMY W/ TUBES HX; Bilateral Comment: bilateral ear tubes Patient has no known allergies. Current Outpatient Medications on File Prior to Visit Medication Sig nitrofurantoin monohydrate and macrocrystal (MACROBID) 100 mg capsule Take 1 capsule by mouth two times a day for 5 days. No current facility-administered medications on file prior to visit. FAMILY HISTORY Problem Relation Age of Onset Diabetes Mother Hypertension Mother Diabetes Maternal Grandmother Heart Maternal Grandfather Diabetes Maternal Grandfather Heart Paternal Grandmother Cancer Paternal Grandfather Breast Cancer Maternal Aunt Cervical Cancer No Family History Ovarian cancer No Family History Uterine Cancer No Family History Colon Cancer No Family History Pancreatic Cancer No Family History Prostate Cancer No Family History Social History Tobacco Use Smoking status: Never Passive exposure: Never Smokeless tobacco: Never Vaping Use Vaping status: Never Used Substance Use Topics Alcohol use: Never Drug use: Never HPI Menarche was age ~10/12. Cycles are once a month with moderate to heavy flow (initially)- changes pads ~q2hr, full, not soaked, no accidents. She has moderate associated dysmenorrhea (Tylenol AND moist heat help some). She does feel like this has been getting worse over time. She has completed her GardaSIL course. She has become sexually active. She AND her partner are inconsistent with condom use (her method of BC). She denied FHx or personal history of blood clots, bleeding disorders, liver disease or significant IRWIN. I discussed with her BC options/types, routine use, Side effects, risk AND benefits of use. After this discussion she would like to proceed with OCP and we will start with . Prabha Dalal MD Medical Decision Making: Problems: Moderate: 1+ chronic illnesses with change Risk: Moderate: Drug management Medical Decision Making Level: 4 - Moderate [facility] 05-30-2024 History of Present illness Narrative IMPRESSION/PLAN Heavy & painful periods (along with need of adequate BC)- trial begin OCP, therefore: The following approved medication requests have been transmitted electronically. Requested Prescriptions Signed Prescriptions Disp Refills Norethindrn A-E Estradiol-Iron ( FE ) 1 mg-20 mcg (24)/75 mg (4) 84 tablet 1 Sig: Take 1 tablet by mouth once daily. Electronically submitted to her pharmacy ([facility]). Follow up at annual to assess efficacy of choice. She is comfortable with this plan of care. Nataly Dsouza is a 18 year old G0 female here today for further evaluation & management of heavy & painful periods as well as need for BC. She is a new patient to me today. Thorough past history obtained/updated/reviewed with today's visit. She is accompanied by no one today. PAST MEDICAL HISTORY No date: NEGATIVE MEDICAL HISTORY PAST SURGICAL HISTORY No date: MYRINGOTOMY W/ TUBES HX; Bilateral Comment: bilateral ear tubes Patient has no known allergies. Current Outpatient Medications on File Prior to Visit Medication Sig nitrofurantoin monohydrate and macrocrystal (MACROBID) 100 mg capsule Take 1 capsule by mouth two times a day for 5 days. No current facility-administered medications on file prior to visit. FAMILY HISTORY Problem Relation Age of Onset Diabetes Mother Hypertension Mother Diabetes Maternal Grandmother Heart Maternal Grandfather Diabetes Maternal Grandfather Heart Paternal Grandmother Cancer Paternal Grandfather Breast Cancer Maternal Aunt Cervical Cancer No Family History Ovarian cancer No Family History Uterine Cancer No Family History Colon Cancer No Family History Pancreatic Cancer No Family History Prostate Cancer No Family History Social History Tobacco Use Smoking status: Never Passive exposure: Never Smokeless tobacco: Never Vaping Use Vaping status: Never Used Substance Use Topics Alcohol use: Never Drug use: Never HPI Menarche was age ~[age]. Cycles are once a month with moderate to heavy flow (initially)- changes pads ~q2hr, full, not soaked, no accidents. She has moderate associated dysmenorrhea (Tylenol & moist heat help some). She does feel like this has been getting worse over time. She has completed her GardaSIL course. She has become sexually active. She & her partner are inconsistent with condom use (her method of BC). She denied FHx or personal history of blood clots, bleeding disorders, liver disease or significant IRWIN. I discussed with her BC options/types, routine use, Side effects, risk & benefits of use. After this discussion she would like to proceed with OCP and we will start with Junel. Prabha Dalal MD Medical Decision Making: Problems: Moderate: 1+ chronic illnesses with change Risk: Moderate: Drug management Medical Decision Making Level: 4 - Moderate documented in this encounter [facility] 05-26-2024 Telephone encounter Note Patient notified of results, verbalized understanding of instructions given. Jovon Grace MA [facility] 05-26-2024 Miscellaneous Notes Patient notified of results, verbalized understanding of instructions given. Jovon Grace MA Urine culture grew significant bacteria indicating a urinary tract infection. I have sent an antibiotic to the pharmacy which she may begin if urinary symptoms are still present. documented in this encounter [facility] 05-26-2024 Telephone encounter Note Urine culture grew significant bacteria indicating a urinary tract infection. I have sent an antibiotic to the pharmacy which she may begin if urinary symptoms are still present. [facility] 05-24-2024 Note HNO ID: [id number] Author: ABDIRAHMAN HO APRN.CABINET ASSEMBLER Service: ? Author Type: Nurse Practitioner Type: Progress Notes Filed: 05/24/2024 12:33 Note Text: Subjective HPI Nontoxic-appearing female presents urgent care chief complaint possible UTI. Duration of symptoms 1 day. Associated symptoms abdominal pain urine frequency urgency. Also has had a sore throat and headache. Presents today for evaluation. No known sick contacts. No OTC medications. Denies any fever body aches chills productive cough chest pain shortness of breath pleuritic pain hemoptysis nausea vomiting abdominal pain change in bowel or bladder habits. Past medical history prescription medication use and allergies reviewed. BP 102/64 Pulse 94 Temp 36.7 ?C (98.1 ?F) Resp 20 Wt 66 kg (145 lb 8.1 oz) LMP 04/24/2024 (Approximate) SpO2 97% BMI 25.30 kg/m? .Patient presents with: Urinary Problem: Possible uti, urgency, stomach pain x 1 day Sore throat, IRWIN x 1 day PAST MEDICAL HISTORY No date: NEGATIVE MEDICAL HISTORY PAST SURGICAL HISTORY No date: PAST SURGICAL HISTORY OF Comment: bilateral ear tubes ALLERGIES Patient has no known allergies. MEDICATIONS No prescriptions on file. FAMILY HISTORY Problem Relation Age of Onset Diabetes Mother Hypertension Mother Heart Maternal Grandfather Diabetes Maternal Grandfather Diabetes Maternal Grandmother Heart Paternal Grandmother Cancer Paternal Grandfather Social History Tobacco Use Smoking status: Never Passive exposure: Never Smokeless tobacco: Never BP 102/64 Pulse 94 Temp 36.7 ?C (98.1 ?F) Resp 20 Wt 66 kg (145 lb 8.1 oz) LMP 04/24/2024 (Approximate) SpO2 97% BMI 25.30 kg/m? Review of Systems Constitutional: Negative for chills, fever and malaise/fatigue. HENT: Positive for congestion and sore throat. Negative for ear discharge, ear pain and sinus pain. Eyes: Negative for blurred vision, pain, discharge and redness. Respiratory: Negative for cough, hemoptysis, sputum production, shortness of breath, wheezing and stridor. Cardiovascular: Negative for chest pain. Gastrointestinal: Positive for abdominal pain. Negative for constipation, diarrhea, nausea and vomiting. Genitourinary: Positive for frequency and urgency. Negative for dysuria, flank pain and hematuria. Musculoskeletal: Negative for myalgias. Skin: Negative for itching and rash. Neurological: Positive for headaches. Negative for dizziness. Objective Physical Exam Vitals and nursing note reviewed. Constitutional: General: She is not in acute distress. Appearance: She is not diaphoretic. HENT: Head: Normocephalic. Jaw: No trismus, tenderness, swelling or pain on movement. Right Ear: Hearing normal. No decreased hearing noted. No drainage, swelling or tenderness. Tympanic membrane is not perforated, erythematous or bulging. Left Ear: Hearing normal. No decreased hearing noted. No drainage, swelling or tenderness. Tympanic membrane is not perforated, erythematous or bulging. Nose: Congestion present. Mouth/Throat: Mouth: Mucous membranes are moist. Pharynx: Oropharynx is clear. Uvula midline. No pharyngeal swelling, oropharyngeal exudate, posterior oropharyngeal erythema or uvula swelling. Tonsils: No tonsillar abscesses. Eyes: Conjunctiva/sclera: Conjunctivae normal. Pupils: Pupils are equal, round, and reactive to light. Cardiovascular: Rate and Rhythm: Normal rate and regular rhythm. Pulses: Normal pulses. Heart sounds: Normal heart sounds. Pulmonary: Effort: Pulmonary effort is normal. No tachypnea, accessory muscle usage or respiratory distress. Breath sounds: Normal breath sounds. No stridor. No wheezing, rhonchi or rales. Chest: Chest wall: No tenderness. Abdominal: General: Bowel sounds are normal. There is no distension. Palpations: Abdomen is soft. Abdomen is not rigid. Tenderness: There is no abdominal tenderness. There is no right CVA tenderness, left CVA tenderness, guarding or rebound. Negative signs include Burton's sign and McBurney's sign. Musculoskeletal: General: No tenderness. Cervical back: Normal range of motion and neck supple. No edema, erythema, rigidity or tenderness. No pain with movement. Normal range of motion. Lymphadenopathy: Head: Right side of head: No submental, submandibular, tonsillar, preauricular, posterior auricular or occipital adenopathy. Left side of head: No submental, submandibular, tonsillar, preauricular, posterior auricular or occipital adenopathy. Cervical: No cervical adenopathy. Right cervical: No superficial or posterior cervical adenopathy. Left cervical: No superficial or posterior cervical adenopathy. Skin: General: Skin is warm and dry. Findings: No rash. Neurological: Mental Status: She is alert and oriented to person, place, and time. ASSESSMENT/PLAN: 1. Urgency of urination - ICD9: 788.63, ICD10: R39.15 (primary diagnosis) - UA DI (more content not included)... [facility] 05-24-2024 History of Present illness Narrative Subjective HPI Nontoxic-appearing female presents urgent care chief complaint possible UTI. Duration of symptoms 1 day. Associated symptoms abdominal pain urine frequency urgency. Also has had a sore throat and headache. Presents today for evaluation. No known sick contacts. No OTC medications. Denies any fever body aches chills productive cough chest pain shortness of breath pleuritic pain hemoptysis nausea vomiting abdominal pain change in bowel or bladder habits. Past medical history prescription medication use and allergies reviewed. BP 102/64 Pulse 94 Temp 36.7 C (98.1 F) Resp 20 Wt 66 kg (145 lb 8.1 oz) LMP 04/24/2024 (Approximate) SpO2 97% BMI 25.30 kg/m .Patient presents with: Urinary Problem: Possible uti, urgency, stomach pain x 1 day Sore throat, IRWIN x 1 day PAST MEDICAL HISTORY No date: NEGATIVE MEDICAL HISTORY PAST SURGICAL HISTORY No date: PAST SURGICAL HISTORY OF Comment: bilateral ear tubes ALLERGIES Patient has no known allergies. MEDICATIONS No prescriptions on file. FAMILY HISTORY Problem Relation Age of Onset Diabetes Mother Hypertension Mother Heart Maternal Grandfather Diabetes Maternal Grandfather Diabetes Maternal Grandmother Heart Paternal Grandmother Cancer Paternal Grandfather Social History Tobacco Use Smoking status: Never Passive exposure: Never Smokeless tobacco: Never BP 102/64 Pulse 94 Temp 36.7 C (98.1 F) Resp 20 Wt 66 kg (145 lb 8.1 oz) LMP 04/24/2024 (Approximate) SpO2 97% BMI 25.30 kg/m Review of Systems Constitutional: Negative for chills, fever and malaise/fatigue. HENT: Positive for congestion and sore throat. Negative for ear discharge, ear pain and sinus pain. Eyes: Negative for blurred vision, pain, discharge and redness. Respiratory: Negative for cough, hemoptysis, sputum production, shortness of breath, wheezing and stridor. Cardiovascular: Negative for chest pain. Gastrointestinal: Positive for abdominal pain. Negative for constipation, diarrhea, nausea and vomiting. Genitourinary: Positive for frequency and urgency. Negative for dysuria, flank pain and hematuria. Musculoskeletal: Negative for myalgias. Skin: Negative for itching and rash. Neurological: Positive for headaches. Negative for dizziness. Objective Physical Exam Vitals and nursing note reviewed. Constitutional: General: She is not in acute distress. Appearance: She is not diaphoretic. HENT: Head: Normocephalic. Jaw: No trismus, tenderness, swelling or pain on movement. Right Ear: Hearing normal. No decreased hearing noted. No drainage, swelling or tenderness. Tympanic membrane is not perforated, erythematous or bulging. Left Ear: Hearing normal. No decreased hearing noted. No drainage, swelling or tenderness. Tympanic membrane is not perforated, erythematous or bulging. Nose: Congestion present. Mouth/Throat: Mouth: Mucous membranes are moist. Pharynx: Oropharynx is clear. Uvula midline. No pharyngeal swelling, oropharyngeal exudate, posterior oropharyngeal erythema or uvula swelling. Tonsils: No tonsillar abscesses. Eyes: Conjunctiva/sclera: Conjunctivae normal. Pupils: Pupils are equal, round, and reactive to light. Cardiovascular: Rate and Rhythm: Normal rate and regular rhythm. Pulses: Normal pulses. Heart sounds: Normal heart sounds. Pulmonary: Effort: Pulmonary effort is normal. No tachypnea, accessory muscle usage or respiratory distress. Breath sounds: Normal breath sounds. No stridor. No wheezing, rhonchi or rales. Chest: Chest wall: No tenderness. Abdominal: General: Bowel sounds are normal. There is no distension. Palpations: Abdomen is soft. Abdomen is not rigid. Tenderness: There is no abdominal tenderness. There is no right CVA tenderness, left CVA tenderness, guarding or rebound. Negative signs include Burton's sign and McBurney's sign. Musculoskeletal: General: No tenderness. Cervical back: Normal range of motion and neck supple. No edema, erythema, rigidity or tenderness. No pain with movement. Normal range of motion. Lymphadenopathy: Head: Right side of head: No submental, submandibular, tonsillar, preauricular, posterior auricular or occipital adenopathy. Left side of head: No submental, submandibular, tonsillar, preauricular, posterior auricular or occipital adenopathy. Cervical: No cervical adenopathy. Right cervical: No superficial or posterior cervical adenopathy. Left cervical: No superficial or posterior cervical adenopathy. Skin: General: Skin is warm and dry. Findings: No rash. Neurological: Mental Status: She is alert and oriented to person, place, and time. ASSESSMENT/PLAN: 1. Urgency of urination - ICD9: 788.63, ICD10: R39.15 (primary diagnosis) - UA DIP, URINE (POC) - URINE CULTURE - COVID & INFLUENZA A/B & RSV PCR, ROUTINE 2. Viral illness - ICD9: 079.99, ICD10: B34.9 - COVID & INFLUENZA A/B & RSV PCR, ROUTINE Urine dip negative. Urine culture ordered. No antibiotics at today's visit. Treat accordingly culture results. COVID-19 test ordered. Has not candidate for Paxlovid. Patient was educated on supportive therapies. Patient will follow up with primary care provider as needed. Patient was instructed to immediately proceed to emergency room for any new, worsening, or symptoms lasting longer than anticipated. The patient's clinical presentation is otherwise unremarkable at this time. Based on exam and clinical finding, the patient is stable for discharge. Plan of care was discussed with patient. Patient verbalizes understanding and agrees to plan of care. This note was generated using [employer] software. It may contain errors in wording, punctuation, or spelling. Abdirahman Ho APRN.MONSERRAT documented in this encounter [facility] 05-24-2024 Instructions Abdirahman Ho APRN.CNP - 05/24/2024 12:22 PM EDT How to Manage Common Symptoms Associated with COVID for Adults Fever- Fever is a temperature over 100.4 F and can occur when the body is fighting an infection. To help treat a fever: Drink plenty of fluids and stay well hydrated. Eat small amounts of easy to digest food. Rest. Your body needs rest to recover, but getting up and moving around the house frequently is a good idea. You should try to continue doing your normal daily activities (bathing, toileting, grooming, cooking), though you will probably feel tired, and need to rest often. Avoid any heavy activity or exercise, as this will increase your body temperature. Dress in light clothing and stay covered in a light sheet. Keep the room temperature cool. Take a slightly warm (not cold or cool) bath, or apply damp washcloths to the forehead and wrists. Cough- Cough is a common symptom associated with COVID and can be bothersome. To help treat a cough: Stay well hydrated. Try warm water or tea with lemon and/or honey to help soothe the cough. Use a humidifier to add moisture to the air. Try a product with menthol, like a cough drop or a rub for your chest such as Vicks, which can help reduce cough. Try cough drops. Avoid smoking and other strong odors or perfumes. Try breathing exercises to keep your lungs open and clear. Take a big deep breath through your nose and hold for 5 seconds before slowly releasing. Repeat frequently, while you are awake. Congestion- Runny nose or nasal congestion can occur with COVID. Treatment can help relieve symptoms: Try OTC nasal saline spray, or nasal saline rinse to relieve mucus congestion. Nasal strips can help keep nasal passages open, to increase airflow. Elevating your head with an extra pillow in bed can help reduce congestion. Using a humidifier can increase moisture in the air, and make breathing easier. Sore Throat- Another common symptom with COVID, can be managed at home by: Stay well hydrated. Gargle with salt water - mix teaspoon salt with 1 cup of warm water and gargle. This helps to loosen mucus in the back of the throat and may reduce discomfort. Try ice chips, popsicles or lozenges to soothe the throat. Nausea/Vomiting/Diarrhea- These are common symptoms, and staying hydrated is most important. If you are nauseous or vomiting, start with small sips of water every 10-15 minutes and increase as tolerated. You can try sucking an ice cube too. If tolerating, you can try pedialyte or Gatorade, or flat sprite or gm-eleazar. Start slowly and increase as you are able to. Instead of meals, try smaller, more frequent snacks. Try eating bland foods like crackers, toast, rice, and applesauce. Avoid spicy, greasy or fried foods and dairy containing foods. Even if you aren't feeling hungry due to lack of smell or taste, it is important to try to take in some food when you are able. After drinking and eating, rest in an upright position for up to two hours as needed to help decrease nauseous feelings. Try closing your eyes, avoid moving and watching TV. Avoid strong odors that can make you feel more nauseated. When to seek emergency medical attention Look for emergency warning signs for COVID-19. If having any of these symptoms, seek emergency medical care immediately: Trouble breathing Persistent pain or pressure in the chest New confusion Inability to wake or stay awake Bluish lips or face *This list is not all possible symptoms. Please call your medical provider for any other symptoms that are severe or concerning to you. documented in this encounter [facility] 04-28-2024 Note HNO ID: [id number] Author: NISHA CORCORAN APRN.CNP Service: ? Author Type: Nurse Practitioner Type: Progress Notes Filed: 04/28/2024 12:41 Note Text: WELL VISIT PEDIATRIC 18+ YRS OLD Nataly is a 18 year old who presents today for well exam. SUBJECTIVE CONCERNS: no concerns HISTORY ACTIVE PROBLEM LIST Neck Pain On Left Side - 06/10/2020 Myopia, Bilateral - 10/06/2019 PAST MEDICAL HISTORY No date: NEGATIVE MEDICAL HISTORY PAST SURGICAL HISTORY No date: PAST SURGICAL HISTORY OF Comment: bilateral ear tubes ALLERGIES No Known Allergies Medications: No prescriptions on file. FAMILY HISTORY Problem Relation Age of Onset Diabetes Mother Hypertension Mother Heart Maternal Grandfather Diabetes Maternal Grandfather Diabetes Maternal Grandmother Heart Paternal Grandmother Cancer Paternal Grandfather Social History Social History Narrative Not on file Smoking Exposure: Do you spend a significant amount of time with anyone who smokes? No Recreational Screen Time totaling more than 2 hours of screen time per day. Physical Activity: more than 1 hour of physical activity per day Fainting, dizziness, significant shortness of breath or chest pain with sports or exercise: No History of concussion in the last year: No Safety: Reviewed seat belts, bike helmets, smoke detectors, and internet Diet: -Diet is well balanced and appropriate for age -Fruits are eaten with most meals -Vegetables are eaten with most meals -Drinks water daily Elimination: no concerns, normal size and consistency Dental: dental care current Sleep: -no sleep concerns Vision: No vision concerns Hearing: No hearing concerns Growth: No growth concerns Gynecological history: LMP: 8/5 Cycles are regular and last 6 days. Dysmenorrhea: moderate Heavy periods: no Substance use: none Sexual History: Attraction: male Sexually Active: Yes Number of lifetime partners: 2 Contraception: condoms inconsistently GC/C screen within the past year: No GC/C screen since most recent partner? No History of STI: No Hx of STI/HIV testing? No Any new partners since last testing? Yes Change in normal vaginal discharge: No Screening tools reviewed and discussed with patient/[id number] and Social Determinants of Health. Please see Patient Entered Data. [place]-SUICIDE SEVERITY RATING SCALE Screen with Triage Points for Primary Care 1. In the past month, have you wished you were or wished you could go to sleep and not wake up? NO 2. In the past month, have you actually had any thoughts of killing yourself? NO 6. Have you ever done anything, started to do anything, or prepared to do anything to end your life? Examples: Collected pills, obtained a gun, gave away valuables, wrote a will or suicide note, took out pills but didn't swallow any, held a gun but changed your mind or it was grabbed from your hand, went to the roof but didn't jump; or actually took pills, tried to shoot yourself, cut yourself, tried to hang yourself, etc. NO SDOH: Food Insecurity: No Food Insecurity (04/26/2024) Hunger Vital Sign Worried About Running Out of Food in the Last Year: Never true Ran Out of Food in the Last Year: Never true Financial Resource Strain: Low Risk (04/26/2024) Overall Financial Resource Strain (CARDIA) Difficulty of Paying Living Expenses: Not very hard Transportation Needs: No Transportation Needs (04/26/2024) PRAPARE - Transportation Lack of Transportation (Medical): No Lack of Transportation (Non-Medical): No Housing Stability: Low Risk (04/26/2024) Housing Stability Vital Sign Unable to Pay for Housing in the Last Year: No Number of Places Lived in the Last Year: 2 Unstable Housing in the Last Year: No Discussed SDOH results with patient/family. SDOH needs identified: no concerns identified OBJECTIVE Physical Exam: BP 112/64 Pulse 92 Temp 36.9 ?C (98.4 ?F) (Temporal) Ht 161.5 cm (5' 3.58) Wt 64.8 kg (142 lb 13.7 oz) LMP 04/24/2024 (Approximate) SpO2 99% BMI 24.84 kg/m? Blood pressure %dominick are not available for patients who are 18 years or older. Blood pressure %dominick are not available for patients who are 18 years or older. 78 %ile (Z= 0.76) based on CDC (Girls, 2-20 Years) BMI-for-age based on BMI available as of 04/28/2024. Last BMI: Wt: 69.9 kg (154 lb 1.6 oz) (84%, Z= 0.98)* BMI: 26.45 kg/(m2) Last 4 Encounter Wt Readings: Date: Wt: 04/28/2024 64.8 kg (142 lb 13.7 oz) (73%, Z= 0.60)* 01/21/2024 69.9 kg (154 lb 1.6 oz) (84%, Z= 0.98)* 07/25/2023 64.6 kg (142 lb 6.4 oz) (74%, Z= 0.66)* 07/22/2023 63.8 kg (140 lb 9.6 oz) (72%, Z= 0.59)* Last 4 Encounter Ht Readings: Date: Ht: 04/28/2024 161.5 cm (5' 3.58) (39%, Z= -0.28)* 05/21/2022 162.6 cm (5' 4) (47%, Z= -0.08)* 08/12/2021 160 cm (5' 3) (33%, Z= -0.45)* 04/28/2021 160.7 cm (5' 3.25) (37%, Z= -0.34)* General: Well developed, No acute distress Head: nor (more content not included)... [facility] 04-28-2024 History of Present illness Narrative WELL VISIT PEDIATRIC 18+ YRS OLD Nataly is a 18 year old who presents today for well exam. SUBJECTIVE CONCERNS: no concerns HISTORY ACTIVE PROBLEM LIST Neck Pain On Left Side - 06/10/2020 Myopia, Bilateral - 10/06/2019 PAST MEDICAL HISTORY No date: NEGATIVE MEDICAL HISTORY PAST SURGICAL HISTORY No date: PAST SURGICAL HISTORY OF Comment: bilateral ear tubes ALLERGIES No Known Allergies Medications: No prescriptions on file. FAMILY HISTORY Problem Relation Age of Onset Diabetes Mother Hypertension Mother Heart Maternal Grandfather Diabetes Maternal Grandfather Diabetes Maternal Grandmother Heart Paternal Grandmother Cancer Paternal Grandfather Social History Social History Narrative Not on file Smoking Exposure: Do you spend a significant amount of time with anyone who smokes? No Recreational Screen Time totaling more than 2 hours of screen time per day. Physical Activity: more than 1 hour of physical activity per day Fainting, dizziness, significant shortness of breath or chest pain with sports or exercise: No History of concussion in the last year: No Safety: Reviewed seat belts, bike helmets, smoke detectors, and internet Diet: -Diet is well balanced and appropriate for age -Fruits are eaten with most meals -Vegetables are eaten with most meals -Drinks water daily Elimination: no concerns, normal size and consistency Dental: dental care current Sleep: -no sleep concerns Vision: No vision concerns Hearing: No hearing concerns Growth: No growth concerns Gynecological history: LMP: 8/5 Cycles are regular and last 6 days. Dysmenorrhea: moderate Heavy periods: no Substance use: none Sexual History: Attraction: male Sexually Active: Yes Number of lifetime partners: 2 Contraception: condoms inconsistently GC/C screen within the past year: No GC/C screen since most recent partner? No History of STI: No Hx of STI/HIV testing? No Any new partners since last testing? Yes Change in normal vaginal discharge: No Screening tools reviewed and discussed with patient/[id number] and Social Determinants of Health. Please see Patient Entered Data. [place]-SUICIDE SEVERITY RATING SCALE Screen with Triage Points for Primary Care 1. In the past month, have you wished you were or wished you could go to sleep and not wake up? NO 2. In the past month, have you actually had any thoughts of killing yourself? NO 6. Have you ever done anything, started to do anything, or prepared to do anything to end your life? Examples: Collected pills, obtained a gun, gave away valuables, wrote a will or suicide note, took out pills but didn't swallow any, held a gun but changed your mind or it was grabbed from your hand, went to the roof but didn't jump; or actually took pills, tried to shoot yourself, cut yourself, tried to hang yourself, etc. NO SDOH: Food Insecurity: No Food Insecurity (04/26/2024) Hunger Vital Sign Worried About Running Out of Food in the Last Year: Never true Ran Out of Food in the Last Year: Never true Financial Resource Strain: Low Risk (04/26/2024) Overall Financial Resource Strain (CARDIA) Difficulty of Paying Living Expenses: Not very hard Transportation Needs: No Transportation Needs (04/26/2024) PRAPARE - Transportation Lack of Transportation (Medical): No Lack of Transportation (Non-Medical): No Housing Stability: Low Risk (04/26/2024) Housing Stability Vital Sign Unable to Pay for Housing in the Last Year: No Number of Places Lived in the Last Year: 2 Unstable Housing in the Last Year: No Discussed SDOH results with patient/family. SDOH needs identified: no concerns identified OBJECTIVE Physical Exam: BP 112/64 Pulse 92 Temp 36.9 C (98.4 F) (Temporal) Ht 161.5 cm (5' 3.58) Wt 64.8 kg (142 lb 13.7 oz) LMP 04/24/2024 (Approximate) SpO2 99% BMI 24.84 kg/m Blood pressure %dominick are not available for patients who are 18 years or older. Blood pressure %dominick are not available for patients who are 18 years or older. 78 %ile (Z= 0.76) based on CDC (Girls, 2-20 Years) BMI-for-age based on BMI available as of 04/28/2024. Last BMI: Wt: 69.9 kg (154 lb 1.6 oz) (84%, Z= 0.98)* BMI: 26.45 kg/(m^2) Last 4 Encounter Wt Readings: Date: Wt: 04/28/2024 64.8 kg (142 lb 13.7 oz) (73%, Z= 0.60)* 01/21/2024 69.9 kg (154 lb 1.6 oz) (84%, Z= 0.98)* 07/25/2023 64.6 kg (142 lb 6.4 oz) (74%, Z= 0.66)* 07/22/2023 63.8 kg (140 lb 9.6 oz) (72%, Z= 0.59)* Last 4 Encounter Ht Readings: Date: Ht: 04/28/2024 161.5 cm (5' 3.58) (39%, Z= -0.28)* 05/21/2022 162.6 cm (5' 4) (47%, Z= -0.08)* 08/12/2021 160 cm (5' 3) (33%, Z= -0.45)* 04/28/2021 160.7 cm (5' 3.25) (37%, Z= -0.34)* General: Well developed, No acute distress Head: normocephalic Eyes: conjunctivae/corneas clear Ears: TMs translucent bilaterally, normal landmarks noted Nose: no erythema or rhinorrhea Oropharynx: moist mucous membranes, no erythema or exudate Neck: supple, no adenopathy Spine: Back symmetric, no curvature. Resp: lungs clear to auscultation Heart: Normal rate, regular rhythm, no murmur Breast: No nodules or lesions Abdomen: Soft, nontender, nondistended, no palpable organomegaly or masses, normal bowel sounds Genitalia: no rashes or lesions Extremities: Full ROM and no swelling, erythema or tenderness Neuro: No focal deficits or abnormal findings present Skin: no rashes ASSESSMENT & PLAN Encounter Diagnosis ICD-10-CM 1. Encounter for general adult medical examination without abnormal findings Z00.00 2. Screen for sexually transmitted diseases Z11.3 GONORRHEA/CHLAMYDIA NAAT 3. Screening for HIV (human immunodeficiency virus) Z11.4 HIV 1/2 COMBO WITH REFLEX TO DIFFERENTIATION 4. Special screening examination for viral disease Z11.59 HEPATITIS C ANTIBODY IA WITH CONFIRMATION 5. Encounter for initial prescription of contraceptives, unspecified contraceptive Z30.019 CONSULT TO SENIOR EDITOR 78 %ile (Z= 0.76) based on CDC (Girls, 2-20 Years) BMI-for-age based on BMI available as of 04/28/2024. Nataly is healthy range (BMI 5th% - 84th%): -To maintain a healthy weight, discussed limiting screen time to less than 2 hours per day, physical activity for at least one hour per day, 5 servings of fruits and vegetables per day, 3 meals per day, family meals ar home and no sugar containing beverages Based on PHQ-9 Score: 9 and interview, presentation is consistent with possible depression: -declined counseling . Based on PAULINO-7 Score: 13 and interview, presentation is consistent with anxiety: -declined counseling, does not feel she needs meds. Discussed yoga, exercise . - Discussed diet and safety. - Dental care discussed. - Bright Futures handout given (See Patient Instructions). - No immunizations were recommended to be given at this visit. - Healthcare transition statement not discussed.. - Follow up in one year for routine physical. Nisha Corcoran APRN.CNP documented in this encounter [facility] 04-28-2024 Instructions Nisha Corcoran APRN.CNP - 04/28/2024 10:20 AM EDT Images from the original note were not included. 5 to Go!TM Healthy Kids Inside & Out 5 Eat FIVE fruits and veggies a day 4 Give and get FOUR compliments a day 3 Consume THREE calcium products a day 2 Limit media time to TWO hours a day 1 Get at least ONE hour of exercise a day 0 Consume ZERO sugar-sweetened drinks Go! Be healthy, inside and out! [email or web address] Adolescent to Adult Transition Program [facility] cares about helping you and each of our adolescents and young adults make a smooth transition to adult care. If your current doctor is a wood type finisher, we will work with you to decide the correct age for moving your care to a doctor or other provider who takes care of adults. We suggest that this move take place before age 22. Our office policy is to prepare you to move to a doctor or other provider who takes care of adults. This includes helping you find a doctor or other provider, sending medical records, and talking about any special needs with the new doctor or other provider. If your current doctor is in family medicine, [facility] will prepare you and your family for the transition to being an adult patient. You will be able to make your own healthcare decisions and will have an adult care team that meets your personal healthcare needs. At age 18, by law, we need your agreement to discuss personal health information with your family. We understand and respect that you may want to include your family in healthcare choices and will partner with you on how and when to include your family in decisions. We will make sure you know what changes to expect. We will also strive to make sure that all care team providers know your needs. We will help you find community resources and specialty care, if needed. Having your information before you come for the first time helps us be sure we do not miss any details. If joining our practice from outside [facility], we will help you request your medical record from past doctor(s) before your first visit. We will make every effort to work with your past providers to ensure a smooth transition and experience. We are always here for you. If you have any questions or concerns, please contact your primary care team or e-mail [email or web address] Got Transition is the federally funded national resource center on health care transition (HCT). Its aim is to improve transition from pediatric to adult health care through the use of evidence-driven strategies for health primary care coordinator, youth, young adults, and their families. 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 makes headache worse Drinking water helps headache No diagnosis of migraine Photophobia No noise issues Typically drinks 80+ounces of water Eats lunch and dinner At work will eat a [employer] sandwich Dinner varies-last night noodles, rice, shrimp and veggies Unsure about seasonal allergies Throbbing pain Sleep 7-8 hours per night HISTORY: ACTIVE PROBLEM LIST Myopia, Bilateral Neck Pain On Left Side PAST MEDICAL HISTORY Diagnosis Date NEGATIVE MEDICAL HISTORY PAST SURGICAL HISTORY Procedure Laterality Date PAST SURGICAL HISTORY OF bilateral ear tubes Allergies: ALLERGIES No Known Allergies Medications: No prescriptions on file. OBJECTIVE: BP 114/70 Pulse 75 Temp 36.2 C (97.1 F) (Temporal) Resp 18 Wt 69.9 kg (154 lb 1.6 oz) LMP 12/10/2021 (Approximate) SpO2 100% General: alert and active in no apparent distress Eyes: conjunctiva clear Ears: TMs translucent bilaterally, normal landmarks noted Nose: no rhinorrhea, no mucosal edema OP: no lesions, no erythema Neck: supple, no adenopathy Lungs: clear to auscultation bilaterally, good air exchange, no retractions CVS: Normal rate, regular rhythm, no murmur Abdomen: soft, nondistended, nontender, and no hepatosplenomegaly or masses Skin: No rashes, lesions or skin changes Neuro: No focal deficits or abnormal findings present ASSESSMENT/PLAN: Encounter Diagnosis ICD-10-CM 1. Headache in pediatric patient R51.9 CONSULT TO PEDS NEUROLOGY -headache diary -can start magnesium and B2, will take awhile to help -take motrin 600mg as soon as headache begins. Nisha Corcoran APRN.CNP documented in this encounter [facility] 01-21-2024 Instructions Nisha Corcoran APRN.CNP - 01/21/2024 11:05 AM EDT 5 to Go!TM Healthy Kids Inside & Out 5 Eat FIVE fruits and veggies a day 4 Give and get FOUR compliments a day 3 Consume THREE calcium products a day 2 Limit media time to TWO hours a day 1 Get at least ONE hour of exercise a day 0 Consume ZERO sugar-sweetened drinks Go! Be healthy, inside and out! [email or web address] documented in this encounter [facility] 09-10-2023 Note HNO ID: [id number] Author: Jewel Morris DC Service: ? Author Type: Chiropractor Type: Progress Notes Filed: 09/10/2023 10:41 AM Note Text: Wellness and Preventative Medicine Department [facility] New Patient History and Physical Examination CHIEF COMPLAINT: Back pain HISTORY OF PRESENT ILLNESS: Nataly Dsouza is a 18 year old female who presents on 09/10/2023 with back pain. Signs and symptoms began >1 year with gradual onset. Symptoms interfere with work, exercise, and other activities of daily living. Pain rating and quality: 4/10 Aggravating factors: stress and increased activity levels Palliative factors: rest, stretching Lifestyle Factors: Occupation: [employer] Hydration: Water consumption: One to three 8 ounce glasses daily Caffeine consumption: One to three 8 ounce glasses daily Physical Activity Daily activities: active in daily activity but no regular exercise Exercise: Program: Sporadic irregular exercise Sleep Quality: average Duration: 6-8 hours Insomnia: No Position: back Stress Average rating: mild Causes of stress: Work and School Stress relief practices: none identified PAST MEDICAL HISTORY Diagnosis Date NEGATIVE MEDICAL HISTORY MEDICATIONS: No prescriptions on file. ALLERGIES: ALLERGIES No Known Allergies Social History Tobacco Use Smoking status: Never Smokeless tobacco: Never FAMILY HISTORY Problem Relation Age of Onset Diabetes Mother Hypertension Mother Heart Maternal Grandfather Diabetes Maternal Grandfather Diabetes Maternal Grandmother Heart Paternal Grandmother Cancer Paternal Grandfather Patient-Entered Questionnaires REVIEW OF SYSTEMS: (Positives in BOLD, all else denied) GENERAL: Fever, chills, fatigue, weight loss/weight gain. SKIN: Rash. Echymosis. Edema. HEENT: Nasal congestion, sore throat, changes in hearing or vision. NECK: Neck pain, lumps, dysphagia. RESPIRATORY: Cough, shortness of breath. CARDIOVASCULAR: Chest pain, palpitations, leg swelling. GI: Nausea, vomiting, constipation, diarrhea, abdominal pain, gas or bloating. Daily BM's of normal color/consistency. : Urinary incontinence, dysuria, urgency or frequency. MUSCULOSKELETAL: Swelling, pain, limited ROM. PSYCH: Depression, anxiety, irritability. NEURO: Headache, dizziness, numbness, tingling, tremor. PHYSICAL EXAMINATION: LMP 12/10/2021 (Approximate) No weight on file for this encounter. This is a pleasant 18 year old female. They are alert, oriented x3, in no acute distress. Patient is able to walk on heels, toes without pain or difficulty. Standing posture demonstrates anterior head carriage, bilateral rounding of shoulders, and appropriate tone and alignment for age and weight. Lumbar range of motion is Reduced in extension. Reflexes patellar, Achilles 2/4, symmetrical. Motor strength L1-S1 5/5. Sensation through the L1-S1 dermatomes is unremarkable. Neural tension signs are negative in the seated, supine position. Hip mobility is reduced bilaterally d/t muscular hypertonicity. No pain with FADIR testing. No pain with ALEJANDRA testing. Pelvic alignment is maintained, no leg length discrepancy. No pain with facet loading/Alfonso. Relief with sacral distraction. No midline spinous/bony tenderness. Skin is clear with no overlying edema, erythema, ecchymosis or rashes noted. Patient does not demonstrate primary hyperalgesia. Patient demonstrates mild tenderness and spasm through the cervical and occipital musculature, thoracic musculature, and lumbosacral musculature including the cervical paravertebrals and levator scapulae , thoracic paravertebrals, and lumbar paravertebrals and multifidus. Segmental Dysfunction: C1/C2, C6/C7, C7/T1, T5/T6, T6/T7, T7/T8, L4/L5, and L5/S1 ADDITIONAL DATA: See epic. ASSESSMENT: See below. DIAGNOSIS: (M54.50, G89.29) Chronic bilateral low back pain, unspecified whether sciatica present (primary encounter diagnosis) (M54.6, G89.29) Chronic bilateral thoracic back pain (M99.01) Segmental and somatic dysfunction of cervical region (M99.02) Segmental and somatic dysfunction of thoracic region (M99.03) Segmental and somatic dysfunction of lumbar region PLAN: I spent a total of 40 minutes on the date of the service which included preparing to see the patient, [id number] patient care, completing clinical documentation, obtaining and/or reviewing separately obtained history, performing a medically appropriate examination, and counseling and educating the patient/family/caregiver. All questions were answered, anticipated timeline for proposed care plan presented. Patient consented to proceed with care as described. Manual therapies including myofascial release and passive stretching were provided to the soft tissues listed above. Gentle mobilization was provided to the cervical spine, thoracic spine, and lumbar spine. The following exercis (more content not included)... [facility] 07-25-2023 History of Present illness Narrative This note was created using TermSyncter. Larry Dsouza is a 18 year old female. HPI Patient presents with a chief complaint of bilateral ear pain and neck pain. She states she has had a cold for about a week. She was seen on the 07/22 and told she had some fluid in her ears. Strep and COVID at that time were negative. Her ears really were bothering her at that time. Started last night and kept her up at night it was hurting so bad. She feels like they are ringing some as well. She did take some ibuprofen which seemed to help [id number]. No drainage out of the ears. She did have bilateral ear tubes when she was younger. Review of Systems Constitutional: Negative for fever. HENT: Positive for congestion, ear pain, rhinorrhea, sore throat and tinnitus. Negative for ear discharge. Respiratory: Positive for cough. Cardiovascular: Negative. Gastrointestinal: Negative. Musculoskeletal: Positive for neck pain. Neurological: Positive for headaches. All other systems reviewed and are negative. PAST MEDICAL HISTORY Diagnosis Date NEGATIVE MEDICAL HISTORY Current Outpatient Medications Medication Sig Dispense Refill amoxicillin-clavulanate potassium (AUGMENTIN) 875-125 mg per tablet Take 1 tablet by mouth two times a day for 7 days. 14 tablet 0 predniSONE (DELTASONE) 20 mg tablet Take 2 tablets by mouth once daily for 5 days. 10 tablet 0 No current facility-administered medications for this visit. PAST SURGICAL HISTORY Procedure Laterality Date PAST SURGICAL HISTORY OF bilateral ear tubes FAMILY HISTORY Problem Relation Age of Onset Diabetes Mother Hypertension Mother Heart Maternal Grandfather Diabetes Maternal Grandfather Diabetes Maternal Grandmother Heart Paternal Grandmother Cancer Paternal Grandfather Social History Tobacco Use Smoking status: Never Smokeless tobacco: Never Objective BP 117/82 Pulse 110 Temp 36.9 C (98.5 F) Resp 18 Wt 64.6 kg (142 lb 6.4 oz) LMP 12/10/2021 (Approximate) SpO2 99% Physical Exam Vitals reviewed. Constitutional: Appearance: Normal appearance. HENT: Head: Normocephalic and atraumatic. Right Ear: Ear canal and external ear normal. Left Ear: Ear canal and external ear normal. Ears: Comments: Bilateral suppurative middle ear effusion with erythema. No perforations visualized. Nose: Congestion present. Mouth/Throat: Mouth: Mucous membranes are moist. Pharynx: Oropharynx is clear. Cardiovascular: Rate and Rhythm: Normal rate and regular rhythm. Heart sounds: Normal heart sounds. Pulmonary: Effort: Pulmonary effort is normal. Breath sounds: Normal breath sounds. Musculoskeletal: Cervical back: Neck supple. Lymphadenopathy: Cervical: Cervical adenopathy present. Skin: General: Skin is warm and dry. Neurological: Mental Status: She is alert. Assessment and Plan ASSESSMENT/PLAN: 1. Acute otitis media, bilateral - ICD9: 382.9, ICD10: H66.93 - Will begin treatment with Augmentin 875 mg PO BID for 7 days - Supportive care with plenty of fluids, rest, and analgesia prn. - Follow up in 3-5 days if symptoms persist or worsen. Lilia Cote PA-C documented in this encounter [facility] 03-03-2023 Instructions Sinan Montero - 03/03/2023 1:42 PM EDT Recommend use of lambs wool between the toes vs gel padding If you are ever interested in surgery, contact the office. Would order xrays first At this time, low suspicion for wart documented in this encounter [facility] 03-03-2023 History of Present illness Narrative Initial Podiatric Office Visit: Chief Complaint: This 17 year old female who presents with chief complaint:wart of right foot HPI Patient presents to clinic for evaluation of right foot She has wart to right foot that has been present on/off for two month Patient is currently apply wart patches to the wart. She has mixed results She does report pain with pressure. PAIN EVALUATION No data found in the last 1 encounters. No results found for: HBA1C PCP: Aura Alas DO PAST MEDICAL HISTORY Diagnosis Date NEGATIVE MEDICAL HISTORY No current outpatient medications on file. No current facility-administered medications for this visit. ALLERGIES No Known Allergies PAST SURGICAL HISTORY Procedure Laterality Date PAST SURGICAL HISTORY OF bilateral ear tubes FAMILY HISTORY Problem Relation Age of Onset Diabetes Mother Hypertension Mother Heart Maternal Grandfather Diabetes Maternal Grandfather Diabetes Maternal Grandmother Heart Paternal Grandmother Cancer Paternal Grandfather Social History Tobacco Use Smoking status: Never Smokeless tobacco: Never REVIEW OF SYSTEMS GENERAL: Negative for Malaise, significant weight loss, fever RESPIRATORY: Negative for cough, wheezing and shortness of breath CARDIOVASCULAR: Negative for chest pain, leg swelling and palpitations GI: Negative for abdominal discomfort, blood in stools or black stools and change in bowel habits : Negative for dysuria, frequency and incontinence MUSCULOSKELETAL: Negative for joint pain or swelling, back pain, and muscle pain. SKIN: Negative for lesions, rash, and itching. HEMATOLOGY/LYMPHOLOGY Negative for prolonged bleeding, bruising easily, and swollen nodes. ENDOCRINE: Negative for cold or heat intolerance, polyuria, polydipsia and goiter. NEURO: negative Physical Exam: Constitutional: Pt is a well developed 17 year old female who is alert, oriented and cooperative Eyes: Following during examination. No redness or drainage. Respiratory: RR normal and nonlabored. Even breathing. No evidence of distress or shortness of breath. Psychology: Patient is engaged during conversation. Normal affect and mood. Does not appear depressed or anxious during encounter. Vascular: Dorsalis pedis and posterior tibial pulses palpable as b/l Capillary Fill time < 5 seconds to digits 1-5 b/l Skin temperature warm to warm proximal to distal b/l Hair growth present to digits Neurological: intact light touch/epicritic sensation b/l intact protective sensation no significant neurological deficits Dermatological: Nails 1-5 b/l appear normal. Webspaces clean and dry 1-4 b/l. Skin appears well hydrated and supple. good color, texture, turgor. No open lesions present. Callus is present to lateral aspect of right 4th toe and lateral aspect of left 5th toe Musculoskeletal/Orthopaedic: Patient has no pain to palpation of b/l feet Foot type is neutral structurally AJ ROM is full with knee extended and flexed 1st MPJ is full when loaded and no pain or crepitus are noted with ROM. MTJ, STJ are full and free of pain and crepitus. 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 History and physical examination performed. 2. Examined patient. Her concern for warts turns out to be callus of lateral 4th toe due to rubbing from 5th toe. 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 Discussed treatment for this not limited to padding vs lambs wool vs use of powder. Other optiosn include surgical correction. She is going to try padding and lambs wool 3. Callus reduced with 15 blade to right 4th toe and left 5th toe. In order to perform a complete physical exam, limited shaving of callus area was performed. This incidental service is integral to the evaluation and management visit in order to appropriately manage and treat the patient (for their complaint or for this visit). 4. As visit was completing, she discussed numbness in feet. No signs of neuropathy on exam. If persits, could consider emg Sinan Montero DPM Podiatry [address] [facility] [id number] Dept: [phone] Dept Patient presents here today for reoccurring plantar wart on her right foot. Patient states she has no pain currently with it. States its been a couple months that she has had the wart. documented in this encounter [facility] 08-24-2022 Miscellaneous Notes Patient identified by name and date of . I advised of negative wrist xray. Continue to wear splint, RICE therapy as directed. - Follow-up with your PCP in 7 days if symptoms have not improved or sooner if symptoms worsen - Discussed supportive care treatment with rest and analgesia. Debbie Carreno APRN.CNP documented in this encounter [facility] 08-23-2022 History of Present illness Narrative Images from the original note were not included. Subjective Wrist/forearm Injury Nataly Dsouza is a 17 year old female who presents with left wrist pain for one week. 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 After having this done to her she has been having ventral wrist pain. States her hand was slightly swollen and felt cold afterwards. She rates her pain a 6/10. She has been taking ibuprofen for pain. Review of Systems Constitutional: Negative for chills and fever. Musculoskeletal: Positive for joint pain. Negative for falls. Skin: Negative for itching and rash. BP 110/80 Pulse 69 Temp 36.6 C (97.9 F) Resp 18 Wt 64.4 kg (142 lb) LMP 12/10/2021 (Approximate) SpO2 99% PAST MEDICAL HISTORY Diagnosis Date NEGATIVE MEDICAL HISTORY PAST SURGICAL HISTORY Procedure Laterality Date PAST SURGICAL HISTORY OF bilateral ear tubes ALLERGIES Patient has no known allergies. MEDICATIONS No prescriptions on file. FAMILY HISTORY Problem Relation Age of Onset Diabetes Mother Hypertension Mother Heart Maternal Grandfather Diabetes Maternal Grandfather Diabetes Maternal Grandmother Heart Paternal Grandmother Cancer Paternal Grandfather Social History Tobacco Use Smoking status: Never Smokeless tobacco: Never Objective Physical Exam Vitals and nursing note reviewed. Constitutional: Appearance: Normal appearance. Musculoskeletal: Left wrist: Tenderness present. No swelling, deformity, effusion, bony tenderness, snuff box tenderness or crepitus. Decreased range of motion. Normal pulse. Arms: Skin: General: Skin is warm and dry. Capillary Refill: Capillary refill takes less than 2 seconds. Findings: No bruising, erythema or rash. Neurological: Mental Status: She is alert. ASSESSMENT/PLAN: 1. Wrist injury, left, initial encounter - ICD9: 959.3, ICD10: S69.92XA - XR WRIST GENERAL 3V PA/LAT/OBL LEFT- to be completed tomorrow (xray not available on Wednesday morning). - RICE therapy - wrist splint applied to left wrist. Wear during daytime. - continue ibuprofen - Follow-up with your PCP in 3-5 days if symptoms have not improved or sooner if symptoms worsen - Discussed red flags and need for immediate medical evaluation if any occur. - Discussed supportive care treatment with frest and analgesia. - Discussed expected course of illness Debbie Carreno APRN.CABINET ASSEMBLER documented in this encounter [facility] 08-23-2022 Instructions Debbie Carreno APRN.CNP - 08/23/2022 10:35 AM EST ASSESSMENT/PLAN: 1. Wrist injury, left, initial encounter - ICD9: 959.3, ICD10: S69.92XA - XR WRIST GENERAL 3V PA/LAT/OBL LEFT- to be completed tomorrow (xray not available on Wednesday morning). - RICE therapy - wrist splint applied to left wrist. Wear during daytime. - continue ibuprofen - Follow-up with your PCP in 3-5 days if symptoms have not improved or sooner if symptoms worsen - Discussed red flags and need for immediate medical evaluation if any occur. - Discussed supportive care treatment with frest and analgesia. - Discussed expected course of illness Debbie Carreno APRN.CABINET ASSEMBLER documented in this encounter [facility] 05-21-2022 History of Present illness Narrative WELL VISIT PEDIATRIC FEMALE 14-17 YRS OLD SERVICE DATE: 05/21/2022 Nataly is a 16 year old female who presents today for well exam accompanied by her mother. SUBJECTIVE CONCERNS: wart HISTORY ACTIVE PROBLEM LIST Neck Pain On Left Side - 06/10/2020 Myopia, Bilateral - 10/06/2019 PAST MEDICAL HISTORY Diagnosis Date NEGATIVE MEDICAL HISTORY PAST SURGICAL HISTORY Procedure Laterality Date PAST SURGICAL HISTORY OF bilateral ear tubes ALLERGIES No Known Allergies Medications: No prescriptions on file. FAMILY HISTORY Problem Relation Age of Onset Diabetes Mother Hypertension Mother Heart Maternal Grandfather Diabetes Maternal Grandfather Diabetes Maternal Grandmother Heart Paternal Grandmother Cancer Paternal Grandfather Social History Social History Narrative Not on file Smoking Exposure: Does your child spend a significant amount of time in the care of anyone who smokes? No School: Grade: 12th, [employer] Physical Activity: more than 1 hour of physical activity per day Screen Time totaling less than 2 hours of screen time per day. Safety: Reviewed seat belts, bike helmets, and smoke detectors Diet: balanced, no deficiencies Elimination: no concerns, normal size and consistency Dental: dental care current Sleep: -no sleep concerns Gynecological history: LMP: sometimes heavy Substance use: none High risk behaviors: none Screening tools reviewed and discussed with patient/dnglxp-RCS-W and Social Determinants of Health. Please see Patient Entered Data. REVIEW OF SYSTEMS GENERAL: No fevers EYES: No vision concerns ENT: No hearing concerns RESPIRATORY: Negative for cough, wheezing or respiratory distress CARDIOVASCULAR: Negative for chest pain, syncope, lightheadness or heart racing SKIN: Negative for lesions, rash, and itching ENDOCRINE: No growth concerns OBJECTIVE Physical Exam: BP 92/50 Pulse 70 Temp 37.3 C (99.1 F) (Temporal) Ht 162.6 cm (5' 4) Wt 62.6 kg (138 lb) LMP 12/10/2021 (Approximate) SpO2 97% BMI 23.69 kg/m Blood pressure percentiles are 2 % systolic and 4 % diastolic based on the 2017 AAP Clinical Practice Guideline. This reading is in the normal blood pressure range. 74 %ile (Z= 0.66) based on CDC (Girls, 2-20 Years) BMI-for-age based on BMI available as of 05/21/2022. Last BMI: Wt: 62.1 kg (136 lb 12.8 oz) (73 %, Z= 0.61)* BMI: 24.23 kg/(m^2) Last 4 Encounter Wt Readings: Date: Wt: 05/21/2022 62.6 kg (138 lb) (73 %, Z= 0.62)* 12/24/2021 62.1 kg (136 lb 12.8 oz) (73 %, Z= 0.61)* 08/12/2021 63.5 kg (140 lb) (78 %, Z= 0.76)* 08/07/2021 62.1 kg (137 lb) (74 %, Z= 0.65)* Last 4 Encounter Ht Readings: Date: Ht: 05/21/2022 162.6 cm (5' 4) (47 %, Z= -0.08)* 08/12/2021 160 cm (5' 3) (33 %, Z= -0.45)* 04/28/2021 160.7 cm (5' 3.25) (37 %, Z= -0.34)* 11/28/2018 157.5 cm (5' 2) (29 %, Z= -0.56)* General: Well developed, No acute distress Head: normocephalic Eyes: conjunctivae/corneas clear Ears: normal external ear and canal, tympanic membranes with normal landmarks Nose: no erythema or rhinorrhea Oropharynx: moist mucous membranes, no erythema or exudate Neck: Supple, no adenopathy; thyroid symmetric, normal size, no bruits Spine: Back symmetric, no curvature Resp: lungs clear to auscultation Heart: RRR, normal S1 and S2. , No murmurs Breast: Tae Stage IV Abdomen: Soft, nontender, nondistended, no palpable organomegaly or masses, normal bowel sounds Genitalia: no inguinal masses Extremities: No clubbing, cyanosis, or edema., No deformities or skin discoloration. Good capillary refill. Full range of motion. Neuro: No focal deficits or abnormal findings present Skin: no rashes, lesions or jaundice ASSESSMENT & PLAN Encounter Diagnosis ICD-10-CM 1. Encounter for routine child health examination w/o abnormal findings Z00.129 74 %ile (Z= 0.66) based on CDC (Girls, 2-20 Years) BMI-for-age based on BMI available as of 05/21/2022. Nataly is normal weight (BMI 5th% - 84th%): -To maintain a healthy weight, discussed limiting screen time to less than 2 hours per day, physical activity for at least one hour per day, 5 servings of fruits and vegetables per day, 3 meals per day, family meals ar home and no sugar containing beverages Based on PHQ-A Score: (recommended cut off score is 11) and interview, presentation is not consistent with depression - Adolescent anticipatory guidance discussed. - Discussed diet and safety. - Dental care discussed. - [employer] handout given (See Patient Instructions). - No immunization ordered at this visit. - Follow up in one year for routine physical. SIGNATURE: Carly Childers DO PATIENT NAME: Nataly Dsouza DATE: May 21, 2022 TIME: 8:22 AM documented in this encounter [facility] 05-21-2022 Instructions Carly Childers DO - 05/21/2022 8:22 AM EDT Images from the original note were not included. 5 to Go!TM Healthy Kids Inside & Out 5 Eat FIVE fruits and veggies a day 4 Give and get FOUR compliments a day 3 Consume THREE calcium products a day 2 Limit media time to TWO hours a day 1 Get at least ONE hour of exercise a day 0 Consume ZERO sugar-sweetened drinks Go! Be healthy, inside and out! [email or web address]/5toGo Adolescent to Adult Transition Program [facility] cares about helping you and each of our adolescents and young adults make a smooth transition to adult care. If your current doctor is a wood type finisher, we will work with you to decide the correct age for moving your care to a doctor or other provider who takes care of adults. We suggest that this move take place before age 22. Our office policy is to prepare you to move to a doctor or other provider who takes care of adults. This includes helping you find a doctor or other provider, sending medical records, and talking about any special needs with the new doctor or other provider. If your current doctor is in family medicine, [facility] will prepare you and your family for the transition to being an adult patient. You will be able to make your own healthcare decisions and will have an adult care team that meets your personal healthcare needs. At age 18, by law, we need your agreement to discuss personal health information with your family. We understand and respect that you may want to include your family in healthcare choices and will partner with you on how and when to include your family in decisions. We will make sure you know what changes to expect. We will also strive to make sure that all care team providers know your needs. We will help you find community resources and specialty care, if needed. Having your information before you come for the first time helps us be sure we do not miss any details. If joining our practice from outside [facility], we will help you request your medical record from past doctor(s) before your first visit. We will make every effort to work with your past providers to ensure a smooth transition and experience. We are always here for you. If you have any questions or concerns, please contact your primary care team or e-mail Got Transition is the federally funded national resource center on health care transition (HCT). Its aim is to improve transition from pediatric to adult health care through the use of evidence-driven strategies for health primary care coordinator, youth, young adults, and their families. www.[employer]ptune.[employer].org https://Neptune.[employer].org/resourc e/?mok-qyiaqz-bpfrlyt Healthy Children Ages & Stages Texting Program HealthyChildren.org is an AAP ([place] [employer]) parenting website. It is a great resource for information. They have a new Ages & Stages texting program available to parents. Fill out the information in the link below to start getting helpful tips and resources from AAP experts right to your phone. Be sure to include your child's age so they can send you age appropriate information. https://www.[employer]yev[employer].org/E neisha/tips-tools/HealthyChildren -Texting-Program/Pages/default.as px documented in this encounter [facility] 12-24-2021 History of Present illness Narrative Radiology Service Progress Note PATIENT NAME: Nataly Dsouza DATE OF SERVICE: December 24, 2021 TIME: 4:33 PM PATIENT IDENTITY VERIFICATION COMPLETED USING TWO (2) IDENTIFIERS: Name and Date of confirmed by patient verbally. FALL SCREENING: Has the patient had 2 falls in the last year or 1 fall with injury or currently using an Ambulatory Assistive Device (Walker, Cane, Wheelchair, Crutches, etc.)? No PATIENT GENDER DATA: Female. status: : No status: NO. PATIENT RELEVANT IMPLANT DATA REVIEWED: Not Applicable RADIOLOGY DEPARTMENT: General X-ray: Exam(s) Completed: Abdomen X-Ray: Abdomen PERIPHERAL IV DATA: Not applicable SIGNED BY: RT Eyal(R) December 24, 2021 4:33 PM documented in this encounter [facility] 12-24-2021 History of Present illness Narrative PEDIATRIC SICK VISIT SERVICE DATE: 12/24/2021 SUBJECTIVE: Nataly Dsouza is a 16 year old female accompanied by mother for evaluation of constipation. History was obtained from: patient Constipation off and on for several years. Does not do anything to help, just typically resolves. Drinks water. Does not eat a lot of fruit and vegetables. Gets physical activity daily Last menses mid November. This time constipated since Wednesday. Wednesday pain was the worst it was. Feels gassy. Feels urge to have a bm at school sometimes, but cannot go and then is unable when she gets home. No nausea or vomiting Gets full fast. HISTORY: ACTIVE PROBLEM LIST Myopia, Bilateral Neck Pain On Left Side PAST MEDICAL HISTORY Diagnosis Date NEGATIVE MEDICAL HISTORY PAST SURGICAL HISTORY Procedure Laterality Date PAST SURGICAL HISTORY OF bilateral ear tubes Allergies: ALLERGIES No Known Allergies Medications: No prescriptions on file. REVIEW OF SYSTEMS: GENERAL: Negative for fevers HEENT: Negative for congestion or rhinorrhea. RESPIRATORY: Negative for cough, wheezing or respiratory distress GI: Positive for constipation SKIN: Negative for lesions, rash, and itching. OBJECTIVE: Pulse 76 Temp 36.8 C (98.3 F) (Temporal) Resp 20 Wt 62.1 kg (136 lb 12.8 oz) LMP 12/10/2021 (Approximate) General: alert and active in no apparent distress Eyes: conjunctiva clear Ears: TMs translucent: bilaterally Nose: no erythema or exudate OP: moist without lesions Neck: supple, no adenopathy Lungs: clear to auscultation bilaterally, good air exchange, no retractions CVS: Normal rate, regular rhythm, no murmur Abdomen: soft, nondistended, nontender, no hepatosplenomegaly or masses Skin: No rashes, lesions or skin changes ASSESSMENT/PLAN: Encounter Diagnosis ICD-10-CM 1. Constipation, unspecified constipation type K59.00 XR ABDOMEN 2V ROUTINE SUPINE W UPRIGHT/DECUB/CTL Will await xray results. Will send plan at time of results Can start fiber and probiotics - Follow up for persistent or worsening symptoms, not drinking, decreased urination, or other concerns. SIGNATURE: Nisha Corcoran APRN.CNP PATIENT NAME: Nataly Dsouza DATE: December 24, 2021 TIME: 2:57 PM documented in this encounter [facility] 12-24-2021 Instructions Nisha Corcoran APRN.CNP - 12/24/2021 2:57 PM EDT 5 to Go!TM Healthy Kids Inside & Out 5 Eat FIVE fruits and veggies a day 4 Give and get FOUR compliments a day 3 Consume THREE calcium products a day 2 Limit media time to TWO hours a day 1 Get at least ONE hour of exercise a day 0 Consume ZERO sugar-sweetened drinks Go! Be healthy, inside and out! [email or web address]/5toGo documented in this encounter [facility] Evaluation note Diagnosis Constipation, unspecified constipation type- Primary [facility]* Diagnosis Constipation, unspecified constipation type [facility]* Diagnosis Encounter for routine child health examination w/o abnormal findings- Primary Routine or child health check [facility] Diagnosis Wrist injury, left, initial encounter- Primary [facility] Diagnosis [facility], left, [facility] Diagnosis Callus of foot- Primary Corns and callosities Hammer toe of right foot Hammertoe of left foot [facility]* Diagnosis Acute otitis media, bilateral- Primary Unspecified otitis media [facility]* Diagnosis Headache in pediatric patient- Primary [facility]* Diagnosis Encounter for initial prescription of contraceptives, unspecified contraceptive Screen for sexually transmitted diseases Screening examination for venereal disease Screening for HIV (human immunodeficiency virus) Special screening examination for other specified viral diseases Special screening examination for viral disease Special screening examination for unspecified viral disease [facility] Diagnosis Urgency of urination- Primary Viral illness Unspecified viral infection, in conditions classified elsewhere and of unspecified site [facility]* Diagnosis Dysmenorrhea- Primary Menorrhagia with regular cycle Excessive or frequent menstruation [facility]* Diagnosis Family planning education, guidance, and counseling- Primary Other general counseling and advice for contraceptive management [facility]* Diagnosis Burning with urination- Primary Dysuria Urethral irritation Unspecified disorder of urethra and urinary tract [facility] Diagnosis Spotting in - Primary Spotting complicating , unspecified as to episode of care or not applicable documented in this encounter [facility] note* Diagnosis Spotting in - Primary Spotting complicating , unspecified as to episode of care or not applicable documented in this encounter [facility] note* Diagnosis Threatened - Primary Threatened , unspecified as to episode of care documented in this encounter [facility] note* Diagnosis Early stage of - Primary state, incidental Subchorionic hemorrhage of placenta in first trimester documented in this encounter [facility] note* Diagnosis Subchorionic hematoma in first trimester, single or unspecified fetus- Primary Threatened Threatened , unspecified as to episode of care documented in this encounter [facility] note* Diagnosis 9 weeks gestation of - Primary state, incidental Encounter for care in first trimester of first Supervision of normal first , antepartum documented in this encounter [facility] note* Diagnosis Encounter for screening for malformation using ultrasound- Primary 13 weeks gestation of state, incidental Encounter for (NT) nuchal translucency scan Other specified screening documented in this encounter [facility] note* Diagnosis Encounter for care in first trimester of first - Primary 13 weeks gestation of state, incidental Supervision of normal first , antepartum Nausea and vomiting during documented in this encounter [facility] note* Diagnosis Encounter for supervision of normal first in second trimester (HCC)- Primary Supervision of normal first 17 weeks gestation of (HCC) state, incidental Encounter for care in first trimester of first (HCC) * Assessment & Plan Note - Nelly Gutierrez MD - 12/18/2024 4:13 PM EDT Associated Problem(s): Encounter for supervision of normal first in second trimester * Assessment & Plan Note - Nelly Gutierrez MD - 12/18/2024 4:13 PM EDT Associated Problem(s): Encounter for care in first trimester of first Orders: aspirin, enteric coated (ECOTRIN LOW STRENGTH) 81 mg EC tablet; Take 1 tablet by mouth once daily. documented in this encounter [facility] note* Diagnosis Encounter for supervision of normal first in second trimester ([facility])- Primary Supervision of normal first 17 weeks gestation of ([facility]) state, incidental Encounter for care in first trimester of first ([facility]) Encounter for anatomic survey ([facility])- Primary Encounter for anatomic survey 20 weeks gestation of ([facility]) state, incidental Encounter for supervision of normal first in second trimester ([facility])- Primary Supervision of normal first 20 weeks gestation of ([facility]) state, incidental Acute right-sided low back pain without sciatica documented in this encounter [facility] note* Diagnosis Encounter for supervision of normal first in second trimester ([facility])- Primary Supervision of normal first 17 weeks gestation of ([facility]) state, incidental Encounter for care in first trimester of first ([facility]) Encounter for supervision of normal first in second trimester ([facility])- Primary Supervision of normal first 20 weeks gestation of ([facility]) state, incidental Acute right-sided low back pain without sciatica * Assessment & Plan Note - Nelly Gutierrez MD - 01/03/2025 4:20 PM EDT Associated Problem(s): Encounter for supervision of normal first in second trimester ([facility]) Orders: CONSULT TO PHYSICAL THERAPY; Future documented in this encounter [facility] note* Diagnosis Encounter for supervision of normal first in second trimester ([facility])- Primary Supervision of normal first 17 weeks gestation of ([facility]) state, incidental Encounter for care in first trimester of first ([facility]) Encounter for supervision of normal first in second trimester ([facility])- Primary Supervision of normal first 20 weeks gestation of ([facility]) state, incidental Acute right-sided low back pain without sciatica Encounter for supervision of normal first in second trimester ([facility])- Primary Supervision of normal first 24 weeks gestation of ([facility]) state, incidental Screening for diabetes mellitus * Assessment & Plan Note - Nelly Gutierrez MD - 01/31/2025 8:48 AM EDT Associated Problem(s): Encounter for supervision of normal first in second trimester ([facility]) Orders: GESTATIONAL GLUCOSE SCREEN, 1-HOUR, 50 GRAM, NON-FASTING; Future SYPHILIS TREPONEMAL W/REFLEX; Future ANEMIA REFLEX PANEL; Future documented in this encounter [facility] note* Diagnosis Encounter for supervision of normal first in second trimester ([facility])- Primary Supervision of normal first 17 weeks gestation of ([facility]) state, incidental Encounter for care in first trimester of first ([facility]) Encounter for supervision of normal first in second trimester ([facility])- Primary Supervision of normal first 20 weeks gestation of ([facility]) state, incidental Acute right-sided low back pain without sciatica Encounter for supervision of normal first in second trimester ([facility])- Primary Supervision of normal first 24 weeks gestation of ([facility]) state, incidental Screening for diabetes mellitus Encounter for supervision of normal first in third trimester ([facility])- Primary Supervision of normal first 28 weeks gestation of ([facility]) state, incidental documented in this encounter [facility] note* Diagnosis Encounter for supervision of normal first in second trimester ([facility])- Primary Supervision of normal first 17 weeks gestation of ([facility]) state, incidental Encounter for care in first trimester of first ([facility]) Encounter for supervision of normal first in second trimester ([facility])- Primary Supervision of normal first 20 weeks gestation of ([facility]) state, incidental Acute right-sided low back pain without sciatica Encounter for supervision of normal first in second trimester ([facility])- Primary Supervision of normal first 24 weeks gestation of ([facility]) state, incidental Screening for diabetes mellitus Viral URI with cough- Primary Acute upper respiratory infections of unspecified site Fatigue, unspecified type Second trimester ([facility]) state, incidental documented in this encounter [facility] note* Diagnosis Encounter for supervision of normal first in second trimester ([facility])- Primary Supervision of normal first 17 weeks gestation of ([facility]) state, incidental Encounter for care in first trimester of first ([facility]) Encounter for supervision of normal first in second trimester ([facility])- Primary Supervision of normal first 20 weeks gestation of ([facility]) state, incidental Acute right-sided low back pain without sciatica Encounter for supervision of normal first in second trimester ([facility])- Primary Supervision of normal first 24 weeks gestation of ([facility]) state, incidental Screening for diabetes mellitus Encounter for supervision of normal first in third trimester ([facility])- Primary Supervision of normal first 29 weeks gestation of ([facility]) state, incidental Encounter for supervision of normal first in second trimester ([facility]) Supervision of normal first Floaters, bilateral [facility] Diagnosis Encounter for supervision of normal first in second trimester ([facility])- Primary Supervision of normal first 17 weeks gestation of ([facility]) state, incidental Encounter for care in first trimester of first ([facility]) Encounter for supervision of normal first in second trimester ([facility])- Primary Supervision of normal first 20 weeks gestation of ([facility]) state, incidental Acute right-sided low back pain without sciatica Encounter for supervision of normal first in second trimester ([facility])- Primary Supervision of normal first 24 weeks gestation of ([facility]) state, incidental Screening for diabetes mellitus 32 weeks gestation of ([facility])- Primary state, incidental Encounter for supervision of normal first in third trimester ([facility]) Supervision of normal first Floaters, bilateral [facility]* Diagnosis Encounter for supervision of normal first in second trimester ([facility])- Primary Supervision of normal first 17 weeks gestation of ([facility]) state, incidental Encounter for care in first trimester of first ([facility]) Encounter for supervision of normal first in second trimester ([facility])- Primary Supervision of normal first 20 weeks gestation of ([facility]) state, incidental Acute right-sided low back pain without sciatica Encounter for supervision of normal first in second trimester ([facility])- Primary Supervision of normal first 24 weeks gestation of ([facility]) state, incidental Screening for diabetes mellitus Encounter for supervision of normal first in third trimester ([facility])- Primary Supervision of normal first 34 weeks gestation of ([facility]) state, incidental Encounter for care in first trimester of first (HCC) [facility] noteNo assessment information availableWMercy [facility] Work Phone: [facility] for referral (narrative)* Diagnostic Procedure Only (Routine) - Closed Specialty Diagnoses / Procedures Referred By Contac t Referred To Contact XR IMAGING Diagnoses Constipation, unspecified constipation type Procedures XR ABDOMEN 2V ROUTINE SUPINE W UPRIGHT/DECUB/CTL RADIOLOGIC EXAM ABDOMEN 2 VIEWS Nisha Corcoran APRN.CABINET ASSEMBLER [address] [facility] [address] [place] [address] Xr Imaging Referral ID Status Reason Start Date Expiration Date V isits Requested Visits Authorized [id number] Closed Auto-Generate d Referral 12/24/2021 01/23/2023 1 1 [facility] for referral (narrative)* Diagnostic Procedure Only (Routine) - Closed Specialty Diagnoses / Procedures Referred By Contac t Referred To Contact XR IMAGING Diagnoses Constipation, unspecified constipation type Procedures XR ABDOMEN 2V ROUTINE SUPINE W UPRIGHT/DECUB/CTL RADIOLOGIC EXAM ABDOMEN 2 VIEWS Nisha Corcoran APRN.CABINET ASSEMBLER [address] [facility] [address] [place] [address] Xr Imaging Referral ID Status Reason Start Date Expiration Date V isits Requested Visits Authorized [id number] Closed Auto-Generate d Referral 12/24/2021 01/23/2023 1 1 [facility] [facility] Diagnostic Procedure Only (Routine) - Authorized Specialty Diagnoses / Procedures Referred By Contac t Referred To Contact XR IMAGING Diagnoses Wrist injury, left, initial encounter Procedures XR WRIST GENERAL 3V PA/LAT/OBL LEFT RADEX WRIST COMPLETE MINIMUM 3 VIEWS Debbie Carreno APRN.CABINET ASSEMBLER [address] [place] [address] Xr Imaging Referral ID Status Reason Start Date Expiration Date Visits Requested Visits Authorized [id number] Authorized Auto-Generat ed Referral 08/23/2022 09/22/2023 1 1 [facility] for referral (narrative)* Diagnostic Procedure Only (Routine) - Closed Specialty Diagnoses / Procedures Referred By Contac t Referred To Contact XR IMAGING Diagnoses Wrist injury, left, initial encounter Procedures XR WRIST GENERAL 3V PA/LAT/OBL LEFT RADEX WRIST COMPLETE MINIMUM 3 VIEWS Debbie Carreno APRN.CABINET ASSEMBLER [address] [place] [address] Xr Imaging Referral ID Status Reason Start Date Expiration Date V isits Requested Visits Authorized [id number] Closed Auto-Generate d Referral 08/23/2022 09/22/2023 1 1 [facility] for referral (narrative)* Diagnostic Procedure Only (Routine) - Authorized Specialty Diagnoses / Procedures Referred By Contac t Referred To Contact [facility] Diagnoses Threatened Procedures OBSTETRIC ULTRASOUND WHI US PREG UTERUS AFTER 1ST TRIMEST GESTATION Nelly Gutierrez MD [address] [place] [address] [facility] [address] [place] [address] Referral ID Status Reason Start Date Expiration Date Visits Requested Visits Authorized [id number] Authorized Auto-Generat ed Referral 10/03/2024 10/03/2025 1 1 [facility] for referral (narrative)* Diagnostic Procedure Only (Routine) - Authorized Specialty Diagnoses / Procedures Referred By Contac t Referred To Contact [facility] Diagnoses 9 weeks gestation of Encounter for care in first trimester of first Procedures OBSTETRIC ULTRASOUND WHI US PREG UTERUS AFTER 1ST TRIMEST GESTATION Bita Degroot APRN.CABINET ASSEMBLER [address] [place] [address] [facility] [place] [address] Referral ID Status Reason Start Date Expiration Date Visits Requested Visits Authorized [id number] Authorized Auto-Generat ed Referral 10/23/2024 10/23/2025 1 1 * Diagnostic Procedure Only (Routine) - Authorized Specialty Diagnoses / Procedures Referred By Contac t Referred To Contact [facility] Diagnoses 9 weeks gestation of Encounter for care in first trimester of first Procedures OBSTETRIC ULTRASOUND WHI US PREG UTERUS AFTER 1ST TRIMEST GESTATION Bita Degroot APRN.CABINET ASSEMBLER [address] [place] [address] [facility] [address] [place] [address] Referral ID Status Reason Start Date Expiration Date Visits Requested Visits Authorized [id number] Authorized Auto-Generat ed Referral 10/23/2024 10/23/2025 1 1 [facility]No reason for referral information availableWMercy Health [facility] Work Phone: Reason for visit Narrative* Diagnostic Procedure Only (Routine) - Closed Specialty Diagnoses / Procedures Referred By Contac t Referred To Contact XR IMAGING Diagnoses Wrist injury, left, initial encounter Procedures XR WRIST GENERAL 3V PA/LAT/OBL LEFT RADEX WRIST COMPLETE MINIMUM 3 VIEWS Debbie Carreno APRN.CABINET ASSEMBLER [address] [place] [address] Xr Imaging Referral ID Status Reason Start Date Expiration Date V isits Requested Visits Authorized [id number] Closed Auto-Generate d Referral 08/23/2022 09/22/2023 1 1 [facility] Diagnostic Procedure Only (Routine) - Closed Specialty Diagnoses / Procedures Referred By Contac t Referred To Contact [facility] Diagnoses Threatened Procedures OBSTETRIC ULTRASOUND WHI US PREG UTERUS AFTER 1ST TRIMEST GESTATION Nelly Gutierrez MD [address] [place] [address] [facility] [address] [place] [address] Referral ID Status Reason Start Date Expiration Date V isits Requested Visits Authorized [id number] Closed Auto-Generate d Referral 10/03/2024 10/03/2025 1 1 [facility] Summary Purpose Family History No Family History Records FoundNo Family History Records FoundNo Family History Records FoundNo Family History Records Found Advance Directives No Advanced Directives Records FoundNo Advanced Directives Records FoundNo Advanced Directives Records FoundNo Advanced Directives Records Found Reason for Referral Specialty Diagnoses / Procedures Referred By Contac t Referred To Contact Pediatric Neurology Diagnoses Headache in pediatric patient Procedures CONSULT TO PEDS NEUROLOGY OFFICE/OUTPATIENT [facility] 60 MINUTES Nisha Corcoran APRN.CABINET ASSEMBLER [address] [place] [address] Referral ID Status Reason Start Date Expiration Date Visits Requested Visits Authorized [id number] Authorized PCP Requested Referral 01/21/2024 01/20/2025 1 1 Specialty Diagnoses / Procedures Referred By Contac t Referred To Contact Diagnoses Encounter for initial prescription of contraceptives, unspecified contraceptive Procedures CONSULT TO SENIOR EDITOR OFFICE/OUTPATIENT [facility] 60 MINUTES Nisha Corcoran APRN.CABINET ASSEMBLER [address] [address] Referral ID Status Reason Start Date Expiration Date Visits Requested Visits Authorized [id number] Authorized PCP Requested Referral Auto-Generate d Referral 04/28/2024 04/28/2025 1 1 Chief Complaint and Reason for Visit Chief Complaint Admit Date R/O SROM April 24, 2025 11: 50am Additional Source Comments Source Comments (unrecognize d section and content) In the event this informatio n is protected by the Federal Confidentiality of Alcohol and Drug Abuse Patient Records regulations: The Federal rules restrict any use of the information to criminally investigate or prosecute any alcohol or drug abuse patient.[facility] the event this information is protected by the Federal Confidentiality of Alcohol and Drug Abuse Patient Records regulations: The Federal rules restrict any use of the information to criminally investigate or prosecute any alcohol or drug abuse patient.[facility] HealthIn the event this information is protected by the Federal Confidentiality of Alcohol and Drug Abuse Patient Records regulations: The Federal rules restrict any use of the information to criminally investigate or prosecute any alcohol or drug abuse patient.[facility] HealthIn the event this information is protected by the Federal Confidentiality of Alcohol and Drug Abuse Patient Records regulations: The Federal rules restrict any use of the information to criminally investigate or prosecute any alcohol or drug abuse patient.[facility] HealthIn the event this information is protected by the Federal Confidentiality of Alcohol and Drug Abuse Patient Records regulations: The Federal rules restrict any use of the information to criminally investigate or prosecute any alcohol or drug abuse patient.[facility] HealthIn the event this information is protected by the Federal Confidentiality of Alcohol and Drug Abuse Patient Records regulations: The Federal rules restrict any use of the information to criminally investigate or prosecute any alcohol or drug abuse patient.[facility] HealthIn the event this information is protected by the Federal Confidentiality of Alcohol and Drug Abuse Patient Records regulations: The Federal rules restrict any use of the information to criminally investigate or prosecute any alcohol or drug abuse patient.[facility] HealthIn the event this information is protected by the Federal Confidentiality of Alcohol and Drug Abuse Patient Records regulations: The Federal rules restrict any use of the information to criminally investigate or prosecute any alcohol or drug abuse patient.[facility] HealthIn the event this information is protected by the Federal Confidentiality of Alcohol and Drug Abuse Patient Records regulations: The Federal rules restrict any use of the information to criminally investigate or prosecute any alcohol or drug abuse patient.[facility] HealthIn the event this information is protected by the Federal Confidentiality of Alcohol and Drug Abuse Patient Records regulations: The Federal rules restrict any use of the information to criminally investigate or prosecute any alcohol or drug abuse patient.[facility] HealthIn the event this information is protected by the Federal Confidentiality of Alcohol and Drug Abuse Patient Records regulations: The Federal rules restrict any use of the information to criminally investigate or prosecute any alcohol or drug abuse patient.[facility] HealthIn the event this information is protected by the Federal Confidentiality of Alcohol and Drug Abuse Patient Records regulations: The Federal rules restrict any use of the information to criminally investigate or prosecute any alcohol or drug abuse patient.[facility] HealthIn the event this information is protected by the Federal Confidentiality of Alcohol and Drug Abuse Patient Records regulations: The Federal rules restrict any use of the information to criminally investigate or prosecute any alcohol or drug abuse patient.[facility] HealthIn the event this information is protected by the Federal Confidentiality of Alcohol and Drug Abuse Patient Records regulations: The Federal rules restrict any use of the information to criminally investigate or prosecute any alcohol or drug abuse patient.[facility] HealthIn the event this information is protected by the Federal Confidentiality of Alcohol and Drug Abuse Patient Records regulations: The Federal rules restrict any use of the information to criminally investigate or prosecute any alcohol or drug abuse patient.[facility] HealthIn the event this information is protected by the Federal Confidentiality of Alcohol and Drug Abuse Patient Records regulations: The Federal rules restrict any use of the information to criminally investigate or prosecute any alcohol or drug abuse patient.[facility] HealthIn the event this information is protected by the Federal Confidentiality of Alcohol and Drug Abuse Patient Records regulations: The Federal rules restrict any use of the information to criminally investigate or prosecute any alcohol or drug abuse patient.[facility] HealthIn the event this information is protected by the Federal Confidentiality of Alcohol and Drug Abuse Patient Records regulations: The Federal rules restrict any use of the information to criminally investigate or prosecute any alcohol or drug abuse patient.[facility] HealthIn the event this information is protected by the Federal Confidentiality of Alcohol and Drug Abuse Patient Records regulations: The Federal rules restrict any use of the information to criminally investigate or prosecute any alcohol or drug abuse patient.[facility] HealthIn the event this information is protected by the Federal Confidentiality of Alcohol and Drug Abuse Patient Records regulations: The Federal rules restrict any use of the information to criminally investigate or prosecute any alcohol or drug abuse patient.[facility] HealthIn the event this information is protected by the Federal Confidentiality of Alcohol and Drug Abuse Patient Records regulations: The Federal rules restrict any use of the information to criminally investigate or prosecute any alcohol or drug abuse patient.[facility] HealthIn the event this information is protected by the Federal Confidentiality of Alcohol and Drug Abuse Patient Records regulations: The Federal rules restrict any use of the information to criminally investigate or prosecute any alcohol or drug abuse patient.[facility] HealthIn the event this information is protected by the Federal Confidentiality of Alcohol and Drug Abuse Patient Records regulations: The Federal rules restrict any use of the information to criminally investigate or prosecute any alcohol or drug abuse patient.[facility] HealthIn the event this information is protected by the Federal Confidentiality of Alcohol and Drug Abuse Patient Records regulations: The Federal rules restrict any use of the information to criminally investigate or prosecute any alcohol or drug abuse patient.[facility] HealthIn the event this information is protected by the Federal Confidentiality of Alcohol and Drug Abuse Patient Records regulations: The Federal rules restrict any use of the information to criminally investigate or prosecute any alcohol or drug abuse patient.[facility] HealthIn the event this information is protected by the Federal Confidentiality of Alcohol and Drug Abuse Patient Records regulations: The Federal rules restrict any use of the information to criminally investigate or prosecute any alcohol or drug abuse patient.[facility] HealthIn the event this information is protected by the Federal Confidentiality of Alcohol and Drug Abuse Patient Records regulations: The Federal rules restrict any use of the information to criminally investigate or prosecute any alcohol or drug abuse patient.[facility] HealthIn the event this information is protected by the Federal Confidentiality of Alcohol and Drug Abuse Patient Records regulations: The Federal rules restrict any use of the information to criminally investigate or prosecute any alcohol or drug abuse patient.[facility] HealthIn the event this information is protected by the Federal Confidentiality of Alcohol and Drug Abuse Patient Records regulations: The Federal rules restrict any use of the information to criminally investigate or prosecute any alcohol or drug abuse patient.[facility] HealthIn the event this information is protected by the Federal Confidentiality of Alcohol and Drug Abuse Patient Records regulations: The Federal rules restrict any use of the information to criminally investigate or prosecute any alcohol or drug abuse patient.[facility] HealthIn the event this information is protected by the Federal Confidentiality of Alcohol and Drug Abuse Patient Records regulations: The Federal rules restrict any use of the information to criminally investigate or prosecute any alcohol or drug abuse patient.[facility] HealthIn the event this information is protected by the Federal Confidentiality of Alcohol and Drug Abuse Patient Records regulations: The Federal rules restrict any use of the information to criminally investigate or prosecute any alcohol or drug abuse patient.[facility] HealthIn the event this information is protected by the Federal Confidentiality of Alcohol and Drug Abuse Patient Records regulations: The Federal rules restrict any use of the information to criminally investigate or prosecute any alcohol or drug abuse patient.[facility] HealthIn the event this information is protected by the Federal Confidentiality of Alcohol and Drug Abuse Patient Records regulations: The Federal rules restrict any use of the information to criminally investigate or prosecute any alcohol or drug abuse patient.[facility] HealthIn the event this information is protected by the Federal Confidentiality of Alcohol and Drug Abuse Patient Records regulations: The Federal rules restrict any use of the information to criminally investigate or prosecute any alcohol or drug abuse patient.[facility] HealthIn the event this information is protected by the Federal Confidentiality of Alcohol and Drug Abuse Patient Records regulations: The Federal rules restrict any use of the information to criminally investigate or prosecute any alcohol or drug abuse patient.[facility] Reason for Visit (unrecogniz ed section and content) Reason Comments Constipation Reason Comments Pain, Abdominal Specialty Diagnoses / Procedures Referred By Contac t Referred To Contact XR IMAGING Diagnoses Constipation, unspecified constipation type Procedures XR ABDOMEN 2V ROUTINE SUPINE W UPRIGHT/DECUB/CTL RADIOLOGIC EXAM ABDOMEN 2 VIEWS Nisha Corcoran APRN.CABINET ASSEMBLER [address] [facility] [address] [place] [address] Xr Imaging Referral ID Status Reason Start Date Expiration Date V isits Requested Visits Authorized [id number] Closed Auto-Generate d Referral 12/24/2021 01/23/2023 1 1 Reason Comments Well Child Wart On bottom of foot Reason Comments Wrist/forearm Injury L wrist injury x1 w koi Reason Comments Results Reason Comments New Plantar wart Reason Comments Ear Pain Bilateral ear pain, neck pain x1 day Reason Comments Headache Onset x 3 weeks (liliana ateral temples) feels Dizzy during headaches episodes Reason Comments Well Child Reason Comments Urinary Problem Possible uti, urgenc y, stomach pain x 1 daySore throat, IRWIN x 1 day Reason Comments Results Urine Cx=E coli Reason Comments Contraception Reason Comments Discussion Reason Comments Urinary Problem Itching, painful uri nation x 6 days Reason Comments Initial OB Visit Reason Comments US Specialty Diagnoses / Procedures Referred By Contac t Referred To Contact [facility] Diagnoses 9 weeks gestation of Encounter for care in first trimester of first Procedures OBSTETRIC ULTRASOUND WHI US PREG UTERUS AFTER 1ST TRIMEST GESTATION Bita Degroot APRN.CABINET ASSEMBLER [address] [place] [address] Phone: tel: fax: [facility] [address] [place] [address] Referral ID Status Reason Start Date Expiration Date V isits Requested Visits Authorized [id number] Closed Auto-Generate d Referral 10/23/2024 10/23/2025 1 1 Reason Onset Date Comments Care 11/20/2024 Reason Onset Date Comments Care 12/18/2024 Specialty Diagnoses / Procedures Referred By Russell t Referred To Contact [facility] Diagnoses 9 weeks gestation of (HCC) Encounter for care in first trimester of first (HCC) Procedures OBSTETRIC ULTRASOUND WHI US PREG UTERUS AFTER 1ST TRIMEST GESTATION Bita Degroot APRN.CABINET ASSEMBLER [address] [place] [address] Phone: tel: fax: [facility] [address] [place] [address] Referral ID Status Reason Start Date Expiration Date V isits Requested Visits Authorized [id number] Closed Auto-Generate d Referral 10/23/2024 10/23/2025 1 1 Reason Onset Date Comments Care 01/03/2025 Reason Onset Date Comments Care 01/31/2025 Reason Onset Date Comments Care 02/28/2025 Reason Comments Nasal Congestion Runny nose, headache , fatigue, pressure in head, x today Reason Onset Date Comments Care 03/13/2025 Reason Onset Date Comments Care 03/30/2025 Reason Onset Date Comments Care 04/12/2025 Care Teams (unrecognized sec tion and content) Agent Based Modeler Relationship Specialty Start Date End Date Aura Alas DO [address] [place] [address] PCP - General 01/06/18 Agent Based Modeler Relationship Specialty Start Date End Date Aura Alas DO [address] [place] [address] PCP - General 01/06/18 Agent Based Modeler Relationship Specialty Start Date End Date Aura Alas DO [address] [address] PCP - General 01/06/18 Agent Based Modeler Relationship Specialty Start Date End Date Aura Alas DO [address] [place] [address] PCP - General 01/06/18 Agent Based Modeler Relationship Specialty Start Date End Date Aura Alas DO [address] [place] [address] PCP - General 01/06/18 Agent Based Modeler Relationship Specialty Start Date End Date Aura Alas DO [address] [place] [address] PCP - General 01/06/18 Agent Based Modeler Relationship Specialty Start Date End Date Aura Alas DO [address] [place] [address] PCP - General 01/06/18 Agent Based Modeler Relationship Specialty Start Date End Date Aura Alas DO [address] [place] [address] PCP - General 01/06/18 Agent Based Modeler Relationship Specialty Start Date End Date Auar Alas DO [address] [place] [address] PCP - General 01/06/18 Agent Based Modeler Relationship Specialty Start Date End Date Aura Alas DO [address] [place] [address] PCP - General 01/06/18 Agent Based Modeler Relationship Specialty Start Date End Date Aura Alas DO [address] [place] [address] PCP - General 01/06/18 Agent Based Modeler Relationship Specialty Start Date End Date Aura Alas DO [address] [place] [address] PCP - General 01/06/18 Agent Based Modeler Relationship Specialty Start Date End Date Aura Alas DO [address] [place] [address] PCP - General 01/06/18 Agent Based Modeler Relationship Specialty Start Date End Date Aura Alas DO [address] [place] [address] PCP - General 01/06/18 Agent Based Modeler Relationship Specialty Start Date End Date Aura Alas DO [address] [place] [address] PCP - General 01/06/18 Agent Based Modeler Relationship Specialty Start Date End Date Aura Alas DO [address] [place] [address] PCP - General 01/06/18 Agent Based Modeler Relationship Specialty Start Date End Date Aura Alas DO [address] [place] [address] PCP - General 01/06/18 Agent Based Modeler Relationship Specialty Start Date End Date Aura Alas DO [address] [place] [address] PCP - General 01/06/18 Agent Based Modeler Relationship Specialty Start Date End Date Aura Alas DO [address] [place] [address] PCP - General 01/06/18 Agent Based Modeler Relationship Specialty Start Date End Date Aura Alas DO [address] [place] [address] PCP - General 01/06/18 Agent Based Modeler Relationship Specialty Start Date End Date Aura Alas DO [address] [place] [address] PCP - General 01/06/18 Agent Based Modeler Relationship Specialty Start Date End Date Aura Alas DO [address] [place] [address] PCP - General 01/06/18 Agent Based Modeler Relationship Specialty Start Date End Date Aura Alas DO [address] [place] [address] PCP - General 01/06/18 Agent Based Modeler Relationship Specialty Start Date End Date Aura Alas DO [address] [place] [address] PCP - General 01/06/18 Agent Based Modeler Relationship Specialty Start Date End Date Aura Alas DO [address] [place] [address] PCP - General 01/06/18 Agent Based Modeler Relationship Specialty Start Date End Date Aura Alas DO [address] [place] [address] PCP - General 01/06/18 Agent Based Modeler Relationship Specialty Start Date End Date Aura Alas DO [address] [facility] [address] [place] [address] PCP - General 01/06/18 Agent Based Modeler Relationship Specialty Start Date End Date Aura Alas DO [address] [facility] [address] [place] [address] PCP - General 01/06/18 Agent Based Modeler Relationship Specialty Start Date End Date Aura Alas DO [address] [facility] [address] [place] [address] PCP - General 01/06/18 Team Status: Active Member Role/Relationship Status Dates No Primary Care Physician Primary Care Provider Active Team Status: Inactive Member Role/Relationship Status Dates No Primary Care Physician Primary Care Provider Active Start: April 24, 2025 End: April 24, 2025 Dr. Nelly Gutierrez MD Attending Provider Active Start: April 24, 2025 End: April 24, 2025 Dr. Nelly Gutierrez MD Referring Provider Active Start: April 24, 2025 End: April 24, 2025 INFORMATION SOURCE (unrecogn ized section and content) DATE CREATED AUTHOR 08/24/2022 [facility] DATE CREATED AUTHOR AUTHOR'S ORGANIZ ATION 09/11/2023 [facility] DATE CREATED AUTHOR AUTHOR'S ORGANIZ ATION 12/03/2024 [facility] DATE CREATED AUTHOR AUTHOR'S ORGANIZ ATION 04/13/2025 [facility] Goals (unrecognized section and content) Goals may be documented in a n alternate section FOR RECORDS PERTAINING TO PATIENTS WHO ARE OR HAVE BEEN ENROLLED IN A CHEMICAL DEPENDENCY/SUBSTANCEABUSE PROGRAM, SOME INFORMATION MAY BE OMITTED. This clinical summary was aggregated from multiple sources. Caution should be exercised in using it in the provision of clinical care. This summary normalizes information from multiple sources, and as a consequence, information in this document may materially change the coding, format and clinical context of patient data. In addition, data may be omitted in some cases. CLINICAL DECISIONS SHOULD BE BASED ON THE PRIMARY CLINICAL RECORDS. [facility] provides no warranty or guarantee [id number] the accuracy [id number] completeness [phone] in this [id number]
--- OUTSIDE RECORDS SUMMARY | 2025-04-24 19:01 | XMS RPT_ITS | CCD ---
Author Organization [facility] Care Team Providers Care Sludge Control Operator Name Role Phone Aura Alas DO Primary Care Provider DEBBIE CARRENO Referring Unavailable AURA ALAS Primary Care Unavailable Aura Alas DO Primary Care Provider [phone] AURA ALAS Primary Care Unavailable JEWEL MORRIS Attending Unavailable Aura Alas DO Primary Care Provider [phone] John Mireles Attending Unavailable John Mireles Attending [...] Care Unavailable ALAS, ROCHELLE Primary Care Unavailable THERESA BUSCH Attending Unavailable ALAS, ROCHELLE Primary Care [...] Unavailable Hugo COATES, Dr. Coronel Attending Provider Dr. Nelly Gutierrez MD Referring Provider Medications [...] Active Start: 11-17-2024 take [address] tablet [address] [facility] every eight hours as needed for [...] on above: Take 2 tablets by mo [facility] once daily for 5 days. VITAFUSION GUMMY [...] 03-30-2025 CNOV Office Visit (OBGYWM) NATALY DSOUZA ([id number]) 3 F Date Time Provider Department 03/30/25 9:30 AM KERRIE MCKEON During your visit today, we recorded the following information about you: Blood pressure Weight 112/60 77.5 kg Mindy Chin LPN 03/30/2025 9:15 AM Signed SEQUENTIAL SCREENINGS The [facility] offers sequential screenings for women who are [...] It will require an appointment with our veterinary technician assistant. This is not an ultrasound performed by [...] the above symptoms, contact our office at [phone] and ask to speak with a nurse. After hours, you can call doctors registry at [phone] OR call [facility] at [phone] and ask to have the doctor yarn preparation supervisor paged. If you consider this an emergency, dial 9-2 or go to your nearest emergency department. NEED HELP? Are you dealing with a violent or abusive relationship? Are you a victim of rape or sexual assult? Call [facility] ([place]) 24 hour Crisis Hotline: 117.563.7434 or 629-190-8110. MANUAL Your Guide to a Healthy manual is now on-line. Visit [email or web address] [email or web address] e to download your free [...] supervision of normal first in third trimester ([facility]) [Z34.03] Floaters, bilateral [H43.393] Prescriptions [...] instructions from your clinician: SEQUENTIAL SCREENINGS [facility] offers sequential screenings for women who are [...] the b (more content not included)... Normal [facility] CBC W Auto Differential pane l (Bld)on 03-13-2025 Basophils (Bld) [#/Vol] 0.06 10*3/uL [facility] Basophils/100 WBC (Bld) 0.5 % [facility] Differential cell count method Nom (Bld) Auto [facility] Eosinophils (Bld) [#/Vol] 0.09 10*3/uL [facility] Eosinophils/100 WBC (Bld) 0.8 % [facility] Erythrocyte distribution width (RBC) [Ratio] 13.1 % 11.5 - 15.0 % [facility] Hematocrit (Bld) [Volume fraction] 33.2 % Low 36.0 - 46.0 % [facility] Hemoglobin (Bld) [Mass/Vol] 11.5 g/dL 11.5 - 15.5 g/dL [facility] Immature granulocytes (Bld) [#/Vol] 0.17 10*3/uL High NINF [facility] Immature granulocytes/100 WBC (Bld) 1.5 % [facility] Interpretation and review of laboratory results Abnormal [facility] Lymphocytes (Bld) [#/Vol] 1.84 10*3/uL [facility] Lymphocytes/100 WBC (Bld) 16.4 % [facility] MCH (RBC) [Entitic mass] 30.8 pg 26.0 - 34.0 pg [facility] MCHC (RBC) [Mass/Vol] 34.6 g/dL 30.5 - 36.0 g/ dL [facility] MCV (RBC) [Entitic vol] 89 fL 80.0 - 100.0 fL [facility] Monocytes (Bld) [#/Vol] 0.73 10*3/uL [facility] Monocytes/100 WBC (Bld) 6.5 % [facility] Neutrophils (Bld) [#/Vol] 8.35 10*3/uL High [facility] Neutrophils/100 WBC (Bld) 74.3 % [facility] Nucleated RBC (Bld) [#/Vol] [facility] Nucleated RBC/100 WBC (Bld) [Ratio] 0 % /100 WBC [facility] Platelet mean volume (Bld) [Entitic vol] 9.8 fL 9.0 - 12.7 fL [facility] Platelets (Bld) [#/Vol] 243 10*3/uL [facility] RBC (Bld) [#/Vol] 3.73 10*6/uL Low 3.90 - 5.20 m/uL [facility] WBC (Bld) [#/Vol] 11.24 10*3/uL [facility] Basophils (Bld) [#/Vol] 0.06 10*3/uL Normal <0.11 [facility] Comment on above: Order Comment: Speci men Type: BLOOD SPECIMEN Ordering Facility: [facility] Address: [address] [place], [place] [id number] Performed By: #### G LTGST #### [facility] CLIA [id number] [address] [place] [address] [place] Basophils/100 WBC (Bld) 0.5 % Normal [facility] Comment on above: Order Comment: Speci men Type: BLOOD SPECIMEN Ordering Facility: [facility] Address: [address] [place] [address] Performed By: #### G LTGST #### [facility] CLIA [id number] [address] [place] [address] [place] Differential cell count method Nom (Bld) Auto Normal [facility] Comment on above: Order Comment: Speci men Type: BLOOD SPECIMEN Ordering Facility: [facility] Address: [address] [place] [address] Performed By: #### G LTGST #### [facility] CLIA [id number] [address] [place] [address] [place] Eosinophils (Bld) [#/Vol] 0.09 10*3/uL Normal <0.46 [facility] Comment on above: Order Comment: Speci men Type: BLOOD SPECIMEN Ordering Facility: [facility] Address: [address] [place] [address] Performed By: #### G LTGST #### [facility] CLIA [id number] [address] [place] [address] [place] Eosinophils/100 WBC (Bld) 0.8 % Normal [facility] Comment on above: Order Comment: Speci men Type: BLOOD SPECIMEN Ordering Facility: [facility] Address: [address] [place] [address] Performed By: #### G LTGST #### [facility] [id number] [address] [place] [address] [place] Erythrocyte distribution width (RBC) [Ratio] 13.1 % Normal 11.5-15.0 [facility] Comment on above: Order Comment: Speci men Type: BLOOD SPECIMEN Ordering Facility: [facility] Address: [address] [place] [address] Performed By: #### G LTGST #### [facility] CLIA [id number] [address] [place] [address] [place] Hematocrit (Bld) [Volume fraction] 33.2 % Low 36.0-46.0 [facility] Comment on above: Order Comment: Speci men Type: BLOOD SPECIMEN Ordering Facility: [facility] Address: [address] [place] [address] Performed By: #### G LTGST #### [facility] CLIA [id number] [address] [place] [address] [place] Hemoglobin (Bld) [Mass/Vol] 11.5 g/dL Normal 11.5-15.5 [facility] Comment on above: Order Comment: Speci men Type: BLOOD SPECIMEN Ordering Facility: [facility] Address: [address] [place] [address] Performed By: #### G LTGST #### [facility] CLIA [id number] [address] [place] [address] [place] Immature granulocytes (Bld) [#/Vol] 0.17 10*3/uL High <0.10 [facility] Comment on above: Order Comment: Speci men Type: BLOOD SPECIMEN Ordering Facility: [facility] Address: [address] [place] [address] Performed By: #### G LTGST #### [facility] CLIA [id number] [address] [place] [address] [place] Immature granulocytes/100 WBC (Bld) 1.5 % Normal [facility] Comment on above: Order Comment: Speci men Type: BLOOD SPECIMEN Ordering Facility: [facility] Address: [address] [place] [address] Performed By: #### G LTGST #### [facility] [id number] [address] [place] [address] [place] Lymphocytes (Bld) [#/Vol] 1.84 10*3/uL Normal 1.00-4.00 [facility] Comment on above: Order Comment: Speci men Type: BLOOD SPECIMEN Ordering Facility: [facility] Address: [address] [place] [address] Performed By: #### G LTGST #### [facility] CLIA [id number] [address] [place] [address] [place] Lymphocytes/100 WBC (Bld) 16.4 % Normal [facility] Comment on above: Order Comment: Speci men Type: BLOOD SPECIMEN Ordering Facility: [facility] Address: [address] [place] [address] Performed By: #### G LTGST #### [facility] [id number] [address] [place] [address] [place] MCH (RBC) [Entitic mass] 30.8 pg Normal 26.0-34.0 [facility] Comment on above: Order Comment: Speci men Type: BLOOD SPECIMEN Ordering Facility: [facility] Address: [address] [place] [address] Performed By: #### G LTGST #### [facility] [id number] [address] [place] [address] [place] MCHC (RBC) [Mass/Vol] 34.6 g/dL Normal 30.5-36.0 [facility] Comment on above: Order Comment: Speci men Type: BLOOD SPECIMEN Ordering Facility: [facility] Address: [address] [place] [address] Performed By: #### G LTGST #### [facility] [id number] [address] [place] [address] [place] MCV (RBC) [Entitic vol] 89.0 fL Normal 80.0-100.0 [facility] Comment on above: Order Comment: Speci men Type: BLOOD SPECIMEN Ordering Facility: [facility] Address: [address] [place] [address] Performed By: #### G LTGST #### [facility] CLIA [id number] [address] [place] [address] [place] Monocytes (Bld) [#/Vol] 0.73 10*3/uL Normal <0.87 [facility] Comment on above: Order Comment: Speci men Type: BLOOD SPECIMEN Ordering Facility: [facility] Address: [address] [place] [address] Performed By: #### G LTGST #### [facility] CLIA [id number] [address] [place] [address] [place] Monocytes/100 WBC (Bld) 6.5 % Normal [facility] Comment on above: Order Comment: Speci men Type: BLOOD SPECIMEN Ordering Facility: [facility] Address: [address] [place] [address] Performed By: #### G LTGST #### [facility] CLIA [id number] [address] [place] [address] [place] Neutrophils (Bld) [#/Vol] 8.35 10*3/uL High 1.45-7.50 [facility] Comment on above: Order Comment: Speci men Type: BLOOD SPECIMEN Ordering Facility: [facility] Address: [address] [place] [address] Performed By: #### G LTGST #### [facility] CLIA [id number] [address] [place] [address] [place] Neutrophils/100 WBC (Bld) 74.3 % Normal [facility] Comment on above: Order Comment: Speci men Type: BLOOD SPECIMEN Ordering Facility: [facility] Address: [address] [place] [address] Performed By: #### G LTGST #### [facility] CLIA [id number] [address] [place] [address] [place] Nucleated RBC (Bld) [#/Vol] 10*3/uL Normal <0.01 [facility] Comment on above: Order Comment: Speci men Type: BLOOD SPECIMEN Ordering Facility: [facility] Address: [address] [place] [address] Performed By: #### G LTGST #### [facility] CLIA [id number] [address] [place] [address] [place] Nucleated RBC/100 WBC (Bld) [Ratio] 0.0 /100 WBC Normal [facility] Comment on above: Order Comment: Speci men Type: BLOOD SPECIMEN Ordering Facility: [facility] Address: [address] [place] [address] Performed By: #### G LTGST #### [facility] CLIA [id number] [address] [place] [address] [place] Platelet mean volume (Bld) [Entitic vol] 9.8 fL Normal 9.0-12.7 [facility] Comment on above: Order Comment: Speci men Type: BLOOD SPECIMEN Ordering Facility: [facility] Address: [address] [place] [address] Performed By: #### G LTGST #### [facility] CLIA [id number] [address] [place] [address] [place] Platelets (Bld) [#/Vol] 243 10*3/uL Normal 150-400 [facility] Comment on above: Order Comment: Speci men Type: BLOOD SPECIMEN Ordering Facility: [facility] Address: [address] [place] [address] Performed By: #### G LTGST #### [facility] CLIA [id number] [address] [place] [address] [place] RBC (Bld) [#/Vol] 3.73 10*6/uL Low 3.90-5.20 [facility] Comment on above: Order Comment: Speci men Type: BLOOD SPECIMEN Ordering Facility: [facility] Address: [address] [place] [address] Performed By: #### G LTGST #### [facility] CLIA [id number] [address] WBC (Bld) [#/Vol] 11.24 10*3/uL High 3.70-11.00 [facility] Comment on above: Order Comment: Speci men Type: BLOOD SPECIMEN Ordering Facility: [facility] Address: [address] [place], [place] [address] Performed By: #### G LTGST #### [facility] CLIA [id number] [address] Comprehensive metabolic 2000 panelOrdered By: [place] Ward on 03-13-2025 Albumin [Mass/Vol] 3.6 g/dL Low 3.9 - 4.9 g/dL [facility] ALP [Catalytic activity/Vol] 64 U/L 34 - 123 U/L [facility] ALT [Catalytic activity/Vol] 11 U/L 7 - 38 U/L [facility] Anion gap [Moles/Vol] 12 mmol/L 8 - 15 mmol/L [facility] AST [Catalytic activity/Vol] 15 U/L 13 - 35 U/L [facility] Bilirubin [Mass/Vol] 0.2 mg/dL 0.2 - 1.3 mg/dL [facility] Calcium [Mass/Vol] 8.7 mg/dL 8.5 - 10.2 mg/dL [facility] Chloride [Moles/Vol] 105 mmol/L 98 - 107 mmol/L [facility] CO2 [Moles/Vol] 18 mmol/L Low 22 - 30 mmol/L [facility] Creatinine [Mass/Vol] 0.54 mg/dL Low 0.58 - 0.96 mg/dL [facility] GFR/1.73 sq M.predicted among non-blacks MDRD (S/P/Bld) [Vol rate/Area] 135 mL/min/{1.73_m2} - PINF [facility] Comment on above: Estimated Glomerular Filtration Rate [...] [Mass/Vol] 85 mg/dL 74 - 99 mg/dL [facility] Comment on above: The [place] Diabete s Association (ADA) provides guidance for [...] Standards of Medical Care in Diabetes 2016, [place] [employer] Association. Diabetes Care. 2016.39(Suppl 1). Interpretation and review of laboratory results Abnormal [facility] Potassium [Moles/Vol] 4.1 mmol/L 3.7 - 5.1 mmol /L [facility] Protein [Mass/Vol] 6.3 g/dL 6.3 - 8.0 g/dL [facility] Sodium [Moles/Vol] 135 mmol/L Low 136 - 144 mmol/L [facility] Urea nitrogen [Mass/Vol] 11 mg/dL 7 - 21 mg/dL [facility] Comprehensive metabolic 2000 panelon 03-13-2025 Albumin [Mass/Vol] 3.6 g/dL Low 3.9-4.9 [facility] Comment on above: Order Comment: Speci men Type: BLOOD SPECIMEN Ordering Facility: [facility] Address: [address] [place] [address] Performed By: #### G LTGST #### [facility] CLIA [id number] [address] [place] [address] [place] ALP [Catalytic activity/Vol] 64 U/L Normal 34-123 [facility] Comment on above: Order Comment: Speci men Type: BLOOD SPECIMEN Ordering Facility: [facility] Address: [address] [place] [address] Performed By: #### G LTGST #### [facility] CLIA [id number] [address] [place] [address] [place] ALT [Catalytic activity/Vol] 11 U/L Normal 7-38 [facility] Comment on above: Order Comment: Speci men Type: BLOOD SPECIMEN Ordering Facility: [facility] Address: [address] [place] [address] Performed By: #### G LTGST #### [facility] CLIA [id number] [address] [place] [address] [place] Anion gap [Moles/Vol] 12 mmol/L Normal 8-15 [facility] Comment on above: Order Comment: Speci men Type: BLOOD SPECIMEN Ordering Facility: [facility] Address: [address] [place] [address] Performed By: #### G LTGST #### [facility] CLIA [id number] [address] [place] [address] [place] AST [Catalytic activity/Vol] 15 U/L Normal 13-35 [facility] Comment on above: Order Comment: Speci men Type: BLOOD SPECIMEN Ordering Facility: [facility] Address: [address] [place] [address] Performed By: #### G LTGST #### [facility] CLIA [id number] [address] [place] [address] [place] Bilirubin [Mass/Vol] 0.2 mg/dL Normal 0.2-1.3 [facility] Comment on above: Order Comment: Speci men Type: BLOOD SPECIMEN Ordering Facility: [facility] Address: [address] [place] [address] Performed By: #### G LTGST #### [facility] [id number] [address] [place] [address] [place] Calcium [Mass/Vol] 8.7 mg/dL Normal 8.5-10.2 [facility] Comment on above: Order Comment: Speci men Type: BLOOD SPECIMEN Ordering Facility: [facility] Address: [address] [place] [address] Performed By: #### G LTGST #### [facility] CLIA [id number] [address] [place] [address] [place] Chloride [Moles/Vol] 105 mmol/L Normal 98-107 [facility] Comment on above: Order Comment: Speci men Type: BLOOD SPECIMEN Ordering Facility: [facility] Address: [address] [place] [address] Performed By: #### G LTGST #### [facility] [id number] [address] [place] [address] [place] CO2 [Moles/Vol] 18 mmol/L Low 22-30 [facility] Comment on above: Order Comment: Speci men Type: BLOOD SPECIMEN Ordering Facility: [facility] Address: [address] [place] [address] Performed By: #### G LTGST #### [facility] [id number] [address] [place] [address] [place] Creatinine [Mass/Vol] 0.54 mg/dL Low 0.58-0.96 [facility] Comment on above: Order Comment: Speci men Type: BLOOD SPECIMEN Ordering Facility: [facility] Address: [address] [place] [address] Performed By: #### G LTGST #### [facility] CLIA [id number] [address] [place] [address] [place] Creatinine and Glomerular filtration rate.predicted panel (S/P/Bld) 135 mL/min/1.73m??? Normal >=60 [facility] Comment on above: Order Comment: [address] Type: BLOOD SPECIMEN Ordering Facility: [facility] Address: [address] [place] [address] Result Comment: Dennise mated Glomerular Filtration Rate [...] GFR. Performed By: #### G LTGST #### [facility] [id number] [address] [place] [address] [place] Glucose [Mass/Vol] 85 mg/dL Normal 74-99 [facility] Comment on above: Order Comment: [address] Type: BLOOD SPECIMEN Ordering Facility: [facility] Address: [address] [place] [address] Result Comment: The [place] Diabetes Association (ADA) provides guidance for cutoff [...] Standards of Medical Care in Diabetes 2016, [place] Diabetes Association. Diabetes Care. 2016.39(Suppl 1). Performed By: #### G LTGST #### [facility] [id number] [address] [place] [address] [place] Potassium [Moles/Vol] 4.1 mmol/L Normal 3.7-5.1 [facility] Comment on above: Order Comment: [address] Type: BLOOD SPECIMEN Ordering Facility: [facility] Address: [address] [place], [place] [address] Performed By: #### G LTGST #### [facility] CLIA [id number] [address] [place] [address] [place] Protein [Mass/Vol] 6.3 g/dL Normal 6.3-8.0 [facility] Comment on above: Order Comment: Speci men Type: BLOOD SPECIMEN Ordering Facility: [facility] Address: [address] [place] [address] Performed By: #### G LTGST #### [facility] CLIA [id number] [address] [place] [address] [place] Sodium [Moles/Vol] 135 mmol/L Low 136-144 [facility] Comment on above: Order Comment: Speci men Type: BLOOD SPECIMEN Ordering Facility: [facility] Address: [address] [place] [address] Performed By: #### G LTGST #### [facility] CLIA [id number] [address] [place] [address] [place] Urea nitrogen [Mass/Vol] 11 mg/dL Normal 7-21 [facility] Comment on above: Order Comment: Speci men Type: BLOOD SPECIMEN Ordering Facility: [facility] Address: [address] [place] [address] Performed By: #### G LTGST #### [facility] [id number] [address] [place] [address] [place] No Panel InformationOrdered By: [place] Ward on 03-13-2025 [facility] Prot/Creat Uron 03-13-2025 Protein/Creatinine (U) [Mass ratio] 0.06 mg/mg Normal <0.15 [facility] Comment on above: Order Comment: Speci men Type: URINE SPECIMENOrdering Facility: [facility] Address: [address] [place] [address] Result Comment: Adul t Proteinuria Categories: <0.15 mg/mg is considered normal to mildly increased 0.15 - 0.50 mg/mg is considered moderately increased >0.50 mg/mg is considered severely increased KDIGO. (2013). KDIGO 2012 Clinical Practice Guideline for the Evaluation and Management of Chronic Kidney Disease. Official Journal of the International Society of Nephrology, 3(1), 1-150. Performed By: #### 2 890-2 ####[facility]IA [id number] [place] [id number] [place] Protein/Creatinine (U) [Mass ratio]on 03-13-2025 Creatinine (U) [Mass/Vol] 80.1 mg/dL Normal 20.0-300.0 [facility] Comment on above: Order Comment: Speci men Type: URINE SPECIMENOrdering Facility: [facility] Address: [address] [place] [address] Performed By: #### 2 890-2 ####[facility] [id number] [place] [address] [place] Protein (U) [Mass/Vol] 5 mg/dL Normal 0-20 [facility] Comment on above: Order Comment: Speci men Type: URINE SPECIMENOrdering Facility: [facility] Address: [address] [place] [address] Performed By: #### 2 890-2 ####[facility] [id number] [place] [id number] [place] URIC ACIDon 03-13-2025 Urate [Mass/Vol] 4.1 mg/dL 2.5 - 6.6 mg/dL [facility] Urate SerPl-mCncon Urate [Mass/Vol] 4.1 mg/dL Normal 2.5-6.6 [facility] Comment on above: Order Comment: Speci men Type: BLOOD SPECIMEN Ordering Facility: [facility] Address: [address] [place] [address] Performed By: #### G LTGST #### [facility] [place] [facility] CLIA [id number] [address] [place] [address] [place] Urate [Mass/Vol]on Interpretation and review of laboratory results Normal [facility] CBC W Auto Differential pane l (Bld)on 02-28-2025 Basophils (Bld) [#/Vol] 0.04 10*3/uL Normal <0.11 [facility] Comment on above: Order Comment: Speci men Type: BLOOD SPECIMENOrdering Facility: [facility] Address: [address] [place] [address] Performed By: #### 5 7021-8 ####[facility] [id number] [place] [address] [place] Basophils/100 WBC (Bld) 0.4 % Normal [facility] Comment on above: Order Comment: Speci men Type: BLOOD SPECIMENOrdering Facility: [facility] [facility] Address: [address] [place] [address] Performed By: #### 5 7021-8 ####[facility] CENTERLIA [id number] [place] [address] [place] Differential cell count method Nom (Bld) Auto Normal [facility] Comment on above: Order Comment: Speci men Type: BLOOD SPECIMENOrdering Facility: [facility] Address: [address] [place] [address] Performed By: #### 5 7021-8 ####[facility] MILLWNCLIA [id number] [place] [address] [place] Eosinophils (Bld) [#/Vol] 0.06 10*3/uL Normal <0.46 [facility] Comment on above: Order Comment: Speci men Type: BLOOD SPECIMENOrdering Facility: [facility] Address: [address] [place] [address] Performed By: #### 5 7021-8 ####[facility] MILLWNCLIA [id number] [place] [address] [place] Eosinophils/100 WBC (Bld) 0.6 % Normal [facility] Comment on above: Order Comment: Speci men Type: BLOOD SPECIMENOrdering Facility: [facility] Address: [address] [place] [address] Performed By: #### 5 7021-8 ####[facility] HOSPITALBRIAN [id number] [place] [address] [place] Erythrocyte distribution width (RBC) [Ratio] 13.0 % Normal 11.5-15.0 [facility] Comment on above: Order Comment: Speci men Type: BLOOD SPECIMENOrdering Facility: [facility] Address: [address] [place] [address] Performed By: #### 5 7021-8 ####[facility] HOSPITALNCDOMINGO [id number] [place] [address] [place] Hematocrit (Bld) [Volume fraction] 34.1 % Low 36.0-46.0 [facility] Comment on above: Order Comment: Speci men Type: BLOOD SPECIMENOrdering Facility: [facility] Address: [address] [place] [address] Performed By: #### 5 7021-8 ####[facility] HOSPITALNCCHERRY [id number] [place] [address] [place] Hemoglobin (Bld) [Mass/Vol] 11.6 g/dL Normal 11.5-15.5 [facility] Comment on above: Order Comment: Speci men Type: BLOOD SPECIMENOrdering Facility: [facility] Address: [address] [place] [address] Performed By: #### 5 7021-8 ####[facility] HOSPITALNCLIA [id number] [place] [address] [place] Immature granulocytes (Bld) [#/Vol] 0.10 10*3/uL High <0.10 [facility] Comment on above: Order Comment: Speci men Type: BLOOD SPECIMENOrdering Facility: [facility] Address: [address] [place] [address] Performed By: #### 5 7021-8 ####[facility] MARTELLOwenNCCHERRYA [id number] [place] [address] [place] Immature granulocytes/100 WBC (Bld) 1.1 % Normal [facility] Comment on above: Order Comment: Speci men Type: BLOOD SPECIMENOrdering Facility: [facility] Address: [address] [place] [address] Performed By: #### 5 7021-8 ####[facility] COMM[facility] HOSPITALNCLI [id number] [place] [address] [place] Lymphocytes (Bld) [#/Vol] 1.73 10*3/uL Normal 1.00-4.00 [facility] Comment on above: Order Comment: Speci men Type: BLOOD SPECIMENOrdering Facility: [facility] Address: [address] [place] [address] Performed By: #### 5 7021-8 ####[facility] [id number] [place] [address] [place] Lymphocytes/100 WBC (Bld) 18.4 % Normal [facility] Comment on above: Order Comment: Speci men Type: BLOOD SPECIMENOrdering Facility: [facility] Address: [address] [place] [address] Performed By: #### 5 7021-8 ####[facility]ENTERA [id number] [place] [address] [place] MCH (RBC) [Entitic mass] 30.4 pg Normal 26.0-34.0 [facility] Comment on above: Order Comment: Speci men Type: BLOOD SPECIMENOrdering Facility: [facility] Address: [address] [place] [address] Performed By: #### 5 7021-8 ####[facility]ENTERWNCLIA [id number] [place] [address] [place] MCHC (RBC) [Mass/Vol] 34.0 g/dL Normal 30.5-36.0 [facility] Comment on above: Order Comment: Speci men Type: BLOOD SPECIMENOrdering Facility: [facility] Address: [address] [place] [address] Performed By: #### 5 7021-8 ####[facility] HOSPITALNCLIA [id number] [place] [address] [place] MCV (RBC) [Entitic vol] 89.3 fL Normal 80.0-100.0 [facility] Comment on above: Order Comment: Speci men Type: BLOOD SPECIMENOrdering Facility: [facility] Address: [address] [place] [address] Performed By: #### 5 7021-8 ####[facility] COMM[facility] HOSPITALNCA [id number] [place] [address] [place] Monocytes (Bld) [#/Vol] 0.65 10*3/uL Normal <0.87 [facility] Comment on above: Order Comment: Speci men Type: BLOOD SPECIMENOrdering Facility: [facility] Address: [address] [place] [address] Performed By: #### 5 7021-8 ####[facility] HOSPITALNCLIA [id number] [address] [place] Monocytes/100 WBC (Bld) 6.9 % Normal [facility] Comment on above: Order Comment: Speci men Type: BLOOD SPECIMENOrdering Facility: [facility] Address: [address] [place], [place] [address] Performed By: #### 5 7021-8 ####[facility] HOSPITALNCLIA [id number] [place] [id number] [place] Neutrophils (Bld) [#/Vol] 6.83 10*3/uL Normal 1.45-7.50 [facility] Comment on above: Order Comment: Speci men Type: BLOOD SPECIMENOrdering Facility: [facility] Address: [address] [place] [address] Performed By: #### 5 7021-8 ####[facility] CENTERLIA [id number] [place] [address] [place] Neutrophils/100 WBC (Bld) 72.6 % Normal [facility] Comment on above: Order Comment: Speci men Type: BLOOD SPECIMENOrdering Facility: [facility] Address: [address] [place] [address] Performed By: #### 5 7021-8 ####[facility] HOSPITALNCUINTAH [facility] [id number] [place] [address] [place] Nucleated RBC (Bld) [#/Vol] 10*3/uL Normal <0.01 [facility] Comment on above: Order Comment: Speci men Type: BLOOD SPECIMENOrdering Facility: [facility] Address: [address] [place] [address] Performed By: #### 5 7021-8 ####[facility] [id number] [place] [address] [place] Nucleated RBC/100 WBC (Bld) [Ratio] 0.0 /100 WBC Normal [facility] Comment on above: Order Comment: Speci men Type: BLOOD SPECIMENOrdering Facility: [facility] Address: [address] [place] [address] Performed By: #### 5 7021-8 ####[facility] HOSPITALNCLI [id number] [place] [address] [place] Platelet mean volume (Bld) [Entitic vol] 9.5 fL Normal 9.0-12.7 [facility] Comment on above: Order Comment: Speci men Type: BLOOD SPECIMENOrdering Facility: [facility] Address: [address] [place] [address] Performed By: #### 5 7021-8 ####[facility] TABNCLIA [id number] [place] [address] [place] Platelets (Bld) [#/Vol] 231 10*3/uL Normal 150-400 [facility] Comment on above: Order Comment: Speci men Type: BLOOD SPECIMENOrdering Facility: [facility] Address: [address] [place] [address] Performed By: #### 5 7021-8 ####[facility] HOSPITALNCLIA [id number] [place] [address] [place] RBC (Bld) [#/Vol] 3.82 10*6/uL Low 3.90-5.20 [facility] Comment on above: Order Comment: Speci men Type: BLOOD SPECIMENOrdering Facility: [facility] Address: [address] [place] [address] Performed By: #### 5 7021-8 ####[facility] HOSPITALNCLIA [id number] [place] [address] [place] WBC (Bld) [#/Vol] 9.41 10*3/uL Normal 3.70-11.00 [facility] Comment on above: Order Comment: Speci men Type: BLOOD SPECIMENOrdering Facility: [facility] Address: [address] [place] [address] Performed By: #### 5 7021-8 ####[facility] HOSPITALNCLIA [id number] [place] [address] [place] GESTATIONAL GLUCOSE SCREEN, 1-HOUR, 50 GRAM, NON-FASTINGon 02-28-2025 Glucose [Mass/Vol] 67 mg/dL Low 74-134 [facility] Comment on above: Order Comment: Speci men Type: BLOOD SPECIMEN [facility] Address: [address] [place] [address] Result Comment: [facility] Congress of Obstetricians and Gynecologists (Val/Will) guidelines state a gestational diabetes mellitus positive screen is made, in women not previously diagnosed with overt diabetes, when the 1 hr plasma glucose level is equal to or above 140 mg/dL. The [facility] [place] recommends a 135 mg/dL cutoff. Performed By: #### G LTGST #### [facility] CLIA [id number] [address] [place] [address] [place] Reagin and Treponema pallidu m IgG and IgM [Interp]on 02-28-2025 T. pallidum IgG+IgM IA Ql (S) Non-Reactive Normal Nonreactive [facility] Comment on above: Order Comment: [address] Type: BLOOD SPECIMEN [facility] Address: [address] [place] [address] Performed By: #### G LTGST #### [facility] CLIA [id number] [address] [place] [address] [place] Reagin+T pallidum IgG+IgM Se rPl-Impon 02-28-2025 Reagin and Treponema pallidum IgG and IgM [Interp] Cannot exclude recent Treponemal infection if specimen collected within 7-10 days after appearance of suspect lesions or 2-3 weeks after an exposure. Clinical correlation is required. Normal [facility] Comment on above: Order Comment: [address] Type: BLOOD SPECIMEN [facility] Address: [address] [place] [address] Performed By: #### G LTGST #### [facility] CLIA [id number] [address] [place] [address] [place] CNOVon 02-20-2025 CNOV Office Visit (UCWSTR) NATALY DSOUZA ([id number]) 3 F Date Time Provider Department 02/20/25 [...] colds per year. Colds are transmitted from cqxmzj-fr-nmotbm. Less often, the virus can be transmitted [...] medical conditions and those who use other tnwa-weu-dlrggjw or prescription medications should speak with their healthcare provider or pharmacist to ensure that it is safe to use these treatments. Runny nose and nasal congestion -- Runny nose and congestion may improve (more content not included)... Normal [facility] GLUCOSE, BLOOD (POC)on 02-20 Glucose [Mass/Vol] 115 mg/dL Abnormal 74 - 99 mg/dL [facility] Comment on above: Location:[address], [place], [address] The Accu-Chek Inform II glucose meter has [...] Interpretation and review of laboratory results Abnormal [facility] Examination level ultrasound on 01-03-2025 Indication Standard [...] 12 oz EFW by: [employer] (HC-AC-FL) [employer] 5.4 mm CM 3.5 mm 9% Nicolaides [...] normal LVOT view: normal 3-vessel view: normal 2-vwkdsv-nfmewgi view: normal Heart / Thorax Situs: situs [...] Read By: Rena Bradford M.D. MATERNAL MEDICINE [facility] Radiology Study observation (narrative) [facility] CBC W Auto Differential pane l (Bld)on 11-20-2024 Basophils (Bld) [#/Vol] 10*3/uL Normal <0.11 [facility] Comment on above: Order Comment: Speci men Type: BLOOD SPECIMENOrdering Facility: [facility] Address: [address] [place] [address] Performed By: #### 5 7021-8 ####[facility] LABCLIA [id number] [place] [address] [place] Basophils/100 WBC (Bld) 0.3 % Normal [facility] Comment on above: Order Comment: Speci men Type: BLOOD SPECIMENOrdering Facility: [facility] Address: [address] [place] [address] Performed By: #### 5 7021-8 ####[facility] LABCLIA [id number] [place] [address] [place] Differential cell count method Nom (Bld) Auto Normal [facility] Comment on above: Order Comment: Speci men Type: BLOOD SPECIMENOrdering Facility: [facility] Address: [address] [place] [address] Performed By: #### 5 7021-8 ####[facility] LABCLIA [id number] [address], [place] [address] [place] Eosinophils (Bld) [#/Vol] 10*3/uL Normal <0.46 [facility] Comment on above: Order Comment: Speci men Type: BLOOD SPECIMENOrdering Facility: [facility] Address: [address] [place] [address] Performed By: #### 5 7021-8 ####[facility] LABCLIA [id number] [place] [address] [place] Eosinophils/100 WBC (Bld) 0.0 % Normal [facility] Comment on above: Order Comment: Speci men Type: BLOOD SPECIMENOrdering Facility: [facility] Address: [address] [place] [address] Performed By: #### 5 7021-8 ####[facility] LABCLIA [id number] [place] [id number] [place] Erythrocyte distribution width (RBC) [Ratio] 13.0 % Normal 11.5-15.0 [facility] Comment on above: Order Comment: Speci men Type: BLOOD SPECIMENOrdering Facility: [facility] Address: [address] [place] [address] Performed By: #### 5 7021-8 ####[facility] LABCLIA [id number] [place] [address] [place] Hematocrit (Bld) [Volume fraction] 38.4 % Normal 36.0-46.0 [facility] Comment on above: Order Comment: Speci men Type: BLOOD SPECIMENOrdering Facility: [facility] Address: [address] [place] [address] Performed By: #### 5 7021-8 ####[facility] LABIA [id number] [place] [address] [place] Hemoglobin (Bld) [Mass/Vol] 13.1 g/dL Normal 11.5-15.5 [facility] Comment on above: Order Comment: Speci men Type: BLOOD SPECIMENOrdering Facility: [facility] Address: [address] [place] [address] Performed By: #### 5 7021-8 ####[facility] LABIA [id number] [place] [address] [place] Immature granulocytes (Bld) [#/Vol] 0.03 10*3/uL Normal <0.10 [facility] Comment on above: Order Comment: Speci men Type: BLOOD SPECIMENOrdering Facility: [facility] Address: [address] [place] [address] Performed By: #### 5 7021-8 ####[facility] LABIA [id number] [place] [address] [place] Immature granulocytes/100 WBC (Bld) 0.8 % Normal [facility] Comment on above: Order Comment: Speci men Type: BLOOD SPECIMENOrdering Facility: [facility] Address: [address] [place] [address] Performed By: #### 5 7021-8 ####[facility] LABIA [id number] [place] [address] [place] Lymphocytes (Bld) [#/Vol] 1.06 10*3/uL Normal 1.00-4.00 [facility] Comment on above: Order Comment: Speci men Type: BLOOD SPECIMENOrdering Facility: [facility] Address: [address] [place] [address] Performed By: #### 5 7021-8 ####[facility] LABIA [id number] [place] [address] [place] Lymphocytes/100 WBC (Bld) 26.7 % Normal [facility] Comment on above: Order Comment: Speci men Type: BLOOD SPECIMENOrdering Facility: [facility] Address: [address] [place] [address] Performed By: #### 5 7021-8 ####[facility] LABIA [id number] [place] [address] [place] MCH (RBC) [Entitic mass] 29.4 pg Normal 26.0-34.0 [facility] Comment on above: Order Comment: Speci men Type: BLOOD SPECIMENOrdering Facility: [facility] Address: [address] [place] [address] Performed By: #### 5 7021-8 ####[facility] LABIA [id number] [place] [address] [place] MCHC (RBC) [Mass/Vol] 34.1 g/dL Normal 30.5-36.0 [facility] Comment on above: Order Comment: Speci men Type: BLOOD SPECIMENOrdering Facility: [facility] Address: [address] [place] [address] Performed By: #### 5 7021-8 ####[facility] LABIA [id number] [place] [address] [place] MCV (RBC) [Entitic vol] 86.1 fL Normal 80.0-100.0 [facility] Comment on above: Order Comment: Speci men Type: BLOOD SPECIMENOrdering Facility: [facility] Address: [address] [place] [address] Performed By: #### 5 7021-8 ####[facility] LABCLIA [id number] [address], [place] [address] [place] Monocytes (Bld) [#/Vol] 0.35 10*3/uL Normal <0.87 [facility] Comment on above: Order Comment: Speci men Type: BLOOD SPECIMENOrdering Facility: [facility] Address: [address] [place] [address] Performed By: #### 5 7021-8 ####[facility] LABCLIA [id number] [place] [address] [place] Monocytes/100 WBC (Bld) 8.8 % Normal [facility] Comment on above: Order Comment: Speci men Type: BLOOD SPECIMENOrdering Facility: [facility] Address: [address] [place] [address] Performed By: #### 5 7021-8 ####[facility] LABCLIA [id number] [place] [address] [place] Neutrophils (Bld) [#/Vol] 2.52 10*3/uL Normal 1.45-7.50 [facility] Comment on above: Order Comment: Speci men Type: BLOOD SPECIMENOrdering Facility: [facility] Address: [address] [place] [address] Performed By: #### 5 7021-8 ####[facility] LABCLIA [id number] [place] [address] [place] Neutrophils/100 WBC (Bld) 63.4 % Normal [facility] Comment on above: Order Comment: Speci men Type: BLOOD SPECIMENOrdering Facility: [facility] Address: [address] [place] [address] Performed By: #### 5 7021-8 ####[facility] LABCLIA [id number] [place] [id number] [place] Nucleated RBC (Bld) [#/Vol] 10*3/uL Normal <0.01 [facility] Comment on above: Order Comment: Speci men Type: BLOOD SPECIMENOrdering Facility: [facility] Address: [address] [place] [address] Performed By: #### 5 7021-8 ####[facility] LABCLIA [id number] [place] [address] [place] Nucleated RBC/100 WBC (Bld) [Ratio] 0.0 /100 WBC Normal [facility] Comment on above: Order Comment: Speci men Type: BLOOD SPECIMENOrdering Facility: [facility] Address: [address] [place] [address] Performed By: #### 5 7021-8 ####[facility] LABIA [id number] [place] [address] [place] Platelet mean volume (Bld) [Entitic vol] 9.9 fL Normal 9.0-12.7 [facility] Comment on above: Order Comment: Speci men Type: BLOOD SPECIMENOrdering Facility: [facility] Address: [address] [place] [address] Performed By: #### 5 7021-8 ####[facility] LABIA [id number] [place] [address] [place] Platelets (Bld) [#/Vol] 220 10*3/uL Normal 150-400 [facility] Comment on above: Order Comment: Speci men Type: BLOOD SPECIMENOrdering Facility: [facility] Address: [address] [place] [address] Performed By: #### 5 7021-8 ####[facility] LABIA [id number] [place] [address] [place] RBC (Bld) [#/Vol] 4.46 10*6/uL Normal 3.90-5.20 [facility] Comment on above: Order Comment: Speci men Type: BLOOD SPECIMENOrdering Facility: [facility] Address: [address] [place] [address] Performed By: #### 5 7021-8 ####[facility] LABCLIA [id number] [address] [address] [place] WBC (Bld) [#/Vol] 3.97 10*3/uL Normal 3.70-11.00 [facility] Comment on above: Order Comment: Speci men Type: BLOOD SPECIMENOrdering Facility: [facility] Address: [address] [place] [id number] Performed By: #### 5 7021-8 ####[facility] LABCLIA [id number] [place] [id number] [place] Examination level ultrasound on 11-20-2024 Indication First trimester anatomic survey Impression REMOTE READ The patient is referred for a first trimester anatomy scan including nuchal translucency measurement as clinically indicated. - Single, live, intrauterine . - [place] rump length measurement is consistent with the [...] view: suboptimal 4-chamber view with color: suboptimal 3-uuxigr-sqyedsl view: suboptimal Abdominal cord insertion: normal Stomach: [...] Read By: Rena Bradford M.D. MATERNAL MEDICINE [facility] Radiology Study observation (narrative) [facility] HBV surface Ag Ser Qlon HBV surface Ag Ql (S) Negative Normal Negative [facility] Comment on above: Order Comment: Speci men Type: BLOOD SPECIMENOrdering Facility: [facility] Address: [address] [place] [address] Performed By: #### 5 195-3, 11782-4, 56215-1 ####[facility] LABCLIA [id number] [address] [place] HCV Ab Ser Qlon 11-20-2024 HCV Ab Ql (S) Negative Normal Negative [facility] Comment on above: Order Comment: Speci men Type: BLOOD SPECIMENOrdering Facility: [facility] Address: [address] [place] [address] Result Comment: The result suggests no evidence of active infection with Hepatitis C virus. Should recent infection be suspected, repeat testing may be considered 4-6 weeks after this draw. Performed By: #### 1 6128-1 ####[facility] LABCLIA [id number] [place] [address] [place] HIV 1+2 Ab IA Qlon 5 HIV 1 and 2 Ab IA.rapid Nom (S/P/Bld) Normal [facility] Comment on above: Order Comment: Speci men Type: BLOOD SPECIMENOrdering Facility: [facility] Address: [address] [place] [address] Result Comment: Test not indicated. Performed By: #### 5 195-3, 29160-7, 15443-7 ####[facility] LABIA [id number] [place] [address] [place] HIV 1+2 Ab+HIV1 p24 Ag IA Ql Non-Reactive Normal Nonreactive [facility] Comment on above: Order Comment: Speci men Type: BLOOD SPECIMENOrdering Facility: [facility] Address: [address] [place] [address] Performed By: #### 5 195-3, 53030-7, 12102-8 ####[facility] LABIA [id number] [place] [address] [place] HIV immunoassay testing algorithm interpretation (S/P/Bld) [Interp] Normal [facility] Comment on above: Order Comment: Speci men Type: BLOOD SPECIMENOrdering Facility: [facility] Address: [address] [place] [address] Result Comment: No e vidence of HIV-1 or HIV-2 infection. Should recent infection be suspected, repeat testing may be considered 2-3 weeks after this draw. [place] Rev. Code 3701.243(E): This information has been [...] or diagnoses. Performed By: #### 5 195-3, 81056-5, 46389-5 ####[facility] LABCLIA [id number] [facility] [id number] [place] [address] OF [facility] HbA1c (Bld)on 11-20-2024 Average glucose Estimated from glycated hemoglobin (Bld) [Mass/Vol] 88 mg/dL Normal [facility] Comment on above: Order Comment: [address] Type: BLOOD SPECIMEN [facility] Address: [address] [place] [address] Result Comment: eAG: (Estimated average glucose) is a calculated value from HgbA1c and is call center support representative of the average blood glucose level in the last 2-3 month period. Performed By: #### G LTGST #### [facility] [id number] [address] [place] [address] HbA1c (Bld) [Mass fraction] 4.7 % Normal 4.3-5.6 [facility] Comment on above: Order Comment: [address]ran [facility] Type: BLOOD SPECIMEN [facility]: [facility] [facility] Address: [address] [place] [address] Result Comment: [facility] Diabetes Association guidelines indicate that patients with HgbA1c in the range 5.7-6.4% are at increased risk for development of diabetes, and intervention by lifestyle modification may be beneficial. HgbA1c greater or equal to 6.5% is considered diagnostic of diabetes. Performed By: #### G LTGST #### [facility] [id number] [address] [place] [address] OF [facility] RUBELLA IGG ANTIBODYon 11-20 RUBELLA IGG AB, QUAL Positive Normal Positive [facility] Comment on above: Order Comment: Kamran lane Type: BLOOD SPECIMEN Ordering Facility: [facility] Address: [address] [place] [address] Result Comment: The result suggests recent or past exposure to Rubella virus or history of Rubella vaccination. Positive result may also be seen due to presence of passively-transferred antibodies. Please correlate with patient's history. Performed By: #### G LTGST #### [facility] CLIA [id number] [address] [place] [address] [place] Reagin and Treponema pallidu m IgG and IgM [Interp]on 11-20-2024 T. pallidum IgG+IgM IA Ql (S) Non-Reactive Normal Nonreactive [facility] Comment on above: Order Comment: Speci men Type: BLOOD SPECIMENOrdering Facility: [facility] Address: [address] [place] [address] Performed By: #### 5 195-3, 33420-1, 50560-1 ####[facility] [id number] [place] [id number] [place] Reagin+T pallidum IgG+IgM Se rPl-Impon 11-20-2024 Reagin and Treponema pallidum IgG and IgM [Interp] Cannot exclude recent Treponemal infection if specimen collected within 7-10 days after appearance of suspect lesions or 2-3 weeks after an exposure. Clinical correlation is required. Normal [facility] Comment on above: Order Comment: Speci men Type: BLOOD SPECIMENOrdering Facility: [facility] Address: [facility] [place] [address] Performed By: #### 5 195-3, 70951-2, 09639-6 ####[facility] [id number] [place] [id number] [place] CBC W/Diff, Automatedon 10-22 Absolute Lymph 0.52 X10 3/uL Low 0.83-4.51 [facility] Comment on above: Performed By: #### L 500.4050, L100.0100, L501.2450 #### [facility] [address] [place], [address] Absolute Neut 9.5 X10 3/uL High 2.0-7.7 [facility] Comment on above: Performed By: #### L 500.4050, L100.0100, L501.2450 #### [facility] [address] [place], [address] Basophils/100 WBC (Bld) 0.2 % Normal 0-1 [facility] Comment on above: Performed By: #### L 500.4050, L100.0100, L501.2450 #### [facility] [address] [place], [address] Eosinophils/100 WBC (Bld) 0.2 % Normal 0-5 [facility] Comment on above: Performed By: #### L 500.4050, L100.0100, L501.2450 #### [facility] [address] [place], [address] Erythrocyte distribution width (RBC) [Ratio] 13.1 % Normal 11.6-14.6 [facility] Comment on above: Performed By: #### L 500.4050, L100.0100, L501.2450 #### [facility] [address] [place], [address] Hematocrit (Bld) [Volume fraction] 39.4 % Normal 37-47 [facility] Comment on above: Performed By: #### L 500.4050, L100.0100, L501.2450 #### [facility] [address] [place], [address] Hemoglobin (Bld) [Mass/Vol] 13.6 g/dL Normal 12.0-15.0 [facility] Comment on above: Performed By: #### L 500.4050, L100.0100, L501.2450 #### [facility] [address] [place], [address] IG% 0.500 Normal 0.0-0.9 [facility] Comment on above: Result Comment: IG% - Immature Granulocytes (promyelocytes, myelocytes and metamyelocytes) > 1% indicates that a LEFT SHIFT is Present. Performed By: #### L 500.4050, L100.0100, L501.2450 #### [facility] [address] [place], [address] Lymphocytes/100 WBC (Bld) 4.9 % Low 19-41 [facility] Comment on above: Performed By: #### L 500.4050, L100.0100, L501.2450 #### [facility] [address] [place], [address] MCH (RBC) [Entitic mass] 29.7 pg Normal 27.0-32.0 [facility] Comment on above: Performed By: #### L 500.4050, L100.0100, L501.2450 #### [facility] [address] [place], [address] MCHC (RBC) [Mass/Vol] 34.5 g/dL Normal 32-36 [facility] Comment on above: Performed By: #### L 500.4050, L100.0100, L501.2450 #### [facility] [address] [place], [address] MCV (RBC) [Entitic vol] 86.0 fL Normal 81-99 [facility] Comment on above: Performed By: #### L 500.4050, L100.0100, L501.2450 #### [facility] [address] [place], [address] Monocytes/100 WBC (Bld) 4.1 % Normal 0-10 [facility] Comment on above: Performed By: #### L 500.4050, L100.0100, L501.2450 #### [facility] [address] [place], [address] Neutrophils/100 WBC (Bld) 90.1 % High 47-70 [facility] Comment on above: Performed By: #### L 500.4050, L100.0100, L501.2450 #### [facility] [address] [place], [address] Nucleated RBC (Bld) [#/Vol] 0 10*3/uL Normal 0-5 [facility] Comment on above: Performed By: #### L 500.4050, L100.0100, L501.2450 #### [facility] [address] [place], [address] Platelet mean volume (Bld) [Entitic vol] 9.6 fL Normal 6.2-12.0 [facility] Comment on above: Performed By: #### L 500.4050, L100.0100, L501.2450 #### [facility] [address] [place], [address] Platelets (Bld) [#/Vol] 230 10*3/uL Normal 150-450 [facility] Comment on above: Performed By: #### L 500.4050, L100.0100, L501.2450 #### [facility] [address] [place], [address] RBC (Bld) [#/Vol] 4.58 10*6/uL Normal 4.2-5.4 [facility] Comment on above: Performed By: #### L 500.4050, L100.0100, L501.2450 #### [facility] [address] [place], [address] RDW SD 40.2 fl Normal 35.1-43.9 [facility] Comment on above: Performed By: #### L 500.4050, L100.0100, L501.2450 #### [facility] [address] [place], [address] WBC (Bld) [#/Vol] 10.5 10*3/uL Normal 4.4-11.0 [facility] Comment on above: Performed By: #### L 500.4050, L100.0100, L501.2450 #### [facility] [address] [place], [address] Comprehensive Metabolic Prof ilon 11-17-2024 Albumin [Mass/Vol] 4.2 g/dL Normal 3.5-5.0 [facility] Comment on above: Performed By: #### L 500.4050, L100.0100, L501.2450 #### [facility] [address] [place], [address] Albumin/Globulin [Mass ratio] 1.5 {ratio} Normal 0.9-2.4 [facility] Comment on above: Performed By: #### L 500.4050, L100.0100, L501.2450 #### [facility] [address] [place], [address] ALK PHOS 53 U/L Normal 35-104 [facility] Comment on above: Performed By: #### L 500.4050, L100.0100, L501.2450 #### [facility] [address] [place], [address] ALT [Catalytic activity/Vol] 15 U/L Normal <=34 [facility] Comment on above: Performed By: #### L 500.4050, L100.0100, L501.2450 #### [facility] [address] [place], [address] Anion gap [Moles/Vol] 14 mmol/L Normal 5-15 [facility] Comment on above: Performed By: #### L 500.4050, L100.0100, L501.2450 #### [facility] [address] [place], [address] AST [Catalytic activity/Vol] 18 U/L Normal <=31 [facility] Comment on above: Performed By: #### L 500.4050, L100.0100, L501.2450 #### [facility] [address] [place], [address] Bilirubin [Mass/Vol] 0.42 mg/dL Normal 0.00-1.30 [facility] Comment on above: Performed By: #### L 500.4050, L100.0100, L501.2450 #### [facility] [address] [place], [address] BUN/CRE 12.4 RATIO Normal 10-20 [facility] Comment on above: Performed By: #### L 500.4050, L100.0100, L501.2450 #### [facility] [address] [place], [address] Calcium [Mass/Vol] 9.0 mg/dL Normal 7.6-11.0 [facility] Comment on above: Performed By: #### L 500.4050, L100.0100, L501.2450 #### [facility] [address] [place], [address] Chloride [Moles/Vol] 103 mmol/L Normal 96-108 [facility] Comment on above: Performed By: #### L 500.4050, L100.0100, L501.2450 #### [facility] [address] [place], [address] CO2 [Moles/Vol] 19.7 mmol/L Low 22.0-29.0 [facility] Comment on above: Performed By: #### L 500.4050, L100.0100, L501.2450 #### [facility] [address] [place], [address] Creatinine [Mass/Vol] 0.54 mg/dL Low 0.70-1.20 [facility] Comment on above: Performed By: #### L 500.4050, L100.0100, L501.2450 #### [facility] [address] [place], [address] ECRCL 151.69 ml/min Normal [facility] Comment on above: Performed By: #### L 500.4050, L100.0100, L501.2450 #### [facility] [address] [place], [address] GFR/1.73 sq M.predicted among non-blacks MDRD (S/P/Bld) [Vol rate/Area] 135 mL/min/{1.73_m2} Normal >60 [facility] Comment on above: Result Comment: mL/m in/1.73m2 CKD-EPI Creatinine Equation (2020) Performed By: #### L 500.4050, L100.0100, L501.2450 #### [facility] [address] [place], [address] Globulin (S) [Mass/Vol] 2.9 g/dL Normal 2.2-4.2 [facility] Comment on above: Performed By: #### L 500.4050, L100.0100, L501.2450 #### [facility] [address] [place], [address] Glucose [Mass/Vol] 86 mg/dL Normal 70-99 [facility] Comment on above: Performed By: #### L 500.4050, L100.0100, L501.2450 #### [facility] [address] [place], [address] Potassium [Moles/Vol] 3.8 mmol/L Normal 3.3-5.1 [facility] Comment on above: Performed By: #### L 500.4050, L100.0100, L501.2450 #### [facility] [address] [place], [address] Sodium [Moles/Vol] 136 mmol/L Normal 133-145 [facility] Comment on above: Performed By: #### L 500.4050, L100.0100, L501.2450 #### [facility] [address] [place], [address] T PROT 7.0 g/dL Normal 5.9-8.4 [facility] Comment on above: Performed By: #### L 500.4050, L100.0100, L501.2450 #### [facility] [address] [place], [address] Urea nitrogen [Mass/Vol] 7 mg/dL Normal 4-19 [facility] Comment on above: Performed By: #### L 500.4050, L100.0100, L501.2450 #### [facility] [address] [place], [address] Emergency Department Summary on 11-17-2024 Emergency Department Summary [facility] Medical Records Department [address] [place] [address] Emergency Department Summary 11/17/24 MR#: [id number] Acct: [id number] Name: NATALY DSOUZA Rep #: [id number] : 2005 19 From: Mathieu Luna DO PCP: Care Physician,No Primary Status:DEP ER Location: ED HPI History of Present Illness Chief Complaint: Nausea/Vomiting/Diar yusra [facility] Medical History Physical exam, pre-employment Home Medications [...] History obtained from others: none Consults: none [facility] Narrative: Patient was initially tachycardic rate of [...] patient's con (more content not included)... Normal [facility] Lipaseon 11-17-2024 Lipase [Catalytic activity/Vol] 25 U/L Normal 13-75 [facility] Comment on above: Result Comment: Leonora golden note: LIPASE revised reference range effective 22. New Lipase methodology. Expected to produce lower values than the previous assay method. NEW Reference Range: 13 - 75 U/L Performed By: #### L 500.4050, L100.0100, L501.2450 #### [facility] [address] [place], [address] Urinalysis, Completeon 11-17 KETONE UR 150 mg/dl Abnormal Negative [facility] Comment on above: Order Comment: OLIVER RODRIGUEZ TO SPECIFY Result Comment: CRIT ICAL VALUE *H CRITICAL VALUE CALLED TO ULISES Veliz 11/17/246 López Mcintyre. RESULTS READ BACK BY . Performed By: #### L 400.0001 #### [facility] [address] [place], [address] BACTERIA 3+ /hpf Normal None Seen [facility] Comment on above: Order Comment: OLIVER RODRIGUEZ TO SPECIFY Performed By: #### L 400.0001 #### [facility] [address] [place], [address] EPI,SQUAMOUS 25-50 SEEN Normal 5-10 [facility] Comment on above: Order Comment: OLIVER CTOR TO SPECIFY Performed By: #### L 400.0001 #### [facility] [address] [place], [address] Mucus Ql (Urine sed) 2+ /hpf Normal [facility] Comment on above: Order Comment: OLIVER CTOR TO SPECIFY Performed By: #### L 400.0001 #### [facility] [address] [place], [address] RBC 0 SEEN Normal 0-5 [facility] Comment on above: Order Comment: OLIVER CTOR TO SPECIFY Performed By: #### L 400.0001 #### [facility] [address] [place], [address] WBC 5-10 SEEN Normal 0-5 [facility] Comment on above: Order Comment: OLIVER CTOR TO SPECIFY Performed By: #### L 400.0001 #### [facility] [address] [place], [address] BILIRUBIN URINE Negative Normal Negative [facility] Comment on above: Order Comment: OLIVER CTOR TO SPECIFY Performed By: #### L 400.0001 #### [facility] [address] [place], [address] Clarity (U) Sl. Cloudy Normal Clear [facility] Comment on above: Order Comment: OLIVER CTOR TO SPECIFY Performed By: #### L 400.0001 #### [facility] [address] [place], [address] Color (U) Yellow Normal Yellow [facility] Comment on above: Order Comment: OLIVER CTOR TO SPECIFY Performed By: #### L 400.0001 #### [facility] [address] [place], [address] GLUCOSE, UR Normal Normal Normal [facility] Comment on above: Order Comment: OLIVER CTOR TO SPECIFY Performed By: #### L 400.0001 #### [facility] [address] [place], [address] LEUK ESTERASE 25 /ul Abnormal Negative [facility] Comment on above: Order Comment: COLLE CTOR TO SPECIFY Performed By: #### L 400.0001 #### [facility] [address] [place], [address] Nitrite Ql (U) Negative Normal Negative [facility] Comment on above: Order Comment: COLLE CTOR TO SPECIFY Performed By: #### L 400.0001 #### [facility] [address] [place], [address] OCCULT BLOOD-UR Negative Normal Negative [facility] Comment on above: Order Comment: OLIVER CTOR TO SPECIFY Performed By: #### L 400.0001 #### [facility] [address] [place], [address] pH UR 6.0 Normal 5.0 - 8.0 [facility] Comment on above: Order Comment: OLIVER CTOR TO SPECIFY Performed By: #### L 400.0001 #### [facility] [address] [place], [address] PROT DIPSTX 100 mg/dl Abnormal Negative [facility] Comment on above: Order Comment: OLIVER CTOR TO SPECIFY Performed By: #### L 400.0001 #### [facility] [address] [place], [address] SP.GR. DIPSTX 1.030 Normal 1.002-1.030 [facility] Comment on above: Order Comment: OLIVER CTOR TO SPECIFY Performed By: #### L 400.0001 #### [facility] [address] [place], [address] UROBILI Normal Normal Normal [facility] Comment on above: Order Comment: OLIVER CTOR TO SPECIFY Performed By: #### L 400.0001 #### [facility] [address] [place], [address] Bacteria Ur Culton Bacteria identified Cx Nom (U) ORGANISM ID: 1 10,000 -<50,000 CFU/ml Normal urogenital ai Normal [facility] Comment on above: Performed By: #### 6 30-4 ####[facility] [id number] [address] OF [place] C. trachomatis+N. gonorrhoea e DNA HIRAM+probe Ql (Unsp spec)on 10-23-2024 C. trachomatis rRNA HIRAM+probe Ql (Unsp spec) Not detected Normal Not detected [facility] Comment on above: Order Comment: Speci men Type: BLOOD SPECIMEN Ordering Facility: [facility] Address: [address] [place] [address] Performed By: #### G LTGST #### [facility] [id number] [address] [place] [address] OF [facility] N. gonorrhoeae rRNA HIRAM+probe Ql (Unsp spec) Not detected Normal Not detected [facility] Comment on above: Order Comment: Speci men Type: BLOOD SPECIMEN Ordering Facility: [facility] Address: [address] [place] [address] Performed By: #### G LTGST #### [id number] [address] [place] [address] [place] CNCOon 10-23-2024 CNCO Letter Text Normal [facility] CNPNon 10-09-2024 CNPN Telephone (OBGYWM) NATALY DSOUZA ([id number]) 3 F Date Time Provider Department 10/09/24 [...] Status:Closed by MANUELA BAUGH on 10/09/24 Normal [facility] Examination level ultrasound on 10-09-2024 Indication dating, viability Impression - Single, live, intrauterine . - An intrauterine gestational sac with a yolk sac and pole is present. - [place] rump length measurement is consistent with the [...] Read By: Sil Bobo M.D. MATERNAL MEDICINE [facility] CNOVon 10-06-2024 CNOV Office Visit (OBGYWM) NATALY DSOUZA ([id number]) 3 F Date Time Provider Department 10/06/24 [...] L0 SAB0 IAB0 Ectopic0 Multiple0 Live Births0 Collections Agent History LMP: 08/16/2024 (Exact Date), Age at Menarche: 11 Age at First : Age at Menopause: Collections Agent History Comments: Sexual Activity: Yes; Male Contraception: [...] discussed with the Patient or Patient's Authorized Washer And Capper Machine Operator. As applicable, any other physician, advance practice provider, medical student, or other health professional student that will be observing or involved in the sensitive examination for educational or training purposes was discussed with the Patient or Authorized Washer And Capper Machine Operator. The Patient or Authorized Washer And Capper Machine Operator has agreed to proceed with the sensitive [...] Eliud Clark MD Referring Provider: NELLY GUTIERREZ [[id number]] Allergies As of Date: 10/06/2024 (No Known [...] Estradiol-Iron ( (more content not included)... Normal [facility] Examination level ultrasound on 10-06-2024 Radiology Study observation (narrative) [facility] B-HCG SerPl-aCn[place] 5 [place] [address].0 m[IU]/mL High <5.0 [facility] Comment on above: Order Comment: Speci men Type: BLOOD SPECIMENOrdering Facility: [facility] Address: [address] [place] [address] Result Comment: BRADLEY TITATIVE HCG NORMAL RANGES Weeks of Gestation (Weeks Since LMP) 3 Weeks (5.8-71.2 mIU/mL) 4 Weeks (9.5-750 mIU/mL) 5 Weeks (217-7138 mIU/mL) 6 Weeks (158-89573 mIU/mL) 7 Weeks (3697-108030 mIU/mL) 8 Weeks (60030-240605 mIU/mL) 9 Weeks (06018-476855 mIU/mL) 10 Weeks (56314-241548 mIU/mL) 12 Weeks (71375-961897 mIU/mL) Referenced to 4th IS of NIBS Performed By: #### 2 1198-7 ####[facility] [id number] [address] STATES OF [facility] B-HCG SerPl-aCncon 5 [place] [address].0 m[IU]/mL High <5.0 [facility] Comment on above: Order Comment: Speci men Type: BLOOD SPECIMEN Ordering Facility: [facility] Address: [address] [place] [address] Result Comment: BRADLEY TITATIVE HCG NORMAL RANGES Weeks of Gestation (Weeks Since LMP) 3 Weeks (5.8-71.2 mIU/mL) 4 Weeks (9.5-750 mIU/mL) 5 Weeks (217-7138 mIU/mL) 6 Weeks (158-30651 mIU/mL) 7 Weeks (3697-430670 mIU/mL) 8 Weeks (16729-580325 mIU/mL) 9 Weeks (55650-021843 mIU/mL) 10 Weeks (20037-912157 mIU/mL) 12 Weeks (75412-555350 mIU/mL) Referenced to 4th IS of NIBSC Performed By: #### G LTGST #### [facility] CLIA [id number] [address] [place] [address] STATES OF [facility] B-HCG SerPl-aCncon 5 [place] [address].0 m[IU]/mL High <5.0 [facility] Comment on above: Order Comment: Speci men Type: BLOOD SPECIMEN Ordering Facility: [facility] Address: [address] [place] [address] Result Comment: BRADLEY TITATIVE HCG NORMAL RANGES Weeks of Gestation (Weeks Since LMP) 3 Weeks (5.8-71.2 mIU/mL) 4 Weeks (9.5-750 mIU/mL) 5 Weeks (217-7138 mIU/mL) 6 Weeks (158-44153 mIU/mL) 7 Weeks (3697-251858 mIU/mL) 8 Weeks (63589-694903 mIU/mL) 9 Weeks (57630-937286 mIU/mL) 10 Weeks (05838-415612 mIU/mL) 12 Weeks (81076-216095 mIU/mL) Referenced to 4th IS of [facility] Performed By: #### 2 1198-7 #### [facility] CLIA [id number] [address] [place], [place] [address]K [address] OF [facility] CNOVon 09-27-2024 CNOV Office Visit (OBGYWM) LIANNAROELJN ([id number]) 3 F Date Time Provider Department 09/27/24 [...] L0 SAB0 IAB0 Ectopic0 Multiple0 Live Births0 Collections Agent History LMP: 08/16/2024 (Exact Date), Age at Menarche: 11 Age at First : Age at Menopause: Collections Agent History Comments: Sexual Activity: Yes; Male Contraception: [...] discussed with the Patient or Patient's Authorized Washer And Capper Machine Operator. As applicable, any other physician, advance practice provider, medical student, or other health professional student that will be observing or involved in the sensitive examination for educational or training purposes was discussed with the Patient or Authorized Washer And Capper Machine Operator. The Patient or Authorized Washer And Capper Machine Operator has agreed to proceed with the sensitive examination. (Sensitive examination includes inspection and/or palpation of the breasts, pelvis, prostate and anorectal regions). EXAM: BP 98/64 Wt 146 lb (66.2kg) LMP 08/16/2024 GENERAL: pleasant, female in no apparent distress HEENT: Normocephalic and atraumatic NECK: Supple and full range of motion ABDOMEN: soft, non-tender, and no masses PELVIC: external genitalia normal, normal Bartholin's glands, urethra, Athens's glands, no vulvar lesions, no cervical lesions, [...] in [O26.859] Order(s):HCG QUANTITATIVE [SQHCGQT] Order #: [id number] STANDING TYPE + SCREEN [SQTSPN] Order #: [id number] FUTURE Prescriptions as of 09/27/2024 - Norethindrn A-E Estradiol-Iron (JUNEL FE 24) 1 mg-20 mcg (24)/75 mg (4) Take 1 tablet by mouth once daily. Problem List As Of Date 09/27/2024 Noted Resolved Myopia, bilateral [H52.13] 10/06/2019 Neck pain on left side [M54.2] 06/10/2020 Encounter Status:Closed by KERRIE MCKEON on 09/27/24 [facility] Geo 09-27-2024 [facility] Telephone (WSTR) NATALY DSOUZA ([id number]) 3 F Date Time Provider Department 09/27/24 JACKLYN CLARK [facility] During your visit today, we recorded the following information about you: Jacklyn Clark APRN.CREDIT COLLECTIONS REP 09/27/2024 5:58 PM Signed Patient about positive yeast results. Patient did see her [employer] HELPER and they do not want to treat [...] Status:Closed by JACKLYN CLARK on 09/27/24 Normal [facility] TYPE + SCREEN PRENATALon ABO A Normal [facility] Comment on above: Order Comment: Speci men Type: BLOOD SPECIMENOrdering Facility: [facility] Address: [address] [place] [address] Performed By: #### T SPN ####[facility] [id number] [place] [address] [place] Rh Nom (Bld) Positive Normal [facility] Comment on above: Order Comment: Speci men Type: BLOOD SPECIMENOrdering Facility: [facility] Address: [address] [place] [address] Performed By: #### T SPN ####CC MAIN BLOOD BANKCLIA [id number] [place] [address] [place] TYPE AND SCREEN EXPIRATION 09/30/2024 23:59 Normal [facility] Comment on above: Order Comment: Speci men Type: BLOOD SPECIMENOrdering Facility: [facility] Address: [address] [place] [address] Performed By: #### T SPN ####CC [facility] BANKIA [id number] [place] [address] [place] BACTERIAL VAGINOSIS NAATon 0 09-26-2024 Lactobacillus crispatus+gasseri+zuleyka enii + Gardnerella vaginalis + Atopobium vaginae rRNA HIRAM+probe Ql (Vag fld) Not detected Normal Not detected [facility] Comment on above: Order Comment: Speci men Type: SWABOrdering Facility: [facility] Address: [address] [place] [address] Performed By: #### C VTV, BVAMP ####[facility] LABCLIA [id number] [place] [address] [place] Bacteria Ur Culton Bacteria identified Cx Nom (U) ORGANISM ID: 1 50,000-<100,000 CFU/ml Normal urogenital ai Normal [facility] Comment on above: Performed By: #### 6 30-4 ####[facility] LABCLIA [id number] [place] [address] [place] LORAINE/TRICHOMONAS NAATon 0 09-26-2024 C. glabrata RNA HIRAM+probe Ql (Vag fld) Not detected Normal Not detected [facility] Comment on above: Order Comment: Speci men Type: SWABOrdering Facility: [facility] Address: [address] [place] [address] Performed By: #### C VTV, BVAMP ####[facility] LABCLIA [id number] [place] [address] [place] Loraine sp DNA HIRAM+probe Ql (Vag fld) Detected Abnormal Not detected [facility] Comment on above: Order Comment: Speci men Type: SWABOrdering Facility: [facility] Address: [address] [place] [address] Result Comment: The Loraine species group target includes C. albicans, C. tropicalis, C. parapsilosis, and C. dubliniensis. Performed By: #### C VTV, BVAMP ####[facility] LABCLIA [id number] [place] [address] [place] T. vaginalis DNA HIRAM+probe Ql (Unsp spec) Not detected Normal Not detected [facility] Comment on above: Order Comment: Speci men Type: SWABOrdering Facility: [facility] Address: [address] [place] [address] Performed By: #### C VTV, BVAMP ####[facility] LABCLIA [id number] [address] [place] CNOVon 09-26-2024 CNOV Office Visit (UCWSTR) NATALY DSOUZA ([id number]) 3 F Date Time Provider Department 09/26/24 4:00 PM ROSANNA HENDRICKS [facility] During your visit today, we recorded the following information about you: Temperature Pulse Respiration Blood pressure 97.2 degrees 95/minute 20/minute 123/86 Weight Last Period 66 kg 08/20/24 Rosanna Hendricks PA-C 09/26/2024 6:12 PM Signed This note was created using [employer]. Subjective Nataly Dsouza is a 19 year [...] Patient was advised to follow-up with her BREAST TRIMMER as scheduled or report to an emergency [...] Diagnosis:Urethral irritation [N36.8] Order(s):UA DIP, URINE (POC) [7010202] Order #: [id number]. #:[id number] BACTERIAL CULTURE, URINE [SQURCUL] Order #: [id number]. #:[id number] LORAINE/TRICHOMONAS NAAT [SQCVTV] Order #: [id number]. #:[id number] BACTERIAL VAGINOSIS NAAT [SQBVAMP] Order #: [id number]. #:[id number] Prescriptions as of 09/26/2024 - Norethindrn A-E Estradiol-Iron (JUNEL FE 24) 1 mg-20 mcg (24)/75 mg (4) Take 1 tablet by mouth once daily. Problem List As Of Date 09/26/2024 Noted Resolved Myopia, bilateral [H52.13] 10/06/2019 Neck pain on left side [M54.2] 06/10/2020 Level of Service: OFFICE/OUTPATIENT ESTABLISHED MOD MDM 30 MIN [72344] Encounter Status:Closed by ROSANNA HENDRICKS on 09/26/24 Normal [facility] UA DIP, URINE (POC)on 2024 BILIRUBIN UA (POCT) Negative Negative [facility] CLARITY UA (POCT) Clear [facility] COLOR UA (POCT) Yellow [facility] GLUCOSE UA (POCT) Negative Negative mg/dL [facility] Hemoglobin Ql (U) Negative Negative [facility] Interpretation and review of laboratory results Abnormal [facility] KETONE UA (POCT) 15 mg/dL Abnormal Negative [facility] d [facility] LEUKOCYTES UA (POCT) Negative Negative [facility] NITRITE UA (POCT) Negative Negative [facility] PH UA (POCT) 6.0 4.5 - 8.0 [facility] Protein Ql (U) Negative Negative mg/dL [facility] SPECIFIC GRAVITY UA (POCT) >=1.030 1.005 - 1.030 [facility] UROBILINOGEN UA (POCT) 0.2 Normal E.U./d L [facility] Location: [address], [place], [place], [id number] [place] [address] POINT OF CARE [facility] Office Visit Reporton 2023 Office Visit Report [facility] [address] [place] [address] OFFICE VISIT Date of Service: 09/06/24 MR#: [id number] Acct: [id number] Patient: NATALY DSOUZA Rep #: [id number] : 2005 Provider: JAMIE Lozada Age/Sex: 19/F Location: [facility] Status: Signed Intake Intake Visit Reasons: PE NON DOT DRUG BAT/ DEYVI BRUSH Allergies No Known Allergies Allergy (Unverified 09/06/24 11:09) Office Procedures [facility] Billing Sheet Testing Breath Alcohol Test Pre-Employment: Yes Pre-Employment Drug Screen: Yes Pre-Employment PE: Yes 09/11/24 06 Date John Mcelroy Signature: Date (if applicable) CC: Normal [facility] Visit Reporton 1 11-07-2023 Urgent Care Visit Report [facility] [address], [address] [place] [address] OFFICE VISIT Date of Service: 09/06/24 MR#: [id number] Acct: [id number] Name: NATALY DSOUZA Rep #: [id number] : 2005 Provider: JAMIE Lozada Age/Sex: 19/F Location: [facility] Status: Signed Intake Intake Visit Reasons: PE [...] Cosigner Signature: Date (if applicable) CC: Normal [facility] CNOVon 06-23-2024 CNOV Office Visit (OBGYWM) NATALY DSOUZA ([id number]) 3 F Date Time Provider Department 06/23/24 [...] L0 SAB0 IAB0 Ectopic0 Multiple0 Live Births0 Collections Agent History LMP: 06/22/2024 (Approximate), Having periods Age at Menarche: 11 Age at First : Age at Menopause: Collections Agent History Comments: Sexual Activity: Yes; Male Contraception: [...] Service: OFFICE/OUTPATIENT ESTABLISHED SF MDM 10 MIN [10617] LOS History for Encounter ------- Level of Service: OFFICE/OUTPATIENT ESTABLISHED LOW MDM 20 MIN[81533] Date AND Time: 06-23-2024 12:31 PM Recorded by User: THERESA BUSCH ------- Level of Service: OFFICE/OUTPATIENT ESTABLISHED SF [facility] 10 MIN[61810] Date AND Time: 06-23-2024 12:30 PM Recorded by User: THERESA BUSCH ------- (more content not included)... Normal [facility] CNOVon 05-30-2024 CNOV Office Visit (OBGMEM) LIANNANATALY ([id number]) 3 F Date Time Provider Department 05/30/24 [...] once daily. Electronically submitted to her pharmacy ([facility]). Follow up at annual to assess efficacy [...] for Encounter Date Provider Department Center 05/30/2024 [id number], ERIN J [facility] Encounter Status:Closed by PRABHA DALAL [facility] Tele[facility] (UCWSTR) NATALY DSOUZA ([id number]) 3 F Date Time Provider Department 05/26/24 ALBINO STEWART [facility] During your visit today, we recorded the [...] Date Reviewed: 05/24/2024 Reviewed by: Abdirahman Ho APRN.CREDIT COLLECTIONS REP - Fully Assessed Reason for Visit: Results [...] Status:Closed by JOVON GRACE on 05/26/24 Normal [facility] Bacteria Ur Culton 4 Bacteria identified Cx [...] , Intermediate >32 , Resistant >64 Abnormal [facility] Comment on above: Performed By: #### 6 30-4 ####[facility] [id number] [address] [place] CNOVon 05-24-2024 CNOV Office Visit (UCWSTR) NATALY DSOUZA ([id number]) 3 F Date Time Provider Department 05/24/24 12:00 PM MARISELLIZAJENNZHOUABDIRAHMAN [facility] During your visit today, we recorded the following information about you: Temperature Pulse Respiration Blood pressure 98.1 degrees 94/minute 20/minute 102/64 Weight 66 kg Abdirahman Ho APRN.CREDIT COLLECTIONS REP 05/24/2024 12:22 PM Signed How to Manage [...] severe or concerning to you. Abdirahman Ho, MARIMAR.CREDIT COLLECTIONS REP 05/24/2024 12:33 PM Signed Subjective HPI Nontoxic-appearing [...] MEDICAL HI (more content not included)... Normal [facility] COVID AND INFLUENZA A/B AND RSV PCR, ROUTINEon 05-24-2024 SARS-CoV-2 (COVID-19) RNA HIRAM+probe Ql (Unsp spec) SARS-COV-2 (AGENT OF COVID-19) RNA: Detected INFLUENZA A RNA: Not detected INFLUENZA B RNA: Not detected RESPIRATORY SYNCYTIAL VIRUS (RSV) RNA: Not detected Abnormal [facility] Comment on above: Performed By: #### C VFLRS ####[facility] LABCLIA [id number] [place] [address] [place] UA DIP, URINE (POC)on 2023 BILIRUBIN UA (POCT) Negative Negative [facility] CLARITY UA (POCT) Cloudy [facility] COLOR UA (POCT) Yellow [facility] GLUCOSE UA (POCT) Negative Negative mg/dL [facility] Hemoglobin Ql (U) Trace-intact Abnormal Negative [facility] Interpretation and review of laboratory results Abnormal [facility] KETONE UA (POCT) Negative Negative mg/dL [facility] LEUKOCYTES UA (POCT) Negative Negative [facility] NITRITE UA (POCT) Negative Negative [facility] PH UA (POCT) 7.0 4.5 - 8.0 [facility] Protein Ql (U) Negative Negative mg/dL [facility] SPECIFIC GRAVITY UA (POCT) 1.025 1.005 - 1.030 [facility] UROBILINOGEN UA (POCT) 1.0 Normal E.U./d L [facility] Location:[address], [place], [place], [address] [place] [address] POINT OF CARE [facility] C. trachomatis+N. gonorrhoea e DNA HIRAM+probe Ql (Unsp spec)on 04-28-2024 C. trachomatis rRNA HIRAM+probe Ql (Unsp spec) Negative Normal Negative for Chlamydia trachomatis by amplificaton [facility] Comment on above: Order Comment: Speci men Type: URINE SPECIMENOrdering Facility: [facility] Address: [address] [place] [address] Performed By: #### 3 6902-5 ####[facility] LABCLIA [id number] [place] [address] [place] N. gonorrhoeae rRNA HIRAM+probe Ql (Unsp spec) Negative Normal Negative for Neisseria gonorrhoeae by amplification [facility] Comment on above: Order Comment: Speci men Type: URINE SPECIMENOrdering Facility: [facility] Address: [address] [place] [address] Performed By: #### 3 6902-5 ####[facility] LABCLIA [id number] [place] [address] [place] CNOVon 04-28-2024 CNOV Office Visit (PEMDNA) NATALY DSOUZA ([id number]) 3 F Date Time Provider Department 04/28/24 [...] No Screening tools reviewed and discussed with patient/tvymjd-EDP-2 and Social Determinants of Health. Please see [...] (72%, Z (more content not included)... Normal [facility] CNOVon 09-10-2023 CNOV Office Visit (TANVI) LIANNABETTYForest ([id number]) 3 F Date Time Provider Department 09/10/23 [...] the alternate side. See a demonstration here: [email or web address].be/BzY BkAvdCJY Rocky's Exercise for Postural Training: The following exercise was developed by a new zealander neurologist and focuses on reversing the tendencies of a slumping or slouched posture. The exercise should be performed in 10 second holds multiple times throughout the day. Standing: [email or web address]://[email or web address].be/GeD 1qMKla-E Seated: [email or web address]://youTRINA SOLAR LTDu.be/_uQ _-JeWTgU Cat-Camel Mobility Exercise Unlike other stretches [...] Palliative factors: rest, stretching Lifestyle Factors: Occupation: [employer] Hydration: Water consumption: One to three 8 [...] throat, rishabh (more content not included)... Normal [facility] XR WRIST 3V PA/LAT/OBL LTon 08-24-2022 XR [...] Normal 3 views of the left wrist Manager Front Office: [facility] Transcribe Date/Time: Aug 24 2022 11:02A Dictated by : DUC BERRIOS MD This examination was interpreted and the report reviewed and electronically signed by: DUC BERRIOS MD on Aug 24 2022 11:03AM EST [id number] CN Normal [facility] XR WRIST GENERAL 3V PA/LAT/O BL LEFTon 08-24-2022 [facility] No Panel Informationon 12-24 [facility] Vital Signs Date Time Vital Sign Value Performing Clinician Faci lity 04-24-2025 12:24-0400 Body height 160.02 cm No Primary Care Physician [facility] 04-24-2025 12:24-0400 Body mass index (BMI) [Ratio] 30.9 kg/m2 No Primary Care Physician [facility] 04-24-2025 12:24-0400 Body weight 79.3 kg No Primary Care Physician [facility] 04-24-2025 12:140400 Body temperature 97.8 [degF] No Primary Care Physician [facility] 04-24-2025 12:14-0400 Diastolic blood pressure 61 mm[Hg] No Primary Care Physician [facility] 04-24-2025 12:140400 Heart rate 104 /min No Primary Care Physician [facility] 04-24-2025 12:140400 Respiratory rate 16 /min No Primary Care Physician [facility] 04-24-2025 12:14-0400 Systolic blood pressure 126 mm[Hg] No Primary Care Physician [facility] 04-12-2025 09:02-0400 Body mass index (BMI) [Ratio] 29.91 kg/m2 Theresa Busch MD Work Phone: [facility] 04-12-2025 09:02-0400 Body weight 78.02 kg Theresa Busch MD Work Phone: [facility] 04-12-2025 09:02-0400 Diastolic blood pressure 60 mm[Hg] Theresa Busch MD Work Phone: [facility] 04-12-2025 09:02-0400 Systolic blood pressure 112 mm[Hg] Theresa Busch MD Work Phone: [facility] 03-30-2025 09:18-0400 Body mass index (BMI) [Ratio] 29.7 kg/m2 Kerrie Mckeon APRN.CNM Work Phone: [facility] 03-30-2025 09:18-0400 Body weight 77.47 kg Kerrie Mckeon APRN.CNM Work Phone: [facility] 03-30-2025 09:18-0400 Diastolic blood pressure 60 mm[Hg] Kerrie Mckeon APRN.CNM Work Phone: [facility] 03-30-2025 09:18-0400 Systolic blood pressure 112 mm[Hg] Kerrie Mckeon APRN.CNM Work Phone: [facility] 03-13-2025 08:52-0400 Body mass index (BMI) [Ratio] 28.63 kg/m2 Kerrie Mckeon APRN.CNM Work Phone: [facility] 03-13-2025 08:52-0400 Body weight 74.66 kg Kerrie Mckeon APRN.CNM Work Phone: [facility] 03-13-2025 08:52-0400 Diastolic blood pressure 60 mm[Hg] Kerrie Mckeon DOCUMENT PREPARATION SPECIALIST.CNM Work Phone: [facility] 03-13-2025 08:52-0400 Systolic blood pressure 102 mm[Hg] Kerrie Mckeon APRN.CNM Work Phone: [facility] 02-28-2025 08:49-0400 Body mass index (BMI) [Ratio] 28.52 kg/m2 Theresa Busch MD Work Phone: [facility] 02-28-2025 08:49-0400 Body weight 74.39 kg Theresa Busch MD Work Phone: [facility] 02-28-2025 08:49-0400 Diastolic blood pressure 68 mm[Hg] Theresa Busch MD Work Phone: [facility] 02-28-2025 08:49-0400 Systolic blood pressure 114 mm[Hg] Theresa Busch MD Work Phone: [facility] 02-20-2025 17:48-0400 Body mass index (BMI) [Ratio] 27.99 kg/m2 Geovani Rubalcava APRN.CREDIT COLLECTIONS REP Work Phone: [facility] 02-20-2025 17:48-0400 Body temperature 97.9 [degF] Geovani Rubalcava APRN.CREDIT COLLECTIONS REP Work Phone: [facility] 02-20-2025 17:48-0400 Body weight 73 kg Geovani Rubalcava APRN.CREDIT COLLECTIONS REP Work Phone: [facility] 02-20-2025 17:48-0400 Diastolic blood pressure 66 mm[Hg] Geovani Rubalcava DOCUMENT PREPARATION SPECIALIST.CREDIT COLLECTIONS REP Work Phone: [facility] 02-20-2025 17:48-0400 Heart rate 87 /min Geovani Rubalcava DOCUMENT PREPARATION SPECIALIST.CREDIT COLLECTIONS REP Work Phone: [facility] 02-20-2025 17:48-0400 Respiratory rate 18 /min Geovani Rubalcava DOCUMENT PREPARATION SPECIALIST.CREDIT COLLECTIONS REP Work Phone: [facility] 02-20-2025 17:48-0400 SaO2% (BldA) [Mass fraction] 98 % Geovani Rubalcava DOCUMENT PREPARATION SPECIALIST.CREDIT COLLECTIONS REP Work Phone: [facility] 02-20-2025 17:48-0400 Systolic blood pressure 94 mm[Hg] Geovani Rubalcava DOCUMENT PREPARATION SPECIALIST.CREDIT COLLECTIONS REP Work Phone: [facility] 01-31-2025 08:20-0400 Body mass index (BMI) [Ratio] 27.13 kg/m2 Nelly Gutierrez MD Work Phone: [facility] 01-31-2025 08:20-0400 Body weight 70.76 kg Nelly Gutierrez MD Work Phone: [facility] 01-31-2025 08:20-0400 Diastolic blood pressure 60 mm[Hg] Nelly Gutierrez MD Work Phone: [facility] 01-31-2025 08:20-0400 Systolic blood pressure 112 mm[Hg] Nelly Gutierrez MD Work Phone: [facility] 01-03-2025 16:04-0400 Body mass index (BMI) [Ratio] 26.09 kg/m2 Nelly Gutierrez MD Work Phone: [facility] 01-03-2025 16:04-0400 Body weight 68.04 kg Nelly Gutierrez MD Work Phone: [facility] 01-03-2025 16:04-0400 Diastolic blood pressure 62 mm[Hg] Nelly Gutierrez MD Work Phone: [facility] 01-03-2025 16:04-0400 Systolic blood pressure 100 mm[Hg] Nelly Gutierrez MD Work Phone: [facility] 12-18-2024 16:04-0400 Body mass index (BMI) [Ratio] 25.74 kg/m2 Nelly Gutierrez MD Work Phone: [facility] 12-18-2024 16:04-0400 Body weight 67.13 kg Nelly Gutierrez MD Work Phone: [facility] 12-18-2024 16:04-0400 Diastolic blood pressure 58 mm[Hg] Nelly Gutierrez MD Work Phone: [facility] 12-18-2024 16:04-0400 Systolic blood pressure 106 mm[Hg] Nelly Gutierrez MD Work Phone: [facility] 11-20-2024 15:44-0500 Body mass index (BMI) [Ratio] 24 kg/m2 Charley Plotts DOCUMENT PREPARATION SPECIALIST.CNM Work Phone: [facility] 11-20-2024 15:44-0500 Body weight 62.6 kg Charley Plotts DOCUMENT PREPARATION SPECIALIST.CNM Work Phone: [facility] 11-20-2024 15:44-0500 Diastolic blood pressure 70 mm[Hg] Charley Plotts DOCUMENT PREPARATION SPECIALIST.CNM Work Phone: [facility] 11-20-2024 15:44-0500 Systolic blood pressure 111 mm[Hg] Charley Plotts DOCUMENT PREPARATION SPECIALIST.CNM Work Phone: [facility] 10-23-2024 14:38-0500 Body mass index (BMI) [Ratio] 24.7 kg/m2 Bita [place] DOCUMENT PREPARATION SPECIALIST.CREDIT COLLECTIONS REP Work Phone: [facility] 10-23-2024 14:38-0500 Body weight 64.41 kg Bita [place] DOCUMENT PREPARATION SPECIALIST.CREDIT COLLECTIONS REP Work Phone: [facility] 10-23-2024 14:38-0500 Diastolic blood pressure 58 mm[Hg] Bita Zane DOCUMENT PREPARATION SPECIALIST.CREDIT COLLECTIONS REP Work Phone: [facility] 10-23-2024 14:38-0500 Systolic blood pressure 94 mm[Hg] Bita Degroot APRN.CREDIT COLLECTIONS REP Work Phone: [facility] 10-06-2024 13:29-0500 Body mass index (BMI) [Ratio] 25.04 kg/m2 Eliud Clark MD Work Phone: [facility] 10-06-2024 13:29-0500 Body weight 65.32 kg Eliud Clark MD Work Phone: [facility] 10-06-2024 13:29-0500 Diastolic blood pressure 60 mm[Hg] Eliud Clark MD Work Phone: [facility] 10-06-2024 13:29-0500 Systolic blood pressure 104 mm[Hg] Eliud Clark MD Work Phone: [facility] 09-27-2024 16:17-0500 Body mass index (BMI) [Ratio] 25.39 kg/m2 Kerrie Mckeon APRN.CNM Work Phone: [facility] 09-27-2024 16:17-0500 Body weight 66.22 kg Kerrie Mckeon APRN.CNM Work Phone: [facility] 09-27-2024 16:17-0500 Diastolic blood pressure 64 mm[Hg] Kerrie Mckeon APRN.CNM Work Phone: [facility] 09-27-2024 16:17-0500 Systolic blood pressure 98 mm[Hg] Kerrie Mckeon APRN.CNM Work Phone: [facility] 09-26-2024 16:04-0500 Body mass index (BMI) [Ratio] 25.3 kg/m2 Rosanna Clutter PA-C Work Phone: [facility] 09-26-2024 16:04-0500 Body temperature 97.2 [degF] Rosanna Clutter PA-C Work Phone: [facility] 09-26-2024 16:04-0500 Body weight 66 kg Rosanna Clutter PA-C Work Phone: [facility] 09-26-2024 16:04-0500 Diastolic blood pressure 86 mm[Hg] Rosanna Clutter PA-C Work Phone: [facility] 09-26-2024 16:04-0500 Heart rate 95 /min Rosanna Clutter PA-C Work Phone: [facility] 09-26-2024 16:04-0500 Respiratory rate 20 /min Rosanna Clutter PA-C Work Phone: [facility] 09-26-2024 16:04-0500 SaO2% (BldA) [Mass fraction] 100 % Rosanna Clutter PA-C Work Phone: [facility] 09-26-2024 16:04-0500 Systolic blood pressure 123 mm[Hg] Rosanna Clutter PA-C Work Phone: [facility] 06-23-2024 08:11-0400 Body mass index (BMI) [Ratio] 24.52 kg/m2 Theresa Busch MD Work Phone: [facility] 06-23-2024 08:11-0400 Body weight 63.96 kg Theresa Busch MD Work Phone: [facility] 06-23-2024 08:11-0400 Diastolic blood pressure 62 mm[Hg] Theresa Busch MD Work Phone: [facility] 06-23-2024 08:11-0400 Systolic blood pressure 110 mm[Hg] Theresa Busch MD Work Phone: [facility] 05-30-2024 10:52-0400 Body mass index (BMI) [Ratio] 24.35 kg/m2 Prabha Dalal MD Work Phone: [facility] 05-30-2024 10:52-0400 Body weight 63.5 kg Prabha Dalal MD Work Phone: [facility] 05-30-2024 10:52-0400 Diastolic blood pressure 70 mm[Hg] Prabha Dalal MD Work Phone: [facility] 05-30-2024 10:52-0400 Systolic blood pressure 114 mm[Hg] Prabha Dalal MD Work Phone: [facility] 05-24-2024 12:17-0400 Body mass index (BMI) [Ratio] 25.3 kg/m2 Abdirahman Ho DOCUMENT PREPARATION SPECIALIST.CREDIT COLLECTIONS REP Work Phone: [facility] 05-24-2024 12:17-0400 Body temperature 98.1 [degF] Abdirahman Ho DOCUMENT PREPARATION SPECIALIST.CREDIT COLLECTIONS REP Work Phone: [facility] 05-24-2024 12:17-0400 Body weight 66 kg Abdirahman Ho DOCUMENT PREPARATION SPECIALIST.CREDIT COLLECTIONS REP Work Phone: [facility] 05-24-2024 12:17-0400 Diastolic blood pressure 64 mm[Hg] Abdirahman Ho DOCUMENT PREPARATION SPECIALIST.CREDIT COLLECTIONS REP Work Phone: [facility] 05-24-2024 12:17-0400 Heart rate 94 /min Abdirahman Ho DOCUMENT PREPARATION SPECIALIST.CREDIT COLLECTIONS REP Work Phone: [facility] 05-24-2024 12:17-0400 Respiratory rate 20 /min Abdirahman Ho DOCUMENT PREPARATION SPECIALIST.CREDIT COLLECTIONS REP Work Phone: [facility] 05-24-2024 12:17-0400 SaO2% (BldA) [Mass fraction] 97 % Abdirahman Ho DOCUMENT PREPARATION SPECIALIST.CREDIT COLLECTIONS REP Work Phone: [facility] 05-24-2024 12:17-0400 Systolic blood pressure 102 mm[Hg] Abdirahman Ho DOCUMENT PREPARATION SPECIALIST.CREDIT COLLECTIONS REP Work Phone: [facility] 04-28-2024 09:58-0400 Body height 161.5 cm Nisha Corcoran DOCUMENT PREPARATION SPECIALIST.CN P Work Phone: [facility] 04-28-2024 09:58-0400 Body mass index (BMI) [Ratio] 24.84 kg/m2 Nisha Corcoran DOCUMENT PREPARATION SPECIALIST.CREDIT COLLECTIONS REP Work Phone: [facility] 04-28-2024 09:58-0400 Body temperature 98.4 [degF] Nisha Corcoran DOCUMENT PREPARATION SPECIALIST.CN P Work Phone: [facility] 04-28-2024 09:58-0400 Body weight 64.8 kg Nisha Money DOCUMENT PREPARATION SPECIALIST.CN P Work Phone: [facility] 04-28-2024 09:58-0400 Diastolic blood pressure 64 mm[Hg] Nisha Money DOCUMENT PREPARATION SPECIALIST.CREDIT COLLECTIONS REP Work Phone: [facility] 04-28-2024 09:58-0400 Heart rate 92 /min Nisha Money DOCUMENT PREPARATION SPECIALIST.CN P Work Phone: [facility] 04-28-2024 09:58-0400 SaO2% (BldA) [Mass fraction] 99 % Nisha Money DOCUMENT PREPARATION SPECIALIST.CREDIT COLLECTIONS REP Work Phone: [facility] 04-28-2024 09:58-0400 Systolic blood pressure 112 mm[Hg] Nisha Money DOCUMENT PREPARATION SPECIALIST.CREDIT COLLECTIONS REP Work Phone: [facility] 01-21-2024 11:01-0400 Body temperature 97.11 [degF] Nisha Money DOCUMENT PREPARATION SPECIALIST.CN P Work Phone: [facility] 01-21-2024 11:01-0400 Body weight 69.9 kg Nisha Money DOCUMENT PREPARATION SPECIALIST.CN P Work Phone: [facility] 01-21-2024 11:01-0400 Diastolic blood pressure 70 mm[Hg] Nisha Money DOCUMENT PREPARATION SPECIALIST.CREDIT COLLECTIONS REP Work Phone: [facility] 01-21-2024 11:01-0400 Heart rate 75 /min Nisha Money DOCUMENT PREPARATION SPECIALIST.CN P Work Phone: [facility] 01-21-2024 11:01-0400 Respiratory rate 18 /min Nisha Money DOCUMENT PREPARATION SPECIALIST.CN P Work Phone: [facility] 01-21-2024 11:01-0400 SaO2% (BldA) [Mass fraction] 100 % Nisha Money DOCUMENT PREPARATION SPECIALIST.CREDIT COLLECTIONS REP Work Phone: [facility] 01-21-2024 11:01-0400 Systolic blood pressure 114 mm[Hg] Nisha Money DOCUMENT PREPARATION SPECIALIST.CREDIT COLLECTIONS REP Work Phone: [facility] 07-25-2023 14:59-0500 Body temperature 98.49 [degF] Lilia Athy PA-C Work Phone: [facility] 07-25-2023 14:59-0500 Body weight 64.59 kg Lilia Athy PA-C Work Phone: [facility] 07-25-2023 14:59-0500 Diastolic blood pressure 82 mm[Hg] Lilia Athy PA-C Work Phone: [facility] 07-25-2023 14:59-0500 Heart rate 110 /min Lilia Athy PA-C Work Phone: [facility] 07-25-2023 14:59-0500 Respiratory rate 18 /min Lilia Athy PA-C Work Phone: [facility] 07-25-2023 14:59-0500 SaO2% (BldA) [Mass fraction] 99 % Lilia Athy PA-C Work Phone: [facility] 07-25-2023 14:59-0500 Systolic blood pressure 117 mm[Hg] Lilia Athy PA-C Work Phone: [facility] 08-23-2022 10:26-0500 Body temperature 97.9 [degF] Debbie Praisler-Wood DOCUMENT PREPARATION SPECIALIST.CREDIT COLLECTIONS REP Work Phone: [facility] 08-23-2022 10:26-0500 Body weight 64.41 kg Debbie Praisler-Wood DOCUMENT PREPARATION SPECIALIST.CREDIT COLLECTIONS REP Work Phone: [facility] 08-23-2022 10:26-0500 Diastolic blood pressure 80 mm[Hg] Debbie Praisler-Wood DOCUMENT PREPARATION SPECIALIST.CREDIT COLLECTIONS REP Work Phone: [facility] 08-23-2022 10:26-0500 Heart rate 69 /min Debbie Praisler-Wood DOCUMENT PREPARATION SPECIALIST.CREDIT COLLECTIONS REP Work Phone: [facility] 08-23-2022 10:26-0500 Respiratory rate 18 /min Debbie Praisler-Wood DOCUMENT PREPARATION SPECIALIST.CREDIT COLLECTIONS REP Work Phone: [facility] 08-23-2022 10:26-0500 SaO2% (BldA) [Mass fraction] 99 % Debbie Carreno APRN.CREDIT COLLECTIONS REP Work Phone: [facility] 08-23-2022 10:26-0500 Systolic blood pressure 110 mm[Hg] Debbie Carreno APRN.CREDIT COLLECTIONS REP Work Phone: [facility] 05-21-2022 08:07-0400 Body height 162.6 cm Carly Senokozlieff D O Work Phone: [facility] 05-21-2022 08:07-0400 Body mass index (BMI) [Percentile] Per age and sex 74.48 % Carly Senokozlieff DO Work Phone: [facility] 05-21-2022 08:07-0400 Body temperature 99.1 [degF] Carly Senokozlieff D O Work Phone: [facility] 05-21-2022 08:07-0400 Body weight 62.6 kg Carly Senokozlieff D O Work Phone: [facility] 05-21-2022 08:07-0400 Diastolic blood pressure 50 mm[Hg] Carly Senokozlieff DO Work Phone: [facility] 05-21-2022 08:07-0400 Heart rate 70 /min Carly Senokozlieff D O Work Phone: [facility] 05-21-2022 08:07-0400 SaO2% (BldA) [Mass fraction] 97 % Carly Senokozlieff DO Work Phone: [facility] 05-21-2022 08:07-0400 Systolic blood pressure 92 mm[Hg] Carly Senokozlieff DO Work Phone: [facility] 12-24-2021 14:48-0400 Body temperature 98.29 [degF] Nisha Corcoran DOCUMENT PREPARATION SPECIALIST.CN P Work Phone: [facility] 12-24-2021 14:48-0400 Body weight 62.05 kg Nisha Corcoran DOCUMENT PREPARATION SPECIALIST.CN P Work Phone: [facility] 12-24-2021 14:48-0400 Heart rate 76 /min Nisha Corcoran DOCUMENT PREPARATION SPECIALIST.CN P Work Phone: [facility] 12-24-2021 14:48-0400 Respiratory rate 20 /min Nisha Corcoran DOCUMENT PREPARATION SPECIALIST.CN P Work Phone: [facility] Encounters Encounter Date Encounter Type Care Provider Facility Start: 04-24-2025 End: 04-24-2025 ambulatory No Primary Care Physician -[facility] Start: 04-24-2025 End: 04-24-[address] Nelly Gutierrez MD -[facility] Work Phone: Start: 04-12-2025 End: 04-12-2025 Patient encounter procedure Theresa Busch MD Work Phone: OB/Gynecology Comment on above: Encounter for superv ision of normal first in third trimester ([facility]) (Primary Dx); 34 weeks gestation of ([facility]); Encounter for care in first trimester of first ([facility]) Start: 04-12-2025 End: 04-12-2025 ambulatory AURA ALAS Facility:[facility] Start: 03-30-2025 End: 03-30-2025 Patient encounter procedure Kerrie Mckeon APRN.CNKeren Work Phone: OB/Gynecology Comment on above: 32 weeks gestation o f ([facility]) (Primary Dx); Encounter for supervision of normal first in third trimester ([facility]); Floaters, bilateral Start: 03-30-2025 End: 03-30-2025 ambulatory KERRIE MCKEON Facility:[facility] Start: 03-13-2025 End: 03-13-2025 Patient encounter procedure Kerrie Mckeon APRN.CNM Work Phone: OB/Gynecology Comment on above: Encounter for superv ision of normal first in third trimester (HCC) (Primary Dx); 29 weeks gestation of (HCC); Encounter for supervision of normal first in second trimester ([facility]); Floaters, bilateral Start: 03-13-2025 End: 03-13-2025 ambulatory KERRIE MCKEON Facility:[facility] Start: 03-02-2025 End: 03-05-2025 ambulatory Theresa Busch MD Work Phone: OB/Gynecology Comment on above: Glucose test Start: 02-28-2025 End: 02-28-2025 Patient encounter procedure Theresa Busch MD Work Phone: OB/Gynecology Comment on above: Encounter for superv ision of normal first in third trimester (HCC) (Primary Dx); 28 weeks gestation of (HCC) Start: 02-28-2025 End: 02-28-2025 ambulatory NELLY GUTIERREZ Facility:[facility] Start: 02-20-2025 End: 02-20-2025 Office outpatient visit 15 minutes Geovani Rubalcava APRN.CNP Work Phone: [facility] Comment on above: Viral URI with cough (Primary Dx); Fatigue, unspecified type; Second trimester (HCC) Start: 02-20-2025 End: 02-20-2025 ambulatory AURA ALAS Facility:[facility] Start: 01-31-2025 End: 01-31-2025 Patient encounter procedure Nelly Gutierrez MD Work Phone: OB/Gynecology Comment on above: Encounter for superv ision of normal first in second trimester (HCC) (Primary Dx); 24 weeks gestation of (HCC); Screening for diabetes mellitus Start: 01-31-2025 End: 01-31-2025 ambulatory NELLY GUTIERREZ Facility:[facility] Start: 01-03-2025 End: 01-03-2025 Patient encounter procedure Whi Tech 1 [employer] [facility] Comment on above: Encounter for anatomic survey (HCC) (Primary Dx); 20 weeks gestation of (HCC) Encounter for superv ision of normal first in second trimester (HCC) (Primary Dx); 20 weeks gestation of (HCC); Acute right-sided low back pain without sciatica Start: 01-03-2025 End: 01-03-2025 ambulatory AURA ALAS Facility:[facility] Start: 12-18-2024 End: 12-18-2024 ambulatory NELLY GUTIERREZ Facility:[facility] Start: 12-18-2024 End: 12-18-2024 Patient encounter procedure Nelly Gutierrez MD Work Phone: OB/Gynecology Comment on above: Encounter for superv ision of normal first in second trimester (Primary Dx); 17 weeks gestation of ; Encounter for care in first trimester of first Start: 11-21-2024 End: 01-21-2025 Follow-up encounter Nelly Gutierrez MD Work Phone: OB/Gynecology Start: 11-20-2024 End: 11-20-2024 ambulatory AURA ALAS Facility:[facility] Start: 11-20-2024 End: 11-20-2024 Patient encounter procedure Whi Tech 1 [employer] Machine [employer] [facility] Comment on [...] Start: 11-20-2024 End: 11-20-2024 ambulatory BITA DEGROOT Facility:[facility] Start: 11-17-2024 End: 11-17-2024 Emergency department patient visit Mathieu Luna Facility:[facility] Start: 10-23-2024 End: 10-23-2024 ambulatory AURA ALAS Facility:[facility] Start: 10-23-2024 End: 10-23-2024 Patient encounter procedure Bita Degroot APRN.CNP Work Phone: OB/Gynecology Comment on above: 9 weeks gestation of (Primary Dx); Encounter for care in first trimester of first ; Supervision of normal first , antepartum Start: 10-09-2024 End: 10-09-2024 Telephone encounter Yang Steiner MD Work Phone: OB/Gynecology Start: 10-06-2024 End: 10-06-2024 ambulatory NELLY GUTIERREZ Facility:[facility] Start: 10-06-2024 End: 10-06-2024 Patient encounter procedure Eliud Clark MD Work Phone: OB/Gynecology Comment on above: Early stage of pregn kylee (Primary Dx); Subchorionic hemorrhage of placenta in first trimester Subchorionic hematom a in first trimester, single or unspecified fetus (Primary Dx); Threatened Start: 10-03-2024 End: 10-03-2024 Orders Only Nelly Gutierrez MD Work Phone: [facility] Comment on above: Threatened (Primary Dx) Start: 10-02-2024 End: 10-02-2024 ambulatory Kerrie Mckeon APRN.CNKeren Work Phone: OB/Gynecology Comment on above: HCG Quantitative Start: 09-29-2024 End: 09-29-2024 ambulatory AURA ALAS Facility:[facility] Start: 09-27-2024 End: 09-27-2024 ambulatory AUAR ALAS Facility:[facility] Start: 09-27-2024 End: 09-27-2024 Patient encounter procedure Kerrie Mckeon APRN.CNKeren Work Phone: OB/Gynecology Comment on above: Spotting in pregnanc y (Primary Dx) Start: 09-27-2024 End: 09-27-2024 Telephone encounter Jacklyn Clark APRN.CREDIT COLLECTIONS REP Work Phone: [facility] Comment on above: Results Start: 09-26-2024 End: 09-26-2024 ambulatory AURA ALAS Facility:[facility] Start: 09-26-2024 End: 09-26-2024 Office outpatient visit 25 minutes Rosanna Hendricks PA-C Work Phone: [facility] Comment on above: Burning with urinati on (Primary Dx); Urethral irritation Start: 09-06-2024 End: 09-06-2024 ambulatory John AYALA Facility:[facility] Start: 06-23-2024 End: 06-23-2024 ambulatory AURA ALAS Facility:[facility] Start: 06-23-2024 End: 06-23-2024 Office outpatient visit 10 minutes Theresa Busch MD Work Phone: OB/Gynecology Comment on above: Family planning educ ation, guidance, and counseling (Primary Dx) Start: 05-30-2024 End: 05-30-2024 ambulatory PRABHA DALAL Facility:[facility] Start: 05-30-2024 End: 05-30-2024 Patient encounter procedure Prabha Dalal MD Work Phone: Obstetrics/Gynecolog y Comment on above: Dysmenorrhea (Primar y Dx); Menorrhagia with regular cycle Start: 05-26-2024 End: 05-26-2024 Telephone encounter Albino Stewart MD Work Phone: [facility] Comment on above: Results (Urine Cx=E coli) Start: 05-24-2024 End: 05-24-2024 ambulatory ROCHELLE NICKY Facility:[facility] Start: 05-24-2024 End: 05-24-2024 Office outpatient visit 15 minutes Abdirahman Ho APRN.CREDIT COLLECTIONS REP Work Phone: [facility] Comment on above: Urgency of urination (Primary Dx); Viral illness Start: 04-28-2024 End: 04-28-2024 ambulatory ROCHELLE NICKY Facility:[facility] Start: 04-28-2024 End: 04-28-2024 Patient encounter procedure Nisha Corcoran APRN.CREDIT COLLECTIONS REP Work Phone: [facility] Comment on above: Encounter for genera l adult medical examination without abnormal findings (Primary Dx); Screen for sexually transmitted diseases; Screening for HIV (human immunodeficiency virus); Special screening examination for viral disease; Encounter for initial prescription of contraceptives, unspecified contraceptive Start: 01-21-2024 End: 01-21-2024 Patient encounter procedure Nisha Corcoran APRN.CREDIT COLLECTIONS REP Work Phone: [facility] Comment on above: Headache in pediatri c patient (Primary Dx) Start: 09-10-2023 End: 09-10-2023 ambulatory AURA ALAS Facility:[facility] Start: 07-25-2023 End: 07-25-2023 Patient encounter procedure Lilia Cote PA-C Work Phone: [facility] Comment on above: Acute otitis media, bilateral (Primary Dx) Start: 03-03-2023 End: 03-03-2023 Patient encounter procedure Sinan Montero Work Phone: Podiatry Comment on above: Callus of foot (Prim lauren Dx); Hammer toe of right foot; Hammertoe of left foot Start: 08-24-2022 Telephone encounter Debbie Nye APRN.CREDIT COLLECTIONS REP Work Phone: [facility] Comment on above: Results Start: 08-24-2022 ambulatory DEBBIE CARRENO Fac ility:[facility] Start: 08-24-2022 End: 08-24-2022 Subsequent hospital visit by physician [facility] Comment on above: Wrist injury, left, initial encounter [S69.92XA] Start: 08-23-2022 End: 08-23-2022 Patient encounter procedure Debbie Carreno APRN.CREDIT COLLECTIONS REP Work Phone: [facility] Comment on above: Wrist injury, left, initial encounter (Primary Dx) Start: 05-21-2022 End: 05-21-2022 Patient encounter procedure Carly Childers DO Work Phone: [facility] Comment on above: Encounter for routin e child health examination w/o abnormal findings (Primary Dx) Start: 05-21-2022 End: 05-21-2022 Patient encounter status Carly Childers DO Work Phone: [facility] Start: 12-24-2021 End: 12-24-2021 Subsequent hospital visit by physician [facility] Work Phone: Radiology Comment on above: Constipation, unspec ified constipation type [K59.00] Start: 12-24-2021 End: 12-24-2021 Patient encounter procedure Nisha Corcoran APRN.CREDIT COLLECTIONS REP Work Phone: [facility] Comment on above: Constipation, unspec ified constipation [...] cleared fda spec home use Geovani Rubalcava DOCUMENT PREPARATION SPECIALIST.CREDIT COLLECTIONS REP Work Phone: Start: 01-03-2025 Us preg uterus after 1st trimest / gestation Bita Zane DOCUMENT PREPARATION SPECIALIST.CREDIT COLLECTIONS REP Work Phone: Start: 11-20-2024 Us preg uterus after 1st trimest / gestation Bita Zane DOCUMENT PREPARATION SPECIALIST.CREDIT COLLECTIONS REP Work Phone: Start: 10-06-2024 Us preg uterus after 1st trimest / gestation Nelly Gutierrez MD Work Phone: Start: 09-27-2024 Antibody screen AURA HAY Comment on above: Order Comment: Speci men Type: BLOOD SPECIMENOrdering Facility: [facility] Address: [address] [place] [address] Performed By: #### T SPN ####CC [facility] BLOOD BANKCLIA [id number] [address] [place] Start: 09-26-2024 Urnls dip stick/tabl et rgnt auto w/o microscopy Bello Toribio PA Work Phone: Start: 05-24-2024 Urnls dip stick/tabl et rgnt auto w/o microscopy Jacklyn Clark DOCUMENT PREPARATION SPECIALIST.CREDIT COLLECTIONS REP Work Phone: Start: 04-28-2024 Adult depression scr eening assessment Rosanna Hendricks PA-C Work Phone: Start: 08-24-2022 Radex wrist complete minimum 3 views Debbie Carreno DOCUMENT PREPARATION SPECIALIST.CREDIT COLLECTIONS REP Work Phone: Start: 05-21-2022 Adult depression scr eening assessment Carly Childers DO Work Phone: Start: 12-24-2021 Radiologic exam abdo men 2 views Nisha Corcoran DOCUMENT PREPARATION SPECIALIST.CREDIT COLLECTIONS REP Work Phone: Start: 04-28-2021 Adult depression scr eening assessment Nisha Corcoran MARIMAR.CREDIT COLLECTIONS REP Work Phone: Plan of Treatment Date Care Activity Detail Author Start: 10-23-2025 GC (Gonorrhea) Screening (1824) GC (Gonorrhea) Screening (18-24) [facility] Start: 10-23-2025 Screening for Chlamy cezar trachomatis Chlamydia Screening () [facility] Start: 08-24-2025 Urine microalbumin profile [facility] Start: 05-21-2025 Influenza vaccination [facility] Start: 04-28-2025 Anxiety Screening Anxiety Screening [facility] Start: 04-28-2025 Depression Screening Depression Scre ening [facility] Start: 04-28-2025 GC (Gonorrhea) Screening (1824) GC (Gonorrhea) Screening (1824) [facility] Start: 04-28-2025 Screening for Chlamy cezar trachomatis Chlamydia Screening () [facility] Start: 04-25-2025 End: 04-25-2025 Patient encounter procedure 04/25/2025 9:40 AM EDT Routine Office Visit OB/Gynecology [address] [place] [address] Miri Haider MD [address] [place] [place] [address] OB OB/Gynecology Comment on above: OB Start: 04-24-2025 Bacteria identified in Urine by Culture Urine Culture [facility] Start: 04-24-2025 [facility] Start: 04-24-2025 Nonstress test [facility] Start: 04-24-2025 Obstetric monitoring [facility] Start: 04-24-2025 Vital signs measurements [facility] Start: 04-24-2025 [facility] Start: 04-24-[address] [facility] Start: 04-12-2025 End: 04-12-2025 Patient encounter procedure 04/12/2025 9:10 AM EDT Routine Office Visit OB/Gynecology [address] [place] [address] Theresa Busch MD [address] [place] [address] OB OB/Gynecology Comment on above: OB Start: 03-30-2025 End: 03-30-2025 Patient encounter procedure 03/30/2025 9:30 AM EDT Office Visit OB/Gynecology [address] [place] [address] Kerrie Mckeon APRN.[facility] [address] [place] [address] Follow up OB/Gynecology Comment on above: Follow up Start: 03-13-2025 End: 06-12-2025 Protein/Creatinine [Mass Ratio] in Urine [facility] Work Phone: Comment on above: Expected: 03/13/2025 , Expires: 06/12/2025 Start: 03-13-2025 End: 03-13-2025 Patient encounter procedure 03/13/2025 9:10 AM EDT Routine Office Visit OB/Gynecology [address] [place] [address] Eliud Clark MD [address] [place] [address] Follow up OB/Gynecology Comment on above: Follow up Start: 02-28-2025 End: 02-28-2025 Patient encounter procedure 02/28/2025 9:00 AM EDT Routine Office Visit OB/Gynecology [address] [place] [address] Theresa Busch MD [address] [place] [address] OB OB/Gynecology Comment on above: OB Start: 01-31-2025 End: 05-02-2025 ANEMIA REFLEX PANEL ANEMIA REFLEX PANEL Lab Routine Encounter for supervision of normal first in second trimester (HCC) 24 weeks gestation of (HCC) Screening for diabetes mellitus Expected: 01/31/2025, Expires: 05/02/2025 [facility] Comment on above: Expected: 01/31/2025 , Expires: 05/02/2025 Start: 01-31-2025 End: 01-31-2026 GESTATIONAL GLUCOSE SCREEN, 1-HOUR, 50 GRAM, NON-FASTING GESTATIONAL GLUCOSE SCREEN, 1-HOUR, 50 GRAM, NON-FASTING Lab Routine Encounter for supervision of normal first in second trimester (HCC) 24 weeks gestation of (HCC) Screening for diabetes mellitus Expected: 01/31/2025, Expires: 01/31/2026 [facility] Work Phone: Comment on above: Expected: 01/31/2025 , Expires: 01/31/2026 Start: 01-31-2025 End: 01-31-2026 SYPHILIS TREPONEMAL W/REFLEX SYPHILIS TREPONEMAL W/REFLEX Lab Routine Encounter for supervision of normal first in second trimester (HCC) 24 weeks gestation of (HCC) Screening for diabetes mellitus Expected: 01/31/2025, Expires: 01/31/2026 [facility] Comment on above: Expected: 01/31/2025 , Expires: 01/31/2026 Start: 01-31-2025 End: 01-31-2025 Patient encounter procedure 01/31/2025 8:30 AM EDT Routine Office Visit OB/Gynecology [address] [place] [address] Nelly Gutierrez MD [address] [place] [address] OB Routine OB/Gynecology Comment on above: OB Routine Start: 01-03-2025 End: 01-03-2025 Patient encounter procedure [facility] Comment on above: Anatomy/OB Start: 12-18-2024 End: 12-18-2024 Patient encounter procedure 12/18/2024 4:20 PM EDT Routine Office Visit OB/Gynecology [address] [place] [address] Nelly Gutierrez MD [address] [place] [address] OB OB/Gynecology Comment on above: OB Start: 12-15-2024 End: 12-15-2024 Patient encounter procedure Obstetrics/Gynecolo gy Comment on above: Annual and 6 month f ollow up Start: 11-20-2024 End: 11-20-2024 Patient encounter procedure [facility] Comment on above: Nuchal OB Start: 10-23-2024 End: 10-23-2024 Patient encounter procedure 10/23/2024 2:45 PM EST Initial Office Visit OB/Gynecology [address] [place] [address] Bita Degroot APRN.CREDIT COLLECTIONS REP [address] [place] [address] New OB/ LMP11/27 OB/Gynecology Comment on above: New OB/ LMP11/27 Start: 10-23-2024 End: 01-22-2025 ANEMIA REFLEX PANEL ANEMIA REFLEX PANEL Lab Routine 9 weeks gestation of Encounter for care in first trimester of first Expected: 10/23/2024, Expires: 01/22/2025 [facility] Work Phone: Comment on above: Expected: 10/23/2024 , Expires: 01/22/2025 Start: 10-23-2024 End: 01-22-2025 Hemoglobin A1c in Blood HEMOGLOBIN A1C Lab Routine 9 weeks gestation of Encounter for care in first trimester of first Expected: 10/23/2024, Expires: 01/22/2025 [facility] Comment on above: Expected: 10/23/2024 , Expires: 01/22/2025 Start: 10-23-2024 End: 01-22-2025 Hepatitis B virus surface Ag [Presence] in Serum HEPATITIS B SURFACE ANTIGEN Lab Routine 9 weeks gestation of Encounter for care in first trimester of first Expected: 10/23/2024, Expires: 01/22/2025 [facility] Comment on above: Expected: 10/23/2024 , Expires: 01/22/2025 Start: 10-23-2024 End: 01-22-2025 Hepatitis C virus Ab [Presence] in Serum HEPATITIS C ANTIBODY IA WITH CONFIRMATION Lab Routine 9 weeks gestation of Encounter for care in first trimester of first Expected: 10/23/2024, Expires: 01/22/2025 [facility] Comment on above: Expected: 10/23/2024 , Expires: 01/22/2025 Start: 10-23-2024 End: 01-22-2025 HIV 1+2 Ab [Presence] in Serum or Plasma by Immunoassay HIV 1/2 COMBO WITH REFLEX TO DIFFERENTIATION Lab Routine 9 weeks gestation of Encounter for care in first trimester of first Expected: 10/23/2024, Expires: 01/22/2025 [facility] Comment on above: Expected: 10/23/2024 , Expires: 01/22/2025 Start: 10-23-2024 End: 10-23-2025 OBSTETRIC ULTRASOUND WHI OBSTETRIC ULTRASOUND WHI Anc Imaging Routine 9 weeks gestation of Encounter for care in first trimester of first Expected: 10/23/2024, Expires: 10/23/2025 [facility] Comment on above: Expected: 10/23/2024 , Expires: 10/23/2025 Start: 10-23-2024 End: 01-22-2025 RUBELLA IGG ANTIBODY RUBELLA IGG ANTIBODY Lab Routine 9 weeks gestation of Encounter for care in first trimester of first Expected: 10/23/2024, Expires: 01/22/2025 [facility] Comment on above: Expected: 10/23/2024 , Expires: 01/22/2025 Start: 10-23-2024 End: 01-22-2025 SYPHILIS TREPONEMAL W/REFLEX SYPHILIS TREPONEMAL W/REFLEX Lab Routine 9 weeks gestation of Encounter for care in first trimester of first Expected: 10/23/2024, Expires: 01/22/2025 [facility] Comment on above: Expected: 10/23/2024 , Expires: 01/22/2025 Start: 10-23-2024 End: 01-22-2025 TYPE + SCREEN TYPE + SCREEN Blood Bank Routine 9 weeks gestation of Encounter for care in first trimester of first Expected: 10/23/2024, Expires: 01/22/2025 [facility] Comment on above: Expected: 10/23/2024 , Expires: 01/22/2025 Start: 10-06-2024 End: 10-06-2024 Patient encounter procedure OB/Gynecology Comment on above: Dating/OB Dating /Early OB, Ne w OB scheduled on 10/23 Start: 10-03-2024 End: 10-03-2025 OBSTETRIC ULTRASOUND WHI OBSTETRIC ULTRASOUND [facility]I Anc Imaging Routine Threatened Expected: 10/03/2024, Expires: 10/03/2025 [facility] Work Phone: Comment on above: Expected: 10/03/2024 , Expires: 10/03/2025 Start: 09-27-2024 End: 12-27-2024 TYPE + SCREEN [facility] Comment on above: Expected: 09/27/2024 , Expires: 12/27/2024 Start: 07-19-2024 End: 07-19-2024 Patient encounter procedure 07/19/2024 10:30 AM EDT Office Visit Obstetrics/Gynecology [address] [address] Ronna Ge, MARIMAR.[facility] [address] [address] Encounter for initial prescription of contraceptives, unspecified contraceptive [Z30.019] Obstetrics/Gynecolo gy Comment on above: Encounter for initia l prescription of contraceptives, unspecified contraceptive [Z30.019] Start: 07-11-2024 End: 07-11-2024 Patient encounter procedure 07/11/2024 10:30 AM EDT Office Visit OB/Gynecology [address] [place], [place] [id number] Bita Degroot APRN.[employer]LE[employer] REP [address] [place] [address] new annual exam OB/Gynecology Comment on above: new annual exam Start: 05-30-2024 End: 05-30-2024 Patient encounter procedure 05/30/2024 10:30 AM EDT Office Visit Obstetrics/Gynecology [address] [address] Prabha Dalal MD [address] [phone] Wants control Obstetrics/Gynecolo gy Comment on above: Wants control Start: 05-26-2024 End: 05-26-2024 Patient encounter procedure 05/26/2024 7:30 AM EDT Office Visit OB/Gynecology [address] [place] [address] Bita Degroot APRN.[employer]LE[employer] REP [address] [place] [address] new annual exam OB/Gynecology Comment on above: new annual exam Start: 05-21-2024 Covid-19 Vaccine ( season) Covid-19 Vaccine ( season) [facility] Start: 05-21-2024 Covid-19 Vaccine ( season) Covid-19 Vaccine ( season) [facility] Start: 05-21-2024 Influenza vaccination [facility] Start: 04-28-2024 End: 07-28-2024 Hepatitis C virus Ab [Presence] in Serum HEPATITIS C ANTIBODY IA WITH CONFIRMATION Lab Routine Special screening examination for viral disease Expected: 04/28/2024, Expires: 07/28/2024 [facility] Comment on above: Expected: 04/28/2024 , Expires: 07/28/2024 Start: 04-28-2024 End: 07-28-2024 HIV 1+2 Ab [Presence] in Serum or Plasma by Immunoassay HIV 1/2 COMBO WITH REFLEX TO DIFFERENTIATION Lab Routine Screening for HIV (human immunodeficiency virus) Expected: 04/28/2024, Expires: 07/28/2024 [facility] Work Phone: Comment on above: Expected: 04/28/2024 , Expires: 07/28/2024 Start: 09-20-2023 Behavioral Health Screening Behavioral Health Screening [facility] Start: 05-21-2023 Adult depression screening assessment DEPRESSION SCREENING [facility] Start: 05-21-2023 Covid-19 Vaccine ( season) Covid-19 Vaccine ( season) [facility] Start: 05-21-2023 Influenza vaccination [facility] Start: 09-20-2022 DEPRESSION ASSESSMENT DEPRESSION ASS ESSMENT [facility] Start: 2022 Anxiety Screening Anxiety Screening [facility] Start: 2022 CHLAMYDIA SCREENING (18-24) CHLAMYDIA SCREENING (18-24) [facility] Start: 2022 Depression Screening Depression Scre ening [facility] Start: 2022 GC (GONORRHEA) SCREENING (18-24) GC (GONORRHEA) SCREENING (18-24) [facility] Start: 2022 HEPATITIS C SCREENING HEPATITIS C [facility] Start: 2022 Hepatitis C screening Hepatitis C [facility] Start: 2022 HIV SCREENING HIV SCREENING [facility] Start: 2022 HIV screening HIV Screening [facility] Start: 2022 Screening for Chlamy cezar trachomatis Chlamydia Screening (18-24) [facility] Start: 05-21-2022 Influenza vaccination [facility] Start: 04-28-2022 Adult depression screening assessment DEPRESSION SCREENING [facility] Start: 04-28-2022 CHLAMYDIA SCREENING (<18) CHLAMYDIA SCREENING (<18) [facility] Comment on above: Postponed from 06/24 (Postponed - Not Clinically Indicated) Start: 04-28-2022 COVID-19 VACCINE (1) COVID-19 VACCIN E (1) [facility] Comment on above: Postponed from 06/24 (Declined at this time) Start: 04-28-2022 GC (GONORRHEA) SCREENING (<18) GC (GONORRHEA) SCREENING (<18) [facility] Comment on above: Postponed from 06/24 (Postponed - Not Clinically Indicated) Start: 04-28-2022 MENINGOCOCCAL B: Consider based on risk (1 of 2 - Risk Bexsero 2-dose series) MENINGOCOCCAL B: Consider based on risk (1 of 2 - Risk Bexsero 2-dose series) [facility] Comment on above: Postponed from 06/24 (Declined at this time) Start: 09-20-2021 DEPRESSION ASSESSMENT DEPRESSION ASS ESSMENT [facility] Start: 2020 Meningococcal B Vacc ine (1 of 2 - Standard) Meningococcal B Vaccine (1 of 2 - Standard) [facility] Start: 2020 Meningococcal B Vaccine: Consider Based On Risk (1 of 2 - Patient Seeks Protection) Meningococcal B Vaccine: Consider Based On Risk (1 of 2 - Patient Seeks Protection) [facility] Start: 2019 CHLAMYDIA SCREENING (<18) CHLAMYDIA SCREENING (<18) [facility] Start: 2019 GC (GONORRHEA) SCREENING (<18) GC (GONORRHEA) SCREENING (<18) [facility] Start: 2018 PEDS TO ADULT TRANSITION ANNUAL ASSESSMENT PEDS TO ADULT TRANSITION ANNUAL ASSESSMENT [facility] Start: 2014 MENINGOCOCCAL B: Consider based on risk (1 of 2 - Risk Bexsero 2-dose series) MENINGOCOCCAL B: Consider based on risk (1 of 2 - Risk Bexsero 2-dose series) [facility] Start: 2004 COVID-19 VACCINE (#1) COVID-19 VACCI NE (#1) [facility] Bacteria identified in Urine by Culture URINE CULTURE Microbiology Routine Urgency of urination 05/24/2024 12:26 PM EDT [facility] Work Phone: Bacteria identified in Urine by Culture BACTERIAL CULTURE, URINE Microbiology Routine Burning with urination 09/26/2024 4:33 PM EST [facility] Work Phone: Bacteria identified in Urine by Culture BACTERIAL CULTURE, URINE Microbiology Routine 9 weeks gestation of Encounter for care in first trimester of first 10/23/2024 3:42 PM [facility] BACTERIAL VAGINOSIS NAAT BACTERIAL VAGINOSIS NAAT Lab Routine Urethral irritation 09/26/2024 4:33 PM [facility] Bilirubin measuremen t, urine [facility] LORAINE/TRICHOMONAS NAAT LORAINE/TRICHOMONAS NAAT Lab Routine Urethral irritation 09/26/2024 4:33 PM [facility] Chlamydia trachomatis+Neisseria gonorrhoeae DNA [Presence] in Unspecified specimen by HIRAM with probe detection GONORRHEA/CHLAMYDIA NAAT Lab Routine Screen for sexually transmitted diseases 04/28/2024 11:03 AM EDT [facility] Chlamydia trachomatis+Neisseria gonorrhoeae DNA [Presence] in Unspecified specimen by HIRAM with probe detection GONORRHEA/CHLAMYDIA NAAT Lab Routine 9 weeks gestation of Encounter for care in first trimester of first 10/23/2024 3:42 PM [facility] End: 10-11-2024 Choriogonadotropin.beta subunit [Units/volume] in Serum or Plasma HCG QUANTITATIVE Lab Routine Spotting in 2x per week for 2 Occurrences starting 09/27/2024 until 10/11/2024 [facility] Work Phone: Comment on above: 2x per week for 2 Oc currences starting 09/27/2024 until 10/11/2024 Choriogonadotropin.b eta subunit [Units/volume] in Serum or Plasma HCG QUANTITATIVE Lab Routine Spotting in 09/27/2024 4:42 PM [facility] End: 10-02-2025 Choriogonadotropin.beta subunit [Units/volume] in Serum or Plasma HCG QUANTITATIVE Lab Routine Spotting in 2x per week for 4 Occurrences starting 10/02/2024 until 10/02/2025 [facility] Work Phone: Comment on above: 2x per week for 4 Oc currences starting 10/02/2024 until 10/02/2025 Choriogonadotropin.b eta subunit [Units/volume] in Serum or Plasma HCG QUANTITATIVE Lab Routine Spotting in 10/02/2024 4:08 PM [facility] COVID & INFLUENZA A/ B & RSV PCR, ROUTINE COVID & INFLUENZA A/B & RSV PCR, ROUTINE Microbiology Routine Urgency of urination Viral illness 05/24/2024 12:26 PM T [facility] Hemoglobin [Presence ] in Urine [facility] Measurement of keton es in urine using dipstick [facility] Patient Education ED False Labor OB Triage: Return to Hospital or Notify Physician if you Experience: [facility] Work Phone: pH of Urine [facility] Specific gravity of Urine [facility] Urine culture [facility] Urine dipstick for glucose [facility] Urine dipstick for leukocyte esterase [facility] Urine dipstick for nitrite [facility] Urine dipstick for protein [facility] Urine examination [facility] URINE OB DIP B/O URINE OB DIP B/ O Lab Routine Encounter for supervision of normal first in third trimester (HCC) 34 weeks gestation of (HCC) Ordered: 04/12/2025 [facility] Work Phone: Comment on above: Ordered: 04/12/2025 Urobilinogen [Presen ce] in Urine [facility] End: 09-22-2023 XR WRIST GENERAL 3V PA/LAT/OBL LEFT XR WRIST GENERAL 3V PA/LAT/OBL LEFT Radiology Routine Wrist injury, left, initial encounter 1 Occurrences starting 08/23/2022 until 09/22/2023 [facility] Work Phone: Comment on above: 1 Occurrences starti ng 08/23/2022 until 09/[facility] Immunization Date Immunization Notes Care Provider Ernestine rodas 04-28-2021 meningococcal polysaccharide (groups A, C, Y and W-135) diphtheria toxoid conjugate vaccine (MCV4P) Nisha Money DOCUMENT PREPARATION SPECIALIST.[facility] Work Phone: [facility] 12-02-2017 Human Papillomavirus 9-valent vaccine Nisha Money DOCUMENT PREPARATION SPECIALIST.[facility] Work Phone: [facility] Work Phone: 05-20-2017 Human Papillomavirus 9-valent vaccine Nisha Money DOCUMENT PREPARATION SPECIALIST.[facility] Work Phone: [facility] 05-20-2017 meningococcal polysaccharide (groups A, C, Y and W-135) diphtheria toxoid conjugate vaccine (MCV4P) Nisha Money DOCUMENT PREPARATION SPECIALIST.[facility] Work Phone: [facility] 08-24-2015 influenza, injectabl e, quadrivalent, contains preservative Nisha Money DOCUMENT PREPARATION SPECIALIST.[facility] Work Phone: [facility] Work Phone: 08-24-2015 tetanus toxoid, redu cecil diphtheria toxoid, and acellular pertussis vaccine, adsorbed Nisha Money DOCUMENT PREPARATION SPECIALIST.[facility] Work Phone: [facility] Work Phone: 08-24-2015 influenza virus vacc ine, unspecified formulation Lilia Cote PA-C Work Phone: [facility] 07-17-2014 influenza, injectabl e, quadrivalent, preservative free Nisha Money DOCUMENT PREPARATION SPECIALIST.[facility] Work Phone: [facility] Work Phone: 07-12-2012 influenza, seasonal, injectable Prabha Dalal MD Work Phone: [facility] 04-05-2010 Diphtheria, tetanus toxoids and acellular pertussis vaccine, and poliovirus vaccine, inactivated Prabha Dalal MD Work Phone: [facility] 04-05-2010 diphtheria, tetanus toxoids and pertussis vaccine Nisha Money DOCUMENT PREPARATION SPECIALIST.[facility] Work Phone: [facility] Work Phone: 04-05-2010 measles, mumps and rubella virus vaccine Nisha Money DOCUMENT PREPARATION SPECIALIST.[facility] Work Phone: [facility] Work Phone: 04-05-2010 poliovirus vaccine, inactivated Nisha Money DOCUMENT PREPARATION SPECIALIST.[facility] Work Phone: [facility] Work Phone: 04-05-2010 varicella virus vaccine Pedro ie Money DOCUMENT PREPARATION SPECIALIST.[facility] Work Phone: [facility] Work Phone: 09-28-2005 diphtheria, tetanus toxoids and acellular pertussis vaccine, 5 pertussis antigens Prabha Dalal MD Work Phone: [facility] 09-28-2005 diphtheria, tetanus toxoids and pertussis vaccine Nisha Money DOCUMENT PREPARATION SPECIALIST.[facility] Work Phone: [facility] Work Phone: 09-28-2005 pneumococcal conjuga te vaccine, 7 valent Prabha Dalal MD Work Phone: [facility] 09-28-2005 pneumococcal Conjuga te, unspecified formulation Nisha Money DOCUMENT PREPARATION SPECIALIST.[employer] Work Phone: [facility] Work Phone: 08-19-2005 influenza virus vacc ine, whole virus Prabha Dalal MD Work Phone: [facility] 07-15-2005 influenza virus vacc ine, whole virus Prabha Dalal MD Work Phone: [facility] 07-15-2005 measles, mumps and rubella virus vaccine Nisha Money DOCUMENT PREPARATION SPECIALIST.[facility] Work Phone: [facility] Work Phone: 07-15-2005 varicella virus vaccine Pedro ie Money DOCUMENT PREPARATION SPECIALIST.[facility] Work Phone: [facility] Work Phone: 01-07-2005 diphtheria, tetanus toxoids and acellular pertussis vaccine, unspecified formulation Prabha Dalal MD Work Phone: [facility] 01-07-2005 diphtheria, tetanus toxoids and pertussis vaccine Nisha Money DOCUMENT PREPARATION SPECIALIST.[facility] Work Phone: [facility] Work Phone: 01-07-2005 haemophilus influenz ae type b vaccine, conjugate unspecified formulation Nisha Money DOCUMENT PREPARATION SPECIALIST.[facility] Work Phone: [facility] Work Phone: 01-07-2005 hepatitis B vaccine, pediatric or pediatric/adolescent dosage Nisha Money DOCUMENT PREPARATION SPECIALIST.[facility] Work Phone: [facility] Work Phone: 01-07-2005 poliovirus vaccine, inactivated Nisha Money DOCUMENT PREPARATION SPECIALIST.[facility] Work Phone: [facility] Work Phone: 01-07-2005 poliovirus vaccine, unspecified formulation Prabha Dalal MD Work Phone: [facility] 2004 pneumococcal conjuga te vaccine, 7 valent Prabha Dalal MD Work Phone: [facility] 2004 pneumococcal Conjuga te, unspecified formulation Nisha Money DOCUMENT PREPARATION SPECIALIST.[facility] Work Phone: [facility] Work Phone: 2004 diphtheria, tetanus toxoids and acellular pertussis vaccine, unspecified formulation Prabha Dalal MD Work Phone: [facility] 2004 diphtheria, tetanus toxoids and pertussis vaccine Nisha Money DOCUMENT PREPARATION SPECIALIST.[facility] Work Phone: [facility] Work Phone: 2004 haemophilus influenz ae type b vaccine, conjugate unspecified formulation Nisha Money DOCUMENT PREPARATION SPECIALIST.[facility] Work Phone: [facility] Work Phone: 2004 pneumococcal conjuga te vaccine, 7 valent Prabha Dalal MD Work Phone: [facility] 2004 pneumococcal Conjuga te, unspecified formulation Nisha Money DOCUMENT PREPARATION SPECIALIST.[facility] Work Phone: [facility] Work Phone: 2004 poliovirus vaccine, inactivated Nisha Money DOCUMENT PREPARATION SPECIALIST.[facility] Work Phone: [facility] Work Phone: 2004 poliovirus vaccine, unspecified formulation Prabha Dalal MD Work Phone: [facility] 2004 diphtheria, tetanus toxoids and acellular pertussis vaccine, unspecified formulation Prabha Dalal MD Work Phone: [facility] 2004 diphtheria, tetanus toxoids and pertussis vaccine Nisha Money DOCUMENT PREPARATION SPECIALIST.[facility] Work Phone: [facility] Work Phone: 2004 haemophilus influenz ae type b vaccine, conjugate unspecified formulation Nisha Money DOCUMENT PREPARATION SPECIALIST.[facility] Work Phone: [facility] Work Phone: 2004 hepatitis B vaccine, pediatric or pediatric/adolescent dosage Nisha Money DOCUMENT PREPARATION SPECIALIST.[facility] Work Phone: [facility] Work Phone: 2004 pneumococcal conjuga te vaccine, 7 valent Prabha Dalal MD Work Phone: [facility] 2004 pneumococcal Conjuga te, unspecified formulation Nisha Money DOCUMENT PREPARATION SPECIALIST.[facility] Work Phone: [facility] Work Phone: 2004 poliovirus vaccine, inactivated Nisha Money DOCUMENT PREPARATION SPECIALIST.[employer] Work Phone: [facility] Work Phone: 2004 poliovirus vaccine, unspecified formulation Prabha Dalal MD Work Phone: [facility] 2004 hepatitis B vaccine, pediatric or pediatric/adolescent dosage Nisha Money DOCUMENT PREPARATION SPECIALIST.[facility] Work Phone: [facility] Work Phone: Payers Date Payer Category Payer Private Health Insurance [id number] 2024 Self-pay 2022 Unknown [id number] 2021 Private Health Insurance EHP AET NA EHP STAFF/NON STAFF / EHP [facility] [id number] 2021-2030 [address] [place] [address] EPO [id number] 2018 Private Health Insurance [id number] 2018 Unknown [employer] VSP VISION [id number] 2018-Present [address] [place] [address] Indemnity [id number] Unknown [id number] Unknown [id number] Unknown [id number] Social History Date Type Detail Facility Start: 12-02-2017 End: 04-28-2024 Tobacco smoking status NHIS Never smoked tobacco [facility] Work Phone: Start: 12-24-2021 End: 05-24-2024 Alcohol intake Not Asked [facility] Start: 2004 Sex Assigned At Not on file [facility] Start: 12-14-2021 End: 08-23-2022 Exposure to SARS-CoV-2 (event) Not sure [facility] Start: 12-02-2017 End: 04-28-2024 Tobacco use and exposure Smokeless tobacco non-user [facility] Work Phone: Start: 2004 Sex Assigned At Female [facility] Start: 03-03-2023 End: 07-25-2023 History of Social function [facility] Start: 03-03-2023 End: 07-25-2023 Tobacco use panel [facility] National Score (1-100), lower number is lower risk 63 [facility] Start: 11-17-2022 Gender identity Identifies as female gender (finding) [facility] Has the electric, gas, oil, or water Clip threatened to shut off services in your home in past 12Mo No [facility] Are you now , , , , never or living with a partner? Never [facility] How often to you hav e a drink containing alcohol? Never [facility] How hard is it for you to pay for the very basics like food, housing, medical care, and heating Not very hard [facility] Do you feel stress - tense, restless, nervous, or anxious, or unable to sleep at night because your mind is troubled all the time - these days [OSQ] Very much [facility] (I/We) worried whether (my/our) food would run out before (I/we) got money to buy more. Never true [facility] Start: 05-30-2024 End: 04-12-2025 Alcoholic beverage intake Lifetime non-drinker (finding) [facility] Start: 08-30-2024 [facility] Start: 11-17-2024 Tobacco smoking status NHIS Tobacco smoking consumption unknown (finding) [facility] NEGATED: Highlighted rowStart: MARCUSF History of tobacco use Passive smoker [facility] Goals Date Patient Goal Desired Activity /State Personal health goal Functional Status Date Assessment Result Facility 12-05-2014 Are you deaf, or do you have serious difficulty hearing No 12/05/2014 5:25 PM EDT En[facility] Tavera Ma No [facility] 12-05-2014 Are you blind, or do you have serious difficulty seeing, even when wearing glasses No 12/05/2014 5:25 PM EDT [facility]aver[facility] Ma No [facility] 12-05-2014 Do you have serious difficulty walking or climbing stairs No 12/05/2014 5:25 PM EDT [facility] Taver[facility] Ma No [facility] 12-05-2014 Do you have difficul ty dressing or bathing No 12/05/2014 5:25 PM EDT [facility] Tavera Ma No [facility] Mental Status Date Assessment Result Facility 12-05-2014 Because of a physica l, mental, or emotional condition, do you have serious difficulty concentrating, remembering, or making decisions No 12/05/2014 5:25 PM EDT [facility] Tavera Ma No [facility] Clinical Notes 12-24-2021 to 04-12-2025 Quick Notes [...] DIP B/O 2. 34 weeks gestation of ([facility]) - ICD9: V22.2, ICD10: Z3A.34 - URINE OB DIP B/O 3. Encounter for care in first trimester of first ([facility]) - ICD9: V22.0, ICD10: Z34.01 - ASPIRIN 81 MG TABLET,DELAYED RELEASE Theresa Busch MD [facility] 04-12-2025 Miscellaneous Notes S: Nataly Dsouza is [...] supervision of normal first in third trimester ([facility]) - ICD9: V22.0, ICD10: Z34.03 (primary diagnosis) - URINE OB DIP B/O 2. 34 weeks gestation of ([facility]) - ICD9: V22.2, ICD10: Z3A.34 - URINE OB DIP B/O 3. Encounter for care in first trimester of first ([facility]) - ICD9: V22.0, ICD10: Z34.01 - ASPIRIN 81 MG TABLET,DELAYED RELEASE Theresa Busch MD documented in this encounter [facility] 04-12-2025 Instructions Chika Lucas MA - 04/12/2025 8:58 AM EDT SEQUENTIAL SCREENINGS The [facility] offers sequential screenings for women who are [...] It will require an appointment with our veterinary technician assistant. This is not an ultrasound performed by [...] the above symptoms, contact our office at [phone] and ask to speak with a nurse. After hours, you can call doctors registry at [phone] OR call [facility] at [phone] and ask to have the doctor yarn preparation supervisor paged. If you consider this an emergency, dial 9-9 or go to your nearest emergency department. NEED HELP? Are you dealing with a violent or abusive relationship? Are you a victim of rape or sexual assult? Call [facility] ([place]) 24 hour Crisis Hotline: 492.237.3053 or 085-165-9229. MANUAL Your Guide to a Healthy manual is now on-line. Visit [email or web address] ncyGuide to download your free copy documented in this encounter [facility] 03-30-2025 Progress note Formatting of t his [...] RTO in 2 weeks Kerrie Mckeon APRN.CNM [facility] 03-30-2025 Miscellaneous Notes CY-S: Nataly Dsouza is [...] Kerrie Mckeon APRN.CNM documented in this encounter [facility] 03-30-2025 Instructions Mindy Chin LPN - 03/30/2025 9:15 AM EDT SEQUENTIAL SCREENINGS The [facility] offers sequential screenings for women who are [...] It will require an appointment with our veterinary technician assistant. This is not an ultrasound performed by [...] the above symptoms, contact our office at [phone] and ask to speak with a nurse. After hours, you can call doctors registry at [phone] OR call [facility] at [phone] and ask to have the doctor yarn preparation supervisor paged. If you consider this an emergency, dial [phone]--3 or go to your nearest emergency department. NEED HELP? Are you dealing with a violent or abusive relationship? Are you a victim of rape or sexual assult? Call [facility] ([place]) 24 hour Crisis Hotline: 331.788.7485 or 460-816-2647. MANUAL Your Guide to a Healthy manual is now on-line. Visit [email or web address] ncyGuide to download your free copy documented in this encounter [facility] 03-13-2025 Progress note Formatting of t his [...] RTO in 2 weeks Kerrie Mckeon APRN.CNM [facility] 03-13-2025 Miscellaneous Notes CY-S: Nataly Dsouza is [...] Kerrie Mckeon APRN.CNM documented in this encounter [facility] 03-13-2025 Instructions Rashmi Mejia MA - 03/13/2025 8:51 AM EDT SEQUENTIAL SCREENINGS The [facility] offers sequential screenings for women who are [...] It will require an appointment with our veterinary technician assistant. This is not an ultrasound performed by [...] the above symptoms, contact our office at [phone] and ask to speak with a nurse. After hours, you can call doctors registry at [phone] OR call [facility] at [phone] and ask to have the doctor yarn preparation supervisor paged. If you consider this an emergency, dial [phone] or go to your nearest emergency department. NEED HELP? Are you dealing with a violent or abusive relationship? Are you a victim of rape or sexual assult? Call [facility] ([place]) 24 hour Crisis Hotline: 936.502.7181 or 729-489-1456. MANUAL Your Guide to a Healthy manual is now on-line. Visit [email or web address] ncyGuide to download your free copy documented in this encounter [facility] 03-05-2025 Telephone encounter Note if feeling worse can schedule to be seen. Nelly Gutierrez MD [facility] 03-05-2025 Miscellaneous Notes if feeling worse can schedule to be seen. Nelly Gutierrez MD Patient 28w5d, last seen 02/28. Does not have next appointment scheduled. Etelvina Andrade RN documented in this encounter [facility] 03-05-2025 Telephone encounter Note Patient 28w5d, last seen 02/28. Does not have next appointment scheduled. Etelvina Andrade RN [facility] 02-28-2025 Progress note Formatting of t his [...] supervision of normal first in third trimester ([facility]) - ICD9: V22.0, ICD10: Z34.03 (primary diagnosis) PTL precautions 2. 28 weeks gestation of ([facility]) - ICD9: V22.2, ICD10: Z3A.28 Theresa Busch MD [facility] 02-28-2025 Miscellaneous Notes S: Nataly Dsouza is [...] supervision of normal first in third trimester ([facility]) - ICD9: V22.0, ICD10: Z34.03 (primary diagnosis) PTL precautions 2. 28 weeks gestation of ([facility]) - ICD9: V22.2, ICD10: Z3A.28 Theresa Busch MD documented in this encounter [facility] 02-28-2025 Instructions Geoff Berry MA - 02/28/2025 8:46 AM EDT SEQUENTIAL SCREENINGS The [facility] offers sequential screenings for women who are [...] It will require an appointment with our veterinary technician assistant. This is not an ultrasound performed by [...] the above symptoms, contact our office at [phone] and ask to speak with a nurse. After hours, you can call doctors registry at [phone] OR call [facility] at [phone] and ask to have the doctor yarn preparation supervisor paged. If you consider this an emergency, dial [phone]- or go to your nearest emergency department. NEED HELP? Are you dealing with a violent or abusive relationship? Are you a victim of rape or sexual assult? Call [facility] ([place]) 24 hour Crisis Hotline: 106.507.9746 or 286-933-8136. MANUAL Your Guide to a Healthy manual is now on-line. Visit [email or web address] ncyGuide to download your free copy documented in this encounter [facility] 02-20-2025 Note Addended by: BETHANY ALBERT on: 02/20/2025 06:25 PM Modules accepted: Orders [facility] 02-20-2025 Miscellaneous Notes Addended by: BETHANY ALBERT on: 02/20/2025 06:25 PM Modules accepted: Orders documented in this encounter [facility] 02-20-2025 Note HNO ID: [id number] Author: GEOVANI RUBALCAVA APRN.CREDIT COLLECTIONS REP Service: ? Author Type: Nurse Practitioner Type: Progress Notes Filed: 02/20/2025 18:12 Note Text: [facility] Subjective Nataly Dsouza is a 19 [...] Patient agreeable with treatment plan. Geovani Rubalcava APRN.[facility] 02-20-2025 [facility] of [facility] is a 19 year old [...] Geovani Rubalcava APRN.MONSERRAT documented in this encounter [facility] 02-20-2025 Instructions Geovani Rubalcava APRN.CNP - 02/20/2025 [...] colds per year. Colds are transmitted from hpuamr-cl-nvdxim. Less often, the virus can be transmitted [...] medical conditions and those who use other ehlt-qui-jnuqmdw or prescription medications should speak with their [...] sprays and irrigation kits can be purchased rrnq-dwo-ycgxtun. Saline mixes can also be purchased or [...] are often combined with other medications in fque-rrm-pbllvba cold formulas. However, the benefit of cough [...] is not available documented in this encounter [facility] 01-31-2025 Progress note Formatting of t his [...] zofran at this time. Nelly Gutierrez M.D. [facility] 01-31-2025 Miscellaneous Notes RR- VB No. LOF [...] Nelly Gutierrez M.D. documented in this encounter [facility] 01-31-2025 Instructions Dede Carvajal MA - 01/31/2025 8:23 AM EDT SEQUENTIAL SCREENINGS The [facility] offers sequential screenings for women who are [...] It will require an appointment with our veterinary technician assistant. This is not an ultrasound performed by [...] the above symptoms, contact our office at [phone] and ask to speak with a nurse. After hours, you can call doctors registry at [phone] OR call [facility] at [phone] and ask to have the doctor yarn preparation supervisor paged. If you consider this an emergency, dial 4-1 or go to your nearest emergency department. NEED HELP? Are you dealing with a violent or abusive relationship? Are you a victim of rape or sexual assult? Call [facility] ([place]) 24 hour Crisis Hotline: 197.893.9018 or 985-674-1642. MANUAL Your Guide to a Healthy manual is now on-line. Visit [email or web address] ncyGuide to download your free copy documented in this encounter [facility] 01-03-2025 Progress note Formatting of t his [...] TO PHYSICAL THERAPY; Future Nelly Gutierrez M.D. [facility] 01-03-2025 Miscellaneous Notes RR- VB No. LOF No. CTXS No. Movement: present. Other c/o: some low back pain, down her leg. Medication list reviewed. SENSITIVE EXAM: Sensitive exam not performed. Physical Exam See Flow Sheet Abd: soft, nontender, gravid Ext: edema: Trace A/P 20w0d Estimated Date of Delivery: 05/23/25 Assessment & Plan 20 weeks gestation of ([facility]) Orders: CONSULT TO PHYSICAL THERAPY; Future Encounter for supervision of normal first in second trimester ([facility]) Orders: CONSULT TO PHYSICAL THERAPY; Future Acute right-sided low back pain without sciatica going on a week, armin. w/ standing. Recommend PT for this and she accepts. Orders: CONSULT TO PHYSICAL THERAPY; Future Nelly Gutierrez M.D. documented in this encounter [facility] 01-03-2025 Instructions Rashmi Mejia MA - 01/03/2025 4:03 PM EDT SEQUENTIAL SCREENINGS The [facility] offers sequential screenings for women who are [...] It will require an appointment with our veterinary technician assistant. This is not an ultrasound performed by [...] the above symptoms, contact our office at [phone] and ask to speak with a nurse. After hours, you can call doctors registry at [phone] OR call [facility] at [phone] and ask to have the doctor yarn preparation supervisor paged. If you consider this an emergency, dial 9--2 or go to your nearest emergency department. NEED HELP? Are you dealing with a violent or abusive relationship? Are you a victim of rape or sexual assult? Call [facility] ([place]) 24 hour Crisis Hotline: 893.351.5779 or 254-973-5997. MANUAL Your Guide to a Healthy manual is now on-line. Visit [email or web address] ncyGuide to download your free copy documented in this encounter [facility] 12-18-2024 Progress note Formatting of t his note might be different from the original. RR- VB No. LOF No. CTXS No. Movement: flutters. Other c/o: No. Medication list reviewed. SENSITIVE EXAM: Sensitive exam not performed. Physical Exam See Flow Sheet Abd: soft, nontender, gravid A/P 17w5d Estimated Date of Delivery: 05/23/25 Assessment & Plan Encounter for supervision of normal first in second trimester ([facility]) 17 weeks gestation of ([facility]) Encounter for care in first trimester of first ([facility]) Orders: aspirin, enteric coated (ECOTRIN LOW STRENGTH) 81 mg EC tablet; Take 1 tablet by mouth once daily. anatomy US scheduled cont. asa cont. pnv f/u in 4 weeks or prn Nelly Gutierrez M.D. [facility] 12-18-2024 Miscellaneous Notes RR- VB No. LOF No. CTXS No. Movement: flutters. Other c/o: No. Medication list reviewed. SENSITIVE EXAM: Sensitive exam not performed. Physical Exam See Flow Sheet Abd: soft, nontender, gravid A/P 17w5d Estimated Date of Delivery: 05/23/25 Assessment & Plan Encounter for supervision of normal first in second trimester ([facility]) 17 weeks gestation of ([facility]) Encounter for care in first trimester of first ([facility]) Orders: aspirin, enteric coated (ECOTRIN LOW STRENGTH) 81 mg EC tablet; Take 1 tablet by mouth once daily. anatomy US scheduled cont. asa cont. pnv f/u in 4 weeks or prn Nelly Gutierrez M.D. documented in this encounter [facility] 11-21-2024 Progress note Formatting of t his note might be different from the original. Anatomy ultrasound reviewed. No abnormalities identified. Follow up as clinically indicated. Please place copy in ob chart. Nelly Gutierrez MD [facility] 11-21-2024 Miscellaneous Notes Anatomy ultrasound reviewed. No abnormalities identified. Follow up as clinically indicated. Please place copy in ob chart. Nelly Gutierrez MD documented in this encounter [facility] 11-20-2024 Progress note Formatting of t his [...] - RTO 4 weeks Charley Wilson APRN.CNM [facility] 11-20-2024 Miscellaneous Notes S: Nataly Dsouza is [...] Charley Wilson APRN.CNM documented in this encounter [facility] 11-20-2024 Bettye Fitzgerald LPN - 11/20/2024 3:36 PM EST SEQUENTIAL SCREENINGS The [facility] offers sequential screenings for women who are [...] It will require an appointment with our veterinary technician assistant. This is not an ultrasound performed by [...] the above symptoms, contact our office at [phone] and ask to speak with a nurse. After hours, you can call doctors registry at [phone] OR call [facility] at [phone] and ask to have the doctor yarn preparation supervisor paged. If you consider this an emergency, dial 4- or go to your nearest emergency department. NEED HELP? Are you dealing with a violent or abusive relationship? Are you a victim of rape or sexual assult? Call [facility] ([place]) 24 hour Crisis Hotline: 574.829.8413 or 542-334-2736. MANUAL Your Guide to a Healthy manual is now on-line. Visit [email or web address] ncyGuide to download your free copy documented in this encounter [facility] 10-23-2024 Instructions Dede Carvajal MA - 10/23/2024 2:46 PM EST Please select the following link to access the [facility] Your Guide to a Healthy . [email or web address] documented in this encounter [facility] 10-23-2024 Note HNO ID: [id number] Author: BITA DEGROOT APRN.MONSERRAT Service: ? Author [...] harming myself has occurred to me. Never Mcgrath Depression Scale Total 9 Feeling nervous, anxious [...] relationship Partner: Name: Boo Age: 18 Occupation: [employer] Gender: Male PAST MEDICAL HISTORY Diagnosis Date NEGATIVE MEDICAL HISTORY PAST (more content not included)... [facility] 10-23-2024 History of Present illness Narrative INITIAL [...] harming myself has occurred to me. Never Mcgrath Depression Scale Total 9 Feeling nervous, anxious [...] discussed with the Patient or Patient's Authorized Washer And Capper Machine Operator. As applicable, any other physician, advance practice provider, medical student, or other health professional student that will be observing or involved in the sensitive examination for educational or training purposes was discussed with the Patient or Authorized Washer And Capper Machine Operator. The Patient or Authorized Washer And Capper Machine Operator has agreed to proceed with the sensitive [...] Your guide to a health and the Knotting Machine Operator Portable. Reviewed midwifery and dental hygienist mobile coordinator services that are available. 2) Screening: Hemoglobin [...] 4 weeks or sooner prn. Bita Degroot APRN.MNOSERRAT documented in this encounter [facility] 10-09-2024 Telephone encounter Note Per COLTON hoyos 7w5d. Pt stopped in the office to get letter for work weight lifting restrictions. Discussed with SW. Pt notified at this time no weight lifting restrictions and instructed Pt to discuss with with RM at visit on 10/23/24. Manuela Baugh RN [facility] 10-09-2024 Miscellaneous Notes Per LPM ega 7w5d. Pt stopped in the office to get letter for work weight lifting restrictions. Discussed with SW. Pt notified at this time no weight lifting restrictions and instructed Pt to discuss with with RM at visit on 10/23/24. Manuela Baugh RN documented in this encounter [facility] 10-09-2024 Note HNO ID: [id number] Author: SIL BOBO MD Service: ? Author Type: Physician Type: Progress Notes Filed: 10/09/2024 09:13 Note Text: The patient presents for requested ultrasound. Full report available in the Imaging tab in [place]. Sil Bobo MD [facility] 10-09-2024 History of Present illness Narrative The patient presents for requested ultrasound. Full report available in the Imaging tab in [place]. Sil Bobo MD documented in this encounter [facility] 10-06-2024 Note HNO ID: [id number] Author: ELIUD CLARK MD Service: ? Author Type: Physician Type: Progress Notes Filed: 10/06/2024 13:51 Note Text: Nataly Dsouza is a 19 year old female who presents for problem visit. HPI: Patient presents after US. She reports mild nausea. Last week she had some light spotting. OB History T0 L0 SAB0 IAB0 Ectopic0 Multiple0 Live Births0 Collections Agent History LMP: 08/16/2024 (Exact Date), Age at Menarche: 11 Age at First : Age at Menopause: Collections Agent History Comments: Sexual Activity: Yes; Male Contraception: [...] discussed with the Patient or Patient's Authorized Washer And Capper Machine Operator. As applicable, any other physician, advance practice provider, medical student, or other health professional student that will be observing or involved in the sensitive examination for educational or training purposes was discussed with the Patient or Authorized Washer And Capper Machine Operator. The Patient or Authorized Washer And Capper Machine Operator has agreed to proceed with the sensitive [...] Level: 4 - Moderate Eliud Clark MD [facility] 10-06-2024 History of Present illness Narrative Nataly Dsouza is a 19 year old female who presents for problem visit. HPI: Patient presents after US. She reports mild nausea. Last week she had some light spotting. OB History T0 L0 SAB0 IAB0 Ectopic0 Multiple0 Live Births0 Collections Agent History LMP: 08/16/2024 (Exact Date), Age at Menarche: 11 Age at First : Age at Menopause: Collections Agent History Comments: Sexual Activity: Yes; Male Contraception: [...] discussed with the Patient or Patient's Authorized Washer And Capper Machine Operator. As applicable, any other physician, advance practice provider, medical student, or other health professional student that will be observing or involved in the sensitive examination for educational or training purposes was discussed with the Patient or Authorized Washer And Capper Machine Operator. The Patient or Authorized Washer And Capper Machine Operator has agreed to proceed with the sensitive [...] Eliud Clark MD documented in this encounter [facility] 10-02-2024 Telephone encounter Note Patient needs another HCG quant order. Etelvina Andrade RN [facility] 10-02-2024 Miscellaneous Notes Patient needs another HCG quant order. Etelvina Andrade RN documented in this encounter [facility] 09-27-2024 Telephone encounter Note Patient about positive yeast results. Patient did see her TERRA COTTA ROOFER HELPER and they do not want to treat at this time. Patient is agreeable to this care plan. [facility] Work Phone: 09-27-2024 Miscellaneous Notes Patient about positive yeast results. Patient did see her TERRA COTTA ROOFER HELPER and they do not want to treat at this time. Patient is agreeable to this care plan. documented in this encounter [facility] 09-27-2024 Note HNO ID: [id number] Author: KERRIE MCKEON APRN.CNM Service: ? Author Type: Gravity Manager Type: Progress Notes Filed: 09/27/2024 16:42 Note Text: Nataly Dsouza is a 19 year old female who presents for problem visit for spotting in HPI: LMP110/16/23 Started having cramping today and pinkish spotting. Positive test end of August, some nausea. OB History T0 L0 SAB0 IAB0 Ectopic0 Multiple0 Live Births0 Collections Agent History LMP: 08/16/2024 (Exact Date), Age at Menarche: 11 Age at First : Age at Menopause: Collections Agent History Comments: Sexual Activity: Yes; Male Contraception: [...] discussed with the Patient or Patient's Authorized Washer And Capper Machine Operator. As applicable, any other physician, advance practice provider, medical student, or other health professional student that will be observing or involved in the sensitive examination for educational or training purposes was discussed with the Patient or Authorized Washer And Capper Machine Operator. The Patient or Authorized Washer And Capper Machine Operator has agreed to proceed with the sensitive examination. (Sensitive examination includes inspection and/or palpation of the breasts, pelvis, prostate and anorectal regions). EXAM: BP 98/64 Wt 146 lb (66.2kg) LMP 08/16/2024 GENERAL: pleasant, female in no apparent distress HEENT: Normocephalic and atraumatic NECK: Supple and full range of motion ABDOMEN: soft, non-tender, and no masses PELVIC: external genitalia normal, normal Bartholin's glands, urethra, Athens's glands, no vulvar lesions, no cervical lesions, [...] after 12 weeks unless symptomatic [facility] History of Present illness Narrative Nataly Dsouza is a 19 year old female who presents for problem visit for spotting in HPI: LMP110/16/23 Started having cramping today and pinkish spotting. Positive test end of August, some nausea. OB History T0 L0 SAB0 IAB0 Ectopic0 Multiple0 Live Births0 Collections Agent History LMP: 08/16/2024 (Exact Date), Age at Menarche: 11 Age at First : Age at Menopause: Collections Agent History Comments: Sexual Activity: Yes; Male Contraception: [...] discussed with the Patient or Patient's Authorized Washer And Capper Machine Operator. As applicable, any other physician, advance practice provider, medical student, or other health professional student that will be observing or involved in the sensitive examination for educational or training purposes was discussed with the Patient or Authorized Washer And Capper Machine Operator. The Patient or Authorized Washer And Capper Machine Operator has agreed to proceed with the sensitive examination. (Sensitive examination includes inspection and/or palpation of the breasts, pelvis, prostate and anorectal regions). EXAM: BP 98/64 Wt 146 lb (66.2kg) LMP 08/16/2024 GENERAL: pleasant, female in no apparent distress HEENT: Normocephalic and atraumatic NECK: Supple and full range of motion ABDOMEN: soft, non-tender, and no masses PELVIC: external genitalia normal, normal Bartholin's glands, urethra, Athens's glands, no vulvar lesions, no cervical lesions, [...] Kerrie Mckeon APRN.CNM documented in this encounter [facility] 09-26-2024 Note HNO ID: [id number] Author: ROSANNA HENDRICKS PA-C Service: ? Author Type: Physician Line Crewman Type: Progress Notes Filed: 09/26/2024 18:12 Note Text: This note was created using [employer]. Subjective Nataly Dsouza is a 19 year [...] Patient was advised to follow-up with her BREAST TRIMMER as scheduled or report to an emergency [...] - BACTERIAL VAGINOSIS NAAT Rosanna Hendricks PA-C [facility] 09-26-2024 History of Present illness Narrative This note was created using [employer]. Subjective Nataly Dsouza is a 19 year [...] Patient was advised to follow-up with her BREAST TRIMMER as scheduled or report to an emergency [...] Rosanna Hendricks PA-C documented in this encounter [facility] 06-23-2024 Note HNO ID: [id number] Author: THERESA BUSCH MD Service: ? Author [...] L0 SAB0 IAB0 Ectopic0 Multiple0 Live Births0 Collections Agent History LMP: 06/22/2024 (Approximate), Having periods Age at Menarche: 11 Age at First : Age at Menopause: Collections Agent History Comments: Sexual Activity: Yes; Male Contraception: [...] counseling Z30.09 Follow up gerardo Busch MD [facility] 06-23-2024 History of Present illness Narrative Nataly [...] L0 SAB0 IAB0 Ectopic0 Multiple0 Live Births0 Collections Agent History LMP: 06/22/2024 (Approximate), Having periods Age at Menarche: 11 Age at First : Age at Menopause: Collections Agent History Comments: Sexual Activity: Yes; Male Contraception: [...] Theresa Busch MD documented in this encounter [facility] 05-30-2024 Note HNO ID: [id number] Author: PRABHA DALAL MD Service: ? Author [...] once daily. Electronically submitted to her pharmacy ([facility]). Follow up at annual to assess efficacy [...] Medical Decision Making Level: 4 - Moderate [facility] 05-30-2024 History of Present illness Narrative IMPRESSION/PLAN [...] once daily. Electronically submitted to her pharmacy ([email or web address]). Follow up at annual to assess efficacy [...] 4 - Moderate documented in this encounter [facility] 05-26-2024 Telephone encounter Note Patient notified of results, verbalized understanding of instructions given. Jovon Grace MA [facility] 05-26-2024 Miscellaneous Notes Patient notified of results, verbalized understanding of instructions given. Jovon Grace MA Urine culture grew significant bacteria indicating a urinary tract infection. I have sent an antibiotic to the pharmacy which she may begin if urinary symptoms are still present. documented in this encounter [facility] 05-26-2024 Telephone encounter Note Urine culture grew significant bacteria indicating a urinary tract infection. I have sent an antibiotic to the pharmacy which she may begin if urinary symptoms are still present. [facility] 05-24-2024 Note HNO ID: [id number] Author: ABDIRAHMAN HO APRN.CREDIT COLLECTIONS REP Service: ? Author Type: Nurse Practitioner Type: [...] - UA DI (more content not included)... [facility] 05-24-2024 History of Present illness Narrative Subjective [...] of care. This note was generated using [employer] software. It may contain errors in wording, punctuation, or spelling. Abdirahman Ho APRN.MONSERRAT documented in this encounter [facility] 05-24-2024 Instructions Abdirahman Ho APRN.CNP - 05/24/2024 [...] concerning to you. documented in this encounter [facility] 04-28-2024 Note HNO ID: [id number] Author: NISHA CORCORAN APRN.CNP Service: ? Author [...] No Screening tools reviewed and discussed with patient/whiujt-HLM-1 and Social Determinants of Health. Please see [...] distress Head: nor (more content not included)... [facility] 04-28-2024 History of Present illness Narrative WELL [...] No Screening tools reviewed and discussed with patient/yvzxew-IRF-5 and Social Determinants of Health. Please see [...] of contraceptives, unspecified contraceptive Z30.019 CONSULT TO BREAST TRIMMER 78 %ile (Z= 0.76) based on CDC [...] Nisha Corcoran APRN.CNP documented in this encounter [facility] 04-28-2024 Instructions Nisha Corcoran APRN.CNP - 04/28/2024 [...] drinks Go! Be healthy, inside and out! [email or web address] Adolescent to Adult Transition [facility] [facility] about helping you and each of our adolescents and young adults make a smooth transition to adult care. If your current doctor is a tankroom worker, we will work with you to decide [...] your current doctor is in family medicine, [facility] will prepare you and your family for [...] details. If joining our practice from outside [facility], we will help you request your medical record from past doctor(s) before your first visit. We will make every effort to work with your past providers to ensure a smooth transition and experience. We are always here for you. If you have any questions or concerns, please contact your primary care team or e-mail [email or web address] Got Transition is the federally funded national resource center on health care transition (HCT). Its aim is to improve transition from pediatric to adult health care through the use of evidence-driven strategies for health personal care worker, youth, young adults, and their families. 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 Be healthy, inside and out! [email or web address]/5toGo documented in this encounter [facility] 09-10-2023 Note HNO ID: [id number] Author: Jewel Morris DC Service: ? Author [...] Palliative factors: rest, stretching Lifestyle Factors: Occupation: [employer] Hydration: Water consumption: One to three 8 [...] which included preparing to see the patient, qzew-ot-opse patient care, completing clinical documentation, obtaining and/or [...] The following exercis (more content not included)... [facility] 07-25-2023 History of Present illness Narrative This note was created using Mobile Tracing [employer]. Larry Dsouza is a 18 year old [...] take some ibuprofen which seemed to help [id number]. No drainage out of the ears. She [...] Lilia Cote PA-C documented in this encounter [facility] 03-03-2023 Instructions Sinan Montero - 03/03/2023 1:42 PM EDT Recommend use of lambs wool between the toes vs gel padding If you are ever interested in surgery, contact the office. Would order xrays first At this time, low suspicion for wart documented in this encounter [facility] 03-03-2023 History of Present illness Narrative Initial [...] Montero DPM Podiatry [address] [facility] [address] Dept: [phone] Dept Patient presents here today for reoccurring plantar wart on her right foot. Patient states she has no pain currently with it. States its been a couple months that she has had the wart. documented in this encounter [facility] 08-24-2022 Miscellaneous Notes Patient identified by name and date of . I advised of negative wrist xray. Continue to wear splint, RICE therapy as directed. - Follow-up with your PCP in 7 days if symptoms have not improved or sooner if symptoms worsen - Discussed supportive care treatment with rest and analgesia. Debbie Carreno APRN.CNP documented in this encounter [facility] 08-23-2022 History of Present illness Narrative Images [...] Discussed expected course of illness Debbie Carreno APRN.CREDIT COLLECTIONS REP documented in this encounter [facility] 08-23-2022 Instructions Debbie Carreno APRN.CNP - 08/23/2022 [...] Discussed expected course of illness Debbie Carreno APRN.CREDIT COLLECTIONS REP documented in this encounter [facility] 05-21-2022 History of Present illness Narrative WELL [...] none Screening tools reviewed and discussed with patient/fondew-LMJ-O and Social Determinants of Health. Please see [...] safety. - Dental care discussed. - [employer] handout given (See Patient Instructions). - No immunization ordered at this visit. - Follow up in one year for routine physical. SIGNATURE: Carly Childers DO PATIENT NAME: Nataly Dsouza DATE: May 21, 2022 TIME: 8:22 AM documented in this encounter [facility] 05-21-2022 Instructions Carly Childers DO - 05/21/2022 [...] drinks Go! Be healthy, inside and out! www.[email or web address]/5toGo Adolescent to Adult Transition Program [facility] cares about helping you and each of our adolescents and young adults make a smooth transition to adult care. If your current doctor is a tankroom worker, we will work with you to decide [...] your current doctor is in family medicine, [facility] will prepare you and your family for [...] details. If joining our practice from outside [facility], we will help you request your medical [...] the use of evidence-driven strategies for health personal care worker, youth, young adults, and their families. www.[employer].org https://[employer].org/resourc e/?xfz-btjnlr-vizrncq Healthy Children Ages & Stages Texting Program HealthyChildren.org is an AAP ([place] [employer]) parenting website. It is a great resource for information. They have a new Ages & Stages texting program available to parents. Fill out the information in the link below to start getting helpful tips and resources from AAP experts right to your phone. Be sure to include your child's age so they can send you age appropriate information. https://www.[employer].org/E neisha/tips-tools/HealthyChildren -Texting-Program/Pages/default.as px documented in this encounter [facility] 12-24-2021 History of Present illness Narrative Radiology [...] IV DATA: Not applicable SIGNED BY: RT Eyla(R) December 24, 2021 4:33 PM documented in this encounter [facility] 12-24-2021 History of Present illness Narrative PEDIATRIC [...] TIME: 2:57 PM documented in this encounter [facility] 12-24-2021 Instructions Nisha Corcoran APRN.CNP - 12/24/2021 [...] drinks Go! Be healthy, inside and out! www.[email or web address].org/5toGo documented in this encounter [facility] Evaluation note Diagnosis Constipation, unspecified constipation type- Primary [facility] Constipation, unspecified constipation type [facility] Diagnosis Encounter for routine child health examination w/o abnormal findings- Primary Routine or child health check [facility] Diagnosis Wrist injury, left, initial encounter- Primary [facility] Diagnosis W[facility], left, initial encounter [facility] Callus of foot- Primary Corns and callosities Hammer toe of right foot Hammertoe of left foot [facility] Diagnosis Acute otitis media, bilateral- Primary Unspecified otitis media [facility] Diagnosis Headache in pediatric patient- Primary [facility] Diagnosis Encounter for initial prescription of contraceptives, unspecified contraceptive Screen for sexually transmitted diseases Screening examination for venereal disease Screening for HIV (human immunodeficiency virus) Special screening examination for other specified viral diseases Special screening examination for viral disease Special screening examination for unspecified viral disease [facility] Diagnosis Urgency of urination- Primary Viral illness Unspecified viral infection, in conditions classified elsewhere and of unspecified site [facility] Diagnosis Dysmenorrhea- Primary Menorrhagia with regular cycle Excessive or frequent menstruation [facility] Diagnosis Family planning education, guidance, and counseling- Primary Other general counseling and advice for contraceptive management [facility] Diagnosis Burning with urination- Primary Dysuria Urethral irritation Unspecified disorder of urethra and urinary tract [facility] Spotting in - Primary Spotting complicating , unspecified as to episode of care or not applicable documented in this encounter [facility] note* Diagnosis Spotting in - Primary Spotting complicating , unspecified as to episode of care or not applicable documented in this encounter [facility] note* Diagnosis Threatened - Primary Threatened , unspecified as to episode of care documented in this encounter [facility] note* Diagnosis Early stage of - Primary state, incidental Subchorionic hemorrhage of placenta in first trimester documented in this encounter [facility] note* Diagnosis Subchorionic hematoma in first trimester, single or unspecified fetus- Primary Threatened Threatened , unspecified as to episode of care documented in this encounter [facility] note* Diagnosis 9 weeks gestation of - Primary state, incidental Encounter for care in first trimester of first Supervision of normal first , antepartum documented in this encounter [facility] note* Diagnosis Encounter for screening for malformation using ultrasound- Primary 13 weeks gestation of state, incidental Encounter for (NT) nuchal translucency scan Other specified screening documented in this encounter [facility] note* Diagnosis Encounter for care in first trimester of first - Primary 13 weeks gestation of state, incidental Supervision of normal first , antepartum Nausea and vomiting during documented in this encounter [facility] note* Diagnosis Encounter for supervision of [...] mouth once daily. documented in this encounter [facility] note* Diagnosis Encounter for supervision of normal first in second trimester ([facility] Primary Supervision of normal first 17 weeks gestation of ([facility]) state, incidental Encounter for care in first trimester of first ([facility]) Encounter for anatomic survey ([facility])- Primary Encounter for anatomic survey 20 weeks gestation of ([facility]) state, incidental Encounter for supervision of normal first in second trimester ([facility])- Primary Supervision of normal first 20 weeks gestation of ([facility]) state, incidental Acute right-sided low back pain without sciatica documented in this encounter [facility] note* Diagnosis Encounter for supervision of normal first in second trimester ([facility])- Primary Supervision of normal first 17 weeks gestation of ([facility]) state, incidental Encounter for care in first trimester of first ([facility]) Encounter for supervision of normal first in second trimester ([facility])- Primary Supervision of normal first 20 weeks gestation of ([facility]) state, incidental Acute right-sided low back pain without sciatica * Assessment & Plan Note - Nelly Gutierrez MD - 01/03/2025 4:20 PM EDT Associated Problem(s): Encounter for supervision of normal first in second trimester ([facility]) Orders: CONSULT TO PHYSICAL THERAPY; Future documented in this encounter [facility] note* Diagnosis Encounter for supervision of normal first in second trimester ([facility])- Primary Supervision of normal first 17 weeks gestation of ([facility]) state, incidental Encounter for care in first trimester of first ([facility]) Encounter for supervision of normal first in second trimester ([facility])- Primary Supervision of normal first 20 weeks gestation of ([facility]) state, incidental Acute right-sided low back pain without sciatica Encounter for supervision of normal first in second trimester ([facility])- Primary Supervision of normal first 24 weeks gestation of ([facility]) state, incidental Screening for diabetes mellitus * Assessment & Plan Note - Nelly Gutierrez MD - 01/31/2025 8:48 AM EDT Associated Problem(s): Encounter for supervision of normal first in second trimester ([facility]) Orders: GESTATIONAL GLUCOSE SCREEN, 1-HOUR, 50 GRAM, NON-FASTING; Future SYPHILIS TREPONEMAL W/REFLEX; Future ANEMIA REFLEX PANEL; Future documented in this encounter [facility] note* Diagnosis Encounter for supervision of normal first in second trimester ([facility])- Primary Supervision of normal first 17 weeks gestation of ([facility]) state, incidental Encounter for care in first trimester of first ([facility]) Encounter for supervision of normal first in second trimester ([facility])- Primary Supervision of normal first 20 weeks gestation of ([facility]) state, incidental Acute right-sided low back pain without sciatica Encounter for supervision of normal first in second trimester ([facility])- Primary Supervision of normal first 24 weeks gestation of ([facility]) state, incidental Screening for diabetes mellitus Encounter for supervision of normal first in third trimester ([facility])- Primary Supervision of normal first 28 weeks gestation of ([facility]) state, incidental documented in this encounter [facility] note* Diagnosis Encounter for supervision of normal first in second trimester ([facility])- Primary Supervision of normal first 17 weeks gestation of ([facility]) state, incidental Encounter for care in first trimester of first ([facility]) Encounter for supervision of normal first in second trimester ([facility])- Primary Supervision of normal first 20 weeks gestation of ([facility]) state, incidental Acute right-sided low back pain without sciatica Encounter for supervision of normal first in second trimester ([facility])- Primary Supervision of normal first 24 weeks gestation of ([facility]) state, incidental Screening for diabetes mellitus Viral URI with cough- Primary Acute upper respiratory infections of unspecified site Fatigue, unspecified type Second trimester ([facility]) state, incidental documented in this encounter [facility] note* Diagnosis Encounter for supervision of normal first in second trimester ([facility])- Primary Supervision of normal first 17 weeks gestation of ([facility]) state, incidental Encounter for care in first trimester of first ([facility]) Encounter for supervision of normal first in second trimester ([facility])- Primary Supervision of normal first 20 weeks gestation of ([facility]) state, incidental Acute right-sided low back pain without sciatica Encounter for supervision of normal first in second trimester ([facility])- Primary Supervision of normal first 24 weeks gestation of ([facility]) state, incidental Screening for diabetes mellitus Encounter for supervision of normal first in third trimester ([facility])- Primary Supervision of normal first 29 weeks gestation of ([facility]) state, incidental Encounter for supervision of normal first in second trimester ([facility]) Supervision of normal first Floaters, bilateral [facility] Diagnosis Encounter for supervision of normal first in second trimester ([facility])- Primary Supervision of normal first 17 weeks gestation of ([facility]) state, incidental Encounter for care in first trimester of first ([facility]) Encounter for supervision of normal first in second trimester ([facility])- Primary Supervision of normal first 20 weeks gestation of ([facility]) state, incidental Acute right-sided low back pain without sciatica Encounter for supervision of normal first in second trimester ([facility])- Primary Supervision of normal first 24 weeks gestation of ([facility]) state, incidental Screening for diabetes mellitus 32 weeks gestation of ([facility])- Primary state, incidental Encounter for supervision of normal first in third trimester ([facility]) Supervision of normal first Floaters, bilateral [facility] Diagnosis Encounter for supervision of normal first in second trimester ([facility])- Primary Supervision of normal first 17 weeks gestation of ([facility]) state, incidental Encounter for care in first trimester of first ([facility]) Encounter for supervision of normal first in second trimester ([facility])- Primary Supervision of normal first 20 weeks gestation of ([facility]) state, incidental Acute right-sided low back pain without sciatica Encounter for supervision of normal first in second trimester ([facility])- Primary Supervision of normal first 24 weeks gestation of ([facility]) state, incidental Screening for diabetes mellitus Encounter for supervision of normal first in third trimester ([facility])- Primary Supervision of normal first 34 weeks gestation of ([facility]) state, incidental Encounter for care in first trimester of first (HCC) [facility] noteNo assessment information availableWElyria [facility] Work Phone: [facility] (narrative)* Diagnostic Procedure Only (Routine) - Closed Specialty Diagnoses / Procedures Referred By Contac t Referred To Contact XR IMAGING Diagnoses Constipation, unspecified constipation type Procedures XR ABDOMEN 2V ROUTINE SUPINE W UPRIGHT/DECUB/CTL RADIOLOGIC EXAM ABDOMEN 2 VIEWS Nisha Corcoran APRN.CREDIT COLLECTIONS REP [address] [facility] [address] [place] [address] Xr Imaging Referral ID Status Reason Start Date Expiration Date V isits Requested Visits Authorized [id number] Closed Auto-Generate d Referral 12/24/2021 01/23/2023 1 1 [facility] for referral (narrative)* Diagnostic Procedure Only (Routine) - Closed Specialty Diagnoses / Procedures Referred By Contac t Referred To Contact XR IMAGING Diagnoses Constipation, unspecified constipation type Procedures XR ABDOMEN 2V ROUTINE SUPINE W UPRIGHT/DECUB/CTL RADIOLOGIC EXAM ABDOMEN 2 VIEWS Nisha Corcoran APRN.CREDIT COLLECTIONS REP [address] [facility] [address] [place] [address] Xr Imaging Referral ID Status Reason Start Date Expiration Date V isits Requested Visits Authorized [id number] Closed Auto-Generate d Referral 12/24/2021 01/23/2023 1 1 [facility] for referral (narrative)* Diagnostic Procedure Only (Routine) - Authorized Specialty Diagnoses / Procedures Referred By Contac t Referred To Contact XR IMAGING Diagnoses Wrist injury, left, initial encounter Procedures XR WRIST GENERAL 3V PA/LAT/OBL LEFT RADEX WRIST COMPLETE MINIMUM 3 VIEWS Debbie Carreno APRN.CREDIT COLLECTIONS REP [id number] [place] [address] Xr Imaging Referral ID Status Reason Start Date Expiration Date Visits Requested Visits Authorized [id number] Authorized Auto-Generat ed Referral 08/23/2022 09/22/2023 1 1 [facility] for referral (narrative)* Diagnostic Procedure Only (Routine) - Closed Specialty Diagnoses / Procedures Referred By Contac t Referred To Contact XR IMAGING Diagnoses Wrist injury, left, initial encounter Procedures XR WRIST GENERAL 3V PA/LAT/OBL LEFT RADEX WRIST COMPLETE MINIMUM 3 VIEWS Debbie Carreno APRN.CREDIT COLLECTIONS REP [address] [place] [address] Xr Imaging Referral ID Status Reason Start Date Expiration Date V isits Requested Visits Authorized [id number] Closed Auto-Generate d Referral 08/23/2022 09/22/2023 1 1 [facility] for referral (narrative)* Diagnostic Procedure Only (Routine) - Authorized Specialty Diagnoses / Procedures Referred By Contac t Referred To Contact [facility] Diagnoses Threatened Procedures OBSTETRIC ULTRASOUND WHI US PREG UTERUS AFTER 1ST TRIMEST GESTATION Nelly Gutierrez MD [address] [place] [address] [facility] [address] [place] [address] Referral ID Status Reason Start Date Expiration Date Visits Requested Visits Authorized [id number] Authorized Auto-Generat ed Referral 10/03/2024 10/03/2025 1 1 [facility] for referral (narrative)* Diagnostic Procedure Only (Routine) - Authorized Specialty Diagnoses / Procedures Referred By Contac t Referred To Contact [facility] Diagnoses 9 weeks gestation of Encounter for care in first trimester of first Procedures OBSTETRIC ULTRASOUND WHI US PREG UTERUS AFTER 1ST TRIMEST GESTATION Bita Degroot APRN.CREDIT COLLECTIONS REP [address] [place] [address] [facility] [place] [address] Referral ID Status Reason Start Date Expiration Date Visits Requested Visits Authorized [id number] Authorized Auto-Generat ed Referral 10/23/2024 10/23/2025 1 1 * Diagnostic Procedure Only (Routine) - Authorized Specialty Diagnoses / Procedures Referred By Contac t Referred To Contact [facility] Diagnoses 9 weeks gestation of Encounter for care in first trimester of first Procedures OBSTETRIC ULTRASOUND WHI US PREG UTERUS AFTER 1ST TRIMEST GESTATION Bita Degroot APRN.CREDIT COLLECTIONS REP [address] [place] [address] [facility] [address] [place] [address] Referral ID Status Reason Start Date Expiration Date Visits Requested Visits Authorized [id number] Authorized Auto-Generat ed Referral 10/23/2024 10/23/2025 1 [facility]No reason for referral information availableWElyria Memorial Hospital Work Phone: Reason for visit Narrative* Diagnostic Procedure Only (Routine) - Closed Specialty Diagnoses / Procedures Referred By Contac t Referred To Contact XR IMAGING Diagnoses Wrist injury, left, initial encounter Procedures XR WRIST GENERAL 3V PA/LAT/OBL LEFT RADEX WRIST COMPLETE MINIMUM 3 VIEWS Debbie Carreno APRN.CREDIT COLLECTIONS REP [address] [place] [address] Xr Imaging Referral ID Status Reason Start Date Expiration Date V isits Requested Visits Authorized [id number] Closed Auto-Generate d Referral 08/23/2022 09/22/2023 1 1 [facility] Diagnostic Procedure Only (Routine) - Closed Specialty Diagnoses / Procedures Referred By Contac t Referred To Contact [facility] Diagnoses Threatened Procedures OBSTETRIC ULTRASOUND WHI US PREG UTERUS AFTER 1ST TRIMEST GESTATION Nelly Gutierrez MD [address] [place] [address] [facility] [place] [address] [place] [address] Referral ID Status Reason Start Date Expiration Date V isits Requested Visits Authorized [id number] Closed Auto-Generate d Referral 10/03/2024 10/03/2025 1 1 [facility] Summary Purpose Family History No Family History [...] patient Procedures CONSULT TO PEDS NEUROLOGY OFFICE/OUTPATIENT [facility] 60 MINUTES Nisha Corcoran APRN.CREDIT COLLECTIONS REP [address] [place] [id number] Referral ID Status Reason Start Date Expiration Date Visits Requested Visits Authorized [id number] Authorized PCP Requested Referral 01/21/2024 01/20/2025 1 1 Specialty Diagnoses / Procedures Referred By Contac t Referred To Contact Diagnoses Encounter for initial prescription of contraceptives, unspecified contraceptive Procedures CONSULT TO BREAST TRIMMER OFFICE/OUTPATIENT [facility] 60 MINUTES Nisha Corcoran APRN.CREDIT COLLECTIONS REP [address] [address] Referral ID Status Reason Start Date Expiration Date Visits Requested Visits Authorized [id number] Authorized PCP Requested Referral Auto-Generate d Referral [...] or prosecute any alcohol or drug abuse patient.[facility] the event this information is protected by the Federal Confidentiality of Alcohol and Drug Abuse Patient Records regulations: The Federal rules restrict any use of the information to criminally investigate or prosecute any alcohol or drug abuse patient.[facility]In the event this information is protected by the Federal Confidentiality of Alcohol and Drug Abuse Patient Records regulations: The Federal rules restrict any use of the information to criminally investigate or prosecute any alcohol or drug abuse patient.[facility] the event this information is protected by the Federal Confidentiality of Alcohol and Drug Abuse Patient Records regulations: The Federal rules restrict any use of the information to criminally investigate or prosecute any alcohol or drug abuse patient.[facility] the event this information is protected by the Federal Confidentiality of Alcohol and Drug Abuse Patient Records regulations: The Federal rules restrict any use of the information to criminally investigate or prosecute any alcohol or drug abuse patient.[facility]In the event this information is protected by the Federal Confidentiality of Alcohol and Drug Abuse Patient Records regulations: The Federal rules restrict any use of the information to criminally investigate or prosecute any alcohol or drug abuse patient.[facility]In the event this information is protected by the Federal Confidentiality of Alcohol and Drug Abuse Patient Records regulations: The Federal rules restrict any use of the information to criminally investigate or prosecute any alcohol or drug abuse patient.[facility]In the event this information is protected by the Federal Confidentiality of Alcohol and Drug Abuse Patient Records regulations: The Federal rules restrict any use of the information to criminally investigate or prosecute any alcohol or drug abuse patient.[facility]In the event this information is protected by the Federal Confidentiality of Alcohol and Drug Abuse Patient Records regulations: The Federal rules restrict any use of the information to criminally investigate or prosecute any alcohol or drug abuse patient.[facility]In the event this information is protected by the Federal Confidentiality of Alcohol and Drug Abuse Patient Records regulations: The Federal rules restrict any use of the information to criminally investigate or prosecute any alcohol or drug abuse patient.[facility] HospitalIn the event this information is protected by the Federal Confidentiality of Alcohol and Drug Abuse Patient Records regulations: The Federal rules restrict any use of the information to criminally investigate or prosecute any alcohol or drug abuse patient.[facility] HospitalIn the event this information is protected by the Federal Confidentiality of Alcohol and Drug Abuse Patient Records regulations: The Federal rules restrict any use of the information to criminally investigate or prosecute any alcohol or drug abuse patient.[facility] HospitalIn the event this information is protected by the Federal Confidentiality of Alcohol and Drug Abuse Patient Records regulations: The Federal rules restrict any use of the information to criminally investigate or prosecute any alcohol or drug abuse patient.[facility] HospitalIn the event this information is protected by the Federal Confidentiality of Alcohol and Drug Abuse Patient Records regulations: The Federal rules restrict any use of the information to criminally investigate or prosecute any alcohol or drug abuse patient.[facility] HospitalIn the event this information is protected by the Federal Confidentiality of Alcohol and Drug Abuse Patient Records regulations: The Federal rules restrict any use of the information to criminally investigate or prosecute any alcohol or drug abuse patient.[facility] HospitalIn the event this information is protected by the Federal Confidentiality of Alcohol and Drug Abuse Patient Records regulations: The Federal rules restrict any use of the information to criminally investigate or prosecute any alcohol or drug abuse patient.[facility] HospitalIn the event this information is protected by the Federal Confidentiality of Alcohol and Drug Abuse Patient Records regulations: The Federal rules restrict any use of the information to criminally investigate or prosecute any alcohol or drug abuse patient.[facility] HospitalIn the event this information is protected by the Federal Confidentiality of Alcohol and Drug Abuse Patient Records regulations: The Federal rules restrict any use of the information to criminally investigate or prosecute any alcohol or drug abuse patient.[facility] HospitalIn the event this information is protected by the Federal Confidentiality of Alcohol and Drug Abuse Patient Records regulations: The Federal rules restrict any use of the information to criminally investigate or prosecute any alcohol or drug abuse patient.[facility] HospitalIn the event this information is protected by the Federal Confidentiality of Alcohol and Drug Abuse Patient Records regulations: The Federal rules restrict any use of the information to criminally investigate or prosecute any alcohol or drug abuse patient.[facility] HospitalIn the event this information is protected by the Federal Confidentiality of Alcohol and Drug Abuse Patient Records regulations: The Federal rules restrict any use of the information to criminally investigate or prosecute any alcohol or drug abuse patient.[facility] HospitalIn the event this information is protected by the Federal Confidentiality of Alcohol and Drug Abuse Patient Records regulations: The Federal rules restrict any use of the information to criminally investigate or prosecute any alcohol or drug abuse patient.[facility] HospitalIn the event this information is protected by the Federal Confidentiality of Alcohol and Drug Abuse Patient Records regulations: The Federal rules restrict any use of the information to criminally investigate or prosecute any alcohol or drug abuse patient.[facility] HospitalIn the event this information is protected by the Federal Confidentiality of Alcohol and Drug Abuse Patient Records regulations: The Federal rules restrict any use of the information to criminally investigate or prosecute any alcohol or drug abuse patient.[facility] HospitalIn the event this information is protected by the Federal Confidentiality of Alcohol and Drug Abuse Patient Records regulations: The Federal rules restrict any use of the information to criminally investigate or prosecute any alcohol or drug abuse patient.[facility] HospitalIn the event this information is protected by the Federal Confidentiality of Alcohol and Drug Abuse Patient Records regulations: The Federal rules restrict any use of the information to criminally investigate or prosecute any alcohol or drug abuse patient.[facility] HospitalIn the event this information is protected by the Federal Confidentiality of Alcohol and Drug Abuse Patient Records regulations: The Federal rules restrict any use of the information to criminally investigate or prosecute any alcohol or drug abuse patient.[facility] HospitalIn the event this information is protected by the Federal Confidentiality of Alcohol and Drug Abuse Patient Records regulations: The Federal rules restrict any use of the information to criminally investigate or prosecute any alcohol or drug abuse patient.[facility] HospitalIn the event this information is protected by the Federal Confidentiality of Alcohol and Drug Abuse Patient Records regulations: The Federal rules restrict any use of the information to criminally investigate or prosecute any alcohol or drug abuse patient.[facility] HospitalIn the event this information is protected by the Federal Confidentiality of Alcohol and Drug Abuse Patient Records regulations: The Federal rules restrict any use of the information to criminally investigate or prosecute any alcohol or drug abuse patient.[facility] HospitalIn the event this information is protected by the Federal Confidentiality of Alcohol and Drug Abuse Patient Records regulations: The Federal rules restrict any use of the information to criminally investigate or prosecute any alcohol or drug abuse patient.[facility] HospitalIn the event this information is protected by the Federal Confidentiality of Alcohol and Drug Abuse Patient Records regulations: The Federal rules restrict any use of the information to criminally investigate or prosecute any alcohol or drug abuse patient.[facility] HospitalIn the event this information is protected by the Federal Confidentiality of Alcohol and Drug Abuse Patient Records regulations: The Federal rules restrict any use of the information to criminally investigate or prosecute any alcohol or drug abuse patient.[facility] HospitalIn the event this information is protected by the Federal Confidentiality of Alcohol and Drug Abuse Patient Records regulations: The Federal rules restrict any use of the information to criminally investigate or prosecute any alcohol or drug abuse patient.[facility] HospitalIn the event this information is protected by the Federal Confidentiality of Alcohol and Drug Abuse Patient Records regulations: The Federal rules restrict any use of the information to criminally investigate or prosecute any alcohol or drug abuse patient.[facility] HospitalIn the event this information is protected by the Federal Confidentiality of Alcohol and Drug Abuse Patient Records regulations: The Federal rules restrict any use of the information to criminally investigate or prosecute any alcohol or drug abuse patient.[facility] Reason for Visit (unrecogniz ed section and content) Reason Comments Constipation Reason Comments Pain, Abdominal Specialty Diagnoses / Procedures Referred By Contac t Referred To Contact XR IMAGING Diagnoses Constipation, unspecified constipation type Procedures XR ABDOMEN 2V ROUTINE SUPINE W UPRIGHT/DECUB/CTL RADIOLOGIC EXAM ABDOMEN 2 VIEWS Nisha Corcoran APRN.CREDIT COLLECTIONS REP [address] [facility] [address] [place] [address] Xr Imaging Referral ID Status Reason Start Date Expiration Date V isits Requested Visits Authorized [id number] Closed Auto-Generate d Referral 12/24/2021 01/23/2023 1 1 Reason Comments Well Child Wart On bottom of foot Reason Comments Wrist/forearm Injury L wrist injury x1 w [facility] Reason Comments Results Reason Comments New Plantar [...] Referred By Contac t Referred To Contact [facility] Diagnoses 9 weeks gestation of Encounter for care in first trimester of first Procedures OBSTETRIC ULTRASOUND WHI US PREG UTERUS AFTER 1ST TRIMEST GESTATION Bita Degroot APRN.CREDIT COLLECTIONS REP [address] [place] [address] Phone: tel: fax: [facility] [address] [place] [address] Referral ID Status Reason Start Date Expiration Date V isits Requested Visits Authorized [id number] Closed Auto-Generate d Referral 10/23/2024 10/23/2025 1 1 Reason Onset Date Comments Care 11/20/2024 Reason Onset Date Comments Care 12/18/2024 Specialty Diagnoses / Procedures Referred By Russell t Referred To Contact [facility] Diagnoses 9 weeks gestation of (HCC) Encounter for care in first trimester of first (HCC) Procedures OBSTETRIC ULTRASOUND WHI US PREG UTERUS AFTER 1ST TRIMEST GESTATION Bita Degroot APRN.CREDIT COLLECTIONS REP [address] [place] [address] Phone: tel: fax: [facility] [address] [place] [address] Referral ID Status Reason Start Date Expiration Date V isits Requested Visits Authorized [id number] Closed Auto-Generate d Referral 10/23/2024 10/23/2025 1 [...] Care Teams (unrecognized sec tion and content) Sludge Control Operator Relationship Specialty Start Date End Date Aura Alas DO [address] [place] [address] PCP - General 01/06/18 Sludge Control Operator Relationship Specialty Start Date End Date Aura Alas DO [address] [address] [place] [address] PCP - General 01/06/18 Sludge Control Operator Relationship Specialty Start Date End Date Aura Alas DO [address] [address] PCP - General 01/06/18 Sludge Control Operator Relationship Specialty Start Date End Date Aura Alas DO [address] [address] [place] [address] PCP - General 01/06/18 Sludge Control Operator Relationship Specialty Start Date End Date Aura Alas DO [address] [address] [place] [facility] [place] [address] PCP - General 01/06/18 Sludge Control Operator Relationship Specialty Start Date End Date Aura Alas DO [address] [address] [place] [address] PCP - General 01/06/18 Sludge Control Operator Relationship Specialty Start Date End Date Aura Alas DO [address] [address] [place] [address] PCP - General 01/06/18 Sludge Control Operator Relationship Specialty Start Date End Date Aura Alas DO [address] [place] [facility] [place] [address] PCP - General 01/06/18 Sludge Control Operator Relationship Specialty Start Date End Date Aura Alas DO [address] [address] [place] [facility] [place] [address] PCP - General 01/06/18 Sludge Control Operator Relationship Specialty Start Date End Date Aura Alas DO [address] [address] [place] [facility] [place] [address] PCP - General 01/06/18 Sludge Control Operator Relationship Specialty Start Date End Date Aura Alas DO [address] [address] [place] [facility] [place] [address] PCP - General 01/06/18 Sludge Control Operator Relationship Specialty Start Date End Date Aura Alas DO [address] [address] [place] [address] PCP - General 01/06/18 Sludge Control Operator Relationship Specialty Start Date End Date Aura Alas DO [address] [address] [place] [address] PCP - General 01/06/18 Sludge Control Operator Relationship Specialty Start Date End Date uAra Alas DO [address] [address] [place] [address] PCP - General 01/06/18 Sludge Control Operator Relationship Specialty Start Date End Date Aura Alas DO [address] [address] [place] [address] PCP - General 01/06/18 Sludge Control Operator Relationship Specialty Start Date End Date Aura Alas DO [address] [address] [place] [address] PCP - General 01/06/18 Sludge Control Operator Relationship Specialty Start Date End Date Aura Alas DO [address] [place] [address] PCP - General 01/06/18 Sludge Control Operator Relationship Specialty Start Date End Date Aura Alas DO [address] [address] [place] [address] PCP - General 01/06/18 Sludge Control Operator Relationship Specialty Start Date End Date Aura Alas DO [address] [address] [place] [address] PCP - General 01/06/18 Sludge Control Operator Relationship Specialty Start Date End Date Aura Alas DO [address] [place] [address] PCP - General 01/06/18 Sludge Control Operator Relationship Specialty Start Date End Date Aura Alas DO [address] [place] [address] PCP - General 01/06/18 Sludge Control Operator Relationship Specialty Start Date End Date Aura Alas DO [address] [place] [address] PCP - General 01/06/18 Sludge Control Operator Relationship Specialty Start Date End Date Aura Alas DO [address] [place] [address] PCP - General 01/06/18 Sludge Control Operator Relationship Specialty Start Date End Date Aura Alas DO [address] [place] [address] PCP - General 01/06/18 Sludge Control Operator Relationship Specialty Start Date End Date Aura Alas DO [address] [place] [address] PCP - General 01/06/18 Sludge Control Operator Relationship Specialty Start Date End Date Aura Alas DO [address] [place] [address] PCP - General 01/06/18 Sludge Control Operator Relationship Specialty Start Date End Date Aura Alas DO [address] [facility] [address] [place] [facility] [place] [address] PCP - General 01/06/18 Sludge Control Operator Relationship Specialty Start Date End Date Aura Alas DO [address] [facility] [address] [place] [facility] [place] [address] PCP - General 01/06/18 Sludge Control Operator Relationship Specialty Start Date End Date Aura Alas DO [address] [facility] [address] [place] [address] PCP - General 01/06/18 Team Status: Active [...] section and content) DATE CREATED AUTHOR 08/24/2022 [facility] DATE CREATED AUTHOR AUTHOR'S ORGANIZ ATION 09/11/2023 [facility] DATE CREATED AUTHOR AUTHOR'S ORGANIZ ATION 12/03/2024 [facility] DATE CREATED AUTHOR AUTHOR'S ORGANIZ ATION 04/13/2025 [facility] Goals (unrecognized section and content) Goals may [...] BE BASED ON THE PRIMARY CLINICAL RECORDS. [facility] provides no warranty or guarantee of the accuracy or completeness of information in this document.
== END 2025-04-24 13:35 | disposition home or self-care (01) ==
LOC: WPOUT 12:07 → WP 12:07
PROVIDERS: Referring Provider Obstetrics & Gynecology; Visit Provider Obstetrics & Gynecology
DX: O99.891 Other specified diseases and conditions complicating pregnancy (principal); N89.8 Other specified noninflammatory disorders of vagina; Z3A.35 35 weeks gestation of pregnancy; Z79.82 Long term (current) use of aspirin
CPT/HCPCS: 59025; 59050; 81002; 84112; 87086; 87088; 99221; G0378